=== PATIENT | female | born 1990 | race African-American/Black ===

== ENCOUNTER → 2018-04-14 09:41 | Outpatient (CLI) | payer MEDICAID, SELFPAY ==
[2018-04-14 12:33] LABS: Absolute Lymphocyte Count 2.14 X10^3/ul (0.83-4.51); Absolute Neutrophil Count 9.5 X10^3/uL (2.0-7.7); Basophil# 0.01 X10^3/uL; Basophil% 0.1 % (0-1); Eosinophil# 0.14 X10^3/uL; Eosinophils% 1.1 % (0-5); Hematocrit 34.6 % (37-47); Hemoglobin 11.4 g/dl (12.0-15.0); Lymphocyte # 2.14 X10^3/ul (4.0); Lymphocyte % 17.1 % (19-41); Mean Corp Hgb Conc 32.9 g/gl (32-36); Mean Corpuscular Hgb 27.7 pg (27.0-32.0); Mean Corpuscular Volume 84.2 fL (81-99); Mean Platelet Vol. 9.4 fl (6.2-12.0); Monocyte# 0.72 X10^3/uL; Monocyte% 5.8 % (0-10); Neutrophil # 9.48 X10^3/uL (2.7-7.7); Neutrophil % 75.7 % (47-70); Platelet Count 316 K/mm3 (150-450); RBC Distribution Width CV 13.6 % (11.6-14.6); RBC Distribution Width SD 41.3 fl (35.1-43.9); Red Blood Count 4.11 M/mm3 (4.2-5.4); White Blood Count 12.5 K/mm3 (4.4-11.0)
[2018-04-14 12:35] LABS: POSITIVE COUNT NO; POSITIVE DIFFERENTIAL NO; POSITIVE MORPHOLOGY NO
[2018-04-14 12:50] LABS: Hemoglobin A1c 8.6 % (4.2-6.3)
[2018-04-14 12:54] LABS: ALB/GLOB Ratio 0.8 RATIO (0.9-2.4); AST(SGOT) 7 U/L (15-37); Alanine Aminotransfer ALT/SGPT 19 U/L (13-56); Albumin, Serum 3.1 g/dL (3.2-5.0); Alkaline Phosphatase 40 U/L (45-117); Anion Gap 8 (5-15); BUN 8 mg/dL (7-18); BUN/Creat Ratio 19.1 RATIO (10-20); Calcium,Total 8.8 mg/dL (8.5-10.1); Chloride 105 mmol/L (98-107); Creatinine, Serum 0.42 mg/dL (0.55-1.02); EST Glomerular Filtration Rate 191 mL/min (>60); Est Glom Filt Rate - Afr Amer 231 mL/min (>60); Globulin 3.8 g/dL (2.2-4.2); Glucose 204 mg/dL (74-106); Potassium 3.4 mmol/L (3.5-5.1); Protein, Total 6.9 g/dL (6.4-8.2); Sodium Level 138 mmol/L (136-145); Thyroid Stim Hormone (TSH) 2.99 uIU/mL (0.358-3.74)
[2018-04-14 13:36] LABS: HIV - WCH Non-Reactive (Nonreactive); Rubella IgG 28.7 IU/mL
[2018-04-15 01:17] LABS: Rapid Plasmin Reagin (RPR) NONREACTIVE (NONREACTIVE)
[2018-04-16 07:51] LABS: HEPATITIS B SURFACE AG Negative (Negative); V-Zoster IgG (Immunity) 394 index (Immune >165)
== END ==
PROVIDERS: Visit Provider Nurse Practitioner Women's Health
DX: Z34.90 Encounter for supervision of normal pregnancy, unspecified, unspecified trimester (principal)
CPT/HCPCS: 36415; 80053; 83036; 84443; 85025; 86592; 86703; 86762; 86787; 86850; 86900; 87086; 87088; 87340; 87491; 87591; 88175; G0145

== ENCOUNTER → 2018-04-14 17:23 | Outpatient (CLI) | payer MEDICAID, SELFPAY ==
[2018-04-14 20:19] LABS: Chlamydia Trachomatis by PCR Negative (Negative); Neisserai gonorrhoeae by PCR Negative (Negative); Probe Check PASS; Sample Adequacy Control PASS; Specimen Processing Control PASS
[2018-04-20 12:02] LABS: HPV Reflexed? NOT INDICATED
== END ==
PROVIDERS: Referring Provider Nurse Practitioner Women's Health; Visit Provider Nurse Practitioner Women's Health
DX: Z34.90 Encounter for supervision of normal pregnancy, unspecified, unspecified trimester (principal)
CPT/HCPCS: 82570; 84156; 87086; 87088; 87491; 87591; 88175; G0145

== ENCOUNTER → 2018-04-25 16:00 | Outpatient (CLI) | payer MEDICAID, SELFPAY ==
--- NOTE | 2018-04-25 16:02 | EKG12_ITS ---
Test Reason : TACHY Blood Pressure : / mmHG Vent. Rate : 094 BPM Atrial Rate : 094 BPM P-R Int : 166 ms QRS Dur : 094 ms QT Int : 366 ms P-R-T Axes : 054 060 030 degrees QTc Int : 457 ms Normal sinus rhythm Normal ECG When compared with ECG of 30-JUN-2008 22:13, Vent. rate has decreased BY 47 BPM Confirmed by JAQUI MARIA, LEBRON ([id number]), film editor YAHAIRA HUGO ([id number]) on 04/27/2018 3:35:24 PM Referred By: Alissa Sommers Confirmed By:LEBRON NAILS MD
== END ==
PROVIDERS: Referring Provider Nurse Practitioner Women's Health; Visit Provider Nurse Practitioner Women's Health
DX: O09.90 Supervision of high risk pregnancy, unspecified, unspecified trimester (principal); O24.119 Pre-existing type 2 diabetes mellitus, in pregnancy, unspecified trimester; E11.65 Type 2 diabetes mellitus with hyperglycemia; Z3A.00 Weeks of gestation of pregnancy not specified
CPT/HCPCS: 93005

== ENCOUNTER 2018-06-27 11:45 | Outpatient (CLI) | payer MEDICAID, SELFPAY ==
[2018-06-15 13:38] VITALS: BMI 40.0
[2018-06-27 12:06] VITALS: BMI 41.5
--- NOTE | 2018-06-28 23:29 | OB.TRI.HP_ITS ---
- Problem List (1) tachycardia Status: Acute History of Present Illness Date of Service: 06/27/18 Was patient seen by the physician?: No Reason For Visit: ELEVATED HEART RATE Final RENATO: 10/11/18 Gestational age: 25 Weeks and 0 Days History of Present Illness: presents after being seen by mfm with tachycardia in the 170-180s but she had just smoked a cigarette and was very anxious about her boyfriend's safety Allergies No Known Allergies Allergy (Verified 06/15/18 13:38) - Pertinent Past Medical History Medical History: Past Medical History (Last Reviewed 06/15/18 @ 13:39 by Shanika Mcconnell) Diabetes type 2, uncontrolled (Chronic) baseline labs. Ref MFM and ophthalmology. EKG/normal. Per MFM: increase insulin to 26 units qHS, 20 units with each meal; echo in the next 3 weeks, serial growth US [id number], twice weekly testing starting at 3 2 weeks, recommend delivery at 37-39 weeks; urine culture and HgbA1C qtrimester. Surgical History: Past Surgical History (Last Reviewed 06/15/18 @ 13:39 by Shanika Mcconnell) History of appendectomy NST - FHR Rate Baby A Baseline: 150 Variability:: Moderate Accelerations:: 10 x 10 Decelerations:: None NST Reactive:: Yes, Appropriate for gestational age FHR Category:: Category I Uterine Activity:: no ctx Impression/Plan tachycardia- improved baseline, patient wanting to leave to check on her boyfriend. reviewed movement precautions dc home fu in office
== END 2018-06-27 12:30 | disposition home or self-care (01) ==
LOC: WPOUT 11:51 → WP 11:51
PROVIDERS: Referring Provider Obstetrics & Gynecology; Visit Provider Obstetrics & Gynecology
DX: O76 Abnormality in fetal heart rate and rhythm complicating labor and delivery (principal); Z3A.25 25 weeks gestation of pregnancy; O99.332 Smoking (tobacco) complicating pregnancy, second trimester; F17.210 Nicotine dependence, cigarettes, uncomplicated
CPT/HCPCS: 59025; 59050; 99218; G0378

== ENCOUNTER 2018-07-15 14:40 | Outpatient (CLI) | payer MEDICAID, SELFPAY ==
[2018-07-15 10:25] VITALS: BMI 41.5
[2018-07-15 11:22] LABS: Protein, Urine (Random) 61.8 mg/dL (<11.9); Protein:Creat Ratio 241 mg/g CRE (0-200)
[2018-07-15 11:50] LABS: Absolute Lymphocyte Count 1.46 X10^3/ul (0.83-4.51); Absolute Neutrophil Count 10.9 X10^3/uL (2.0-7.7); Basophil# 0.01 X10^3/uL; Basophil% 0.1 % (0-1); Eosinophil# 0.05 X10^3/uL; Eosinophils% 0.4 % (0-5); Hematocrit 37.3 % (37-47); Lymphocyte # 1.46 X10^3/ul (4.0); Lymphocyte % 10.8 % (19-41); Mean Corp Hgb Conc 32.2 g/gl (32-36); Mean Corpuscular Hgb 27.3 pg (27.0-32.0); Mean Corpuscular Volume 84.8 fL (81-99); Mean Platelet Vol. 8.6 fl (6.2-12.0); Monocyte# 1.06 X10^3/uL; Monocyte% 7.9 % (0-10); Neutrophil # 10.89 X10^3/uL (2.7-7.7); Neutrophil % 80.7 % (47-70); Platelet Count 349 K/mm3 (150-450); RBC Distribution Width CV 13.5 % (11.6-14.6); RBC Distribution Width SD 41.7 fl (35.1-43.9); White Blood Count 13.5 K/mm3 (4.4-11.0)
[2018-07-15 11:51] LABS: POSITIVE COUNT NO; POSITIVE DIFFERENTIAL NO; POSITIVE MORPHOLOGY NO
[2018-07-15 14:49] VITALS: BMI 41.2
[2018-07-15 15:31] LABS: Bedside Glucose 125 mg/dL (70-110)
[2018-07-15 15:34] LABS: Hematocrit 34.8 % (37-47); Hemoglobin 11.6 g/dl (12.0-15.0); Mean Corp Hgb Conc 33.3 g/gl (32-36); Mean Corpuscular Hgb 28.5 pg (27.0-32.0); Mean Corpuscular Volume 85.5 fL (81-99); Mean Platelet Vol. 9.2 fl (6.2-12.0); Platelet Count 369 K/mm3 (150-450); RBC Distribution Width CV 13.3 % (11.6-14.6); RBC Distribution Width SD 41.2 fl (35.1-43.9); Red Blood Count 4.07 M/mm3 (4.2-5.4); Scan Indicated on CBC? Y/N NO; White Blood Count 12.9 K/mm3 (4.4-11.0)
[2018-07-15 15:55] LABS: AST(SGOT) 16 U/L (15-37); Alanine Aminotransfer ALT/SGPT 26 U/L (13-56); Creatinine, Serum 0.45 mg/dL (0.55-1.02); EST Glomerular Filtration Rate 173 mL/min (>60); Est Glom Filt Rate - Afr Amer 210 mL/min (>60); Estimated Creatinine Clearance 187.76 ml/min; Uric Acid 2.5 mg/dL (2.6-6.0)
[2018-07-15 16:42] LABS: Partial Thromboplast Time 26.9 Seconds (24.1-36.2); Prothrombin Time (Protime)PT. 12.8 SECONDS (11.7-14.9)
--- NOTE | 2018-07-15 17:15 | CASEMGMT ---
Social Work Labor and Delivery Patient status: Clinical Outpatient Referral Source: per nursing staff and also OBGYN staff. Reason for Consult: first time mom, social issues, father of baby (FOB) missing; support and resources Informant: Record and patient/mother of baby (MOB) Summary: IVY is a 27 year old single female at [facility] for evaluation of pre-eclampsia. First time mother. MOB endorses recent social stressors and changes. IVY was living out of town and moved to back to [facility], living with IVY's mother Ev Rodriguez. MOB reports Ev Vaca's home was not equipped with appropriate utilities and thus housing was stressful for several months. MOB reports has purchased a home of IVY's own but could not move for several months as the tenants were not yet moved out of the home. MOB reports just moved into the new home on 06/27/2018 and states the home is now adequate. MOB works at [employer], which is usual type work for MOB, but is a lesser pay than what MOB has been used to. Biggest recent stressor is that reported father of baby has been missing for 2 weeks now. MOB reports the FOB does have a substance use history and though the FOB remains missing, the FOB's phone was found in a house up in the [facility]. MOB reports the FOB had been sober for a year and a half, so this is hard to think that there is possible use going on again. Mental Health: MOB admits to history of depression and about 5 years ago had some suicidal ideation. MOB denies any thoughts since that time. MOB admits to some depression this . Denies any thoughts, plans, intent or attempts of suicide during this . MOB reports that does not really care for medications or counseling, that tries to deal with things on own. Substance Use: No reports of any substance use this . Resources for home going: Reviewed with MOB some resources which are sometimes helpful for mothers. Educated to [facility] [employer], [employer] [facility] and [facility] [employer] [facility]. MOB given list of community resolutes which also includes mental health support and crisis lines. Assessment: MOB pleasant and cooperative with social work visit. Affect constricted, tense, though smiled at times and did cry when talking about missing FOB. MOB receptive as expressed interest in resources offered today. MOB acknowledged that may need support for emotional health and expressed understanding that social media strategist will be following up with MOB at delivery; will be following up on topic of depression and support. MOB does report to feel safe in home situation at this time and reports plan to adhere to doctors recommendations for care during . Plan: Home with resources in place. [facility] referral to be made per MOB's verbal consent. -NICK Cardenas, MAIL DISTRIBUTION CLERK
--- NOTE | 2018-07-16 09:28 | OB.TRI.HP_ITS ---
- Problem List (1) Elevated blood pressure affecting in third trimester, antepartum Status: Acute (2) Status: Acute Qualifiers: Comment: Declines all genetic screening including CF, AFP. Anatomy US- normal. Twice weekly testing @ 30 weeks. BPP with MFM weekly, NSTs weekly with US History of Present Illness Date of Service: 07/15/18 Reason For Visit: R/O PRE E History of Present Illness: presented from office with elevated blood pressures. no PIÑA BV N V vb lof admits good fm no regular ctx. is having social and housing issues- will talk to social work here. Allergies No Known Allergies Allergy (Verified 07/15/18 10:25) - Pertinent Past Medical History Medical History: Past Medical History (Last Reviewed 07/15/18 @ 10:25 by Corina Hankins) Diabetes type 2, uncontrolled (Chronic) baseline labs. Ref MFM and ophthalmology. EKG/normal. Per MFM: increase insulin to 26 units qHS, 20 units with each meal; echo in the next 3 weeks, serial growth US [id number], twice weekly testing starting at 32 weeks, recommend delivery at 37-39 weeks; urine culture and HgbA1C qtrimester. Surgical History: Past Surgical History (Last Reviewed 07/15/18 @ 10:25 by Corina Hankins) History of appendectomy Laboratory Studies: Laboratory Tests 07/15/18 07/15/18 07/15/18 Range/Units 15:23 15:00 15:00 WBC (4.4-11.0) K/mm3 RBC (4.2-5.4) M/mm3 Hgb (12.0-15.0) g/dl Hct (37-47) % MCV (81-99) fL MCH (27.0-32.0) pg MCHC (32-36) g/gl RDW (11.6-14.6) % RDW Differential (35.1-43.9) fl Plt Count (150-450) K/mm3 MPV (6.2-12.0) fl Immature Gran % (Auto) (0.0-0.9) % Neut % (Auto) (47-70) % Lymph % (Auto) (19-41) % [place] % (Auto) (0-10) % Eos % (Auto) (0-5) % Baso % (Auto) (0-1) % Absolute Neuts (auto) (2.0-7.7) X10^3/uL Absolute Lymphs (auto) (0.83-4.51) X10^3/ul Total Counted PT 12.8 (11.7-14.9) SECONDS INR 1.0 APTT 26.9 (24.1-36.2) Seconds Creatinine 0.45 L (0.55-1.02) mg/dL Estim Creat Clear Calc 187.76 ml/min Est GFR (MDRD) Af Amer 210 (>60) mL/min Est GFR (MDRD) Non-Af 173 (>60) mL/min Uric Acid 2.5 L (2.6-6.0) mg/dL AST 16 (15-37) U/L ALT 26 (13-56) U/L U Random Total Protein (<11.9) mg/dL Urine Creatinine (NO RANGE EST.) mg/dL Protein/Creatinin Ratio (0-200) mg/g CRE POC Glucose 125 H (70-110) mg/dL 07/15/18 07/15/18 07/15/18 Range/Units 15:00 11:06 11:00 WBC 12.9 H 13.5 H (4.4-11.0) K/mm3 RBC 4.07 L 4.40 (4.2-5.4) M/mm3 Hgb 11.6 L 12.0 (12.0-15.0) g/dl Hct 34.8 L 37.3 (37-47) % MCV 85.5 84.8 (81-99) fL MCH 28.5 27.3 (27.0-32.0) pg MCHC 33.3 32.2 (32-36) g/gl RDW 13.3 13.5 (11.6-14.6) % RDW Differential 41.2 41.7 (35.1-43.9) fl Plt Count 369 349 (150-450) K/mm3 MPV 9.2 8.6 (6.2-12.0) fl Immature Gran % (Auto) 0.100 (0.0-0.9) % Neut % (Auto) 80.7 H (47-70) % Lymph % (Auto) 10.8 L (19-41) % [place] % (Auto) 7.9 (0-10) % Eos % (Auto) 0.4 (0-5) % Baso % (Auto) 0.1 (0-1) % Absolute Neuts (auto) 10.9 H (2.0-7.7) X10^3/uL Absolute Lymphs (auto) 1.46 (0.83-4.51) X10^3/ul Total Counted Not Reportable PT (11.7-14.9) SECONDS INR APTT (24.1-36.2) Seconds Creatinine (0.55-1.02) mg/dL Estim Creat Clear Calc ml/min Est GFR (MDRD) Af Amer (>60) mL/min Est GFR (MDRD) Non-Af (>60) mL/min Uric Acid (2.6-6.0) mg/dL AST (15-37) U/L ALT (13-56) U/L U Random Total Protein 61.8 H (<11.9) mg/dL Urine Creatinine 256.00 (NO RANGE EST.) mg/dL Protein/Creatinin Ratio 241 H (0-200) mg/g CRE POC Glucose (70-110) mg/dL NST - FHR Rate Baby A Baseline: 150 Variability:: Moderate Accelerations:: 10 x 10 Decelerations:: None NST Reactive:: Yes, Appropriate for gestational age FHR Category:: Category I Uterine Activity:: no regular Impression/Plan 27 yo presents with elevated bps in office- repeats are within normal range, patient asymptomatic. BS 126. normal urine protein. recommend close follow up and sees mfm next week. normal labs. reviewed pree precautions dc home
--- NOTE | 2018-07-21 16:30 | CASEMGMT ---
Social Work Labor and Delivery Referral to [facility] via the [facility]'s secure web based referral form. -NICK Cardenas, DIABETES PHYSICIAN
== END 2018-07-15 17:15 | disposition home or self-care (01) ==
LOC: PAVLAB 14:47 → WPOUT 14:48 → WP 14:49
PROVIDERS: Nurse Practitioner Women's Health; Referring Provider Obstetrics & Gynecology; Visit Provider Obstetrics & Gynecology
DX: O26.893 Other specified pregnancy related conditions, third trimester (principal); R03.0 Elevated blood-pressure reading, without diagnosis of hypertension; Z3A.00 Weeks of gestation of pregnancy not specified
CPT/HCPCS: 36415; 59025; 59050; 82565; 82570; 82962; 84156; 84450; 84460; 84550; 85025; 85027; 85610; 85730; 87086; 87088; 99218; G0378

== ENCOUNTER → 2018-07-18 12:58 | Outpatient (CLI) | payer MEDICAID, SELFPAY ==
[2018-07-15 14:49] VITALS: BMI 41.2
[2018-07-18 15:46] LABS: Hematocrit 35.1 % (37-47); Hemoglobin 11.6 g/dl (12.0-15.0); Mean Corpuscular Hgb 28.3 pg (27.0-32.0); Mean Corpuscular Volume 85.6 fL (81-99); Mean Platelet Vol. 9.2 fl (6.2-12.0); Platelet Count 360 K/mm3 (150-450); RBC Distribution Width CV 13.5 % (11.6-14.6); RBC Distribution Width SD 41.8 fl (35.1-43.9); White Blood Count 11.5 K/mm3 (4.4-11.0)
[2018-07-18 16:09] LABS: Scan Indicated on CBC? Y/N NO
[2018-07-18 16:28] LABS: Hemoglobin A1c 7.6 % (4.2-6.3)
== END ==
PROVIDERS: Referring Provider Obstetrics & Gynecology Maternal & Fetal Medicine; Visit Provider Obstetrics & Gynecology Maternal & Fetal Medicine
DX: O24.112 Pre-existing type 2 diabetes mellitus, in pregnancy, second trimester (principal); Z3A.27 27 weeks gestation of pregnancy
CPT/HCPCS: 36415; 83036; 85027; 87086; 87088

== ENCOUNTER → 2018-07-28 09:03 | Outpatient (CLI) | payer MEDICAID, SELFPAY ==
[2018-07-28 08:29] VITALS: BMI 41.2
[2018-07-28 09:25] LABS: Absolute Lymphocyte Count 1.25 X10^3/ul (0.83-4.51); Basophil# 0.01 X10^3/uL; Basophil% 0.1 % (0-1); Eosinophil# 0.06 X10^3/uL; Eosinophils% 0.4 % (0-5); Hemoglobin 11.5 g/dl (12.0-15.0); Lymphocyte # 1.25 X10^3/ul (4.0); Lymphocyte % 8.8 % (19-41); Mean Corp Hgb Conc 31.9 g/gl (32-36); Mean Corpuscular Hgb 27.6 pg (27.0-32.0); Mean Corpuscular Volume 86.3 fL (81-99); Mean Platelet Vol. 8.8 fl (6.2-12.0); Monocyte# 0.88 X10^3/uL; Monocyte% 6.2 % (0-10); Neutrophil # 11.98 X10^3/uL (2.7-7.7); Neutrophil % 84.3 % (47-70); Platelet Count 356 K/mm3 (150-450); Red Blood Count 4.17 M/mm3 (4.2-5.4); White Blood Count 14.2 K/mm3 (4.4-11.0)
[2018-07-28 09:31] LABS: POSITIVE COUNT NO; POSITIVE DIFFERENTIAL NO; POSITIVE MORPHOLOGY NO; Protein, Urine (Random) 20.8 mg/dL (<11.9); Protein:Creat Ratio 317 mg/g CRE (0-200)
[2018-07-28 09:57] LABS: Albumin, Serum 2.5 g/dL (3.2-5.0); BUN 7 mg/dL (7-18); BUN/Creat Ratio 17.8 RATIO (10-20); Creatinine, Serum 0.39 mg/dL (0.55-1.02); EST Glomerular Filtration Rate 204 mL/min (>60); Est Glom Filt Rate - Afr Amer 247 mL/min (>60); Glucose 74 mg/dL (74-106); Protein, Total 6.6 g/dL (6.4-8.2)
[2018-07-28 09:58] LABS: ALB/GLOB Ratio 0.6 RATIO (0.9-2.4); AST(SGOT) 19 U/L (15-37); Alanine Aminotransfer ALT/SGPT 43 U/L (13-56); Alkaline Phosphatase 78 U/L (45-117); Anion Gap 8 (5-15); Calcium,Total 8.6 mg/dL (8.5-10.1); Chloride 109 mmol/L (98-107); Globulin 4.1 g/dL (2.2-4.2); Potassium 3.7 mmol/L (3.5-5.1); Sodium Level 140 mmol/L (136-145)
== END ==
PROVIDERS: Referring Provider Nurse Practitioner Women's Health; Visit Provider Nurse Practitioner Women's Health
DX: O16.3 Unspecified maternal hypertension, third trimester (principal); O24.113 Pre-existing type 2 diabetes mellitus, in pregnancy, third trimester; E11.65 Type 2 diabetes mellitus with hyperglycemia; Z3A.00 Weeks of gestation of pregnancy not specified
CPT/HCPCS: 36415; 80053; 82570; 84156; 85025

== ENCOUNTER → 2018-07-29 14:31 | Outpatient (CLI) | payer MEDICAID, SELFPAY ==
[2018-07-28 08:29] VITALS: BMI 41.2
[2018-07-29 15:22] LABS: 24 Hour Urine Protein 225.2 mg/24HR (<150 MG/24HR); 24HR. UA Prot. Total Volume 1425 mL; Urine Protein (24 Hour) 15.8 mg/dL (<11.9)
== END ==
DX: O10.019 Pre-existing essential hypertension complicating pregnancy, unspecified trimester (principal); Z3A.00 Weeks of gestation of pregnancy not specified
CPT/HCPCS: 81050; 84156

== ENCOUNTER → 2018-08-01 13:58 | Outpatient (CLI) | payer MEDICAID, SELFPAY ==
[2018-07-28 08:29] VITALS: BMI 41.2
== END ==
LOC: LAB 14:01 → LAB.FUTURE 08-02 06:05
PROVIDERS: Referring Provider Obstetrics & Gynecology Maternal & Fetal Medicine; Visit Provider Obstetrics & Gynecology Maternal & Fetal Medicine
DX: O16.3 Unspecified maternal hypertension, third trimester (principal)

== ENCOUNTER → 2018-08-08 10:34 | Outpatient (CLI) | payer MEDICAID, SELFPAY ==
[2018-08-02 10:46] VITALS: BMI 41.2
[2018-08-08 11:36] LABS: Hematocrit 37.4 % (37-47); Hemoglobin 12.1 g/dl (12.0-15.0); Mean Corp Hgb Conc 32.4 g/gl (32-36); Mean Corpuscular Hgb 28.1 pg (27.0-32.0); Mean Corpuscular Volume 86.8 fL (81-99); Mean Platelet Vol. 8.9 fl (6.2-12.0); Platelet Count 357 K/mm3 (150-450); RBC Distribution Width SD 44.3 fl (35.1-43.9); Red Blood Count 4.31 M/mm3 (4.2-5.4); White Blood Count 15.8 K/mm3 (4.4-11.0)
[2018-08-08 11:37] LABS: Scan Indicated on CBC? Y/N NO
[2018-08-08 11:40] LABS: Protein, Urine (Random) 28.8 mg/dL (<11.9)
[2018-08-08 12:10] LABS: ALB/GLOB Ratio 0.6 RATIO (0.9-2.4); AST(SGOT) 19 U/L (15-37); Alanine Aminotransfer ALT/SGPT 43 U/L (13-56); Albumin, Serum 2.5 g/dL (3.2-5.0); Alkaline Phosphatase 81 U/L (45-117); Anion Gap 8 (5-15); BUN 9 mg/dL (7-18); BUN/Creat Ratio 22.7 RATIO (10-20); Calcium,Total 8.9 mg/dL (8.5-10.1); Chloride 106 mmol/L (98-107); EST Glomerular Filtration Rate 202 mL/min (>60); Est Glom Filt Rate - Afr Amer 245 mL/min (>60); Glucose 107 mg/dL (74-106); LDH 159 U/L (84-246); Protein, Total 6.5 g/dL (6.4-8.2); Sodium Level 138 mmol/L (136-145); Uric Acid 2.5 mg/dL (2.6-6.0)
--- OUTSIDE RECORDS SUMMARY | 2018-10-10 20:55 | XMS RPT_ITS ---
:1990 Author Organization OHIP Support Name Relationship Address Phone EV MA Unavailable [address] + [place] [address] [place] Unavailable [address] + [place] [address] EV MAU Unavailable [address] + [place] [address] [place] Unavailable [address] + [place] [address] FRANCESCAMARIZOL SORIANOELY Unavailable [address] + [address] [place] [address] FRANCESCAMARIZOLABRAM Unavailable [address] + [address] [place] [address] FRANCESCA, MARIE Unavailable [address] + [place] [address] [place] Unavailable [address] + [place] [address] FRANCESCAEV SORIANO LOU Unavailable [address] + [place] [address] [place] Unavailable [address] + [place] [address] MARIZOL MAELY Unavailable [address] + [address] [place] [address] FRANCESCA ABRAM Unavailable [address] + [address] [place] [address] FRANCESCA, MARIE Unavailable [address] + [place] [address] [place] Unavailable [address] + [place] [address] FRANCESCA, ABRAM Unavailable [address] + [address] [place] [address] FRANCESCA, ABRAM Unavailable [address] + [address] [place] [address] FRANCESCA, MARIE Unavailable [address] + [place] [address] [place] Unavailable [address] + [place] [address] FRANCESCA, MARIE Unavailable [address] + [place] [address] [place] Unavailable [address] + [place] [address] FRANCESCA, MARIE Unavailable [address] + [place] [address] [place] Unavailable [address] + [place] [address] FRANCESCA, ABRAM Unavailable [address] + [address] [place] [address] FRANCESCA, ABRAM Unavailable [address] + [address] [place] [address] FRANCESCA, MARIE Unavailable [address] + [place] [address] [place] Unavailable [address] + [place] [address] FRANCESCA, MARIE Unavailable [address] + [place] [address] [place] Unavailable [address] + [place] [address] FRANCESCA, MARIE Unavailable [address] + [place] [address] [place] Unavailable [address] + [place] [address] FRANCESCA, MARIE Unavailable [address] + [place] [address] [place] Unavailable [address] + [place] [address] FRANCESCA, MARIE Unavailable [address] + [place] [address] [place] Unavailable [address] + [place] [address] FRANCESCAMARIZOL SORIANOELY Unavailable [address] + [address] [place] [address] FRANCESCA, ABRAM Unavailable [address] + [address] [place] [address] FRANCESCA ABRAM Unavailable [address] + [address] [place] [address] FRANCESCA, MARIE Unavailable [address] + [place] [address] [place] Unavailable [address] + [place] [address] FRANCESCA, MARIE Unavailable [address] + [place] [address] [place] Unavailable [address] + [place] [address] FRANCESCA, ABRAM Unavailable [address] + [address] [place] [address] FRANCESCA, ABRAM Unavailable [address] + [address] [place] [address] FRANCESCAMARIZOL SORIANOELY Unavailable [address] + [address] [place] [address] FRANCESCA ABRAM Unavailable [address] + [address] [place] [address] FRANCESCA, MARIE Unavailable [address] + [place] [address] [place] Unavailable [address] + [place] [address] FRANCESCA, MARIE Unavailable [address] + [place] [address] [place] Unavailable [address] + [place] [address] FRANCESCA, MARIE Unavailable [address] + [place] [address] [place] Unavailable [address] + [place] [address] FRANCESCA, MARIE Unavailable [address] + [place] [address] [place] Unavailable [address] + [place] [address] FRANCESCA, MARIE Unavailable [address] + [place] [address] [place] Unavailable [address] + [place] [address] FRANCESCA, MARIE Unavailable [address] + [place] [address] [place] Unavailable [address] + [place] [address] FRANCESCA, MARIE Unavailable [address] + [place] [address] [place] Unavailable [address] + [place] [address] FRANCESCA, LINCOLN Unavailable Unavailable + FRANCESCA, LINCOLN Unavailable Unavailable + FRANCESCA, LINCOLN Unavailable Unavailable + FRANCESCA, LINCOLN Unavailable Unavailable + Care Team Providers Name Role Phone MELVINRENATANATHAN Attending Unavailable KENDAL BALDERAS Referring Unavailable NO PRIMARY CARE, Primary Care Unavailable MELE HAMMOND Attending Unavailable KENDAL BALDERAS Referring Unavailable NO PRIMARY CARE, Primary Care Unavailable MELE HAMMOND Attending Unavailable KENDAL BALDERAS Referring Unavailable NO PRIMARY CARE, Primary Care Unavailable MELE HAMMOND Attending Unavailable MELE HAMMOND Referring Unavailable NO PRIMARY CARE, Primary Care Unavailable TAMARA KINCAID Attending Unavailable KENDAL BALDERAS Referring Unavailable NO PRIMARY CARE, Primary Care Unavailable TAMARA KINCAID Attending Unavailable KENDAL BALDERAS Referring Unavailable NO PRIMARY CARE, Primary Care Unavailable LINK MASON Attending Unavailable JOHNONY, KENDAL E Referring Unavailable NO PRIMARY CARE, Primary Care Unavailable TAMARA KINCAID Attending Unavailable MARCANTHONY, KENDAL E Referring Unavailable NO PRIMARY CARE, Primary Care Unavailable TAMARA KINCAID Attending Unavailable MARCANTHONY, KENDAL E Referring Unavailable NO PRIMARY CARE, Primary Care Unavailable NATHAN CAMERON Attending Unavailable KASIANTHONY, KENDAL E Referring Unavailable NO PRIMARY CARE, Primary Care Unavailable NATHAN CAMERON Attending Unavailable KASIANTHONY, KENDAL E Referring Unavailable NO PRIMARY CARE, Primary Care Unavailable TAMARA KINCAID Attending Unavailable KASIANTHONY, KENDAL E Referring Unavailable NO PRIMARY CARE, Primary Care Unavailable TAMARA KINCAID Attending Unavailable MARCANTHONY, KENDAL E Referring Unavailable NO PRIMARY CARE, Primary Care Unavailable LINK MASON Attending Unavailable MARCANTHONY, KENDAL E Referring Unavailable NO PRIMARY CARE, Primary Care Unavailable LINK MASON Attending Unavailable KASIANTHONY, KENDAL E Referring Unavailable NO PRIMARY CARE, Primary Care Unavailable PROVIDER, UNKNOWN Admitting Unavailable PROVIDER, UNKNOWN Attending Unavailable ISABEL COSTELLO Referring Unavailable PROVIDER, UNKNOWN Admitting Unavailable PROVIDER, UNKNOWN Attending Unavailable JESSIKA OLMOS Referring Unavailable MARGO BURCHESH G Attending Unavailable KELY ROSALES (MISDRAW HAND) Referring Unavailable OCTAVIANO SANTIAGO Attending Unavailable OCTAVIANO SANTIAGO Referring Unavailable BURCH, JOSH G Attending Unavailable MARCIN JOSH G Referring Unavailable Marcanthony, Kendal Attending Unavailable Marcanthony, Kendal Referring Unavailable Primay Care Physicia, No Primary Care Unavailable Marcanthony, Kendal Consulting Unavailable ArdmoreDarriany Attending Unavailable Primay Care Physicia, No Referring Unavailable Primay Care Physicia, No Primary Care Unavailable Marcanthony, Kendal Attending Unavailable Marcanthony, Kendal Referring Unavailable Matthieu, Alissa Consulting Unavailable Marcanthony, Kendal Attending Unavailable Marcanthony, Kendal Referring Unavailable Primay Care Physicia, No Primary Care Unavailable Matthieu, Alissa Consulting Unavailable Marcanthony, Kendal Consulting Unavailable Beto, Tamara Attending Unavailable Ebto, Tamara Referring Unavailable Primay Care Physicia, No Primary Care Unavailable Ardmore, Alissa Attending Unavailable Primay Care Physicia, No Referring Unavailable Matthieu, Alissa Attending Unavailable Primay Care Physicia, No Referring Unavailable Matthieu, Alissa Attending Unavailable Matthieu, Alissa Attending Unavailable Ardmore, Alissa Referring Unavailable Primay Care Physicia, No Primary Care Unavailable Bacak, Nathan Attending Unavailable Bacak, Nathan Referring Unavailable Primay Care Physicia, No Primary Care Unavailable Beto, Tamara Attending Unavailable Beto, Tamara Referring Unavailable Primay Care Physicia, No Primary Care Unavailable Marcanthony, Kendal Attending Unavailable Primay Care Physicia, No Referring Unavailable Beto, Tamara Attending Unavailable Beto, Tamara Referring Unavailable Primay Care Physicia, No Primary Care Unavailable Marcanthony, Kendal Attending Unavailable Primay Care Physicia, No Referring Unavailable Ardmore, Alissa Attending Unavailable Matthieu, Alissa Referring Unavailable Ardmore, Alissa Attending Unavailable Matthieu, Alissa Referring Unavailable Primay Care Physicia, No Primary Care Unavailable Jiagr, Isac Attending Unavailable Ardmore, Alissa Referring Unavailable Primay Care Physicia, No Primary Care Unavailable Ardmore, Alissa Consulting Unavailable Marcanthony, Kendal Attending Unavailable Primay Care Physicia, No Referring Unavailable Jigar, Poston Attending Unavailable Ardmore, Alissa Referring Unavailable Ardmore, Alissa Attending Unavailable Primay Care Physicia, No Referring Unavailable Ardmore, Alissa Attending Unavailable Primay Care Physicia, No Referring Unavailable Marcanthony, Kendal Attending Unavailable Marcanthony, Kendal Referring Unavailable Primay Care Physicia, No Primary Care Unavailable PROBLEMS PROBLEMS DATE TYPE CONDITION / CODE ATTENDING STATUS SOURCE 08/08/2018 Unknown E11.65 - Type 2 Zi, Active [place] diabetes mellitus [facility] with hyperglycemia Hospital / E11.65(ICD-10) Repository 08/08/2018 Unknown O10.919 - Zi, Active [place] Unspecified [facility] pre-existing Hospital hypertension Repository complicating , unspecified trimester / O10.919(ICD-10) 08/08/2018 Unknown Z3A.30 - 30 weeks Zi, Active [place] gestation of [facility] / Hospital Z3A.30(ICD-10) Repository 08/08/2018 Unknown O09.93 - Zi, Active [place] Supervision of high [facility] risk , Hospital unspecified, third Repository trimester / O09.93(ICD-10) 08/08/2018 Unknown O16.3 - Unspecified Tamara Kincaid Active [place] maternal [facility] hypertension, third Hospital trimester / Repository O16.3(ICD-10) 07/29/2018 Unknown O10.019 - Nathan Cameron Active [place] Pre-existing [facility] essential Hospital hypertension Repository complicating , unspecified trimester / O10.019(ICD-10) 07/28/2018 Unknown O09.92 - MatthieuAlissa aawd Active [place] Supervision of high Community risk , Hospital unspecified, second Repository trimester / O09.92(ICD-10) 07/28/2018 Unknown Z20.821 - Contact ArdmoreAlissa awad Active [place] with and Community (suspected) Hospital exposure to Zika Repository virus / Z20.821(ICD-10) 07/28/2018 Unknown Z3A.29 - 29 weeks Matthieu, Alissa Active [place] gestation of [facility] / Hospital Z3A.29(ICD-10) Repository 07/18/2018 Unknown O24.112 - Tamara Kincaid Active [place] Pre-existing type 2 [facility] diabetes mellitus, Hospital in , Repository second trimester / O24.112(ICD-10) 07/18/2018 Unknown Z3A.27 - 27 weeks Tamara Kincaid Active [place] gestation of [facility] / Hospital Z3A.27(ICD-10) Repository 07/27/2018 Unknown O16.2 - Unspecified Marcanthony, Active [place] maternal [facility] second trimester / Repository O16.2(ICD-10) 07/27/2018 Unknown R30.0 - Dysuria / Marcanthony, Active [place] R30.0(ICD-10) [facility] Repository 07/15/2018 Unknown N39.0 - Urinary Ardmore, Alissa Active [place] tract infection, Community site not specified Hospital / N39.0(ICD-10) Repository 06/27/2018 Unknown Z3A.23 - 23 weeks Ardmore, Alissa Active [place] gestation of [facility] / Hospital Z3A.23(ICD-10) Repository 05/26/2018 Unknown Z3A.14 - 14 weeks Marcanthony, Active [place] gestation of [facility] / Hospital Z3A.14(ICD-10) Repository 05/26/2018 Unknown Z23 - Encounter for Marcanthony, Active [place] immunization / Kendal [facility] Z23(ICD-10) Hospital Repository 08/09/2018 Unknown O09.90 - Alissa Sommers Active [place] Supervision of high Community risk , Hospital unspecified, Repository unspecified trimester / O09.90(ICD-10) 06/01/2018 Unknown O09.91 - JigarRay jainril Active [place] Supervision of high Community risk , Hospital unspecified, first Repository trimester / O09.91(ICD-10) 08/09/2018 Unknown Z34.90 - Encounter Alissa Sommers Active [place] for supervision of Community normal , Hospital unspecified, Repository unspecified trimester / Z34.90(ICD-10) 04/29/2018 Unknown Z12.4 - Encounter Alissa Sommers Active [place] for screening for Community malignant neoplasm [facility] / Repository Z12.4(ICD-10) PROCEDURES PROCEDURES DATE CODE DESCRIPTION STATUS SOURCE 09/24/2017 50168(C4) BIOPSY, SKIN, Completed [facility] [employer] SUBQ/MUCOUS MEMBRANE; System Repository SINGLE LESION 09/24/2017 AP111(C4) SPECIMEN FOR DERM Completed [facility] Repository 09/15/2017 41818(C4) ERYTHROCYTE Completed [facility] [employer] SEDIMENTATION RATE System Repository 09/15/2017 75299(C4) C-REACTIVE PROTEIN Completed [facility] Repository 09/15/2017 32313(C4) STEPHANIE PANEL Completed [facility] Repository 09/15/2017 78909(C4) C3 COMPLEMENT Completed [facility] Repository 09/15/2017 29401(C4) C4 COMPLEMENT Completed [facility] Repository 09/15/2017 MHR580(C4) DERMATOLOGY SERVICE Completed The [employer] REQUEST System Repository 09/15/2017 74685(C4) EXTRA TUBE Completed The [employer] System Repository RESULTS RESULTS REAL ESTATE JOB TITLES OFFICE VISIT Observed: 08/08/2018 Status: F Source: [place] REPORT 4:02 PM [facility] [address] [place] [address] OFFICE VISIT Date of Service: 08/08/18 MR#: [id number] Acct: [id number] Name: ABRAM MA Rep #: [id number] : 1990 Provider: Kendal Balderas MD Age/Sex: 27/F Location: [facility] Status: Signed Intake Vital Signs08/08/18 Height 5 ft 8 in 08/08/18 Weight: 285 lb 08/08/18 Body Mass Index (BMI) 43.3 08/08/18 Blood Pressure 150/90 H Intake Visit Reasons: 31 weeks/NST Chief Complaint: est ob, NST Account Classification Clerk Required: No Is patient in pain?: No Allergies No Known Allergies Allergy (Verified 08/08/18 15:12) Medications docosahexanoic acid 200 mg capsule 1 mg PO DAILY cap 04/14/18 [History Confirmed 08/08/18] metformin 1,000 mg tablet 1 mg PO BID tab 04/14/18 [History Confirmed 08/08/18] blood sugar diagnostic strips See Dose Instructions .ROUTE .MEDSUPPLY #100 ea 07/15/18 [Rx Confirmed 08/08/18] insulin NPH isophane U- 100 human 100 unit/mL subcutaneous suspension 26 unit SC QPM #10 ml 07/15/18 [Rx Confirmed 08/08/18] insulin lispro (U- 100) 100 unit/mL subcutaneous solution 26 unit SC .COMPLEX #0 ml 07/15/18 [Rx Confirmed 08/08/18] blood pressure monitor kit See Dose Instructions .ROUTE .MEDSUPPLY #1 ea 08/08/18 [Rx Confirmed 08/08/18] Last Menstral Period: 01/04/18 Zika: Zika virus screening: Negative : No PFSH PFSH Medical History Diabetes type 2, uncontrolled (Chronic) Surgical History History of appendectomy (Acute) Family History Mother Diabetes Grandmother CVA (cerebral vascular accident) Social History Smoking Status: Current every day smoker alcohol intake: never substance use type: does not use caffeine: Yes what type of physical activity do you participate in: none seatbelt use: always do you feel safe at home: Yes additional social history: [employer]mratxxu-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 unable to give urine specimen for 2 dip OB Visit RENATO Calculator Estimated Delivery Date 10/11/18 Based on LMP (uncertain) 01/04/18 Current WG 30w 6d Number 1 Expected Delivery Route/Plan Specific Issue/Plans flu vaccine: given tdap vaccine: decline rhogam: na LARC form signed: declines labor support person: Mother Ev Vaca pain management: epidural cut cord/dad catch: [] : yes PP control planned: IUD special requests: [] Initial Weight: Not Recorded Date Weight BP Urine PrFHR FuHt Pres MoCTX DilationFetal StVisit NoProviderComments E ot v te GA G Effac lucose ed Visit Notes Visit Date: 08/08/18 no vb lof good fm no regular ctx saw MFM today and had insulin adjusted, bp was 132/80 there. no PIÑA BV. Kendal Balderas MD on 08/08/18 Visit Date: 08/02/18 elevated bp at home yesterday but normal today, asymptomatic. better glucose control after MFM adjustment. no vb lof good fm no regular ct Kendal Balderas MD on 08/02/18 Visit Date: 07/28/18 Note elevated BP. Glucose reading also high. Consult HUMBERTO: has MFM appt today. NO VB, LOF, CTX Alissa Sommers NP-C on 07/28/18 Visit Date: 07/15/18 Note elevated BP today. States glucose normal but did not bring reading. No VB, LOF, CTX Alissa Sommers NP-C on 07/15/18 Visit Date: 06/15/18 No VB, LOF. MFM increase amdelog and needs refill. Alissa Sommers NP-C on 06/15/18 Visit Date: 06/08/18 Walked in with no FM today. Easily access FHT with doppler and FM audible. No Vb, LOF Alissa Sommers NP-C on 06/08/18 Visit Date: 05/12/18 no vb cramping reveiwed BS- pateitn started NPH and novolog, increased to 22 u at night and 17 with breakfast, keep novolog with other meals Kendal Balderas MD on 05/12/18 Visit Date: 04/14/18 No visit notes to display Diagnostics Diagnostics Labs Hct 37.4 % (37-47) 08/08/18 Hgb 12.1 g/dl (12.0-15.0) 08/08/18 Details: HIV: Urine Culture: Sequential Screen: NIPT Screen: Office Procedures OB NST Non-Stress Test Indications for Monitoring: Yes diabetes, Yes hypertension Heart Rate Baseline: 140 Heart Rate Variability: moderate Movement: Present Heart Rate Accelerations: Present Decelerations: Absent Contractions: Absent Impression: Yes Reactive Non-Stress Test Category 1 Assessment AND Plan Problems 1. Chronic hypertension affecting O10.919 no meds 2. 30 weeks gestation of Z3A.30 Declines all genetic screening including CF, AFP. Anatomy US- normal. Twice weekly testing @ 30 weeks. BPP with MFM weekly, NSTs weekly with US at 30 weeks serial growth US [id number]; feta testing 2x per week with daily kick counts 3. Supervision of high risk in third trimester O PRR Grav 2/ RENATO 10/11/18 boy BF Deny. 4. Uncontrolled type 2 diabetes mellitus with hyperglycemia E11.65 baseline labs. Ref MFM and ophthalmology. EKG/normal. Per MFM: increase insulin to 26 units qHS, 20 units with each meal; echo in the next 3 weeks, serial growth US q5lpqxg, twice weekly testing starting at 32 weeks, recommend delivery at 37-39 weeks; urine culture and HgbA1C qtrimester. Plan movement and labor precautions reviewed. ACOG trimester education reviewed and updated. see problem list details for updated plan management information and see below for orders placed at this visit. [place] appropriate handout given. Orders Orders: Medications New: blood pressure monitor kit (Blood Pressure Kitake twice daily and call if SBP>160 or DBP>1 t) 10 1 ea 0RF Coding Level of Care Code OB Routine Diagnoses Chronic hypertension affecting O10.919 30 weeks gestation of Z3A.30 Weeks of gestation: 30 weeks Supervision of high risk in third trimester O Trimester: third trimester Uncontrolled type 2 diabetes mellitus with hyperglycemia E11.65 Glycemic state: with hyperglycemia Additional Codes Non-Stress Test (29676) 08/08/18 1602 <Electronically signed by Kendal Balderas MD> Date Kendal Solizign Signature: Date (if applicable) CC: CBC-COMPLETE BLOOD CNT Collected: 08/08/2018 Status: F Source: [place] NO DIFF 10:42 AM [facility] TYPE CODE TESTS RESULT OUT OF RANGE REFERENCE UNITS LAB L100.1000 4.4-11.0 K/mm3 High WBC 15.8 LAB L100.1200 4.2-5.4 M/mm3 Normal RBC 4.31 LAB L100.1300 12.0-15.0 g/dl Normal HGB 12.1 LAB L100.1400 37-47 % Normal HCT 37.4 LAB L100.1500 81-99 fL Normal MCV 86.8 LAB L100.1600 27.0-32.0 pg Normal MCH 28.1 LAB L100.1700 32-36 g/gl Normal MCHC 32.4 LAB L100.1810 11.6-14.6 % Normal RDW CV 14.0 LAB L100.1820 35.1-43.9 fl High RDW SD 44.3 LAB L100.1900 150-450 K/mm3 Normal PLT 357 LAB L100.2000 6.2-12.0 fl Normal MPV 8.9 Performed By: #### L100.0500 #### [facility] [address] [place], [place], [address] CREATININE, URINE Collected: 08/08/2018 Status: F Source: [place] (RANDOM) 10:42 AM [facility] TYPE CODE TESTS RESULT OUT OF RANGE REFERENCE UNITS LAB L501.1200 NO RANGE EST. mg/dL Normal UR CREAT 90.80 Performed By: #### L501.1200, L501.1930 #### [facility] [address] [place], [address] PROTEIN, URINE Collected: 08/08/2018 Status: F Source: [place] (RANDOM) 10:42 AM [facility] TYPE CODE TESTS RESULT OUT OF RANGE REFERENCE UNITS LAB L501.1930 <11.9 mg/dL High 28.8 PROTEIN,UR.R AN. Performed By: #### L501.1200, L501.1930 #### [facility] [address] [place], [address] COMPREHENSIVE METABOLIC Collected: 08/08/2018 Status: F Source: [place] PROFIL 10:42 AM [facility] Order Comment: Serial Specimen #1, #2 or #3? 1 TYPE CODE TESTS RESULT OUT OF RANGE REFERENCE UNITS LAB L501.0100 74-106 mg/dL High GLU 107 Result Comment: Fasting Glucose result from 100 to 125 mg/dL suggests IMPAIRED HOMEOSTASIS per A.D.A. criteria. Please note revised GLUCOSE reference range effective 2017. LAB L501.1000 7-18 mg/dL Normal BUN 9 LAB L501.1100 0.55-1.02 mg/dL Low CREAT,SERUM 0.40 Result Comment: The validity of the calculated GFR AND GFRAA in patients over 70 years has not been determined. Clinical correlation is essential. LAB L501.1110 >60 mL/min Normal EST GFR 202 Result Comment: Non- GFR Calc LAB L501.1115 >60 mL/min Normal EST GFR - AA 245 Result Comment: GFR Calc LAB L501.1300 10-20 RATIO High BUN/CRE 22.7 LAB L501.1500 6.4-8.2 g/dL T Normal PROT 6.5 LAB L501.1800 3.2-5.0 g/dL Low ALB 2.5 LAB L501.1950 2.2-4.2 g/dL Normal GLOB 4.0 LAB L501.2000 0.9-2.4 RATIO Low A/G 0.6 LAB L501.2200 8.5-10.1 mg/dL CA Normal 8.9 LAB L501.4100 15-37 U/L Normal AST 19 LAB L501.4305 45-117 U/L Normal ALK P 81 LAB L501.4405 13-56 U/L Normal ALT 43 LAB L501.4600 0.20-1.00 mg/dL T Normal BILI 0.30 LAB L501.5300 136-145 mmol/L NA Normal 138 LAB L501.5600 3.5-5.1 mmol/L K Normal 4.0 LAB L501.5900 98-107 mmol/L CL Normal 106 LAB L501.6100 21.0-32.0 mmol/L Normal CO2 24.0 LAB L501.6200 5-15 Normal GAP 8 Performed By: #### L500.4050, L501.1400, L504.2610 #### [facility] [address] [place], [address] URIC ACID Collected: 08/08/2018 Status: F Source: [place] 10:42 AM [facility] Order Comment: Serial Specimen #1, #2 or #3? 1 TYPE CODE TESTS RESULT OUT OF RANGE REFERENCE UNITS LAB L501.1400 2.6-6.0 mg/dL Low URIC 2.5 Result Comment: The drugs N-Acetylcysteine and Metamizole may falsely depress this assay. Performed By: #### L500.4050, L501.1400, L504.2610 #### [facility] [address] [place], [place], [address] LDH Collected: 08/08/2018 Status: F Source: [place] 10:42 AM [facility] Order Comment: Serial Specimen #1, #2 or #3? 1 TYPE CODE TESTS RESULT OUT OF RANGE REFERENCE UNITS LAB L504.2610 84-246 U/L Normal LDH 159 Performed By: #### L500.4050, L501.1400, L504.2610 #### [facility] [address] [place], [address] PROGRESS NOTE Observed: 08/08/2018 Status: COMPLETED Source: [place] 10:30 AM [facility] REPOSITORY DIABETES AND PROGRAM COMANAGEMENT Referring/Requesting Provider: Kendal Balderas MD PCP: [facility], MD Bindu CHIEF COMPLAINT: T2DM HISTORY OF PRESENT ILLNESS: Abram is a 27 y.o. at 30w6d with T2DM on NPH 44 units QHS, Log , Metformin 1000 BID. Blood glucose record was reviewed. Hyperglycemia is present fasting (4/5 values). One elevated post breakfast and one elevated post dinner. The rest of the BG are at goal. She denies PIÑA/N/V/visual changes/abdominal pain. No concerns today. Plans to go to the lab following today's appointment for labs ordered last week. Needs to update cell phone number today. OB History Para Term AB Living 2 0 0 0 1 0 SAB TAB Ectopic Multiple Live Births 1 0 0 0 0 # Outcome Date GA Lbr Aldo/2nd Weight Sex Delivery Anes PTL Lv 2 Current 1 SAB 2014 Comments: no D&C needed PAST MEDICAL HISTORY: Past Medical History: Diagnosis Date Benign essential hypertension, antepartum 07/18/2018 Depression meds in past Diabetes mellitus, type 2 PAST SURGICAL HISTORY: Past Surgical History: Procedure Laterality Date APPENDECTOMY 1995 MEDS: Current Outpatient Medications on File Prior to Visit Medication Sig Dispense Refill metFORMIN (GLUMETZA) ER tablet 1000 mg Take 1,000 mg by mouth 2 times daily 60 Tab 3 Blood Glucose Monitoring Suppl w/Device KIT Please provide glucometer covered by patient's insurance. Use to check blood sugars as directed 1 Each 1 glucose blood (ONE TOUCH ULTRA) test strip Please provide test strips covered by patient's insurance. Use to check blood sugars 4-7 times daily as directed. 200 Each 5 aspirin 81 MG chewable tablet Take 1 Tab (81 mg) by mouth daily 30 Tab 5 Insulin Lispro (ADMELOG SOLOSTAR) 100 UNIT/ML SOPN Inject into the skin Pt takes 20 units with breakfast, 24 units with lunch and 26 units with dinner Indications: Type 2 Diabetes Vit-Fe Fumarate-FA ( VITAMIN PO) Take by mouth daily NONFORMULARY Psillium husk prn for constipation No current facility-administered medications on file prior to visit. ALLERGY: No Known Allergies PHYSICAL EXAM: VITAL SIGNS: BP 132/80 Ht 175.3 cm Wt (!) 127.5 kg (281 lb) LMP 01/04/2018 BMI 41.48 kg/m AAOx3, NAD IMAGING: BPP 02/23 IMPRESSION AND RECOMMENDATIONS: Abram is a 27 y.o. at 30w6d with Active Non-Hospital Problems Diagnosis Date Noted Benign essential hypertension, antepartum 07/18/2018 States she has history of previous HTN, treated. BP has been elevated since early in . Recommend antihypertensive therapy with BP 160/105. Continue low dose aspirin. 24 hour urine protein ordered 07/29/18 < 300 mg. Pt completing preeclampsia labs today that were ordered last week. Preeclampsia precautions reviewed. Homeless 06/27/2018February - June/2018. Now has a home 06/26/18 with electricity, refrigeration, running water, kitchen. Declines additional resources at this time. Noncompliance with treatment 06/20/2018 Depression affecting 06/20/2018 Mood stable Pre-existing type 2 diabetes mellitus in in third trimester 05/17/2018 Insulin adjusted, NPH increased to 48 units QHS. Med list updated. Check glucose levels fasting and 1hour post prandial with a goal of fasting <90 and 1hr post prandial <140 (or 2 hour post prandial < 140) echo normal Urine culture and Hgb A1c q trimester. Hgb A1c 7.6% 07/18/18. S/p nutrition consult 05/17 Obesity affecting in third trimester 05/17/2018 Recommend no more than 11-20 lb weight gain in Recommend 30 minutes of moderate activity 5 times a week Supervision of other high risk , antepartum 05/17/2018 Co-management PLAN OF CARE (Zi) MD/OB APPOINTMENTS Genetic screening: per primary OB How often should patient be evaluated? q 1-2 weeks depending on glucose control. Work restrictions: none EVALUATION surveillance: twice weekly starting at 28 weeks Ultrasound: echo WNL, serial growth ultrasounds every 4 weeks DELIVERY PLAN Hospital: [facility] Induction at 37-39 weeks, recommend delivery if the EFW >4500 gms GBS culture: Contraception: : yes Follow up weekly with MFM for diabetes management, BPP. We will call Abram and Dr. Balderas if labs today are of concern. The total patient time of the visit was 10 minutes, of which was greater than 50% of the time was spent counseling and coordinating care. [employer] OFFICE VISIT Observed: 08/02/2018 Status: F Source: [place] REPORT 11:40 AM [facility] [address] [place] [address] OFFICE VISIT Date of Service: 08/02/18 MR#: [id number] Acct: [id number] Name: ABRAM MA Rep #: [id number] : 1990 Provider: Kendal Balderas MD Age/Sex: 27/F Location: [facility] Status: Signed with Addenda ADDENDUM by Kendal Balderas MD on 08/02/18 at 1140 OFFICE PROCEDURES Office Procedure Documentation entered by Kendal Balderas MD 08/02/18 11:40: OB NST Non-Stress Test Indications for Monitoring: Yes diabetes, Yes hypertension Heart Rate Baseline: 140 Heart Rate Variability: moderate Movement: Present Heart Rate Accelerations: Present Decelerations: Absent Contractions: Absent Impression: Yes Reactive Non-Stress Test Category 1 08/02/18 1140 <Electronically signed by Kendal Balderas MD> Date Kendal Balderas MD cc: * Signed Intake Vital Signs08/02/18 Body Mass Index (BMI) 41.2 Intake Visit Reasons: 30 weeks/NST Chief Complaint: est ob Account Classification Clerk Required: No Is patient in pain?: No Allergies No Known Allergies Allergy (Verified 08/02/18 10:45) Medications docosahexanoic acid 200 mg capsule 1 mg PO DAILY cap 04/14/18 [History Confirmed 08/02/18] metformin 1,000 mg tablet 1 mg PO BID tab 04/14/18 [History Confirmed 08/02/18] blood sugar diagnostic strips See Dose Instructions .ROUTE .MEDSUPPLY #100 ea 07/15/18 [Rx Confirmed 08/02/18] insulin NPH isophane U- 100 human 100 unit/mL subcutaneous suspension 26 unit SC QPM #10 ml 07/15/18 [Rx Confirmed 08/02/18] insulin lispro (U- 100) 100 unit/mL subcutaneous solution 26 unit SC .COMPLEX #0 ml 07/15/18 [Rx Confirmed 08/02/18] Last Menstral Period: 01/04/18 Zika: Zika virus screening: Negative : No PFSH PFSH Medical History Diabetes type 2, uncontrolled (Chronic) Surgical History History of appendectomy (Acute) Family History Mother Diabetes Grandmother CVA (cerebral vascular accident) Social History Smoking Status: Current every day smoker alcohol intake: never substance use type: does not use caffeine: Yes what type of physical activity do you participate in: none seatbelt use: always do you feel safe at home: Yes additional social history: Eqcyehtnn-Zpsugc-Bbxrh 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 OB Visit RENATO Calculator Estimated Delivery Date 10/11/18 Based on LMP (uncertain) 01/04/18 Current WG 30w 0d Number 1 Expected Delivery Route/Plan Specific Issue/Plans flu vaccine: given tdap vaccine: decline rhogam: na LARC form signed: declines labor support person: Mother Ev Vaca pain management: epidural cut cord/dad catch: [] : yes PP control planned: IUD special requests: [] Initial Weight: Not Recorded Date Weight BP Urine PrFHR FuHt Pres MoCTX DilationFetal StVisit NoProviderComments E ot v te GA G Effac lucose ed Visit Notes Visit Date: 08/02/18 elevated bp at home yesterday but normal today, asymptomatic. better glucose control after MFM adjustment. no vb lof good fm no regular ct Kendal Balderas MD on 08/02/18 Visit Date: 07/28/18 Note elevated BP. Glucose reading also high. Consult HUMBERTO: has MFM appt today. NO VB, LOF, CTX ELAINA Evans on 07/28/18 Visit Date: 07/15/18 Note elevated BP today. States glucose normal but did not bring reading. No VB, LOF, CTX Alissa Sommers NP-C on 07/15/18 Visit Date: 06/15/18 No VB, LOF. MFM increase amdelog and needs refill. SHANELL EvansC on 06/15/18 Visit Date: 06/08/18 Walked in with no FM today. Easily access FHT with doppler and FM audible. No Vb, LOF ELAINA Evans on 06/08/18 Visit Date: 05/12/18 no vb cramping reveiwed BS- pateitn started NPH and novolog, increased to 22 u at night and 17 with breakfast, keep novolog with other meals Kendal Balderas MD on 05/12/18 Visit Date: 04/14/18 No visit notes to display ACOG First Trimester First Trimester: Diagnostics Diagnostics Labs Hct 36.0 % (37-47) L 07/28/18 Hgb 11.5 g/dl (12.0-15.0) L 07/28/18 Blood Type A POSITIVE 04/14/18 Antibody Screen NEGATIVE 04/14/18 VZV IgG Antibody 394 index (Immune >165) 04/14/18 Rubella IgG Antibody 28.7 IU/mL 04/14/18 RPR NONREACTIVE (NONREACTIVE) 04/14/18 Hep Bs Antigen Negative (Negative) 04/14/18 Chlam trachomat DNA PCR Negative (Negative) 04/14/18 N.gonorrhoeae DNA (PCR) Negative (Negative) 04/14/18 Miscellaneous Test 04/14/18 Details: HIV: Urine Culture: Sequential Screen: NIPT Screen: Results [id number] Office Urine Glucose Negative Last Edit by Vaishnavi Anand on 08/02/18 10:56 Office Urine Protein Negative Last Edit by Vaishnavi Anand on 08/02/18 10:56 Assessment AND Plan Problems 1. tachycardia 2. Exposure to Zika virus Z20.821 negative test 3. 30 weeks gestation of Z3A.30 Declines all genetic screening including CF, AFP. Anatomy US- normal. Twice weekly testing @ 30 weeks. BPP with MFM weekly, NSTs weekly with US at 30 weeks serial growth US [id number]; feta testing 2x per week with daily kick counts LMTCO 08/02/18 4. Supervision of high risk in third trimester O09.93 PRR Grav 2/1 RENATO 10/11/18 boy BF Deny. 5. Uncontrolled type 2 diabetes mellitus with hyperglycemia E11.65 baseline labs. Ref MFM and ophthalmology. EKG/normal. Per MFM: increase insulin to 26 units qHS, 20 units with each meal; echo in the next 3 weeks, serial growth US [id number], twice weekly testing starting at 32 weeks, recommend delivery at 37-39 weeks; urine culture and HgbA1C qtrimester. Plan movement and labor precautions reviewed. ACOG trimester education reviewed and updated. see problem list details for updated plan management information and see below for orders placed at this visit. GA appropriate handout given. Orders Orders: Coding Level of Care Code OB Routine Diagnoses tachycardia Exposure to Zika virus Z20.821 30 weeks gestation of Z3A.30 Weeks of gestation: 30 weeks Supervision of high risk in third trimester O09.93 Trimester: third trimester Uncontrolled type 2 diabetes mellitus with hyperglycemia E11.65 Glycemic state: with hyperglycemia 08/02/18 1122 <Electronically signed by Kendal Balderas MD> Date Kendal Balderas MD Cosigner Signature: Date (if applicable) CC: PROGRESS NOTE Observed: 08/01/2018 Status: COMPLETED Source: [place] 1:00 PM [facility] REPOSITORY Comanage PregestationalDiabetes Mellitus Abram Ma is seen at 29w6d for comanagement of Pregestational Diabetes Mellitus and Obesity. She denies any complaints today. Her blood glucose record was not available for review. Her insulin did not change and oral medications Metformin did not change. Current dose is NPH 38 Units at 10pm, Humalog/Novalog 20 units before breakfast, Humalog/Novalog 22 units before lunch, Humalog/Novalog 24 units before dinner and Metformin 1000 mg BID. History of Presenting Problem: She is unaccompanied. Pregestational Diabetes Abram presents today for her comanage visit. She has type 2 diabetes. Her symptom course is compliant (does not check blood sugars regularly). Current treatments include diet, insulin injections and oral agent (monotherapy). She is compliant with treatment some of the time. Blood glucose readings reviewed. Readings are as follows: all fasting values above goals, 50% of lunch and dinner values above goals. Blood glucose ranges are > 20% of values above. Patient Active Problem List Diagnosis Pre-existing type 2 diabetes mellitus in in third trimester Obesity affecting in third trimester Supervision of other high risk , antepartum Noncompliance with treatment Depression affecting Homeless Benign essential hypertension, antepartum Physical Exam: Vitals Extended Weight - Scale: (!) 128.4 kg (283 lb) Ultrasound: 1. Intrauterine at 29 6/7 weeks. 2. Normal amniotic fluid volume, 10.5 cm. 3. Reassuring testing, BPP 02/23. Impression: 1. Type 2 DM, managed with insulin and metformin. Blood sugars show increased values. We discussed changes to insulin. Will keep metformin as ordered. New Rx requested for metformin. 2. Chronic HTN. Patient denies symptoms of preeclampsia. Blood pressures elevated today. She had baseline 24 hr urine, 225 mg. We discussed obtaining labs today to evaluate for superimposed preeclampsia. Precautions reviewed. 3. See problem list for concerns not addressed in today's visit. Follow up Plan: 1. Comanage visit in 1 week. 2. Increase NPH at night to 44 units, Log for lunch to 24 units, dinner 26 units. Keep other insulin and metformin the same. 3. Continue Testing 2 times a week. She will do BPP's in our office on Mondays. She will need NST at her primary OB's office on . 4. Growth assessment every 4 weeks. 5. Labs ordered: Preeclampsia labs. The total patient time of the visit was 15 minutes, of which greater than 50% of the time was spent counseling and coordinating care. PROTEIN, URINE 24HR Collected: 07/29/2018 Status: F Source: [place] 2:30 PM [facility] TYPE CODE TESTS RESULT OUT OF RANGE REFERENCE UNITS LAB L501.1850 24.0 HOURS Normal UR COLLECT 24.0 TIME LAB L501.1875 mL Normal UR TOTAL 1425 VOLUME LAB L501.1900 <11.9 mg/dL High URINE PROTEIN 15.8 LAB L501.1925 <150 MG/24HR mg/24HR High 24hr UR 225.2 PROTEIN Performed By: #### L500.9000 #### [facility] [address] [place], [address] PROGRESS NOTE Observed: 07/28/2018 Status: COMPLETED Source: [place] 10:45 AM [facility] REPOSITORY DIABETES AND PROGRAM COMANAGEMENT Referring/Requesting Provider: Kendal Balderas MD PCP: No Primary Care, MD Bindu CHIEF COMPLAINT: T2DM, CHTN HISTORY OF PRESENT ILLNESS: Abram is a 27 y.o. at 29w2d with T2DM and CHTN on NPH 32 Units at night, Log , and Metformin 1000 mg BID. Her blood glucose record was reviewed. Frequent fasting and postprandial hyperglycemia are present. Abram's HgbA1c was 7.6% on 07/18/18. She denies any obstetric complaints or signs/symptoms of preeclampsia. OB HISTORY: OB History Para Term AB Living 2 0 0 0 1 0 SAB TAB Ectopic Multiple Live Births 1 0 0 0 0 # Outcome Date GA Lbr Aldo/2nd Weight Sex Delivery Anes PTL Lv 2 Current 1 SAB 2014 Comments: no D&C needed PAST MEDICAL HISTORY: Past Medical History: Diagnosis Date Benign essential hypertension, antepartum 07/18/2018 Depression meds in past Diabetes mellitus, type 2 PAST SURGICAL HISTORY: Past Surgical History: Procedure Laterality Date APPENDECTOMY 1995 MEDS: Current Outpatient Medications on File Prior to Visit Medication Sig Dispense Refill Blood Glucose Monitoring Suppl w/Device KIT Please provide glucometer covered by patient's insurance. Use to check blood sugars as directed 1 Each 1 glucose blood (ONE TOUCH ULTRA) test strip Please provide test strips covered by patient's insurance. Use to check blood sugars 4-7 times daily as directed. 200 Each 5 metFORMIN (GLUCOPHAGE) 1000 MG Take 1 Tab (1,000 mg) by mouth 2 times daily Before meals 60 Each 5 aspirin 81 MG chewable tablet Take 1 Tab (81 mg) by mouth daily 30 Tab 5 insulin isophane (HUMULIN N; NOVOLIN N) 100 UNIT/ML SUSP injection Inject 26 Units into the skin At bedtime 24 units via pen qhs (Patient taking differently: Inject 38 Units into the skin At bedtime 38 units via pen qhs) 30 mL 0 Insulin Lispro (ADMELOG SOLOSTAR) 100 UNIT/ML SOPN Inject into the skin Pt takes 20 units with breakfast, 26 units with lunch and 28 units with dinner Indications: Type 2 Diabetes Vit-Fe Fumarate-FA ( VITAMIN PO) Take by mouth daily NONFORMULARY Psillium husk prn for constipation No current facility-administered medications on file prior to visit. ALLERGY: No Known Allergies PHYSICAL EXAM: VITAL SIGNS: BP (!) 144/72 Wt (!) 125.9 kg (277 lb 9.6 oz) LMP 01/04/2018 BMI 40.98 kg/m AAOx3, NAD IMAGING: Biophysical profile is 02/23. Normal amniotic fluid volume. IMPRESSION AND RECOMMENDATIONS: Abram is a 27 y.o. at 29w2d with Active Non-Hospital Problems Diagnosis Date Noted Benign essential hypertension, antepartum 07/18/2018 States she has history of previous HTN, treated. BP has been elevated since early in . Recommend antihypertensive therapy with BP 160/105. Continue low dose aspirin. Concern for evolving SI preeclampsia. UPC ratio today in [place] 0.3. Remainder of preeclampsia labs WNL. 24 hour urine protein ordered 07/28/18. Will turn into [place] lab. Preeclampsia precautions reviewed. Homeless 06/27/2018February - June/2018. Now has a home 06/26/18 with electricity, refrigeration, running water, kitchen. Declines additional resources at this time. Noncompliance with treatment 06/20/2018 Depression affecting 06/20/2018 Mood stable Pre-existing type 2 diabetes mellitus in in second trimester 05/17/2018 Check glucose levels fasting and 1hour post prandial with a goal of fasting <90 and 1hr post prandial <140 (or 2 hour post prandial < 140) Patient reports NPH 38 units at night; Log 20 with breakfast, 22 with lunch and 24 with dinner echo normal Urine culture and Hgb A1c q trimester. Hgb A1c 7.6% 07/18/18. S/p nutrition consult 05/17 Obesity affecting in third trimester 05/17/2018 Recommend no more than 11-20 lb weight gain in Recommend 30 minutes of moderate activity 5 times a week Supervision of other high risk , antepartum 05/17/2018 Co-management PLAN OF CARE (Zi) MD/OB APPOINTMENTS Genetic screening: per primary OB How often should patient be evaluated? q 1-2 weeks depending on glucose control. Work restrictions: none EVALUATION surveillance: twice weekly starting at 28 weeks Ultrasound: echo WNL, serial growth ultrasounds every 4 weeks DELIVERY PLAN Hospital: [facility] Induction at 37-39 weeks, recommend delivery if the EFW >4500 gms GBS culture: Contraception: : yes Follow up Wednesday in [place] as scheduled. The total patient time of the visit was 15 minutes, of which was greater than 50% of the time was spent counseling and coordinating care. Nathan Cameron DO CBC W/DIFF, AUTOMATED Collected: 07/28/2018 Status: F Source: [place] 9:07 AM [facility] TYPE CODE TESTS RESULT OUT OF RANGE REFERENCE UNITS LAB L100.1000 4.4-11.0 K/mm3 High WBC 14.2 LAB L100.1200 4.2-5.4 M/mm3 Low RBC 4.17 LAB L100.1300 12.0-15.0 g/dl Low HGB 11.5 LAB L100.1400 37-47 % Low HCT 36.0 LAB L100.1500 81-99 fL Normal MCV 86.3 LAB L100.1600 27.0-32.0 pg Normal MCH 27.6 LAB L100.1700 32-36 g/gl Low MCHC 31.9 LAB L100.1810 11.6-14.6 % Normal RDW CV 14.0 LAB L100.1820 35.1-43.9 fl High RDW SD 44.0 LAB L100.1900 150-450 K/mm3 Normal PLT 356 LAB L100.2000 6.2-12.0 fl Normal MPV 8.8 LAB L100.2100 47-70 % High NEUT% 84.3 LAB L100.2200 19-41 % Low LY% 8.8 LAB L100.2300 0-10 % Normal MONO% 6.2 LAB L100.2400 0-5 % Normal EO% 0.4 LAB L100.2500 0-1 % Normal BASO% 0.1 LAB L100.2550 0.0-0.9 % Normal IM GRAN % 0.200 Result Comment: IG% - Immature Granulocytes (promyelocytes, myelocytes and metamyelocytes) > 1% indicates that a LEFT SHIFT is Present. LAB L100.2620 2.0-7.7 X10 3/uL High Absolute Neut 12.0 LAB L100.2720 0.83-4.51 X10 3/ul Normal Absolute Lymph 1.25 Performed By: #### L100.0100 #### [facility] [address] [place], [address] PROTEIN+CREATININE Collected: Status: F Source: [place] RATIO,URINE 07/28/2018 9:07 AM [facility] TYPE CODE TESTS RESULT OUT OF RANGE REFERENCE UNITS LAB L501.1200 NO RANGE EST. mg/dL Normal UR CREAT 65.60 LAB L501.1930 <11.9 mg/dL High 20.8 PROTEIN,UR.R AN. LAB L501.1940 0-200 mg/g CRE High PROT:CRE 317 RATIO Performed By: #### L501.0900 #### [facility] [address] [place], [place], [address] COMPREHENSIVE METABOLIC Collected: 07/28/2018 Status: F Source: [place] PROFIL 9:07 AM [facility] TYPE CODE TESTS RESULT OUT OF RANGE REFERENCE UNITS LAB L501.0100 74-106 mg/dL Normal GLU 74 Result Comment: Please note revised GLUCOSE reference range effective 2017. LAB L501.1000 7-18 mg/dL Normal BUN 7 LAB L501.1100 0.55-1.02 mg/dL Low CREAT,SERUM 0.39 Result Comment: The validity of the calculated GFR AND GFRAA in patients over 70 years has not been determined. Clinical correlation is essential. LAB L501.1110 >60 mL/min Normal EST GFR 204 Result Comment: Non- GFR Calc LAB L501.1115 >60 mL/min Normal EST GFR - AA 247 Result Comment: GFR Calc LAB L501.1300 10-20 RATIO Normal BUN/CRE 17.8 LAB L501.1500 6.4-8.2 g/dL T Normal PROT 6.6 LAB L501.1800 3.2-5.0 g/dL Low ALB 2.5 LAB L501.1950 2.2-4.2 g/dL Normal GLOB 4.1 LAB L501.2000 0.9-2.4 RATIO Low A/G 0.6 LAB L501.2200 8.5-10.1 mg/dL CA Normal 8.6 LAB L501.4100 15-37 U/L Normal AST 19 LAB L501.4305 45-117 U/L Normal ALK P 78 LAB L501.4405 13-56 U/L Normal ALT 43 LAB L501.4600 0.20-1.00 mg/dL T Normal BILI 0.20 LAB L501.5300 136-145 mmol/L NA Normal 140 LAB L501.5600 3.5-5.1 mmol/L K Normal 3.7 LAB L501.5900 98-107 mmol/L High CL 109 LAB L501.6100 21.0-32.0 mmol/L Normal CO2 23.0 LAB L501.6200 5-15 Normal GAP 8 Performed By: #### L500.4050 #### [facility] [address] [place], [address] [employer] OFFICE VISIT Observed: 07/28/2018 Status: F Source: [place] REPORT 8:40 AM [facility] [address] [place] [address] OFFICE VISIT Date of Service: 07/28/18 MR#: [id number] Acct: [id number] Name: ABRAM MA Rep #: [id number] : 1990 Provider: UMESH Sommers Age/Sex: 27/F Location: [facility] Status: Signed Intake Vital Signs07/28/18 Body Mass Index (BMI) 41.2 07/28/18 Height 5 ft 8 in 07/28/18 Weight: 279 lb 8 oz 07/28/18 Body Mass Index (BMI) 42.5 07/28/18 Blood Pressure 150/90 H Intake Visit Reasons: 29 weeks Account Classification Clerk Required: No Is patient in pain?: No Allergies No Known Allergies Allergy (Verified 07/28/18 08:16) Medications docosahexanoic acid 200 mg capsule 1 mg PO DAILY cap 04/14/18 [History Confirmed 07/28/18] metformin 1,000 mg tablet 1 mg PO BID tab 04/14/18 [History Confirmed 07/28/18] blood sugar diagnostic strips See Dose Instructions .ROUTE .MEDSUPPLY #100 ea 07/15/18 [Rx Confirmed 07/28/18] insulin NPH isophane U- 100 human 100 unit/mL subcutaneous suspension 26 unit SC QPM #10 ml 07/15/18 [Rx Confirmed 07/28/18] insulin lispro (U- 100) 100 unit/mL subcutaneous solution 26 unit SC .COMPLEX #0 ml 07/15/18 [Rx Confirmed 07/28/18] Last Menstral Period: 01/04/18 Zika: Zika virus screening: Negative : No PFSH PFSH Medical History Diabetes type 2, uncontrolled (Chronic) Surgical History History of appendectomy (Acute) Family History Mother Diabetes Grandmother CVA (cerebral vascular accident) Social History Smoking Status: Current every day smoker alcohol intake: never substance use type: does not use caffeine: Yes what type of physical activity do you participate in: none seatbelt use: always do you feel safe at home: Yes additional social history: Dgzylfrhv-Dysgvs-Hsjyu 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 OB Visit RENATO Calculator Estimated Delivery Date 10/11/18 Based on LMP (uncertain) 01/04/18 Current WG 29w 2d Number 1 Expected Delivery Route/Plan Specific Issue/Plans flu vaccine: given tdap vaccine: decline rhogam: na LARC form signed: declines labor support person: Mother Ev Vaca pain management: epidural cut cord/dad catch: [] : yes PP control planned: IUD special requests: [] Initial Weight: Not Recorded Date Weight BP Urine PrFHR FuHt Pres MoCTX DilationFetal StVisit NoProviderComments E ot v te GA G Effac lucose ed Visit Notes Visit Date: 07/28/18 Note elevated BP. Glucose reading also high. Consult HUMBERTO: has MFM appt today. NO VB, LOF, CTX Alissa Sommers GATEHOUSE ATTENDANT-C on 07/28/18 Visit Date: 07/15/18 Note elevated BP today. States glucose normal but did not bring reading. No VB, LOF, CTX Alissa Sommers GATEHOUSE ATTENDANT-C on 07/15/18 Visit Date: 06/15/18 No VB, LOF. MFM increase amdelog and needs refill. Alissa Sommers NP-C on 06/15/18 Visit Date: 06/08/18 Walked in with no FM today. Easily access FHT with doppler and FM audible. No Vb, LOF Alissa Sommers GATEHOUSE ATTENDANT-C on 06/08/18 Visit Date: 05/12/18 no vb cramping reveiwed BS- pateitn started NPH and novolog, increased to 22 u at night and 17 with breakfast, keep novolog with other meals Kendal Balderas MD on 05/12/18 Visit Date: 04/14/18 No visit notes to display ACOG First Trimester First Trimester: Diagnostics Diagnostics Labs Blood Type A POSITIVE 04/14/18 Antibody Screen NEGATIVE 04/14/18 Hct 35.1 % (37-47) L 07/18/18 Hgb 11.6 g/dl (12.0-15.0) L 07/18/18 VZV IgG Antibody 394 index (Immune >165) 04/14/18 Rubella IgG Antibody 28.7 IU/mL 04/14/18 RPR NONREACTIVE (NONREACTIVE) 04/14/18 Hep Bs Antigen Negative (Negative) 04/14/18 Chlam trachomat DNA PCR Negative (Negative) 04/14/18 N.gonorrhoeae DNA (PCR) Negative (Negative) 04/14/18 Miscellaneous Test 04/14/18 Details: HIV: Urine Culture: Sequential Screen: NIPT Screen: ROS Const Reports system reviewed and no additional complaints, except as docu GI Denies nausea, Denies vomiting, Denies abdominal pain Exam Const General: cooperative Nutritional Appearance: well nourished GI Palpation: soft, nontender, other (gravid) Assessment AND Plan Problems 1. Supervision of high risk in second trimester O09.92 PRR Grav 2/ RENATO 10/11/18 BF Deny. 2. Uncontrolled type 2 diabetes mellitus with hyperglycemia E11.65 baseline labs. Ref MFM and ophthalmology. EKG/normal. Per MFM: increase insulin to 26 units qHS, 20 units with each meal; echo in the next 3 weeks, serial growth US [id number], twice weekly testing starting at 32 weeks, recommend delivery at 37-39 weeks; urine culture and HgbA1C qtrimester. 3. Elevated blood pressure affecting in third trimester, antepartum O16.3 4. tachycardia 5. Exposure to Zika virus Z20.821 negative test 6. 29 weeks gestation of Z3A.29 Declines all genetic screening including CF, AFP. Anatomy US- normal. Twice weekly testing @ 30 weeks. BPP with MFM weekly, NSTs weekly with US Plan Orders placed: Urine protein creatinine, CMP, CBC See MFM today for further management DM and HTN, HUMBERTO will call them Reviewed of labor precautions, movement/kick counts ACOG trimester education reviewed and updated See problem list details for updated plan of care Gestational age appropriate handout given RTO: 1 week OB and NST. Aware also needs to start BPP next week with MFM Orders Orders: Coding Level of Care Code Off vis,est,level 3 Diagnoses Supervision of high risk in second trimester O09.92 Trimester: second trimester Uncontrolled type 2 diabetes mellitus with hyperglycemia E11.65 Glycemic state: with hyperglycemia Elevated blood pressure affecting in third trimester, antepartum O16.3 tachycardia Exposure to Zika virus Z20.821 29 weeks gestation of Z3A.29 Weeks of gestation: 29 weeks 07/28/18 0840 <Electronically signed by Alissa DELANEY> Date Alissa DELANEY Cosigner Signature: Date (if applicable) CC: CBC-COMPLETE BLOOD CNT Collected: 07/18/2018 Status: F Source: [place] NO DIFF 1:12 PM [facility] TYPE CODE TESTS RESULT OUT OF RANGE REFERENCE UNITS LAB L100.1000 4.4-11.0 K/mm3 High WBC 11.5 LAB L100.1200 4.2-5.4 M/mm3 Low RBC 4.10 LAB L100.1300 12.0-15.0 g/dl Low HGB 11.6 LAB L100.1400 37-47 % Low HCT 35.1 LAB L100.1500 81-99 fL Normal MCV 85.6 LAB L100.1600 27.0-32.0 pg Normal MCH 28.3 LAB L100.1700 32-36 g/gl Normal MCHC 33.0 LAB L100.1810 11.6-14.6 % Normal RDW CV 13.5 LAB L100.1820 35.1-43.9 fl Normal RDW SD 41.8 LAB L100.1900 150-450 K/mm3 Normal PLT 360 LAB L100.2000 6.2-12.0 fl Normal MPV 9.2 Performed By: #### L100.0500 #### [facility] [address] [place], [place], [address] HEMOGLOBIN A1C Collected: 07/18/2018 Status: F Source: [place] 1:12 PM [facility] TYPE CODE TESTS RESULT OUT OF RANGE REFERENCE UNITS LAB L501.9985 4.2-6.3 % High HGB A1C 7.6 Performed By: #### L501.9985 #### [facility] [address] [place], [address] Observed: 07/18/2018 Status: F Source: [place] CULTURE, URINE 1:12 PM [facility] Urine Culture ORGANISM 1: Mixed Gram Positive Organisms [place] Count 11,000-25,000 MIX CULTURE Mixed contaminants. Submit a new specimen if indicated. Performed By: #### M100.0650 #### [facility] [address], [place], [address] PROGRESS NOTE Observed: 07/18/2018 Status: COMPLETED Source: [place] 12:00 PM [facility] REPOSITORY Comanage PregestationalDiabetes Mellitus Abram Ma is seen at 27w6d for comanagement of Pregestational Diabetes Mellitus and Obesity. She denies any complaints today. Her blood glucose record was not available for review. Her insulin did not change and oral medications Metformin did not change. Current dose is NPH 26 Units at 10pm, Humalog/Novalog 17 units before breakfast, Humalog/Novalog 22 units before lunch, Humalog/Novalog 24 units before dinner and Metformin 1000 mg BID. History of Presenting Problem: She is accompanied by her relative(s). Pregestational Diabetes Abram presents today for her comanage visit. She has type 2 diabetes. Her symptom course is noncompliant (does not check blood sugars regularly). Current treatments include diet, insulin injections and oral agent (monotherapy). She is compliant with treatment some of the time. Blood glucose readings reviewed. Readings are as follows: all fasting values above goals, 50% of fasting values above goals, occasional elevations in lunch and dinner but not enough values to see pattern. Patient Active Problem List Diagnosis Pre-existing type 2 diabetes mellitus in in second trimester Obesity affecting in second trimester Supervision of other high risk , antepartum Noncompliance with treatment Depression affecting Homeless Physical Exam: Vitals Extended BP: 140/78 Weight - Scale: (!) 123.2 kg (271 lb 8 oz) Height: 175.3 cm Movement: Present Vaginal Bleeding: Absent Cramps / Contractions: Absent Mucous Discharge: Absent Ultrasound: 1. Single, living IUP at 27w6d by clinical RENATO. 2. There is appropriate interval growth. 3. EFW is 1204 gm at the 58th percentile for stated gestational age. AC measures 28%. 4. Amniotic fluid volume appeared normal, 12.9 cm. 5. Placenta is normal without evidence of previa. 6. Anatomic survey performed as noted above, but was limited due to late gestational age and maternal body habitus. However, no gross anomalies were identified. 7. BPP was 8/8. Impression: 1. Type 2 DM, managed with insulin and metformin. Patient did not check blood sugars regularly. She has states she was sick last week and did not eat much. We discussed importance of checking blood sugars especially when ill due to high values results from stress of illness. Physiologic changes to and insulin resistance were reviewed. Patient encouraged to check blood sugars more frequently. We discussed antepartum testing twice weekly. She will need to schedule NSTs with her primary OB's office on . 2. Obesity. Patient has had increased weight gain during . Patient was homeless and now has a place to live and is able to eat more appropriately. Will continue to monitor complications associated with obesity. 3. Chronic HTN. Patient denies symptoms of preeclampsia. She has had increased BP since beginning of . She states she has had hypertension in the past.She has already done baseline preeclampsia labs. She is encouraged to take low dose baby aspirin. Will continue to monitor BP. 4. See problem list for concerns not addressed in today's visit. Follow up Plan: 1. Comanage visit in 1 week. 2. Increase NPH at night to 32 units, Log for breakfast to 20 units. Keep other insulin and metformin the same. 3. Rx sent for glucometer, test strips, baby aspirin, and metformin. 4. Testing 2 times a week starting at 28 weeks. She will do BPP's in our office on Mondays. She will need NST at her primary OB's office on . 5. Growth assessment every 4 weeks. 6. Labs ordered: CBC, HBA1c, urine culture. The total patient time of the visit was 15 minutes, of which greater than 50% of the time was spent counseling and coordinating care. BEDSIDE GLUCOSE Collected: 07/15/2018 Status: F Source: [place] 3:23 PM [facility] TYPE CODE TESTS RESULT OUT OF REFERENCE UNITS RANGE LAB L501.080 70-110 mg/dL High BEDSIDE GLU 125 Result Comment: MANAGEMENT OF PATIENT CARE PER NURSING PROTOCOL Performed By: #### L501.080 #### [facility] [place] [address] CBC-COMPLETE BLOOD CNT Collected: 07/15/2018 Status: F Source: [place] NO DIFF 3:00 PM [facility] TYPE CODE TESTS RESULT OUT OF RANGE REFERENCE UNITS LAB L100.1000 4.4-11.0 K/mm3 High WBC 12.9 LAB L100.1200 4.2-5.4 M/mm3 Low RBC 4.07 LAB L100.1300 12.0-15.0 g/dl Low HGB 11.6 LAB L100.1400 37-47 % Low HCT 34.8 LAB L100.1500 81-99 fL Normal MCV 85.5 LAB L100.1600 27.0-32.0 pg Normal MCH 28.5 LAB L100.1700 32-36 g/gl Normal MCHC 33.3 LAB L100.1810 11.6-14.6 % Normal RDW CV 13.3 LAB L100.1820 35.1-43.9 fl Normal RDW SD 41.2 LAB L100.1900 150-450 K/mm3 Normal PLT 369 LAB L100.2000 6.2-12.0 fl Normal MPV 9.2 Performed By: #### L100.0500, L501.1105, L501.1400, L501.4100, L501.4405 #### [facility] [address] [place], [place], [id number] SERUM CREATININE AND Collected: 07/15/2018 Status: F Source: [place] GFR 3:00 PM [facility] TYPE CODE TESTS RESULT OUT OF RANGE REFERENCE UNITS LAB L501.1100 0.55-1.02 mg/dL Low 0.45 CREAT,SERUM Result Comment: The validity of the calculated GFR AND GFRAA in patients over 70 years has not been determined. Clinical correlation is essential. LAB L501.1110 >60 mL/min Normal EST GFR 173 Result Comment: Non- GFR Calc LAB L501.1115 >60 mL/min Normal EST GFR - AA 210 Result Comment: GFR Calc LAB L501.1255 ml/min Normal Estimated CRCL 187.76 Performed By: #### L100.0500, L501.1105, L501.1400, L501.4100, L501.4405 #### [facility] [address] [place], [place], [id number] URIC ACID Collected: 07/15/2018 Status: F Source: [place] 3:00 PM [facility] TYPE CODE TESTS RESULT OUT OF RANGE REFERENCE UNITS LAB L501.1400 2.6-6.0 mg/dL Low URIC 2.5 Result Comment: The drugs N-Acetylcysteine and Metamizole may falsely depress this assay. Performed By: #### L100.0500, L501.1105, L501.1400, L501.4100, L501.4405 #### [facility] [address] [place], [address] AST(SGOT) Collected: 07/15/2018 Status: F Source: [place] 3:00 PM [facility] TYPE CODE TESTS RESULT OUT OF RANGE REFERENCE UNITS LAB L501.4100 15-37 U/L Normal AST 16 Performed By: #### L100.0500, L501.1105, L501.1400, L501.4100, L501.4405 #### [facility] [address] [place], [address] ALANINE AMINOTRANSFERAS Collected: 07/15/2018 Status: F Source: ORAICO (SGPT) 3:00 PM [facility] TYPE CODE TESTS RESULT OUT OF RANGE REFERENCE UNITS LAB L501.4405 13-56 U/L Normal ALT 26 Performed By: #### L100.0500, L501.1105, L501.1400, L501.4100, L501.4405 #### [facility] [address] [place], [address] PROTHROMBIN TIME W/INR Collected: 07/15/2018 Status: F Source: [place] 3:00 PM [facility] TYPE CODE TESTS RESULT OUT OF RANGE REFERENCE UNITS LAB L300.4150 11.7-14.9 SECONDS Normal PROTIME 12.8 LAB L300.4200 Normal INR 1.0 Performed By: #### L300.3900, L300.4310 #### [facility] [address] [place], [address] PARTIAL THROMBOPLAST Collected: 07/15/2018 Status: F Source: [place] TIME 3:00 PM [facility] TYPE CODE TESTS RESULT OUT OF RANGE REFERENCE UNITS LAB L300.4310 24.1-36.2 Seconds Normal PTT 26.9 Performed By: #### L300.3900, L300.4310 #### [facility] [address] [place], [address] [employer] OFFICE VISIT Observed: 07/15/2018 Status: F Source: [place] REPORT 11:35 AM [facility] [address] [place] [address] OFFICE VISIT Date of Service: 07/15/18 MR#: [id number] Acct: [id number] Name: ABRAM MA Rep #: [id number] : 1990 Provider: UMESH Sommers Age/Sex: 27/F Location: [facility] Status: Signed Intake Vital Signs07/15/18 Blood Pressure 140/84 H Intake Visit Reasons: 27 weeks/Discuss home life Account Classification Clerk Required: No Is patient in pain?: No Allergies No Known Allergies Allergy (Verified 07/15/18 10:25) Medications docosahexanoic acid 200 mg capsule 1 mg PO DAILY cap 04/14/18 [History Confirmed 07/15/18] metformin 1,000 mg tablet 1 mg PO BID tab 04/14/18 [History Confirmed 07/15/18] blood sugar diagnostic strips See Dose Instructions .ROUTE .MEDSUPPLY #100 ea 07/15/18 [Rx Confirmed 07/15/18] insulin NPH isophane U- 100 human 100 unit/mL subcutaneous suspension 26 unit SC QPM #10 ml 07/15/18 [Rx Confirmed 07/15/18] insulin lispro (U- 100) 100 unit/mL subcutaneous solution 26 unit SC .COMPLEX #0 ml 07/15/18 [Rx Confirmed 07/15/18] Last Menstral Period: 01/04/18 Zika: Zika virus screening: Negative : No PFSH PFSH Medical History Diabetes type 2, uncontrolled (Chronic) Surgical History History of appendectomy (Acute) Family History Mother Diabetes Grandmother CVA (cerebral vascular accident) Social History Smoking Status: Current every day smoker alcohol intake: never substance use type: does not use caffeine: Yes what type of physical activity do you participate in: none seatbelt use: always do you feel safe at home: Yes additional social history: Qbrcdtfcu-Ayiwdl-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 OB Visit RENATO Calculator Estimated Delivery Date 10/11/18 Based on LMP (uncertain) 01/04/18 Current WG 27w 3d Number 1 Expected Delivery Route/Plan Specific Issue/Plans flu vaccine: given tdap vaccine: [] rhogam: na LARC form signed: [] labor support person: Mother Ev Vaca pain management: epidural cut cord/dad catch: [] : yes PP control planned: [] special requests: [] Initial Weight: Not Recorded Date Weight BP Urine PrFHR FuHt Pres MoCTX DilationFetal StVisit NoProviderComments E ot v te GA G Effac lucose ed Visit Notes Visit Date: 07/15/18 Note elevated BP today. States glucose normal but did not bring reading. No VB, LOF, CTX Alissa Sommers GATEHOUSE ATTENDANT-C on 07/15/18 Visit Date: 06/15/18 No VB, LOF. MFM increase amdelog and needs refill. Alissa Sommers NP-C on 06/15/18 Visit Date: 06/08/18 Walked in with no FM today. Easily access FHT with doppler and FM audible. No Vb, LOF Alissa Sommers NP-C on 06/08/18 Visit Date: 05/12/18 no vb cramping reveiwed BS- pateitn started NPH and novolog, increased to 22 u at night and 17 with breakfast, keep novolog with other meals Kendal Balderas MD on 05/12/18 Visit Date: 04/14/18 No visit notes to display ACOG First Trimester First Trimester: Diagnostics Diagnostics Labs Blood Type A POSITIVE 04/14/18 Antibody Screen NEGATIVE 04/14/18 Hct Pending 07/15/18 Hgb Pending 07/15/18 VZV IgG Antibody 394 index (Immune >165) 04/14/18 Rubella IgG Antibody 28.7 IU/mL 04/14/18 RPR NONREACTIVE (NONREACTIVE) 04/14/18 Hep Bs Antigen Negative (Negative) 04/14/18 Chlam trachomat DNA PCR Negative (Negative) 04/14/18 N.gonorrhoeae DNA (PCR) Negative (Negative) 04/14/18 Miscellaneous Test 04/14/18 Details: HIV: Urine Culture: Sequential Screen: NIPT Screen: ROS Const Reports system reviewed and no additional complaints, except as docu GI Denies nausea, Denies vomiting, Denies abdominal pain Exam Const General: cooperative Nutritional Appearance: well nourished GI Palpation: soft, nontender, other (gravid) Results BMSUA Office Urine Color STRAW Last Edit by Corina Hankins on 07/15/18 11:04 Office Urine Clarity Clear Last Edit by Corina Hankins on 07/15/18 11:04 Assessment AND Plan Problems 1. Supervision of high risk in second trimester O09.92 Grav 08/19 RENATO 10/11/18 BF Deny. 2. Uncontrolled type 2 diabetes mellitus with hyperglycemia E11.65 baseline labs. Ref MFM and ophthalmology. EKG/normal. Per MFM: increase insulin to 26 units qHS, 20 units with each meal; echo in the next 3 weeks, serial growth US [id number], twice weekly testing starting at 32 weeks, recommend delivery at 37-39 weeks; urine culture and HgbA1C qtrimester. 3. 27 weeks gestation of Z3A.27 Declines all genetic screening including CF, AFP. Anatomy US- normal. Twice weekly testing @ 30 weeks. BPP with MFM weekly, NSTs weekly with US 4. Exposure to Zika virus Z20.821 negative test 5. tachycardia 6. Elevated BP without diagnosis of hypertension R03.0 7. Dysuria R30.0 Plan Orders placed: Pre E labs, CBC, urine culture Consult Dr. Balderas: to for monitoring, check blood sugar. She has MFM appt 07/18 Will need to start weekly BBP(MFM) and NST(BWC) at 30 wk Reviewed of labor precautions, movement/kick counts ACOG trimester education reviewed and updated See problem list details for updated plan of care Gestational age appropriate handout given Attempt to discuss questionable housing issues and support in and states everything fine, did not want to talk to SW. Also encouraged can contact care center for support RTO: 1 week Orders Orders: Medications New: blood sugar diagnostic strips (Truetrack Test QID (check fasting and 2 hr pp) 100 ea 4RF strips) Changed: To: insulin lispro (U- (Admelog U-) 26 unit SC 17U at breakfast, 22U lunch, 24 dinner; 0 mL 3RF Coding Level of Care Code Off vis,est,level 3 Diagnoses Supervision of high risk in second trimester O09.92 Trimester: second trimester Uncontrolled type 2 diabetes mellitus with hyperglycemia E11.65 Glycemic state: with hyperglycemia 27 weeks gestation of Z3A.27 Weeks of gestation: 27 weeks Exposure to Zika virus Z20.821 tachycardia Elevated BP without diagnosis of hypertension R03.0 Dysuria R30.0 07/15/18 1135 <Electronically signed by Alissa Sommers GATEHOUSE ATTENDANT-C> Date Alissa Sommers GATEHOUSE ATTENDANT-C Cosigner Signature: Date (if applicable) CC: CBC W/DIFF, AUTOMATED Collected: 07/15/2018 Status: F Source: [place] 11:06 AM [facility] TYPE CODE TESTS RESULT OUT OF RANGE REFERENCE UNITS LAB L100.1000 4.4-11.0 K/mm3 High WBC 13.5 LAB L100.1200 4.2-5.4 M/mm3 Normal RBC 4.40 LAB L100.1300 12.0-15.0 g/dl Normal HGB 12.0 LAB L100.1400 37-47 % Normal HCT 37.3 LAB L100.1500 81-99 fL Normal MCV 84.8 LAB L100.1600 27.0-32.0 pg Normal MCH 27.3 LAB L100.1700 32-36 g/gl Normal MCHC 32.2 LAB L100.1810 11.6-14.6 % Normal RDW CV 13.5 LAB L100.1820 35.1-43.9 fl Normal RDW SD 41.7 LAB L100.1900 150-450 K/mm3 Normal PLT 349 LAB L100.2000 6.2-12.0 fl Normal MPV 8.6 LAB L100.2100 47-70 % High NEUT% 80.7 LAB L100.2200 19-41 % Low LY% 10.8 LAB L100.2300 0-10 % Normal MONO% 7.9 LAB L100.2400 0-5 % Normal EO% 0.4 LAB L100.2500 0-1 % Normal BASO% 0.1 LAB L100.2550 0.0-0.9 % Normal IM GRAN % 0.100 Result Comment: IG% - Immature Granulocytes (promyelocytes, myelocytes and metamyelocytes) > 1% indicates that a LEFT SHIFT is Present. LAB L100.2620 2.0-7.7 X10 3/uL High Absolute Neut 10.9 LAB L100.2720 0.83-4.51 X10 3/ul Normal Absolute Lymph 1.46 Performed By: #### L100.0100 #### [facility] [address] [place], [address] PROTEIN+CREATININE Collected: Status: F Source: ORACIO RATIO,URINE 07/15/2018 11:00 AM [facility] TYPE CODE TESTS RESULT OUT OF RANGE REFERENCE UNITS LAB L501.1200 NO RANGE EST. mg/dL Normal UR CREAT 256.00 LAB L501.1930 <11.9 mg/dL High 61.8 PROTEIN,UR.R AN. LAB L501.1940 0-200 mg/g CRE High PROT:CRE 241 RATIO Performed By: #### L501.0900 #### [facility] [address] [place], [address] Observed: 07/15/2018 Status: F Source: [place] CULTURE, URINE 11:00 AM [facility] Urine Culture ORGANISM 1: Lactobacillus species [place] Count >100,000 Performed By: #### M100.0650 #### [facility] [address] [place], [address] PROGRESS NOTE Observed: 06/27/2018 Status: COMPLETED Source: [place] 10:00 AM [facility] REPOSITORY DIABETES AND PROGRAM COMANAGEMENT Referring/Requesting Provider: Kendal Balderas MD PCP: [facility], MD Bindu CHIEF COMPLAINT: T2DM HISTORY OF PRESENT ILLNESS: Abram is a 27 y.o. at 24w6d with T2DM on Metformin 100 BID, NPH 24 QHS, Log . Blood glucose record was reviewed. She checks her BG 0-3 times daily. She reports she was basically homeless since February. She now has a home, and is able to cook for herself. Starting today, she has electricity and refrigeration. She feels well. She denies fever/chills/abdominal pain. Her baby has active movement. OB History Para Term AB Living 2 0 0 0 1 0 SAB TAB Ectopic Multiple Live Births 1 0 0 0 0 # Outcome Date GA Lbr Aldo/2nd Weight Sex Delivery Anes PTL Lv 2 Current 1 SAB 2014 Comments: no D&C needed PAST MEDICAL HISTORY: Past Medical History: Diagnosis Date Depression meds in past Diabetes mellitus, type 2 PAST SURGICAL HISTORY: Past Surgical History: Procedure Laterality Date APPENDECTOMY 1995 MEDS: Current Outpatient Medications on File Prior to Visit Medication Sig Dispense Refill Insulin Lispro (ADMELOG SOLOSTAR) 100 UNIT/ML SOPN Inject into the skin Pt takes 17 units with breakfast, 24 units with lunch and dinner Indications: Type 2 Diabetes insulin isophane (HUMULIN N; NOVOLIN N) 100 UNIT/ML SUSP injection Inject into the skin daily 24 units via pen qhs metFORMIN (GLUCOPHAGE) 1000 MG Take 1,000 mg by mouth 2 times daily Before meals Vit-Fe Fumarate-FA ( VITAMIN PO) Take by mouth daily NONFORMULARY Psillium husk prn for constipation No current facility-administered medications on file prior to visit. ALLERGY: No Known Allergies PHYSICAL EXAM: VITAL SIGNS: BP (!) 142/72 Ht 175.3 cm Wt (!) 123.2 kg (271 lb 8 oz) LMP 01/04/2018 BMI 40.07 kg/m AAOx3, NAD Appears well. Abd gravid, NTTP Skin warm, dry IMAGING: None IMPRESSION AND RECOMMENDATIONS: Abram is a 27 y.o. at 24w6d with Active Non-Hospital Problems Diagnosis Date Noted Noncompliance with treatment 06/20/2018 Depression affecting 06/20/2018 Pre-existing type 2 diabetes mellitus in in second trimester 05/17/2018 Check glucose levels fasting and 1hour post prandial with a goal of fasting <90 and 1hr post prandial <140 (or 2 hour post prandial < 140) Patient reports NPH 24 units at night; Log 17 with breakfast, 24 with lunch and dinner echo normal Serial growth ultrasounds every 4 weeks Twice weekly testing starting at 32 weeks Recommend delivery at 37-39 weeks depending on glycemic control, recommending a delivery if the EFW >4500 gms Urine culture and Hgb A1c q trimester S/p nutrition consult 05/17 Obesity affecting in second trimester 05/17/2018 Recommend no more than 11-20 lb weight gain in Recommend 30 minutes of moderate activity 5 times a week Supervision of other high risk , antepartum 05/17/2018 Co-management PLAN OF CARE MD/OB APPOINTMENTS Genetic screening: per primary OB How often should patient be evaluated? q 2 weeks from 28 to 36 weeks then weekly until delivery Work restrictions: none EVALUATION surveillance: twice weekly starting at 32 weeks Ultrasound: echo in 2-3 weeks, serial growth ultrasounds every 4 weeks DELIVERY PLAN Hospital: [facility] Induction at 37-39 weeks, recommend delivery if the EFW >4500 gms GBS culture: Contraception: : yes tachycardia is noted on Doppler today. Additional assessment is warranted, however MFM US add-on is not available at this time. Per Dr. Balderas's office, she soul be evaluated in [place] triage. US and MFM comanagement scheduled 07/18. She will call at least weekly with her BG log. We reviewed BG targets, management of hypoglycemia and hyperglycemia, especially in relation to change in access to food and cooking. The total patient time of the visit was 25 minutes, of which was greater than 50% of the time was spent counseling and coordinating care. PROGRESS NOTE Observed: 06/20/2018 Status: COMPLETED Source: [place] 11:00 AM [facility] REPOSITORY Comanage PregestationalDiabetes Mellitus Abram Ma is seen at 23w6d for comanagement of Pregestational Diabetes Mellitus and Obesity. She denies any complaints today. Her blood glucose record was not available for review. Her insulin did not change and oral medications Metformin did not change. Current dose is NPH 24 Units at 10pm, Humalog/Novalog 17 units before breakfast, Humalog/Novalog 24 units before lunch, Humalog/Novalog 24 units before dinner and Metformin 500 mg BID. Patient was scheduled for a comanagement visit 2 weeks ago and canceled. We added her on for a comanagement visit today to discuss her blood sugars. Patient was very abrupt. She did not bring her blood sugars with her but reports fasting values in 90's and postprandials 130-150's. History of Presenting Problem: She is unaccompanied. Pregestational Diabetes Abram presents today for her comanage visit. She has type 2 diabetes. Her symptom course is noncompliant. Current treatments include diet, insulin injections and oral agent (monotherapy). She is compliant with treatment some of the time. Blood glucose readings not reviewed. Patient Active Problem List Diagnosis Pre-existing type 2 diabetes mellitus in in second trimester Obesity affecting in second trimester Supervision of other high risk , antepartum Noncompliance with treatment Depression affecting Physical Exam: Vitals Extended BP: 130/80 Height: 175.3 cm Present: Unknown Heart Rate: Positive Number of Fetuses: 1 Heart Rate: present on ultrasound Movement: Present Vaginal Bleeding: Absent Cramps / Contractions: Absent Mucous Discharge: Absent Ultrasound: 1. Single, living IUP at 23w6d by clinical RENATO. 2. There is appropriate interval growth. 3. EFW is 680 gm at the 53rd percentile for stated gestational age. 4. Amniotic fluid volume appeared normal, 15.7 cm. 5. Placenta is normal without evidence of previa. 6. Anatomic survey performed as noted above, but was limited due to maternal body habitus. However, no gross anomalies were identified. 7. echo normal. Impression: 1. Type 2 DM, managed with insulin and metformin. Patient did not bring logbook. We discussed risks associated with diabetes and importance of glucose monitoring and glycemic control. Risks of stillbirth was also reviewed. Physiologic changes to and insulin resistance were reviewed. Patient was asked to make a comanagement visit next week but left and did not make a follow-up appointment. She seemed disinterested in follow-up. 2. Social. Patient reports several social concerns including no water, heat and food. She did not express interest in resources to help with these concerns. Her primary OB's office was called with patient's poor social situation. 3. See problem list for concerns not addressed in today's visit. Follow up Plan: 1. Comanage visit in 1 week. Patient did not make a follow- up appointment. 2. Testing 2 times a week starting at 28-32 weeks pending glycemic control. 3. Growth assessment every 4 weeks. The total patient time of the visit was 15 minutes, of which greater than 50% of the time was spent counseling and coordinating care. [employer] OFFICE VISIT Observed: 06/15/2018 Status: F Source: ORACIO REPORT 2:01 PM [facility] [address] [place] [address] OFFICE VISIT Date of Service: 06/15/18 MR#: [id number] Acct: [id number] Name: ABRAM MA Rep #: [id number] : 1990 Provider: UMESH Sommers Age/Sex: 27/F Location: [facility] Status: Signed Intake Vital Signs06/15/18 Height 5 ft 9 in 06/15/18 Weight: 271 lb 6 oz 06/15/18 Body Mass Index (BMI) 40.0 06/15/18 Blood Pressure 122/78 H Intake Visit Reasons: 23 weeks Account Classification Clerk Required: No Is patient in pain?: No Allergies No Known Allergies Allergy (Verified 06/15/18 13:38) Medications docosahexanoic acid 200 mg capsule mg PO cap 04/14/18 [History Confirmed 06/15/18] metformin 1,000 mg tablet mg PO BID tab 04/14/18 [History Confirmed 06/15/18] insulin NPH isophane U- 100 human 100 unit/mL subcutaneous suspension 22 unit SC QPM #10 ml 05/18/18 [Rx Confirmed 06/15/18] insulin lispro (U- 100) 100 unit/mL subcutaneous solution 26 unit SC TID #20 ml 06/15/18 [Rx Confirmed 06/15/18] Last Menstral Period: 01/04/18 Zika: Zika virus screening: Negative : No PFSH PFSH Medical History Diabetes type 2, uncontrolled (Chronic) Surgical History History of appendectomy (Acute) Family History Mother Diabetes Grandmother CVA (cerebral vascular accident) Social History Smoking Status: Current every day smoker alcohol intake: never substance use type: does not use caffeine: Yes what type of physical activity do you participate in: none seatbelt use: always do you feel safe at home: Yes 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 OB Visit RENATO Calculator Estimated Delivery Date 10/11/18 Based on LMP (uncertain) 01/04/18 Current WG 23w 1d Number 1 Expected Delivery Route/Plan Specific Issue/Plans flu vaccine: given tdap vaccine: [] rhogam: na LARC form signed: [] labor support person: Mother Ev Vaca pain management: epidural cut cord/dad catch: [] : yes PP control planned: [] special requests: [] Initial Weight: Not Recorded Date Weight BP Urine PFHR FuHt Pres MCTX DilatioFetal SVisit NProvideComment rot ov n t ote r s EGA Ef Gluco faced se 04/14/1253 lb 143/83 [id number] 8 8 oz 143/83 e 14 w 2d Negati ve Visit Notes Visit Date: 06/15/18 No VB, LOF. MFM increase amdelog and needs refill. ELAINA Evans on 06/15/18 Visit Date: 06/08/18 Walked in with no FM today. Easily access FHT with doppler and FM audible. No Vb, LOF ELAINA Evans on 06/08/18 Visit Date: 05/12/18 no vb cramping reveiwed BS- pateitn started NPH and novolog, increased to 22 u at night and 17 with breakfast, keep novolog with other meals Kendal Balderas MD on 05/12/18 Visit Date: 04/14/18 No visit notes to display ACOG First Trimester First Trimester: Diagnostics Diagnostics Labs Blood Type A POSITIVE 04/14/18 Antibody Screen NEGATIVE 04/14/18 Hct 34.6 % (37-47) L 04/14/18 Hgb 11.4 g/dl (12.0-15.0) L 04/14/18 VZV IgG Antibody 394 index (Immune >165) 04/14/18 Rubella IgG Antibody 28.7 IU/mL 04/14/18 RPR NONREACTIVE (NONREACTIVE) 04/14/18 Hep Bs Antigen Negative (Negative) 04/14/18 Chlam trachomat DNA PCR Negative (Negative) 04/14/18 N.gonorrhoeae DNA (PCR) Negative (Negative) 04/14/18 Miscellaneous Test 04/14/18 Details: HIV: Urine Culture: Sequential Screen: NIPT Screen: ROS Const Reports system reviewed and no additional complaints, except as docu GI Denies nausea, Denies vomiting, Denies abdominal pain Exam Const General: cooperative Nutritional Appearance: well nourished GI Palpation: soft, nontender, other (gravid) Assessment AND Plan Problems 1. Supervision of high risk in second trimester O Grav 2/ RENATO 10/11/18 BF Deny. 2. Uncontrolled type 2 diabetes mellitus with hyperglycemia E11.65 baseline labs. Ref MFM and ophthalmology. EKG/normal. Per MFM: increase insulin to 26 units qHS, 20 units with each meal; echo in the next 3 weeks, serial growth US [id number], twice weekly testing starting at 32 weeks, recommend delivery at 37-39 weeks; urine culture and HgbA1C qtrimester. 3. 23 weeks gestation of Z3A.23 Declines all genetic screening including CF, AFP. Anatomy US- normal Plan Orders placed: refill admelog. Now at 26 U tid. BS are stable Has MFM appt and US on Wednesday 06/20 Reviewed of labor precautions, movement/kick counts ACOG trimester education reviewed and updated See problem list details for updated plan of care Gestational age appropriate handout given RTO: 4 weeks Orders Orders: Medications New: Discontinued: insulin NPH isophane U-100 human (Humulin N NPH U-22 units (0.22 mL) subcut QPM 15 mL 6RF 100 Insulin KwikPen) Discontinued Reason: Dupl icate Order Coding Level of Care Code Off vis,est,level 3 Diagnoses Supervision of high risk in second trimester O Trimester: second trimester Uncontrolled type 2 diabetes mellitus with hyperglycemia E11.65 Glycemic state: with hyperglycemia 23 weeks gestation of Z3A.23 Weeks of gestation: 23 weeks 06/15/18 1401 <Electronically signed by Alissa DELANEY> Date Alissa DELANEY Cosigner Signature: Date (if applicable) CC: [employer] OFFICE VISIT Observed: 06/08/2018 Status: F Source: ORACIO REPORT 10:52 AM [facility] [address] [place] [address] OFFICE VISIT Date of Service: 06/08/18 MR#: [id number] Acct: [id number] Name: FRANCESCAABRAM SORIANO Rep #: [id number] : 1990 Provider: UMESH Sommers Age/Sex: 27/F Location: [facility] Status: Signed Intake Intake Visit Reasons: 22 weeks-no movement Allergies No Known Allergies Allergy (Verified 05/12/18 08:31) Medications docosahexanoic acid 200 mg capsule mg PO cap 04/14/18 [History Confirmed 05/12/18] metformin 1,000 mg tablet mg PO BID tab 04/14/18 [History Confirmed 05/12/18] insulin NPH isophane U-100 human 100 unit/mL (3 mL) subcutaneous pen 22 unit SC QPM #15 ml 05/12/18 [Rx Confirmed 05/12/18] insulin aspart U- 100 100 unit/mL subcutaneous pen 15 unit SC TID #15 ml 05/12/18 [Rx Confirmed 05/12/18] insulin NPH isophane U- 100 human 100 unit/mL subcutaneous suspension 22 unit SC QPM #10 ml 05/18/18 [Rx] insulin aspart U- 100 100 unit/mL subcutaneous solution 15 unit SC BID #10 ml 05/18/18 [Rx] insulin lispro (U- 100) 100 unit/mL subcutaneous solution 15 unit SC TID #10 ml 05/20/18 [Rx] Last Menstral Period: 01/04/18 PFSH PFSH Medical History Diabetes type 2, uncontrolled (Chronic) Surgical History History of appendectomy (Acute) Family History Mother Diabetes Grandmother CVA (cerebral vascular accident) Social History Smoking Status: Current every day smoker alcohol intake: never substance use type: does not use caffeine: Yes what type of physical activity do you participate in: none seatbelt use: always do you feel safe at home: Yes 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 OB Visit RENATO Calculator Estimated Delivery Date 10/11/18 Based on LMP (uncertain) 01/04/18 Current WG 22w 1d Number 1 Expected Delivery Route/Plan Specific Issue/Plans flu vaccine: [] tdap vaccine: [] rhogam: [] LARC form signed: [] labor support person: [] pain management: [] cut cord/dad catch: [] : [] PP control planned: [] special requests: [] Initial Weight: Not Recorded Date Weight BP Urine PrFHR FuHt Pres MoCTX DilationFetal StVisit NoProviderComments E ot v te GA G Effac lucose ed Visit Notes Visit Date: 06/08/18 Walked in with no FM today. Easily access FHT with doppler and FM audible. No Vb, LOF ELAINA Evans on 06/08/18 Visit Date: 05/12/18 no vb cramping reveiwed BS- pateitn started NPH and novolog, increased to 22 u at night and 17 with breakfast, keep novolog with other meals Kendal Balderas MD on 05/12/18 Visit Date: 04/14/18 No visit notes to display Diagnostics Diagnostics Labs Blood Type A POSITIVE 04/14/18 Antibody Screen NEGATIVE 04/14/18 Hct 34.6 % (37-47) L 04/14/18 Hgb 11.4 g/dl (12.0-15.0) L 04/14/18 VZV IgG Antibody 394 index (Immune >165) 04/14/18 Rubella IgG Antibody 28.7 IU/mL 04/14/18 RPR NONREACTIVE (NONREACTIVE) 04/14/18 Hep Bs Antigen Negative (Negative) 04/14/18 Chlam trachomat DNA PCR Negative (Negative) 04/14/18 N.gonorrhoeae DNA (PCR) Negative (Negative) 04/14/18 Miscellaneous Test 04/14/18 Details: HIV: Urine Culture: Sequential Screen: NIPT Screen: Assessment AND Plan Problems 1. Supervision of high risk in second trimester O09.92 Grav 08/19 RENATO 10/11/18 BF Deny. Coding Level of Care Code OB Routine Diagnoses Supervision of high risk in second trimester O Trimester: second trimester 06/08/18 1052 <Electronically signed by Alissa DELANEY> Date Alissa DELANEY Cosigner Signature: Date (if applicable) CC: COMPLETE BLOOD COUNT Collected: 05/17/2018 Status: F Source: [place] 12:28 PM [facility] REPOSITORY TYPE CODE TESTS RESULT OUT OF REFERENCE UNITS RANGE LAB IWBC(LOINC 4.5-11.0 10E9/L ) WBC 11.0 LAB NRBC%(LOIN -1.0-0.0 % C) Nucleated RBC % 0.0 LAB RBC(LOINC) 4.00-4.90 10E12/L RBC 4.33 LAB IHGB(LOINC 12.0-15.0 g/dl ) Low Hemoglobin 11.9 LAB HCT(LOINC) 36.0-44.0 % Hematocrit 37.1 LAB MCV(LOINC) 80.0-100.0 fl MCV 85.7 LAB MCH(LOINC) 26.0-34.0 pg MCH 27.5 LAB MCHC(LOINC 31.0-37.0 % ) MCHC 32.1 LAB RDW(LOINC) 0.0-14.4 % RDW 13.5 LAB PLT(LOINC) 150-450 10E9/L Platelets 342 LAB MPV(LOINC) fl MPV 8.7 Result Comment: MPV is platelet range and age dependent LAB CMPLT(LOINC) NA Differential Complete Manual LAB IG%(LOINC) % % Immature granulocyte 0.60 Result Comment: Immature Granulocyte Percent includes promyelocytes, myelocytes, and metamyelocytes. IG% > 1.0 indicates a left shift is present. With automated differentials, bands are included in the neutrophil count and not in the Immature Granulocyte Percent. Performed By: #### CBC #### [address] [address] MANUAL DIFFERENTIAL Collected: 05/17/2018 Status: F Source: [place] 12:28 PM [facility] REPOSITORY TYPE CODE TESTS RESULT OUT OF REFERENCE UNITS RANGE LAB BANDS(LOIN 5-11 % C) Band Neutrophils 7 LAB SEGS(LOINC 35-66 % ) Segmented High Neutrophils 75 LAB LYMPH(LOIN 24-44 % C) Lymphocytes Low 12 LAB MONO(LOINC 3-6 % ) Monocytes 6 LAB META(LOINC 0-0 % ) Metamyelocytes 0 LAB MYELO(LOIN 0-0 % C) Myelocytes 0 LAB PROMY(LOIN 0-0 % C) Promyelocytes 0 LAB ABNEU(LOIN NA C) Absolute Neutrophil No. 9.0 LAB ANISO(LOIN NA C) Anisocytosis Slight LAB HYPO(LOINC NA ) Hypochromia Slight LAB WCINC(LOIN NA C) WBC Inclusions Slight Result Comment: Slight Toxic granulation Performed By: #### MDIFF #### [address] [address] COMP METABOLIC PANEL Collected: 05/17/2018 Status: F Source: [place] 12:28 PM [facility] REPOSITORY TYPE CODE TESTS RESULT OUT OF REFERENCE UNITS RANGE LAB NA(LOINC) 133-145 mEq/L Sodium 137 LAB K(LOINC) 3.3-5.1 mEq/L Potassium 3.7 LAB CL(LOINC) 96-108 mEq/L Chloride 104 LAB TCO2(LOINC 22.0-29.0 mEq/L ) Carbon Dioxide 25.0 LAB BUN(LOINC) 4-19 mg/dL Urea Nitrogen 7 LAB GLU(LOINC) 70-99 mg/dL Glucose 82 Result Comment: Criteria for Diagnosis of Diabetes(Effective 12/22/10): Fasting specimen (no caloric intake for at least 8 hours). <100 mg/dl Normal 100-125 mg/dl Increased Risk for Diabetes >125 mg/dl Diagnostic for Diabetes Random Glucose (any time of day without regard to last meal). >=200 mg/dl plus Classic Symptoms of Diabetes LAB TBILI(LOINC) 0.0-1.0 mg/dl Bili,Total 0.3 Result Comment: Premature : 1 Day 1.0-6.0 mg/dl 2 Day 6.0-8.0 mg/dl 3-5 Day 10.0-15.0 mg/dl LAB AST(LOINC) 0-31 U/L AST 17 LAB ALT(LOINC) 0-31 U/L ALT 19 LAB ALKP(LOINC) 35-104 U/L Alkaline Phosphatase 42 LAB CA(LOINC) 7.6-11.0 mg/dL Calcium 8.9 LAB TP(LOINC) 5.9-8.4 g/dL Protein,Total 6.9 LAB ALB(LOINC) 3.5-5.0 g/dL Albumin Low 3.4 LAB CREA(LOINC) 0.50-1.00 mg/dL Creatinine Low 0.39 Result Comment: Premature 0.3-1.0 mg/dL Performed By: #### CMP #### [address] [address] URIC ACID Collected: 05/17/2018 Status: F Source: [place] 12:28 PM [facility] REPOSITORY TYPE CODE TESTS RESULT OUT OF RANGE REFERENCE UNITS LAB URICA(LOINC 2.6-8.0 mg/dL ) Uric Acid 2.6 Performed By: #### URICA #### [address] [address] LACTATE DEHYDROGENASE Collected: 05/17/2018 Status: F Source: [place] 12:28 PM [facility] REPOSITORY TYPE CODE TESTS RESULT OUT OF REFERENCE UNITS RANGE LAB LD(LOINC) 98-192 units/L Lactate Dehydrogenase 109 Performed By: #### LD #### [place] [address] PROTEIN, URINE QUANT. Collected: 05/17/2018 Status: F Source: GO[place]SEL 12:28 PM [facility] TYPE CODE TESTS RESULT OUT OF REFERENCE UNITS RANGE LAB PRUMG(LOINC mg/dL ) Protein, Ur 23 mg/dl LAB COMUR(LOINC NA ) Comment ----- Result Comment: Random urine collection. Performed By: #### PROQN #### [place] [address] CREATININE, URINE Collected: 05/17/2018 Status: F Source: GOESSEL 12:28 PM [facility] TYPE CODE TESTS RESULT OUT OF REFERENCE UNITS RANGE LAB URCRE(LOIN mg/dL C) Creatinine,urin 99.6 e LAB URCRF(LOIN NA C) Reference Range ----- Creatinine,urin e Result Comment: 1st Morning 24hr Collection Female 28-217 mg/dL Female 740-1570 mg/24hr Male 39-259 mg/dL Male 5885-3274 mg/24hr Performed By: #### CREUR #### [place] [address] HEMOGLOBIN A1C Collected: 05/17/2018 Status: F Source: GOESSEL 12:28 PM [facility] TYPE CODE TESTS RESULT OUT OF REFERENCE UNITS RANGE LAB HA1C(LOINC 0.0-6.4 % ) Hemoglobin A1C High 8.1 LAB HA1CI(LOIN NA C) HgbA1c Interpretation ----- Result Comment: In Diagnosed Diabetes: > 8 Action suggested 7-8 Good Control 6-7 Near Normal Glycemia < 6 Non-diabetic level Diabetes Screenin.7-6.4% Prediabetic >6.5% Diabetic - should be confirmed with repeat HgA1c or fasting blood sugar. Performed By: #### HBA1C #### [place] [address] PROGRESS NOTE Observed: 05/17/2018 Status: COMPLETED Source: [place] 11:00 AM [facility] REPOSITORY Maternal Medicine Consult Date of Service: 05/17/2018 Referring Provider: Kendal Balderas Primary Care Provider: [facility], MD Bindu Reason for Consult: Dr. Kendal Balderas requests that Abram be evaluated due to type 2 diabetes in . Teresita is a 27 y.o. at 19w0d gestation who presents for evaluation of type 2 diabetes and obesity during . Obstetric History T0 L0 SAB1 TAB0 Ectopic0 Multiple0 Live Births0 # Outcome Date GA Lbr Aldo/2nd Weight Sex Delivery Anes PTL Lv 2 Current 1 2014 Past Medical History: Diagnosis Date Depression meds in past Diabetes mellitus, type 2 Past Surgical History: Procedure Laterality Date APPENDECTOMY 1995 No Known Allergies Social History Social History Marital status: Single Spouse name: N/A Number of children: N/A Years of education: N/A Social History Main Topics Smoking status: Former Smoker Quit date: 05/10/2018 Smokeless tobacco: Never Used Alcohol use No Drug use: No Sexual activity: Yes Other Topics Concern None Social History Narrative None Infections Live with someone with or exposed to TB No Partner has hx of genital herpes No Rash or viral illness since last menstruation No History of STI's Hx of MMR No 2nd STI Hx of Chicken Pox No 3rd STI Is there anything else we should know? No Other infections No Genetics Age is > than 35y as of estimated date No Thalassemia No Neural Tube Defect No Congenital Heart Defect No Down Syndrome No Saeid-Sachs No Dyllan Disease No Sickle Cell Disease or Trait No Hemophilia, Thrombophilia No Muscular Dystrophy No Cystic Fibrosis No Hunter's Chorea No Mental Retardation/Autism No Maternal Metabolic Disorder No Recurrent Loss, or a Stillbirth No Inherited Genetic or Chromosomal Disorder No Illicit; Rec.drugs; Alcohol since last menses No Family History Problem Relation Age of Onset Diabetes Mellitus II Mother Diabetes Mellitus II Maternal Grandmother Stroke Maternal Grandmother Diabetes Mellitus II Paternal Grandmother Cancer Paternal Grandmother breast Outpatient Encounter Prescriptions as of 05/17/2018 Medication Sig Dispense Refill insulin aspart (NOVOLOG) 100 UNIT/ML SOLN injection Inject into the skin 3 times daily (before meals) Patient takes 17 units before meals via pen insulin isophane (HUMULIN N; NOVOLIN N) 100 UNIT/ML SUSP injection Inject into the skin daily 24 units in am via pen metFORMIN (GLUCOPHAGE) 1000 MG Take 1,000 mg by mouth 2 times daily Before meals Vit-Fe Fumarate-FA ( VITAMIN PO) Take by mouth daily NONFORMULARY Psillium husk prn for constipation No facility-administered encounter medications on file as of 05/17/2018. Review of Systems Physical Exam FHT: Positive Presentation: N/A Uterine Size: N/A Laboratory Test results: Hospital Outpatient Visit on 05/17/2018 Component Date Value Ref Range Status WBC 05/17/2018 11.0 4.5 - 11.0 10E9/L Final Nucleated RBC Percent 05/17/2018 0.0 -1.0 - 0.0 % Final RBC 05/17/2018 4.33 4.00 - 4.90 10E12/L Final Hemoglobin 05/17/2018 11.9* 12.0 - 15.0 g/dl Final Hematocrit 05/17/2018 37.1 36.0 - 44.0 % Final MCV 05/17/2018 85.7 80.0 - 100.0 fl Final MCH 05/17/2018 27.5 26.0 - 34.0 pg Final MCHC 05/17/2018 32.1 31.0 - 37.0 % Final RDW 05/17/2018 13.5 0.0 - 14.4 % Final Platelets 05/17/2018 342 150 - 450 10E9/L Final MPV 05/17/2018 8.7 fl Final Differential Complete 05/17/2018 Manual NA Final % Immature Granulocyte 05/17/2018 0.60 % Final Sodium 05/17/2018 137 133 - 145 mEq/L Final Potassium 05/17/2018 3.7 3.3 - 5.1 mEq/L Final Chloride 05/17/2018 104 96 - 108 mEq/L Final Carbon Dioxide 05/17/2018 25.0 22.0 - 29.0 mEq/L Final BUN 05/17/2018 7 4 - 19 mg/dL Final Glucose 05/17/2018 82 70 - 99 mg/dL Final Total Bilirubin 05/17/2018 0.3 0.0 - 1.0 mg/dl Final AST 05/17/2018 17 0 - 31 U/L Final ALT 05/17/2018 19 0 - 31 U/L Final Alkaline Phosphatase 05/17/2018 42 35 - 104 U/L Final Calcium 05/17/2018 8.9 7.6 - 11.0 mg/dL Final Protein, Total 05/17/2018 6.9 5.9 - 8.4 g/dL Final Albumin 05/17/2018 3.4* 3.5 - 5.0 g/dL Final Creatinine 05/17/2018 0.39* 0.50 - 1.00 mg/dL Final Uric Acid 05/17/2018 2.6 2.6 - 8.0 mg/dL Final LD 05/17/2018 109 98 - 192 units/L Final Band Neutrophil 05/17/2018 7 5 - 11 % Final Segmented Neutrophils 05/17/2018 75* 35 - 66 % Final Lymphocytes 05/17/2018 12* 24 - 44 % Final % Monocytes 05/17/2018 6 3 - 6 % Final % Metamyelocytes 05/17/2018 0 0 - 0 % Final % Myelocytes 05/17/2018 0 0 - 0 % Final % Promyelocytes 05/17/2018 0 0 - 0 % Final Absolute Neutrophil No. 05/17/2018 9.0 NA Final Anisocytosis 05/17/2018 Slight NA Final Hypochromia 05/17/2018 Slight NA Final WBC Inclusions 05/17/2018 Slight NA Final Ultrasound Results: Normal anatomic survey on 05/12 reviewed. Diabetes in has both and maternal sequelae. The HAPO study shows that the sequelae from diabetes are directly related to maternal glucose control. growth complications include macrosomia (31% vs 3.6%), birthweight >4500 gms (12.6% vs 3.9%), birthweight > 5000 gms (2.7% vs 0.5%). This contributes to an increase in shoulder dystocia (13.7% vs 0.2%) and increased rates of section (46% vs 12%). Fetuses of women with diabetes also have an increased risk for defects (4.7% vs 1.8%), most often involving the heart and spine. , both spontaneous (22% vs 3%) and iatrogenic (16% vs 11%), is more prevalent in women with diabetes. Increased rates of polyhydramnios can contribute to the rate. After delivery, the neonates are at increased risk for respiratory distress syndrome, hypoglycemia, and jaundice. There is also a slightly increased rate of stillbirth and demise. More recent research has shown that children born to mothers with diabetes have an increased risk of developing diabetes, obesity and cardiovascular disorders later in life. These long-term sequelae are also directly related to maternal glucose control during the . The prevalence of hypertension and preeclampsia in women with diabetes is related to both pregestational hypertension and vascular disease. Mild preeclampsia is present in 9.7% and severe preeclampsia present in 4.3% of this population. These women also have a three to five-fold increased rate of urinary tract infections during and should be tested every trimester. We also recommended moderate exercise for 30 minutes 4-5 times a week during , and in order to decrease insulin resistance. In addition, research has shown that decreases the risk of metabolic syndrome for the later in life. Next, we discussed that obesity during has both maternal and sequelae. There is a 12% risk of developing gestational hypertension, a 6% chance of preeclampsia, 5.5% risk of delivery, an 11% risk of an operative vaginal delivery, and an increased risk of shoulder dystocia and section. In the post- period, obesity is associated with both wound dehiscence and wound infection should the patient need a delivery. complications related to maternal obesity include a 15% chance of macrosomia, an increased risk for anomalies, most commonly neural tube and cardiovascular defects, and an increase risk of stillbirth. Due to maternal habitus it is also less likely that a congenital anomaly will be visualized prenatally by ultrasound. As Ms. Ma s current BMI is 39 kg/m2, the [place] [employer] recommends no more than an 11-20 pound weight gain during . Impression/Plan: 27 y.o. at 19w0d with Active Non-Hospital Problems Diagnosis Date Noted Pre-existing type 2 diabetes mellitus in in second trimester 05/17/2018 Check glucose levels fasting and 2 hour post prandial with a goal of fasting <90 and 1hr post prandial <120 (patient preference to check 2 hour post prandial) Increase insulin to 26 units qHS (the patient works nights and will take this in the morning before she goes to sleep) and Log 20 units with meals echo in the next 3 weeks Serial growth ultrasounds every 4 weeks Twice weekly testing starting at 32 weeks Recommend delivery at 37-39 weeks depending on glycemic control, recommending a delivery if the EFW >4500 gms Urine culture and Hgb A1c q trimester S/p nutrition consult today Obesity affecting in second trimester 05/17/2018 Recommend no more than 11-20 lb weight gain in Recommend 30 minutes of moderate activity 5 times a week Supervision of other high risk , antepartum 05/17/2018 Co-management PLAN OF CARE MD/OB APPOINTMENTS Genetic screening: per primary OB How often should patient be evaluated? q 2 weeks from 28 to 36 weeks then weekly until delivery Work restrictions: none EVALUATION surveillance: twice weekly starting at 32 weeks Ultrasound: echo in 2-3 weeks, serial growth ultrasounds every 4 weeks DELIVERY PLAN Hospital: [facility] Induction at 37-39 weeks, recommend delivery if the EFW >4500 gms GBS culture: Contraception: : yes Follow up in 2 weeks for co-management and for echocardiogram. Patient instructed to call glucose levels in next week and to bring glucose meter to all appointments. Mele Bills MD The total patient time of the visit was 60 minutes, of which greater than 50% of the time was spent counseling and coordinating care. [employer] OFFICE VISIT Observed: 05/12/2018 Status: F Source: READING REPORT 9:15 AM [facility] [address] [place] [address] OFFICE VISIT Date of Service: 05/12/18 MR#: [id number] Acct: [id number] Name: ABRAM MA Rep #: [id number] : 1990 Provider: Kendal Balderas MD Age/Sex: 27/F Location: [facility] Status: Signed with Addenda ADDENDUM by Vaishnavi Anand on 05/12/18 at 0915 OFFICE PROCEDURES Office Procedure Documentation entered by Vaishnavi Anand 05/12/18 09:15: Office Meds Flucelvax Quad [id number] (PF) Performing Provider: Kendal Balderas MD Administered by: Vaishnavi Anand on 05/12/18 09:14 Dose Route Admin Location Lot Number Expiration Date NDC Scenario Writer 60 mcg IM right arm [id number] 01/15/19 17801-355-48 SEQIRUS 10/25/18 0915 <Electronically signed by Vaishnavi Anand > Date Vaishnavi Anand cc: * Signed Intake Vital Signs05/12/18 Blood Pressure 126/70 H 05/12/18 Height 5 ft 9 in 05/12/18 Weight: 262 lb 05/12/18 Body Mass Index (BMI) 38.7 05/12/18 Blood Pressure 160/80 H Intake Visit Reasons: 18 weeks Account Classification Clerk Required: No Is patient in pain?: No Allergies No Known Allergies Allergy (Verified 05/12/18 08:31) Medications docosahexanoic acid 200 mg capsule mg PO cap 04/14/18 [History Confirmed 05/12/18] metformin 1,000 mg tablet mg PO BID tab 04/14/18 [History Confirmed 05/12/18] insulin NPH isophane U-100 human 100 unit/mL (3 mL) subcutaneous pen 22 unit SC QPM #15 ml 05/12/18 [Rx Confirmed 05/12/18] insulin aspart U- 100 100 unit/mL subcutaneous pen 15 unit SC TID #15 ml 05/12/18 [Rx Confirmed 05/12/18] Last Menstral Period: 01/04/18 Zika: Zika virus screening: Negative : No PFSH PFSH Medical History Diabetes type 2, uncontrolled (Chronic) Surgical History History of appendectomy (Acute) Family History Mother Diabetes Grandmother CVA (cerebral vascular accident) Social History Smoking Status: Current every day smoker alcohol intake: never substance use type: does not use caffeine: Yes what type of physical activity do you participate in: none seatbelt use: always do you feel safe at home: Yes additional social history: Bnuuiclcf-Dynejw-Mldye 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 Urine dip negative. OB Visit RENATO Calculator Estimated Delivery Date 10/11/18 Based on LMP (uncertain) 01/04/18 Current WG 18w 2d Number 1 Expected Delivery Route/Plan Specific Issue/Plans flu vaccine: [] tdap vaccine: [] rhogam: [] LARC form signed: [] labor support person: [] pain management: [] cut cord/dad catch: [] : [] PP control planned: [] special requests: [] Initial Weight: Not Recorded Date Weight BP Urine PrFHR FuHt Pres MoCTX DilationFetal StVisit NoProviderComments E ot v te GA G Effac lucose ed Visit Notes Visit Date: 05/12/18 no vb cramping reveiwed BS- pateitn started NPH and novolog, increased to 22 u at night and 17 with breakfast, keep novolog with other meals Kendal Balderas MD on 05/12/18 Visit Date: 04/14/18 No visit notes to display Diagnostics Diagnostics Labs Blood Type A POSITIVE 04/14/18 Antibody Screen NEGATIVE 04/14/18 Hct 34.6 % (37-47) L 04/14/18 Hgb 11.4 g/dl (12.0-15.0) L 04/14/18 VZV IgG Antibody 394 index (Immune >165) 04/14/18 Rubella IgG Antibody 28.7 IU/mL 04/14/18 RPR NONREACTIVE (NONREACTIVE) 04/14/18 Hep Bs Antigen Negative (Negative) 04/14/18 Chlam trachomat DNA PCR Negative (Negative) 04/14/18 N.gonorrhoeae DNA (PCR) Negative (Negative) 04/14/18 Miscellaneous Test 04/14/18 Details: HIV: Urine Culture: Sequential Screen: NIPT Screen: Assessment AND Plan Problems 1. Exposure to Zika virus Z20.821 negative test 2. Supervision of high risk in second trimester O09.92 Grav 2/ RENATO 10/11/18 BF Deny. 3. Uncontrolled type 2 diabetes mellitus with hyperglycemia E11.65 baseline labs. Ref MFM and ophthalmology. EKG/normal. 4. 14 weeks gestation of Z3A.14 Declines all genetic screening including CF, AFP. Anatomy US MFM ordered Plan ACOG trimester education reviewed and updated. see problem list details for updated plan management information and see below for orders placed at this visit. GA appropriate handout given. Medications New: insulin NPH isophane U-100 human (Humulin N NPH U-22 units (0.22 mL) subcut QPM 15 mL 6RF 100 Insulin KwikPen) Coding Level of Care Code OB Routine Diagnoses Exposure to Zika virus Z20.821 Supervision of high risk in second trimester O09.92 Uncontrolled type 2 diabetes mellitus with hyperglycemia E11.65 14 weeks gestation of Z3A.14 05/12/18 0910 <Electronically signed by Kendal Balderas MD> Date Kendal Balderas MD Cosigner Signature: Date (if applicable) CC: 12 LEAD ELECTROCARDIOGRAM Observed: 04/27/2018 Status: F Source: READING 3:35 PM [facility] Cardi[facility] Services [address] [place] [id number] 12 Lead EKG 04/25/18 1614 MR#: [id number] Acct: [id number] Name: ABRAM MA Rep #: [id number] : 1990 27 From: Isac Kimball MD Attending Dr: Alissa Sommers NP Status: REG CLI Ordering Dr: Alissa Sommers GATEHOUSE ATTENDANT-C Date: 04/25/18 Location: [facility] Sex: F AA Admitted: Test Reason : TACHY Blood Pressure : / mmHG Vent. Rate : 094 BPM Atrial Rate : 094 BPM P-R Int : 166 ms QRS Dur : 094 ms QT Int : 366 ms P-R-T Axes : 054 060 030 degrees QTc Int : 457 ms Normal sinus rhythm Normal ECG When compared with ECG of 30-JUN-2008 22:13, Vent. rate has decreased BY 47 BPM Confirmed by ISAC KIMBALL MD ([id number]), senior editor YAHAIRA HUGO ([id number]) on 04/27/2018 3:35:24 PM Referred By: Alissa Sommers Confirmed By:ISAC KIMBALL MD 04/27/18 1535 Date Isac Kimball MD CC: GATEHOUSE ATTENDANT Alissa Sommers; No Primary Care Physician Signed CT/NG [facility] BY PCR Collected: 04/14/2018 Status: F Source: [place]IO 5:45 PM [facility] TYPE CODE TESTS RESULT OUT OF RANGE REFERENCE UNITS LAB L8200.2100 Negative Normal Chlam Negative Trac PCR LAB L8200.2200 Negative Normal NG by Negative PCR Performed By: #### L8200.1999, M100.0650 #### [facility] [address] [place], [address] Observed: 04/14/2018 Status: F Source: ORACIO CULTURE, URINE 5:45 PM [facility] Urine Culture ORGANISM 1: Mixed Gram Positive Organisms [place] Count 1000-10,000 MIX CULTURE Mixed contaminants. Submit a new specimen if indicated. Performed By: #### L8200.1999, M100.0650 #### [facility] [address] [place], [address] [employer] OFFICE VISIT Observed: 04/14/2018 Status: F Source: ORACIO REPORT 11:34 AM [facility] [place] [facility] [address] [place] [address] OFFICE VISIT Date of Service: 04/14/18 MR#: [id number] Acct: [id number] Name: ABRAM MA Rep #: [id number] : 1990 Provider: UMESH Sommers Age/Sex: 27/F Location: [facility] Status: Signed Intake Vital Signs04/14/18 Body Mass Index (BMI) 37.4 Intake Visit Reasons: 14weeks Transfer of care from [place] Account Classification Clerk Required: No Is patient in pain?: No Allergies No Known Allergies Allergy (Verified 04/14/18 08:33) Medications docosahexanoic acid 200 mg capsule mg PO cap 04/14/18 [History Confirmed 04/14/18] metformin 1,000 mg tablet mg PO BID tab 04/14/18 [History Confirmed 04/14/18] Last Menstral Period: 01/04/18 : No PFSH PFSH Medical History Diabetes type 2, uncontrolled (Chronic) Surgical History History of appendectomy (Acute) Family History Mother Diabetes Grandmother CVA (cerebral vascular accident) Social History Smoking Status: Current every day smoker alcohol intake: never substance use type: does not use caffeine: Yes what type of physical activity do you participate in: none seatbelt use: always do you feel safe at home: Yes additional social history: Knxauazvz-Pdtffx-Ofciw 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 Seen by OBGYN in [place] for ultrasound only. No OB labs were done. No full exam. States she was unsure of LMP and was given early US done 03/10/18 and RENATO of 10/11/18 States had SAB 2014 OB Visit Referred By Referred by: medicaid office RENATO Calculator Estimated Delivery Date 10/11/18 Based on LMP (uncertain) 01/04/18 Current WG 14w 2d Number 1 Estimated Due Date: 10/11/18 Expected Delivery Route/Plan Specific Issue/Plans flu vaccine: [] tdap vaccine: [] rhogam: [] LARC form signed: [] labor support person: [] pain management: [] cut cord/dad catch: [] : [] PP control planned: [] special requests: [] Initial Weight: Not Recorded Date Weight BP Urine PrFHR FuHt Pres MoCTX DilationFetal StVisit NoProviderComments E ot v te GA G Effac lucose ed Menstrual History Last Menstral Period: 01/04/18 Reported LMP: approximate (month known) Normal amount/duration: Yes On hormonal BC at conception: No hCG+: 02/01/18 Antepartum Record Genetic Screening: Congenital Heart Defect: Other, Neural Tube Defect: Other, Hemoglobinopathy Or Carrier: Other, Cystic Fibrosis: Other, Chromosome Abnormality: Other, Saeid-Sachs: Other, Hemophilia: Other, Intellectual Disability/Autism: Other, Recurrent Loss/Stillbirth: Other, Other Structural Defect: Other, Other Genetic Disease: Other, Maternal Metabolic Disorder: Other Infection History: Live with someone with TB or Exposed to TB: No, Patient or Partner has history of Genital Herpes: No, Rash or Viral illness since last mentrual period: No, Prior GBS-Infected child: No, History of STD: No, HIV Infection: No, History of Hepatitis: No, Recent travel outside of [place]: No, Concern for Hep exposure: No, Varicella immune: No Comments: [facility] January 2018 Medical History Medical History: Positive: Diabetes (DM 2), Depression/ depression (unsure of past medication names.), Seasonal allergies, Operations/hospitalizations (1995 appendix), Negative: Hypertension, Heart disease, Auto-immune disorder, Kidney disease/UTI, Neurologic/epilepsy, Psychiatric, Hepatitis/liver disease, Varicosities/phlebitis, Thyroid dysfunction, Trauma/domestic violence, History of blood transfusions, D (Rh) Sensitized, Pulmonary (e.g.,TB,Asthma), Drug/latex allergies/reactions, Breast, Geoscientist surgery, Anesthetic complications, History of abnormal pap, Uterine anomaly/pipe, Infertility, Anti-retroviral treatment, Relevant family history, Other ACOG First Trimester First Trimester: Desire for , Alcohol, Tobacco Cessation, Illicit/Recreational Drug/Substance Use, Intimate Partner Violence, Barriers to care, Unstable Housing, Communication Barriers, Environmental/Work Hazards, Anticipated Course of Care, Nurtrition and weight gain, Toxoplasmosis Precations, Use of Any medications, Sexual activity, Exercise, Dental Care, Sauna/Hot tub use, Seat Belt use, Childbirth classes/Hospital facilities, , Travel, Indications for US and Screening for Aneuploidy ROS Const Reports as per HPI Card Denies chest pain, Denies shortness of breath Resp Denies shortness of breath GI Denies change in stools Denies difficulty urinating, Denies abnormal vaginal bleeding, Denies vaginal odor, Denies vaginal itching, Denies vaginal discharge Exam Const General: cooperative, healthy appearing, well developed Nutritional Appearance: average body habitus, well nourished Orientation: oriented x3 Neck Neck: normal visual inspection Neck mass: No Thyroid: thyroid normal Chest Chest palpation AND inspection: normal inspection of the chest Breast inspection: normal inspection of the breasts, normal inspection of the axillae Resp Effort AND Inspection: normal respiratory effort GI Inspection: normal to inspection Palpation: soft, nontender, no masses External Female Exam: normal external appearance, normal appearance of the urethra Urethra: normal appearance of the urethra Speculum Exam - Vagina: normal appearance of the vagina, normal vaginal discharge Speculum Exam - Cervix: normal appearance of the cervix, closed cervix, other (thin prep pap with reflex HPV, GCC collected) Bimanual Exam- Vagina AND Uterus: normal bimanual exam, uterine shape normal, uterine size normal (14 weeks) Bimanual Exam- Adnexa, other: normal adnexae, no adnexal masses, adnexae non-tender Skin General: no rashes or lesions noted, turgor normal Assessment AND Plan Problems 1. Supervision of high risk in second trimester O Grav 08/19 RENATO 10/11/18 Deny. 2. Uncontrolled type 2 diabetes mellitus with hyperglycemia E11.65 baseline labs. Ref MFM and ophthalmology. EKG 3. Elevated blood pressure affecting in second trimester, antepartum O16.2 4. 14 weeks gestation of Z3A.14 Declines all genetic screening including CF, AFP. Anatomy US MFM ordered Plan Patient oriented to practice and discussed care expectations and screenings. ACOG book offered to patient. labs and 19-20 week anatomy ultrasound ordered Consulted with Dr. Balderas: Referral MFM and opthamologist EKG Varicella and zika labs ordered CMP, urine protein creatinine ratio, TSH, HgbA1C Genetic screening offered to patient and patient chose: declines RTO 4 weeks Orders Orders: Referrals: Results [id number] Office Urine Glucose Negative Last Edit by Genoveva Sousa on 04/14/18 08:46 Office Urine Protein Negative Last Edit by Genoveva Sousa on 04/14/18 08:46 Coding Level of Care Code Off vis,new,level 4 Diagnoses Supervision of high risk in second trimester O Trimester: second trimester Uncontrolled type 2 diabetes mellitus with hyperglycemia E11.65 Glycemic state: with hyperglycemia Elevated blood pressure affecting in second trimester, antepartum O16.2 14 weeks gestation of Z3A.14 Weeks of gestation: 14 weeks 04/14/18 1134 <Electronically signed by Alissa REECEC> Date Alissa Sommers GATEHOUSE ATTENDANT-C Cosigner Signature: Date (if applicable) CC: CBC W/DIFF, AUTOMATED Collected: 04/14/2018 Status: F Source: ORACIO 9:47 AM [facility] TYPE CODE TESTS RESULT OUT OF RANGE REFERENCE UNITS LAB L100.1000 4.4-11.0 K/mm3 High WBC 12.5 LAB L100.1200 4.2-5.4 M/mm3 Low RBC 4.11 LAB L100.1300 12.0-15.0 g/dl Low HGB 11.4 LAB L100.1400 37-47 % Low HCT 34.6 LAB L100.1500 81-99 fL Normal MCV 84.2 LAB L100.1600 27.0-32.0 pg Normal MCH 27.7 LAB L100.1700 32-36 g/gl Normal MCHC 32.9 LAB L100.1810 11.6-14.6 % Normal RDW CV 13.6 LAB L100.1820 35.1-43.9 fl Normal RDW SD 41.3 LAB L100.1900 150-450 K/mm3 Normal PLT 316 LAB L100.2000 6.2-12.0 fl Normal MPV 9.4 LAB L100.2100 47-70 % High NEUT% 75.7 LAB L100.2200 19-41 % Low LY% 17.1 LAB L100.2300 0-10 % Normal MONO% 5.8 LAB L100.2400 0-5 % Normal EO% 1.1 LAB L100.2500 0-1 % Normal BASO% 0.1 LAB L100.2550 0.0-0.9 % Normal IM GRAN % 0.200 Result Comment: IG% - Immature Granulocytes (promyelocytes, myelocytes and metamyelocytes) > 1% indicates that a LEFT SHIFT is Present. LAB L100.2620 2.0-7.7 X10 3/uL High Absolute Neut 9.5 LAB L100.2720 0.83-4.51 X10 3/ul Normal Absolute Lymph 2.14 Performed By: #### L100.0100 #### [facility] [address] [place], [address] HEMOGLOBIN A1C Collected: 04/14/2018 Status: F Source: READING 9:47 AM [facility] TYPE CODE TESTS RESULT OUT OF RANGE REFERENCE UNITS LAB L501.9985 4.2-6.3 % High HGB A1C 8.6 Performed By: #### L501.9985 #### [facility] [address] [place], [address] COMPREHENSIVE METABOLIC Collected: 04/14/2018 Status: F Source: [facility] 9:47 AM [facility] Order Comment: Comments: [id number],SST,REFRIGERATE TYPE CODE TESTS RESULT OUT OF RANGE REFERENCE UNITS LAB L501.0100 74-106 mg/dL High GLU 204 Result Comment: Glucose result greater than or equal to 200 mg/dL suggests DIABETES MELLITUS per A.D.A. criteria. Please note revised GLUCOSE reference range effective 2017. LAB L501.1000 7-18 mg/dL Normal BUN 8 LAB L501.1100 0.55-1.02 mg/dL Low CREAT,SERUM 0.42 Result Comment: The validity of the calculated GFR AND GFRAA in patients over 70 years has not been determined. Clinical correlation is essential. LAB L501.1110 >60 mL/min Normal EST GFR 191 Result Comment: Non- GFR Calc LAB L501.1115 >60 mL/min Normal EST GFR - AA 231 Result Comment: GFR Calc LAB L501.1300 10-20 RATIO Normal BUN/CRE 19.1 LAB L501.1500 6.4-8.2 g/dL T Normal PROT 6.9 LAB L501.1800 3.2-5.0 g/dL Low ALB 3.1 LAB L501.1950 2.2-4.2 g/dL Normal GLOB 3.8 LAB L501.2000 0.9-2.4 RATIO Low A/G 0.8 LAB L501.2200 8.5-10.1 mg/dL CA Normal 8.8 LAB L501.4100 15-37 U/L Low AST 7 LAB L501.4305 45-117 U/L Low ALK P 40 LAB L501.4405 13-56 U/L Normal ALT 19 LAB L501.4600 0.20-1.00 mg/dL T Normal BILI 0.20 LAB L501.5300 136-145 mmol/L NA Normal 138 LAB L501.5600 3.5-5.1 mmol/L Low K 3.4 LAB L501.5900 98-107 mmol/L CL Normal 105 LAB L501.6100 21.0-32.0 mmol/L Normal CO2 25.0 LAB L501.6200 5-15 Normal GAP 8 Performed By: #### L500.4050, L501.9520 #### [facility] [address] [facility] [address] THYROID STIM HORMONE Collected: 04/14/2018 Status: F Source: ORACIO (TSH) 9:47 AM [facility] Order Comment: Comments: [id number],SST,REFRIGERATE TYPE CODE TESTS RESULT OUT OF RANGE REFERENCE UNITS LAB L501.9520 0.358-3.74 uIU/mL Normal TSH 2.99 Performed By: #### L500.4050, L501.9520 #### [facility] [address] [facility] [address] RUBELLA IGG Collected: 04/14/2018 Status: F Source: ORACIO 9:47 AM [facility] Order Comment: Comments: [id number],SST,REFRIGERATE TYPE CODE TESTS RESULT OUT OF RANGE REFERENCE UNITS LAB L509.4000 IU/mL Normal Rubella IgG 28.7 Result Comment: Antibody results Interpretation of Immune Status < 5 IU/ml Presumed Non-immune 5 - < 10 IU/ml Equivocal > or = 10 IU/ml Presumed Immune Performed By: #### L509.4000, L3890.6005 #### [facility] [address] [id number] #### L3100.0390, L3400.0000 #### [facility] (refer to report for specific site) refer to report for address and phone number HIV - [facility] Collected: 04/14/2018 Status: F Source: [place] 9:47 AM [facility] Order Comment: Comments: [id number],SST,REFRIGERATE TYPE CODE TESTS RESULT OUT OF RANGE REFERENCE UNITS LAB L3890.6005 Nonreactive Normal HIV - [facility] Non-Reactive Performed By: #### L509.4000, L3890.6005 #### [facility] [address] [facility] [place], [address] #### L3100.0390, L3400.0000 #### [facility] (refer to report for specific site) refer to report for address and phone number HEPATITIS B SURFACE Collected: 04/14/2018 Status: F Source: ORACIO AG 9:47 AM [facility] Order Comment: Comments: [id number],SST,REFRIGERATE TYPE CODE TESTS RESULT OUT OF RANGE REFERENCE UNITS LAB L3100.0400 Negative Normal HB Negative SURF AG Result Comment: Performed at: [address] [id number] Drywaller: Kayode Machuca PhD, Phone: [phone] Performed By: #### L509.4000, L3890.6005 #### [facility] [facility] [place], [address] #### L3100.0390, L3400.0000 #### [facility] (refer to report for specific site) refer to report for address and phone number V-ZOSTER IGG Collected: 04/14/2018 Status: F Source: [place]ACIO (IMMUNITY) 9:47 AM [facility] Order Comment: Comments: [id number],SST,REFRIGERATE TYPE CODE TESTS RESULT OUT OF RANGE REFERENCE UNITS LAB L3400.0000 Immune >165 index Normal VZOST IgG [id number] Result Comment: Negative <135 Equivocal 135 - 165 Positive >165 A positive result generally indicates exposure to the pathogen or administration of specific immunoglobulins, but it is not indication of active infection or stage of disease. Performed By: #### L509.4000, L3890.6005 #### [facility] [address] [place], [address] #### L3100.0390, L3400.0000 #### [facility] (refer to report for specific site) refer to report for address and phone number TYPE AND SCREEN Collected: 04/14/2018 Status: F Source: READING 9:47 AM [facility] Order Comment: Reason for Type AND Screen/Red Cells: TYPE CODE TESTS RESULT OUT OF RANGE REFERENCE UNITS LAB B10.0800 A Normal BLOOD TYPE GEL POSITIVE LAB B100.4000 Normal Antibody NEGATIVE Screen Performed By: #### B101.7450 #### [facility] [address] [place], [address] RAPID PLASMIN REAGIN Collected: 04/14/2018 Status: F Source: [place]ING (RPR) 9:47 AM [facility] TYPE CODE TESTS RESULT OUT OF REFERENCE UNITS RANGE LAB L700.5000 NONREACTIVE NONREACTIVE Normal RPR Performed By: #### L700.5000 #### [facility] [address] [facility] [place], [address] MISCELLANEOUS LAB Collected: 04/14/2018 Status: F Source: [place]IO PROCEDURE 9:47 AM [facility] Order Comment: Comments: [id number],SST,REFRIGERATE Comments: zika rna igm serum and urine Test(s) Ordered: [id number],SST,REFRIGERATE TYPE CODE TESTS RESULT OUT OF RANGE REFERENCE UNITS LAB L801.1541 Normal [facility] TEST Result Comment: TEST RESULT LIMITS Zika Virus IgM (EUA) Negative Negative Zika virus IgM not detected. Flavivirus IgM not detected. TESTING PERFORMED AT [facility]. ORIGINAL REPORT ON FILE IN LAB CONTAINS ADDITIONAL TEST SITE INFORMATION. 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 of containers..01 ThinPrep Vial TYPE CODE TESTS RESULT OUT OF RANGE REFERENCE UNITS LAB L7400.0800 . Normal DIAGN Comment Result Comment: NEGATIVE FOR INTRAEPITHELIAL LESION AND MALIGNANCY. LAB L7400.0900 . Normal ADEQ Comment Result Comment: Satisfactory for evaluation. Endocervical and/or squamous metaplastic cells (endocervical component) are present. LAB L7400.1400 . Normal PERFORM Comment Result Comment: Harleen Rogel, [employer] (ASCP) LAB L7400.2575 . Normal TEST METHOD Comment Result Comment: This liquid based ThinPrep(R) pap test was screened with the use of an image guided system. LAB L7400.2600 . Normal . COMM LAB L7400.2700 . Normal PAPSMR Comment Result Comment: The Pap smear is a screening test designed to aid in the detection of premalignant and malignant conditions of the uterine cervix. It is not a diagnostic procedure and should not be used as the sole means of detecting cervical cancer. Both false-positive and false-negative reports do occur. LAB L7400.2800 . Normal HPV RFLX Comment Result Comment: The HPV DNA reflex criteria were not met with this specimen result therefore, no HPV testing was performed. Performed at: [address] [id number] Drywaller: Mikaela Bañuelos MD, Phone: [phone] Performed By: #### L7400.0353 #### [facility] (refer to report for specific site) refer to report for address and phone number PROGRESS Observed: 03/10/2018 Status: COMPLETED Source: [place] 2:47 PM [facility] HNO ID: [id number] Author: Josh Burch Service: (none) Author Type: Physician Type: Progress Notes Filed: 03/10/2018 2:59 PM Note Text: Ultrasound report in viewpoint. is significant for diabetes ?11 years. Denies any history of ketoacidosis. Has been followed by Dr. Santiago for glycemic control. Most recent hemoglobin A1c on February 17, 2018 reported at 10.9%. Workup for lupus has been negative. Not on any medication. No history of hypertension. Too early for nuchal translucency evaluation. Suggested ultrasound exam in 2-3 weeks. Patient declines multiple marker screen for personal reasons. She is planning to move to [place], [place]. She will seek appointment with her haz tech after moving. Recommend baseline comprehensive metabolic profile, ophthalmic evaluation to rule out retinopathy and Baseline maternal EKG/echo secondary to diabetes. Suggest follow-up ultrasound exam in 3 weeks to assess neural axis. Ultrasound exam in 9 weeks for evaluation of growth/anatomy. Jsoh Burch MD CNOV Observed: 02/17/2018 Status: COMPLETED Source: [place] 9:25 AM [facility] RE[facility] Office Visit (ENDOAL) ABRAM MA ([id number]) 1990 F Date Time Provider Department 02/17/18 9:25 AM OCTAVIANO SANTIAGO During your visit today, we recorded the following information about you: Pulse Blood pressure Weight Height 89/minute 130/70 105.7 kg 1.753 m Octaviano Santiago DO 02/17/2018 11:36 AM Signed Reason for consultation: Evaluation of uncontrolled type 2 diabetes antepartum Referring Physician: Josh Burch MD My final recommendations will be communicated back to the requesting physician by way of shared Medical record or letter via US mail. HISTORY OF PRESENT ILLNESS; Ms. Ma is a 27 year old presenting at 7 weeks gestation for consultation regarding her recent diagnosis of type 2 diabetes antepartum. She was dx with diabetes in 2006. Strong family hx of DM, grandmother x 2, mother. She does not have a previous history of gestational diabetes. No known microvascular complications - however these have never been assessed (no visit with ophthalmology) POC HbA1c today is markedly elevated at 10.9%. She states this is better than what she has had previously. Prior to the - she was taking metformin 500 mg twice/day and glipizide 5 mg daily (current regimen). She has insulin with her that she has borrowed from friends/family members, but has not yet started it. Her prepregnancy weight was 233 lbs and her current weight is 233lbs. ++ morning sickness. Her dietary history is as follows: Breakfast: does not eat breakfast Lunch: Fordyce if she eats Dinner: Fordyce if she eats Just got glucometer- from memory, BG in the 150's to 200's Hypoglycemia frequency: N/A Hypoglycemia awareness: N/A Hyperglycemia Symptoms: ? denies blurry vision ? denies polyuria ? denies polydipsia ? denies nocturia ? denies rapid weight loss Overall, the patient has no acute complaints at this time. PAST MEDICAL HISTORY Diagnosis Date - DEPRESSION - Diabetes mellitus, type 2 (HCC) - Pilonidal cyst 03/2017 PAST SURGICAL HISTORY Procedure Laterality Date - APPENDECTOMY FAMILY HISTORY Problem Relation Age of Onset - Psychiatry Mother - Alcohol/Drug Father - Alzheimer's Disease Maternal Grandmother - Diabetes Maternal Grandmother - Psychiatry Maternal Grandmother - Cancer Maternal Grandfather - Breast Cancer Paternal Grandmother - Diabetes Paternal Grandmother - Heart Paternal Grandmother - Diabetes Maternal Aunt - Diabetes Maternal Aunt - Diabetes Paternal Aunt - Diabetes Paternal Aunt - Diabetes Paternal Aunt - Diabetes Paternal Aunt - Diabetes Maternal Uncle - Diabetes Maternal Uncle - Psychiatry Maternal Aunt - Psychiatry Maternal Aunt - Psychiatry Maternal Uncle - Psychiatry Maternal Uncle - Psychiatry Maternal Uncle Social History Marital status: Single Spouse name: Years of education: 14 Number of children: 0 Occupational History Occupation Employer Comment [employer] Social History Main Topics Smoking status: Former Smoker Packs/day: 0.00 Years: 2.00 Quit date: 12/17/2008 Smokeless tobacco: Never Used Alcohol use: No Drug use: No Current Outpatient Prescriptions: predniSONE (DELTASONE) 20 mg tablet Take 1 tablet by mouth once daily. Disp: 5 tablet Rfl: 0 hydrOXYzine HCl (ATARAX) 25 mg tablet Take 1 tablet by mouth every 6 hours as needed. Disp: 20 tablet Rfl: 0 ibuprofen (MOTRIN) 400 mg tablet Take 2 tablets by mouth every 6 hours as needed for Pain. Disp: 28 tablet Rfl: 0 traMADol (ULTRAM) 50 mg tablet Take 1 tablet by mouth every 6 hours as needed. Disp: 12 tablet Rfl: 0 METFORMIN HCL (METFORMIN ORAL) Take by mouth. Disp: Rfl: No current facility-administered medications for this visit. Allergies As of Date: 02/17/2018 (No Known Allergies) Fully Assessed 07/25/2017 REVIEW OF SYSTEMS: General: no fever and no chills Skin: no rashes, pruritis or dry skin Eyes: no blurred or double vision or eye pain Cardiac: denies chest pain, heart palpitations or orthopnea Pulmonary: denies wheezing, productive cough or exertional dyspnea GI: denies nausea, vomiting, diarrhea or constipation Musc: denies history of upper or lower extremity weakness Reproductive: gravid at 7 weeks gestation, Endocrine: see HPI Hematology: Negative for anemia, easy bleeding and bruising. PHYSICAL EXAM: BP 130/70 Pulse 89 Ht 175.3 cm (5' 9) Wt 105.7 kg (233 lb) LMP 06/17/2017 BMI 34.41 kg/m? GENERAL: Alert, no distress, cooperative, Obese SKIN: Skin color, texture, turgor normal. No rashes or lesions. HEAD/SINUSES: No significant findings EYES: sclera non-icteric, EOM's intact, no lid lag or stare. LUNGS: Lungs clear to auscultation, Good diaphragmatic excursion CARDIAC: Normal S1 and S2; no rubs, murmurs, or gallops ABDOMEN: Normal abdominal exam EXTREMITIES: Normal exam of the extremities NEURO: AAO x 3, no focal deficits. The remainder of the physical exam is noncontributory. DATA: HBA1C, [place] (%) Date Value 01/06/2012 10.3 No results found for: TSH No results found for: VITD25 IMPRESSION: Ms. Ma is a 27 year old female at 7 weeks gestation here for evaluation of uncontrolled type 2 diabetes antepartum. RECOMMENDATIONS: 1. The patient was counseled regarding the maternal and risks of hyperglycemia during . risks include, but are not limited to: congenital abnormalities, hypoxia and stillbirth, macrosomia, shoulder dystocia and hypoglycemia. Maternal risks include increased risks of pre-eclampsia and delivery. She is at significant risk for these complications given markedly elevated HbA1c in the first trimester. Risk approaches 15%- I discussed this with the patient. 2. I recommend the patient check her blood glucose fasting and 2 hour after each meal, we have provided her with a glucometer if she does not have one. The following blood glucose targets were discussed: fasting blood glucose concentration between 60-90 mg/dL, and 2 hour postprandial blood glucose concentration of less than 120 mg/dL. She was encouraged to limit carbohydrate intake, to walk after meals, (if not contraindicated) and will be scheduled with our dietitian, (if not done already). Regarding her blood glucose management, I recommend she do the followin) check sugars fasting (60-90) and 2 hour post meal (less than 120) 2) continue metformin 500 mg twice/day, stop glipizide 3) start insulin as follows: NPH 15 units each night at bedtime, Novolog 10 units prior to each meal. 4) forward me these numbers weekly (by first of next week- [email or web address]) 5) see eye doctor noemí 6) see me in six weeks. Rx for insulin ,testing supplies sent to her pharmacy. Insulin instruction, glucometer instruction was provided by our RN. 3. Ophthalmology- I encouraged her to see ophthalmology noemí- discussed with her the risk of de garcia diagnosis of retinopathy in or progression of retinopathy if already present I spent 40 minutes in this visit, with more than 50% of the time devoted to patient counseling. DO Octaviano Shannon DO 02/17/2018 9:58 AM Signed 1) check sugars fasting (60-90) and 2 hour post meal (less than 120) 2) continue metformin 500 mg twice/day, stop glipizide 3) start insulin as follows: NPH 15 units each night at bedtime, Novolog 10 units prior to each meal. 4) forward me these numbers weekly (by first of next week- [email or web address]) 5) see eye doctor noemí 6) see me in six weeks. Referring Provider: OCTAVIANO SANTIAGO [[id number]] Allergies As of Date: 02/17/2018 (No Known Allergies) Date Reviewed: 02/17/2018 Reviewed by: Jessica Ward Ma - Fully Assessed Reason for Visit: New Patient [172] Primary Visit Diagnosis:Pre-existing type 2 diabetes mellitus in in first trimester [O24.111] Other Visit Diagnoses:Hyperglycemia [R73.9] HRP (high risk ), first trimester [O09.91] Order(s):HEMOGLOBIN A1C (POC) [2541730] Order #: [id number] #:[id number] Insulin NPH human (HUMULIN N NPH INSULIN KWIKPEN) 100 unit/mL (3 mL) inpn injection pen15 units at bedtimeDisp: 5 PenRfl: 5 insulin aspart U-100 (NOVOLOG FLEXPEN U-100 INSULIN) 100 unit/mL inpn10 units prior to mealsDisp: Rfl: insulin needles, DISPOSABLE, 31 gauge x 5/16 ndle1 Each before meals and at bedtime.Disp: 120 EachRfl: 11 lancets (ONETOUCH DELICA LANCETS) 30 gauge miscCheck blood sugar 4 times daily.Disp: 120 EachRfl: 11 blood sugar diagnostic (ONETOUCH VERIO) test stripUse as instructedDisp: 120 StripRfl: 11 Prescriptions as of 02/17/2018 Sig: * METFORMIN ORAL Take by mouth. INSULIN NPH ISOPHANE U-100 HU* 15 units at bedtime INSULIN ASPART U-100 100 UNI* 10 units prior to meals PEN NEEDLE, DIABETIC 31 GAUGE* 1 Each before meals and at be* LANCETS 30 GAUGE Check blood sugar 4 times kelly* BLOOD SUGAR DIAGNOSTIC STRIPS Use as instructed Problem List As Of Date 02/17/2018 Noted Resolved with uncertain dates [Z34.90] INVALID FOR*02/10/2018 More... Type 2 diabetes mellitus [E11.9] INVALID FOR* More... History of depression [Z86.59] INVALID FOR* More... Family history of genetic disease [Z84.89] INVALID FOR* More... Obesity, unspecified [E66.9] INVALID FOR*02/10/2018 Immunization due [Z23] INVALID FOR* More... Other instructions from your clinician: 1) check sugars fasting (60-90) and 2 hour post meal (less than 120) 2) continue metformin 500 mg twice/day, stop glipizide 3) start insulin as follows: NPH 15 units each night at bedtime, Novolog 10 units prior to each meal. 4) forward me these numbers weekly (by first of next week- [email or web address]) 5) see eye doctor noemí 6) see me in six weeks. Prescriptions ordered this encounter Disp Refills Start End INSULIN NPH ISOPHANE U-100 HUMAN 100* 5 Pen 5 02/17/2018 Si units at bedtime INSULIN ASPART U-100 100 UNIT/ML BOOTHE* 02/17/2018 Class: Med Update Si units prior to meals PEN NEEDLE, DIABETIC 31 GAUGE X /16 120 * 11 02/17/2018 Route: Misc Si Each before meals and at bedtime. LANCETS 30 GAUGE 120 * 11 02/17/2018 Sig: Check blood sugar 4 times daily. BLOOD SUGAR DIAGNOSTIC STRIPS 120 * 11 02/17/2018 Sig: Use as instructed Medications Discontinued During This Encounter traMADol (ULTRAM) 50 mg tablet 12 t* 0 04/14/2017 02/17/2018 Class: Print RX Route: ORAL Sig: Take 1 tablet by mouth every 6 hours as needed. Disc: Course of therapy completed ibuprofen (MOTRIN) 400 mg tablet 28 t* 0 04/14/2017 02/17/2018 Class: Print RX Route: ORAL Sig: Take 2 tablets by mouth every 6 hours as needed for Pain. Disc: Course of therapy completed hydrOXYzine HCl (ATARAX) 25 mg tablet 20 t* 0 07/25/2017 02/17/2018 Class: Print RX Route: ORAL Sig: Take 1 tablet by mouth every 6 hours as needed. Disc: Course of therapy completed predniSONE (DELTASONE) 20 mg tablet 5 ta* 0 07/25/2017 02/17/2018 Class: Print RX Route: ORAL Sig: Take 1 tablet by mouth once daily. Disc: Course of therapy completed Disposition: Return in about 6 weeks (around 03/31/2018). Follow-up and Disposition History Recorded Encounter Status:Closed by OCTAVIANO SANTIAGO DO on 02/17/18 PROGRESS Observed: 02/17/2018 Status: COMPLETED Source: [place] 7:51 AM [facility] [place] [facility] HNO ID: [id number] Author: Octaviano Santiago Service: (none) Author Type: Physician Type: Progress Notes Filed: 02/17/2018 11:36 AM Note Text: Reason for consultation: Evaluation of uncontrolled type 2 diabetes antepartum Referring Physician: Josh Burch MD My final recommendations will be communicated back to the requesting physician by way of shared Medical record or letter via US mail. HISTORY OF PRESENT ILLNESS; Ms. Ma is a 27 year old presenting at 7 weeks gestation for consultation regarding her recent diagnosis of type 2 diabetes antepartum. She was dx with diabetes in 2006. Strong family hx of DM, grandmother x 2, mother. She does not have a previous history of gestational diabetes. No known microvascular complications - however these have never been assessed (no visit with ophthalmology) POC HbA1c today is markedly elevated at 10.9%. She states this is better than what she has had previously. Prior to the - she was taking metformin 500 mg twice/day and glipizide 5 mg daily (current regimen). She has insulin with her that she has borrowed from friends/family members, but has not yet started it. Her prepregnancy weight was 233 lbs and her current weight is 233lbs. ++ morning sickness. Her dietary history is as follows: Breakfast: does not eat breakfast Lunch: Fordyce if she eats Dinner: Fordyce if she eats Just got glucometer- from memory, BG in the 150's to 200's Hypoglycemia frequency: N/A Hypoglycemia awareness: N/A Hyperglycemia Symptoms: ? denies blurry vision ? denies polyuria ? denies polydipsia ? denies nocturia ? denies rapid weight loss Overall, the patient has no acute complaints at this time. PAST MEDICAL HISTORY Diagnosis Date - DEPRESSION - Diabetes mellitus, type 2 (HCC) - Pilonidal cyst 03/2017 PAST SURGICAL HISTORY Procedure Laterality Date - APPENDECTOMY FAMILY HISTORY Problem Relation Age of Onset - Psychiatry Mother - Alcohol/Drug Father - Alzheimer's Disease Maternal Grandmother - Diabetes Maternal Grandmother - Psychiatry Maternal Grandmother - Cancer Maternal Grandfather - Breast Cancer Paternal Grandmother - Diabetes Paternal Grandmother - Heart Paternal Grandmother - Diabetes Maternal Aunt - Diabetes Maternal Aunt - Diabetes Paternal Aunt - Diabetes Paternal Aunt - Diabetes Paternal Aunt - Diabetes Paternal Aunt - Diabetes Maternal Uncle - Diabetes Maternal Uncle - Psychiatry Maternal Aunt - Psychiatry Maternal Aunt - Psychiatry Maternal Uncle - Psychiatry Maternal Uncle - Psychiatry Maternal Uncle Social History Marital status: Single Spouse name: Years of education: 14 Number of children: 0 Occupational History Occupation Employer Comment [employer]* Social History Main Topics Smoking status: Former Smoker Packs/day: 0.00 Years: 2.00 Quit date: 12/17/2008 Smokeless tobacco: Never Used Alcohol use: No Drug use: No Current Outpatient Prescriptions: predniSONE (DELTASONE) 20 mg tablet Take 1 tablet by mouth once daily. Disp: 5 tablet Rfl: 0 hydrOXYzine HCl (ATARAX) 25 mg tablet Take 1 tablet by mouth every 6 hours as needed. Disp: 20 tablet Rfl: 0 ibuprofen (MOTRIN) 400 mg tablet Take 2 tablets by mouth every 6 hours as needed for Pain. Disp: 28 tablet Rfl: 0 traMADol (ULTRAM) 50 mg tablet Take 1 tablet by mouth every 6 hours as needed. Disp: 12 tablet Rfl: 0 METFORMIN HCL (METFORMIN ORAL) Take by mouth. Disp: Rfl: No current facility-administered medications for this visit. Allergies As of Date: 02/17/2018 (No Known Allergies) Fully Assessed 07/25/2017 REVIEW OF SYSTEMS: General: no fever and no chills Skin: no rashes, pruritis or dry skin Eyes: no blurred or double vision or eye pain Cardiac: denies chest pain, heart palpitations or orthopnea Pulmonary: denies wheezing, productive cough or exertional dyspnea GI: denies nausea, vomiting, diarrhea or constipation Musc: denies history of upper or lower extremity weakness Reproductive: gravid at 7 weeks gestation, Endocrine: see HPI Hematology: Negative for anemia, easy bleeding and bruising. PHYSICAL EXAM: BP 130/70 Pulse 89 Ht 175.3 cm (5' 9) Wt 105.7 kg (233 lb) LMP 06/17/2017 BMI 34.41 kg/m? GENERAL: Alert, no distress, cooperative, Obese SKIN: Skin color, texture, turgor normal. No rashes or lesions. HEAD/SINUSES: No significant findings EYES: sclera non-icteric, EOM's intact, no lid lag or stare. LUNGS: Lungs clear to auscultation, Good diaphragmatic excursion CARDIAC: Normal S1 and S2; no rubs, murmurs, or gallops ABDOMEN: Normal abdominal exam EXTREMITIES: Normal exam of the extremities NEURO: AAO x 3, no focal deficits. The remainder of the physical exam is noncontributory. DATA: HBA1C, [place] (%) Date Value 01/06/2012 10.3 No results found for: TSH No results found for: VITD25 IMPRESSION: Ms. Ma is a 27 year old female at 7 weeks gestation here for evaluation of uncontrolled type 2 diabetes antepartum. RECOMMENDATIONS: 1. The patient was counseled regarding the maternal and risks of hyperglycemia during . risks include, but are not limited to: congenital abnormalities, hypoxia and stillbirth, macrosomia, shoulder dystocia and hypoglycemia. Maternal risks include increased risks of pre-eclampsia and delivery. She is at significant risk for these complications given markedly elevated HbA1c in the first trimester. Risk approaches 15%- I discussed this with the patient. 2. I recommend the patient check her blood glucose fasting and 2 hour after each meal, we have provided her with a glucometer if she does not have one. The following blood glucose targets were discussed: fasting blood glucose concentration between 60-90 mg/dL, and 2 hour postprandial blood glucose concentration of less than 120 mg/dL. She was encouraged to limit carbohydrate intake, to walk after meals, (if not contraindicated) and will be scheduled with our dietitian, (if not done already). Regarding her blood glucose management, I recommend she do the followin) check sugars fasting (60-90) and 2 hour post meal (less than 120) 2) continue metformin 500 mg twice/day, stop glipizide 3) start insulin as follows: NPH 15 units each night at bedtime, Novolog 10 units prior to each meal. 4) forward me these numbers weekly (by first of next week- [email or web address]) 5) see eye doctor noemí 6) see me in six weeks. Rx for insulin ,testing supplies sent to her pharmacy. Insulin instruction, glucometer instruction was provided by our RN. 3. Ophthalmology- I encouraged her to see ophthalmology noemí- discussed with her the risk of de garcia diagnosis of retinopathy in or progression of retinopathy if already present I spent 40 minutes in this visit, with more than 50% of the time devoted to patient counseling. DO MAURICE Shannon Observed: 02/11/2018 Status: COMPLETED Source: [place] 12:00 AM [facility] Telephone (OBGYF2) ABRAM MA ([id number]) 1990 F Date Time Provider Department 02/11/18 JOSH BURCH OBGYF2 During your visit today, we recorded the following information about you: Lesley Fuchs RN 02/11/2018 11:01 AM Signed Called patient, identified by name and . Informed that Dr Burch referred her to Dr Santiago for an endocrinology consult, due to her Type 2 diabetes. Patient verbalizes understanding and agreement. Dr. Santiago's appointment line number given, advised to make an appointment for the beginning of next week. No further questions/concerns at this time. Lesley Fuchs RN 02/11/2018 3:17 PM Signed Appointment made with Dr Santiago for consult on February 14, at 220pm at the [place] location. Called patient, no answer. Left message on regarding above appointment, with directions. Advised to call Dr Santiago's office if unable to keep appointment. Lesley Fuchs RN Allergies As of Date: 02/11/2018 (No Known Allergies) Date Reviewed: 07/25/2017 Reviewed by: [place] (Rn) JESICA Macedo - Fully Assessed Reason for Visit: Future Appointment [256] Prescriptions as of 02/11/2018 Sig: PREDNISONE 20 MG TABLET Take 1 tablet by mouth once d* HYDROXYZINE HCL 25 MG TABLET Take 1 tablet by mouth every * IBUPROFEN 400 MG TABLET Take 2 tablets by mouth every* TRAMADOL 50 MG TABLET Take 1 tablet by mouth every * * METFORMIN ORAL Take by mouth. Problem List As Of Date 02/11/2018 Noted Resolved with uncertain dates [Z34.90] INVALID FOR*02/10/2018 More... Type 2 diabetes mellitus [E11.9] INVALID FOR* More... History of depression [Z86.59] INVALID FOR* More... Family history of genetic disease [Z84.89] INVALID FOR* More... Obesity, unspecified [E66.9] INVALID FOR*02/10/2018 Immunization due [Z23] INVALID FOR* More... Encounter Status:Closed by LESLEY FUCHS RN on 02/11/18 PROGRESS Observed: 02/10/2018 Status: COMPLETED Source: [place] 4:10 PM [facility] REPOSIT[facility] O ID: [id number] Author: Josh Burch Service: (none) Author Type: Physician Type: Progress Notes Filed: 02/10/2018 4:14 PM Note Text: Ultrasound report is in viewpoint. [place] with sonar EDC of October 08, 2018. Patient is a diabetic for the past 11 years. No history of hypertension. Gives a history of recent diagnosis of discoid lupus and is not on any medication. History of smoking 10 cigarettes per day. Patient will return in 4-5 weeks for consultation with regards to management of diabetes/and . Patient has presently declined screening for aneuploidy. I will discuss the same and she returns . Referral to endocrinology for management. Josh Burch MD SPECIMEN FOR DERM Observed: 09/24/2017 Status: F Source: [facility] 3:06 PM SYSTEM REPOSITORY Surgical Pathology Report Case: [id number] Authorizing Provider: Mariah Carpenter PA-C Collected: 09/24/2017 1506 Ordering Location: [place] Received: 09/27/2017 1150 Dermatology Pathologist: Nathan Johnson MD Specimen: Skin, Right lateral love LOTqiky13IMLVZq0dGcDSQpJp92/BUQgzFMHji9NoMTbjZXj3BMjvDWPrU5O4cPzvcmonU6RlbTpuNZXmMS2PI5Lmi3GrUZXxSBVcKdI2UdNzOuifI0JovdDdnHwiW5Ovu8A7W8FrVVkgY0H3o59tZQEwCU8ByrQxeNsybpZpyCMxEj4gB P5nIAfsNZ6cGQW4OQmvV5ZbI TD6x8ShHEYkJmRJkLQ2UC2iWVJtxgTsxtQ4sU0nKV2MRSF+Bo5CMZ2pv0ZvVJg0HCOnp8VpXCngQUb3I4XagEWkjgCbDgkpzLGRGHGlUNZyY4schxd5oKTmAFs8Zk7AYkFxk5LuKCJzVYv5pM3wPHEhXfFN368le7cKX85TNdHIPlEX2Y6bqLIbwbkjeObK7GRjCYqO+ +v 5GOZOHscUuyExqJS99S92WWZW1mIszKAVBKeS/xcsCwGcBCv8d0vh8FbuyA/gN/dhEuIRwXD/gcPV/nG0ssyt8WqBo7iURRVey2eJYUwaKGgiaOR+BYIWTZ3cabgcsP1+idWXi2BTRUWzA4IwKY0GZblbgVmwv/UptSl25tfa6/BwPr+s2O4mnuzBm1oSYYFwXGoIpbd aw 5oEOF0n69Mkt+f7fLCeNAklwJwFmQKmwI1K9BArsfuspLPNUFFIMvwX1HSxikHnxUKgknREHuGKecCOJ8wZwVzKmII3Pl8myOPM0KjFUsQCZRz5WV5E6hj95G19AZRe6ZL26fytoBicjoZRn8huxFZQD4DTBcufnJfIPHVOBxm3Fo9ACMhBBju4oZuDJBm+6PDy2nFTI /3 y5Nomg0JTGC2Ol1EY26PRocP3ZGOvIgoId7ehIqAlknrFeJO4geFdS4vpr7zyeyjtVGDERWP2Lno3pjDQZ8AhO60KjolxqOtXxuwBRuKyZdOeIIssroMbIfDWwMUfIoH09kyeiDvD9q+XzpQwnEayqDtg21CqxRLUH92B+Ccu34kL2zHwaxy7vV9T8DAsCGtF6rH3PZP j/ BhOEdFkM5fc0k2PhCVzlh+pLfhqBxzgmTxz0BJXX8wd7Bxx1qyj2ZVNyRd3fRvWGxAtL3aN8DWfm148ZmRL+ApBf9ftimXLKHlxGvgq2Q1pr1GmaFeopcBsyvgzOa0OOnBh1yjRbmgSp7v7TKS88Qxk2qqWHog1RWuqK8SJ9KIZnYSKE8pi2wSvhDIMJMQAXa2JFQuKX 5P bkONea1jQH4Wlbns0MbQMQBYU/vRVDEHvEcWHT52nm5PpWjSTxmgtHdqBHOY5ARQyBg2Mluqa04mPRip9hdUZ21ocLB2bAgEwUyLDlREYfyufWqyYNpwyxWqIXghhhdOM7r6zew/imf5FgE+heBMoH/iG2NSJAkgVeNMJG09XJvPBx4gne5dzcCdqZ2dLYSQuT2mbeK/ wl HC+y1P4wMW9dMV2dponCo0VlegZq6jdSXFqZR8xWn0PkQzU3tXrluPjtn3t0iJscCgoK7Sn3bEiSBKBqhyVrRLpHQjrdehee44JWxd75TvpM24aIDwrYuS+7JWCJr4hUMvcF+OhoZkbbNvB43g0+OAllQuyOG6d8Gnk7eFhks5xU0g+/3ii8X/0tnWA0XuRKHr4J5j0A a0 N3/BI1te9VoRcv6wil9xnrOp6pY4qQO3K7fdVOzvPAMmTbkYrJj6mQLteM2smUVIcXtU5HzRsG2m/RQnTvnNxBwlqWeVMKBh4w8sA7ZIIerqMBjpe9IW87IVJl3LNB96acy1l85UjuB0usWlGrMfqZA2tBoiyq2kdKKb4LYmlSVqYV08yrD71l4jV3dspUi2KMugWeQH Sw VqdvghR8IbXDgdNMr5luyqkWbn2ltU/uvNUnojKOcbqJM0eKG0DRWtqwLiyX7RUVsB36gyMXGekwYpxUKYBLb1k4RGmZJ0phBUb0s55bRGTdcde281ISSWneD10OAY7sR/LX3yX21yIxY++rcBhGTQZyf5blN+LsYa6764dw2qg7cmqvegx11HqCn88hSLx+qcVcSLcP Molly HsqOiQEoLdHcITCeBA6z9Lblp3W7QTPoyZcTODk88QcblYiWpgYSDJ0/NqOu+fVBPEgom4nPxQ2RGalCPWC7Uco8xlvV2yQ4N0u/rG1Xrn9Xoab0+fYPHRsAP3vkwqx/9ivWH8Z2heb51HO67iAlk6JL7GKbsucfmc4nE0yUYWMd9U5k9fRc2P61Y/knzlhJ3Txq+HcD 7b q4ToyAFNOb7WfWF7/qErSIGKv9JnS4Iu1af22mk6ayvj0dHXXgTu3Aee9YMpY/9jskOAXSRWO2PCHCD65Y2iwvGUwOzXiAXDW8yv+TrhgpvC6RB5TDgGSi5zuPJ928UaoiVM739bdLPMPbQgW82EFKMcSDegSdsyJDKnVA0ZB4SAg2LHeRcXkjF7Qs8SFDzhGZmpfApc /O Y8ubdkzSn3X+hFN5xOw/ElCk83EoO4B/aIWi1YO4xf9NxBFRbHXemnwKfAuqAWyRrQVPhMmtKGcWtHFbUNeFzTMHpLDswLW6ZTVowDGmtSULwL0OgehWfwYXrCDCaIc9DEBGlGQ1KKFNhrKFfBRSxMoFmBOWJQpIiCTWnJHZakFNNg0kcFjSuWQC3ZOLmVrbnTB6MIOH gI C1Is891AR02qdR4MVImWv3KBXY+Ud6ZAI1am4JdTBt8NNQzy4OvAOipHYwpAgIhZEx5QBMyPhusOdp9ALX1SYX0MUSvGUY7UZn9YJV9RgpjHJahJBDkPuYbQrLhKhj6CZB5TJUfJuvbObLdREF3CQBlEvhmBYQ2SKR6ClW8MPNaMYY7KUR8GcS0CNLlJVI6FHK4ZtQ0F TY uCBN9FRS6YWEiDlggQPf2QP9BKVN2SPBnMEi6ZSG3LoPnLQV9ZRC4DlP5YzreEbLwGUlwKcA5JyzgNfZzKGp3UPW4QyVyJsp8BXSjQSU3QnckSXX4LQsdJyU2CbMbHwq8AET8JsT9XfdsZwXaWYR7LzM8YXIaEaZcKCX3ZiL7FZEbDfG2AWZ5DlA3FUWtVYnfFNG9AYN yN qnxBqq3XWJ7JVB0JQUbYhNgKLI3FuA3MBSsAMRoIZJ2UdH0XKHoHsg9PRI2WtS7XYCsSrQtRJJvPhV2PDCrBsGyDHdnDeO0SKIaGHX2LHL5UeR4AVVrLwSrKHCeKHLdZdcwHZE5HCVzXRB3HhQtQQAjPT5BZKA4CBBmWWCaLMZpRVTvKlQlBsA6VVY7WKQ1MMXoNVB4E Dc 8MBVxYiPuFFK0ZGUwCqCmYMDoUNF2FvQ2UKYvUyPpZARxWSSpPjF8KIQvSlOoJWEmJDe2QKF0OJXsYkBwBNq5SXUeIoCkYyUnINBsPlLtItQjPjAcXIR0UwABQkHhHGTzZDPqYdJvIHYlHTT9NWAaCiXhIZn9FLE6XHQeTDFaZGK0PuVfXdfdJaPkHNJ6FuK8CWBnMHG 2I GU6HjYnYiWlHLW6XDWrKaU3SmkeJdrsFLN3WoX9XHLxLkGwMBqrIuC2UEMeUMGeUXH8VGYlTbHyTqSoSKEeBxIXTwCaSEg6JHPpCjJtJdXkMoMrCOLrWrVfHrLxFXG2GTxxRYX7FmQpLXS5BHKfJGE5VgonXyE4FTL1NrX5YhmzBbZ7SQG8XlQyVKEhJYlnKbG3MdmsL jY 9RFZ3IiA2MjonLht4ZNZ7SIKkFstsRem7YZmdSdQ4OkPcZln2NT5BNRR5JumpOeu6PRw0FGI3WazdPNo4DRm1SSW8OfMdXeDuCOzqPcY1QkLpBxM6HTE9WoM6ACLqGBJ8UQU7LyQ8HZOyVOL2EOT2OwY8YKPxJGd7BIBaFXA3OIFoJUK5KJW3JbR6EVMxOhw5SQK5JUE yN xvtWeg6NTN9WoYFBcIcIKK1VSS9OnC8QNUnMIM3JKH6HoU6DGYkISD3OHGsRKK8ZHUaUHQ5QZA4BpZ0KMSrUPNyGON2RiO5FVYvSTSVZhLbJP2rty5NYkCpDX8pha7UDZM4CP0EYXXsGB3OpIHqV4CfrwIDKAErphyhjV6nJLzhWYQpZ2LwgwMYZR2lT6JvoCIvDXaeM CA zL4PoR1FijAX0EGCnG5ExXLBuC3w5VBikOP8YPXRvJO78XS5nSRFFOnZnCVSkFezjF8DtXwLIBvChWHUvOp7xjLBDj1zxIwWqDINtBoXgVTE5QZfiZJ4PGyNiPMMmEMQeeVvbIX0vwVUpPB6MoBIgVlGvRVerXS7+DQplbmRvYmoNCjggMCBvYmoNCiAgPDwNCiAgICA vV FzoQX0Wc529V3U8KhP6yBMhQZG1ODK1zTFvUeOaQTSarsKvKPCuJMhrIS1tv7KdrajrV2ngYK6jqHMyZ32kmI6sWFvvHOOuB3WuscM5C4stxtPzEC1MIGQ6W3hvwlOuAPGUHqSpGKNeZ6bzzRbeBGFpPCCLCAjrHGDlT5AbevWLXXAzsxdgwU2cHZgdFRWFYBbtZL5+D Qp xmhGmIgtXPphhPFHnVitUWlHvHfN8EOJlFkIgMBR7ECAvBwUpJVk8FHJ6NyR2TNJlYSv7MNvkOjCoYanyNhWeBKTkOyKoBGcqHFq4JSM3RJWmVtXgHby7IPC9RTG7BOWuPVH8HFB2AnM4RNEzYPB6KYS3IsQ5UMFaJZP4HYK8QvQ4BPTaUnNbYCRgEmM8NHScEVekPMY 4N UD1NGLnItGgRGt3FDY4DdCqCiVoTOmbBuC0OmCsUfC6CITeESG5BroiOaTdDES4XHM5FCHbArMlPTFpRWN6QwHvAxGvVLg3OHW4CgwcNsc2TRyrDvH7WlfzQrOlPAwoNvW7AfttZUU9PPR6CwG4SsbzRlAaGB5NLMGoYmSoTrg0YPGzBhR5EFUbBCJ8VMJkJtB1RKUsD jE aPIP8HyO6PUHuFGQ4LXXqJtZ0GLEqZaTwQWG8SMKkNmbwKIL0ONN1YWQ1RSdaCgRoDXEaPER8TXXvBlUlRDW7TIF3SFQvVpMhIWHsUNJ1JXPcGki4ZPA7GcIKJnUvZEG8VHNmOXDjOErkIfvnUUK6MUM5ILDgXlAbGAK4ZiQ6IPRyRdr0GAS6SbD8UDNxVTUzGIV5DSH gN GJ1TCHhTzZcPXElMWL0ZsGyAuByQLIfQHT3BGVyJcRuNAx3QFZ7UZYpXyz5PMR4OMC7AVVpJSAnSQP5RWN3BZDyXBzpKPPfMDLkLtRoJFWiGVSoDKY9YYCsVgS3CXQkCbSoPTShSZU3CkdvFix0NVCeLrN7KPFkFRO2BEH8QgP9TFLnApxuCAR0WlOoPyMiTgM8OVV3N CA 0WELnGOh7UPXfHrE0MxgmGRAdHYTxPWR1WDmyGiFiLCJnRlRdFkGjGHrmNXX4HgX2HONaOeLoILErUyGuIhItMuU4TBX8HvJ7BiCzMXW0HWvwACW1MKSaKjKsNBwlJoF4VvOlNnXjAWguVdU2AdLcXPXbAVO7MpUvPsK7QIC6BbY8DppbPbL1MFU5EKNhZsomSgb8ZRO 3O EQ2BjPhQdKnGRn0CUZZSyPuZwa1THa2OCJ6BgioTsb4MLU7NBV9LslsMmBxEXwmEnA9TyOyFsHkZED2BwT2ViyzEtEyVGG0EwQ6RXZcPAC6SGB7QnQ3JTNtRPO8TZp3DBG7HFCsMKI2LHY6MbB9UFKcYVL0KKN5EZQkNhskWam9YNK9TZX6FVWlKShyJDMqDMQ3DFWnN jE mRXInWCD0WNSpBwXnDZP5LVN2JOKwRiEtFICyQWQ6CDRsSiEzPXK5EuG8FPCaKYM1CL5gSEpuihCqGbuKVdRuTTOre9ReFUxwEKg1JTbyATDyO3A3aOLgMa6okSUrk2QlbUU6r0TUKlWdQAHlFk6jzN7vmRZxVJIzHMnkGl8aDE1MIHNzRF7Pm7NwncVeVSD2G1VrjZq la ZcedKN9HZRrLFYqR9XveSSlKeMkJHgcCRGvW7XlWEcrBLWvOLknNPOmF9HpqgHKAp65JXwgOP0nZQEyRQIeAFG6BDVnDUrnDGUkK9n0GOmdY3IlW1lbYSBdM6CkaCMiXX6UIJB+Lg6TTN3cs6HjBCpfAACqNR8krp7ZVRB3KG1WQDKrUT0EiRLcD3AmouLiV0MktQroE S9 OamWlILrsBN8DELLnXc8vlM6QghpcrYlCi7wsR1JkQ99pcH4xI2cyntAni1iGxeThOGxaDu4IGKTyOS6AgBFvnORxFOSeRwEoNRXxeGFwGQWgDaI2DPlwOFNlT5luUMGztaX2POJsYe1KXHWvAF0Mk318WMKoY3ZsaCAywtKgPBKmVCUYFdNcXu6ZNjReAD7nuy3IKRF gM KYhKtoGLpAvSuT4QYQtJxDaTZS3FJOjQebxZaH9TLD2VbH3EADiDJp8KLI6OvHeBKIkZhUnPCDaKyHeKIpfZGc1GMP8DAUnWeXwYsn0OXO1LEP8CMUnLBY9ZLM6EgC4WEPrCEQ5ING4IbZ1SZXhCDL9SFE3ZsZ8XVVxNpk6AQL7AYQ7WYUbYNmcDCC7BPL7EMLnALC9A DE lUIHzDkP4VZF8KuM1QcMhIlMwOIG3ZkJ0XLQpHhm3DEeeZhXaFsvfVTHlIJO6DgV1ZXZpJJDnLRiaDhG7XfnxMyB8GLm9FWG4NqAsPnI1FRFaRDP7KsEuGxK2GPl8QCS3OtjfOjN6DKXcCWWPCxXtVol9ROR8VEPhFejnKEK2BYN7WmTyNjZlJGV7JFA0SlD1YGKmBSA 2I UA3EbBnMfurUCU5DYU2JnRnQzRdXbZpDHCyJGTyXlQdQONfHFB9LzU1QBRdESS2BXV7BlHyYgIyFDChERI8QDN1VXWhLOFzLHpqFdN1NEMgUGttOPJqJKN7OVCoYfX0DBB5LZJjChSlHYb3AAf9FFR1MPGfRyYjLOPvEiL5YLKuJyUeMZUjBFBcURB8JDY4EgNhBiTqK TA sKGP2QpzvZrEiMEYnWIStVdHtIJWmTLB7CEBtQtRmJWDdLhDkLiFuGdDaYLEiJyWmDJQfVLK5HK4SFHElFBGoGEBoZtMsTJNjLSGeQCErOhInARJ7ESp5TIZ0BIRgJpK5WNJ4JPKvOiUxYZI4SBF0AzE6EJLnWKC2QIR1JPJ1SFLkXiDyKCqvBoEjTiNkNZV7XXZ6IMR zM bUbOrF7ZYU6LjJ0PEHcDUZ9LHNpUlTpNsLtLqFtZO6NDQR3XlVnSYH4NTOlKrXhFxWsJrPkAYU3LAL2WJMmHYG1TLgcPCU3GlNyYfTmJXL9AnC9WyvgClX9JCT8ViY3ReevZvC1HMGoUBSwJjWhKYX5LjH7BhtuPiR6GTH8UfDoGmrbAyi9DYY9WUTcGnzlQfUvGBmlP iA 6QvqoKNleJPx3ONH9EfwqGfp9SDw1BQB0JNFyPtn3WHtqCnF0CmPjJyFaMNegZhH4XpmbNkX2STSyQEJ5LBYfSQX0MBN9FkP7VTPnRKB5WZE6BvR8VJpeCFPnQJY6ZaB2YELpUJR7ZYE9QpYeRsoaLew9UAH4EJPpVgdjFLP0VJ4HPDT4VDLfAOH1MIC3HpP9WCDeOYZ 2I LV8TkK8BKqdUhQkWOX7DrA6DJPeHRS5PSJ6JbR4BQQqYNK4GCHoZKYsQL6JVF6kf4WoRCvkBrMoQH8dbs5LLOQ9JB0HSDPkEQ7ClKLdK4OggxXFYJRcqobyvY9hOZtgHYCcR6CzjkLQTB4rR8BlzPEaAFg4QHzrWw9RNVHvRH1Aa5QphjHfNSG4W6RqfMsmsAinnCG1V DU vSNAkF9UicZToZpDcRQnsEIVgQ0OmCDmyYTu1MKvkSOOcQ1QzfgSOZc62URlpIH9uFUSuNDHiWAK0WCAaRMihTVBmB7g1FEheU8XsC5xxBG7vED7WdTYkJvNfJTufDQ1+XJggkeEcZruUWxY4TLXkk3HpJYmdYYl2TWkcNCYgN4I4lFArDl9rwC5DuKP5lOEyO1CqiFT Ue CAuM5Vvb1OCv939V0HbtMYkDSn3YImsXg2LnsMaATsnYv7AeI0VghPlDB4ur3TwieyLWwCpHOMsRbudk3NQoCJqPQSzE0zot8VMfOVtSKD4XQ0VODUtLP9MeGS6tZKsTRGlCIHPYUulNBQaF4CaufHUCVUxywosjT0kAJMoQUMiXj4QNCL+Ov3EMO9lx4NjVGwnRVYoW G9 fvv0PYYFnKOLgAYIgATExEVWxKGScWwHnOLSuJAQ0UahxTOV7UZa3JlD9FaAeRnYoXQP1VjSaTAKuQDC8QVayDMLhQHVtLeHjLIUfRkWgIYYjSAF8CIL3EiC6NLPpTJU2DFZ3BhK4OXSkYFJ9CEA9DvP4XWXtXRP8SWJ0RCAiHWZfNxP9RN3HGIG5KjabWzG0STV0WXL 5M GasRoVsJBY8XUP6PKEmUeb5FWZ9RTS6XxKfKuH6XUZ4IJOwLzJtBUZ6KEG9MII5GNsuFhlhUFE7CuA2SAbwNTOgBTkdFHW2ZaMxVLQ6ORT0ZRY5LAMpQQe6NHcsXqP0PAAyAOz4LGJ8ISMMHhRmHibkKBU8YnIiNWObEkM1NRP3IkF9ZPUnZDK4FPB5FuD2UsViEBTbF DU tZnTcOJshFWKjBYG8AAXwDfblOeooZHL1VSMrNtmcQKOsAFH0FLL2SZMvYFUuPEK9XeItNaOqVLO1YHEgNYG1YAuhCZs8DYe0DhV8IKZjSZnhKFM5OYS1SOZpDXfzSCV1SzQ6KIIsBcF8PTYoWMO2TSUqXLUgVYXgKUFpMCG7BHG9MwT8YZkxLTA8LUC3WoX7ZRBrITQ 5M JP0DByuYodaKDb4DvHqTXYpCCJ2UAZcYLNgSFCmHWMhFaIkOVMrITK3UPSeBTDqNNQ9OYN3TNWhWBztNWhtZPW5HXEqULn3SWC8MfKbDWMpKFN9VEFkSDJlRVC0ODT6SgMkRAFkOzXiXES0XqY3UIVjUSS2CNS6NuJxOEWzTFD9XVF8NgZ8ZziuGRlkMHE2MzB3YddmP zY tLBiaMXB8HHWxLOpeMEftHUE9PVJsDMfvSII1FkZTEkYeSWF4KUL5AlPgAGVhRWB7CRG1QgN5KUVyZQgqMBHlNASuIGWfBKGgEKNzCKZ4LTZ3OLGsCdAtRYRuBZT7VEEgAoLkSNDuAXK4NZGgMyBxWNN0HPS9CnRkENKnWZO2PVEnChBxPtdjTNM1WrJaRlArXph5DCL 2N rC7NUkoIBokCBskTKO6UFqpUyH0JRhgHWA8CbckGaB8OGK1BtU1RHFuHtR0VMU8IuP1QiDeAWK3FWU0AQI0RqFaOMF4ACZzBXU9OjJdSZC4NRMeAOV5SOYcCTOvIYPrLxA7LrDgUPV2SVVaHtIlXgzdXgZ3IVPkOBOeQibxXLW8KB6IBUM2WYjeXRIsDRG8SeY5ZLYdP TQ vNPJ6ZnZ9TloxTJZjRNV6YUJ6IDnaRDL4EBW5PFP6YMwtLUHgGJL0CLTiHO9BPP5pg4EkNGqmSqTdXT6grs6CARM1UT5TTZAfUZ0JqJEgV7QtmyMJDYRkzybhlR5fYGfoCXDrG2BfzaMQLL4pZ5GlsK8vXK6DNDLyMH0Rt3MbukEoBVNcTN4XQLPXSFpdtVSaJYKqBV1 EZ NNzKQ09CM7pHKyUQtEuSEFzJlltT4JyXsMRIaWkOTKgPj5jhTLMz1zlHwWmNGGvMhYuBadeHCGbWWVhOMkgMXAaA0b4SEvhY1BnD2pqAUZvU3ZvtQJnCV3OVIY+Ra5TCZ5fc5ZkVXrsSjXpWB6thi9BGUA1LK1NGYXlGT4NcVPyR7NqtlYqE4FizBinJD1HlkQhDPdmB S9 ZEMXtRw8hiJ1UCFduhQReDX2ce9ThmlkrQ2jzZD1ltPVzK06kpJ5rWXznAIYfG0FphhR6X7fqvxDmIC3EGDS5S4fwdgWjBUPYJqVkZUNyK5htmUdnACB7OZIoQg5LOJQzEE6Qg013PSNeB4UqeXNtmfQdFxQbNHPJRcFmJl0RMwVcUJ9dby8PIGgeRLGvCjeKSqLmOkQ 3N BEgUaXtUUF3RMBxDhKdPCl2YEF4WgZ8VZAfQLw2QVcrPgXhRaglDwRsLLBoJaUzUZrnGSt4FYH3PDUcSeMrFzc1EVH4EGO3STUqAWZ5NOA5GqD1ZELsEIV4TJK9LmM0DMErHGF6OXW6ZeD9MUQdPaIoRACzFqZ6TLFgMUlbMQG9HTV7VDRsCdHkOMu1CAY8BzUzEnDkN Dc dVlY6DrCwGvU0FMUhBHK7RewcIxOvMLU6RUQ5CIRfZlXnRRAjJSG2UaMtWfEzOZm9UHC0EzafVnf1BZaxIlI3JjpzNwHpNRhdIhQ6QupbXOI2CMV5VvJ0NwdqZwRiZV9VNHJjRrEbCcu7ZDZtHgQ3DPCwFWZ7VEShGnB0VWUjRvBiQCZ0RjP6HOYeRQL2STMpFwS6JIG gN nEaTSX9WHDuCsznBWQ2FWL4BJN1CEyzZpVzJQQcITF1KYIkFrWyWNV0FTW9RUBiKnMdJGLwVEA2QUVpDkl7MXE2GpFUYyYoGFT9XYPxWTTnAWjsMurtJJV4XQS9YZCeMiTlWSX2CaE2BNAsQdc7IBT8GcY1VZBoCRRiAXZ9JFOrUVD1YYIrBoOmTBCyTRY4AcUyGqDcS TA hCYE9LASyMyJyXKw0BPY5UPQlMws2IKV8SOP3PLDkVWPeDUA6AUT7WBWiSKcwLHMtVOIqKqBjTZTuWXJfOPW1EIYgMlA1HDElNhJwOQPgZZX4GpcsAqr3JDQvEfM3QECdVYU2ZZH7PyK9EMDsEetbYMF2ExJmKkBhMfJ1UVY2XVI3TFFrBMk9DAVlIqW5JdrdQINcMOZ wM RP6LRjnPnNkGZOpGrBqNmVhRNfzFKW9HjN5NYSoCpQfZBFbKjWrYaRlXrJ8ZTV0OcB4IuKzRXU1BCssOHV6OZKdQeYyRIduLlT2MbUnRdTbUAlrAgJ3PdJfXXGwEKS4PhJxLsU2KDX8CtU0HpsqFnL7JXK8MOYzSkqwAvj2YDL4LQE5EpZzKqCtUHd2PTICHzYcPuo6D Dc 5QIM1YjylQso4JUD3GJG9AlwnVuOxXDcgCjR8DxGhPhFyAPQ7BrM7JxboSqUvVTN9VtU6GWYaVPK7EUZ9AlF7ULMrXZM7XGh6BYB7ZITuJXZ5ZSZ3NjQ3OBRpFAD5YTI5NJWnSktrMey7TUH8CGK2XSShUIezQGZqHPJ7YXKmYhGoVTByIJC8QWIhNvLzLMF9YJL0GUJ gN nUgUAHqYDX3VTDdSrZjHHP6EhP3CCCrCGN8WC9kLPyzavJoJohDXzK9FWJln3UmJDcyFWh3TFtcVVBpL1R2gGWmJt2seZRbj5OazXJ8r1HPDhRrVTSyBm7pdV8hlFRpTZJpNFznOt8mTHnZcGJuxLSSLtZnBWBkZAVzYO48XJmzKH7VHPJJRBpagVMkVDW7M2Fdo7Fxu nQ jYDQlLc0IMQDmOV5YyZDmbtU5Ck7UAQCoOR1An366LpVcgJDtRWAdGsJzVMIbRCVsKEL3GJ7LQQBwAI0XrMRswFRXdkccRHLbZKGrD1IfxVEhUG8JYUW+Sw5XFC0jk1MsQIrhMRFjBP3tuy4ULLG8BM9YZFHmGL7DmDCeA7UlcsWgZ7ZzpFkcTY7CeoHxZWolEQ9WCSQ lR q8jzC2JtfegzZcBr7xeXDv3ZGzwKd9ZfaYsQEmrQc6KyI5FmjOqEI1gb1QhbyjTEvTzFGMaGbscj2DTzIGmLWPwE3svq1FZtRFgQCY2YQ3EINZkCO4DoCQ2sETmDWupMRVBRAwdUVTcT1WvorIEYZBdeiiupT2jGQZ9OKJbPb7NZAU+Fd4CMX4ii4IvNFqxCBVzc8ZpT Qo cWLv8IPseIPYdO8Mkx8ZHSEGlCx0DQJLrEBY7tL6LqEPwAATvEBznDMMnP8TjlyYsUGigY7QoKAnrWZTKAKifDIFxLROrDoJaBQWuZWDPKHivKYMcNBRwViAnRHLvALGPQSurKXXhVQDjTnQxGMrcLZDGLOneJWOsPOUqEsOaTeUwDJUGNb7UPlPfNTCnNW4mrtBhoGY 8P CA+Fj9YPZA+Pr6FIO3ru7JkTWemWSIjh5PiJMjwJJa7THrqNYWpA9Y9hIYjYZAmPYVMUbAsPNHzTUJxnHSOh7fjIoZxDAR6MQWkKhztXK0UOVSdPH6OyEGcXWgtMKLfCPJoIO2QMDWhXY1Yn8ZvhKUbXOiqAY0+UOwlicVnGmvIBeUsYSUwh7QiENddWCj7OIfkVFErI 1R 1hRDxS9F4ZRuvJj1GQJKzIS5BKUosskBoPPFuIt2GAHNsAH2DwZMdJXB5kO6kUDbwXSLqBSGaP7tUClNceHkwRY56cWnemnYubOYgMOwqSV4+ODvorhVnOihXPvnwTALIAeMuHqRGNoYcKISpKOXjBHOwEgA5QtFqOh0IYCXjDFLmMFNuJoGhPMLmGVHvDSqhJNPbJRT 4N ytdYPTwAMHiMI1RQxOdQTEpNLb5UNKkWWSmDGGadl3KDDTxGYLqUDR7OUZcNIIeSGWyFXgsWQIyUNQjTWE4EWIwWHTcFO5IHkJlKUFbWXZ2XHZmOAKkVWOful8IUAQyFJFiEma5BSVmAFTzTXWqKHanRHZaMRFyRFV4NIIuEFYxUO2KWxTlVFZwNKQdEfRdBZQzCWOiw g0 YULKyDAIdBQW1QpGiWVZmPEMhDNdgDWEeIFN2YRb5DMGpWOOuMM6ZMyAoIEApBSL6KUCcCJMpSJJxuv9YNKYzSBVgUYK9ZMRjIVZwBRWcTFjiUMRtZJE1JWO7DCPnHORiIT4PCnHtBZCmBJHbBLbfDDVsJBHcjo9HHDWsNPQeLvRxGzKjMOMpIPHePBcwKDYzEWM3YuC 3I LYlWWQzPB4MNtBdQKWnYTp3BKGbLLUtWORtbg6DUKYcKPDkPHL4IJEwJNExDUYrYTlrHCCjHIE2NWk5UNKqRVSlXB4ZWiKzVGYnYVipZfQhIRDeMRNhxm1AbWYjvOzfus9YHUnZPbGdW3CxygBfLiAOQvHsN6Pvh7XeRzBlAZDRGCqjRO9WhjTaPJBoHVLFVKtgJB3SA Fs 6GyX5FgG3A8K0VQTvPfL9FUN6TSJdIBPsDBp7DXW4ENF+KWOaAVE4CMIdWKMqRDMxYKEdSSE1NKEhEVJ6QPXfUZyaZw7xIXd+Di2Rc5KdblR1ieZoHGj5WEd9YCoiSJQFNl9G Performed By: #### [id number] #### [facility] [address] [place] [address], ERYTHROCYTE Collected: 09/15/2017 Status: F Source: THE SEDIMENTATION RATE 9:00 AM [employer] SYSTEM REPOSITORY TYPE CODE TESTS RESULT OUT OF RANGE REFERENCE UNITS LAB esr <=20 mm/Hr High ESR 61 Performed By: #### ESR #### [facility] [address] [place] [address], C-REACTIVE PROTEIN Collected: 09/15/2017 Status: F Source: THE 9:00 AM [employer] SYSTEM REPOSITORY TYPE CODE TESTS RESULT OUT OF RANGE REFERENCE UNITS LAB CRP <0.8 mg/dL High CRP 1.8 Performed By: #### CRP #### [facility] [address] [place] [address], C3 COMPLEMENT Collected: 09/15/2017 Status: F Source: THE 9:00 AM [facility] SYSTEM REPOSITORY TYPE CODE TESTS RESULT OUT OF RANGE REFERENCE UNITS LAB C3 81-163 mg/dL High C3 164 Performed By: #### C3, C4 #### [facility] [address] [place] [address], C4 COMPLEMENT Collected: 09/15/2017 Status: F Source: THE 9:00 AM [facility] SYSTEM REPOSITORY TYPE CODE TESTS RESULT OUT OF RANGE REFERENCE UNITS LAB C4 14-46 mg/dL C4 38 Performed By: #### C3, C4 #### [facility] [address] [place] [address], STEPHANIE PANEL Collected: 09/15/2017 Status: F Source: THE [facility] :00 AM SYSTEM REPOSITORY Order Comment: Negative = <100 U/mL Equivocal =100-120 U/mL Positive = >120 U/mL TYPE CODE TESTS RESULT OUT OF RANGE REFERENCE UNITS LAB Ka Negative SS-A ANTIBODY Negative LAB Mikel Negative SS-B ANTIBODY Negative LAB Ke Negative SALAZAR ANTIBODY Negative LAB Kg Negative FLOWER PICKER Abnormal ANTIBODY Positive LAB Kh U/mL FLOWER PICKER ANTIBODY UNITS 248 LAB Ki Negative SCLERODERMA IGG Negative ANTIBODY LAB Kk Negative JO1 ANTIBODY Negative LAB Km Negative CENTROMERE Negative ANTIBODY LAB Ko Negative HISTONE ANTIBODY Negative Performed By: #### STEPHANIE PANEL #### [facility] [address] [place] [address], ANTIDNA ATB SCRN Collected: 09/15/2017 Status: F Source: THE [facility] 9:00 AM SYSTEM REPOSITORY Order Comment: Anti-Elem Deoxyribonucleic Acid (nDNA) antibodies are frequently found in sera from patients with active SLE, but negative nDNA test does not exclude the possibility of SLE. SLE patients undergoing immunotherapy may have negative nDNA test results. . I certify that I personally conducted the diagnostic evaluation of the above specimen(s) and have rendered the final diagnosis(es). TYPE CODE TESTS RESULT OUT OF REFERENCE UNITS RANGE LAB 0b Negative ANTI-DNA Negative SCREEN Performed By: #### DNA S/T #### [facility] [address] [place] [address], [id number] ALLERGIES ALLERGIES DATE TYPE / CODE NAME / CODE REACTION SEVERITY SOURCE 08/08/2018 Drug No Known Unknown [place] Allergy/543775442(S Allergies/F0019 [facility]) [address](RXNORM) Hospital Repository Miscellaneous NO KNOWN [place] Allergy/[id number](S ALLERGIES Children's NOMED CT) Hospital Repository Drug NO KNOWN [place] Class/[id number](SNO ALLERGIES Clinic Main [facility]) [place] Repository ENCOUNTERS ENCOUNTERS ADMIT/DISCHARGE ACCOUNT NUMBER ADMITTING ENCOUNTER LOCATION SOURCE CLASS 08/08/2018/08/08/19 [id number] Ambulatory BMSBuilding: [place] 19 BMS.[facility] Repository 08/08/2018 [id number] Ambulatory [facility] ding:LAB Repository 08/08/2018 [id number] Ambulatory Building:[facility] Repository 08/08/2018 [id number] Ambulatory Building:[facility] Repository 08/02/2018/08/02/19 [id number] [facility] [place] [facility] 08/01/2018 [id number] Ambulatory [facility] ding:LAB.FUT Repository URE 08/01/2018 [id number] Ambulatory Building:[facility] Repository 08/01/2018 [id number] Ambulatory Building:[facility] Repository 07/29/2018 [id number] Ambulatory [facility] ding:LABSPEC Repository 07/28/2018/07/28/19 [id number] Ambulatory Building:[address] Repository 07/28/2018/07/28/19 [id number] Ambulatory Building:[address] Repository 07/28/2018 [id number] Ambulatory [facility] ding:LAB Repository 07/28/2018/07/28/19 [id number] Ambulatory BMSBuilding: [place] 19 BMS.[facility] Repository 07/18/2018 [id number] Ambulatory [facility] ding:LAB Repository 07/18/2018 [id number] Ambulatory Building:[facility] Repository 07/18/2018/07/18/20 [id number] Ambulatory Building:[address] Repository 07/16/2018 [id number] Ambulatory BMSBuilding: [place] BMS.CF.[facility] Repository 07/15/2018/07/15/20 [id number] Ambulatory [address] ding:RUSTRo Repository om: WP012 07/15/2018/07/15/20 [id number] Ambulatory BMSBuilding: [place] 18 BMS.[facility] Repository 06/28/2018 [id number] Ambulatory BMSBuilding: [place] BMS.CF.[facility] Repository 06/27/2018/06/27/20 [id number] Ambulatory [address] ding:WPOUTRo Repository om: WP012 06/27/2018 [id number] Ambulatory Building:[facility] Repository 06/20/2018 [id number] Ambulatory Building:[facility] Repository 06/20/2018 [id number] Ambulatory Building:[facility] Repository 06/15/2018/06/15/20 [id number] Ambulatory BMSBuilding: [place] 18 BMS.[facility] Repository 06/08/2018/06/08/20 [id number] Ambulatory BMSBuilding: [place] 18 BMS.[facility] Repository 05/17/2018/05/17/20 [id number] Ambulatory Building:[address] Repository 05/17/2018/05/17/20 [id number] Ambulatory Building:[address] Repository 05/17/2018/05/17/20 [id number] Ambulatory Building:[address] Repository 05/12/2018/05/12/20 [id number] Ambulatory Building:[address] Repository 05/12/2018/05/12/20 [id number] Ambulatory BMSBuilding: [place] 18 BMS.[facility] Repository 04/25/2018 [id number] Ambulatory BMSBuilding: [place] BMS.CF.[facility] Repository 04/25/2018 [id number] Ambulatory [facility] ding:[facility]S Repository 04/25/2018 [id number] Ambulatory BMSBuilding: [place] [facility] Repository 04/14/2018 [id number] Ambulatory [facility] ding:LABSPEC Repository 04/14/2018 [id number] Ambulatory [facility] ding:POLAB3 Repository 04/14/2018/04/14/20 [id number] Ambulatory BMSBuilding: [place] 18 BMS.[facility] Repository 03/10/2018/03/11/20 [id number] Ambulatory [address] Repository 02/17/2018/02/19/20 [id number] Ambulatory [address] Repository 02/10/2018/02/12/20 [id number] Ambulatory [address] Repository 09/24/2017/09/30/19 [id number] Unknown [facility]ulatory [facility] [facility] Repository 09/15/2017/09/15/19 [id number] Unknown Ambulatory [facility] Repository PAYERS PAYERS ENCOUNTER GUARANTOR PAYER SUBSCRIBER SOURCE 08/08/2018 ABRAM Bryant [facility] [id number] N Insurance:CARESOURCEP GASSERDOB: [facility] Number: [id number] Repository [place], [place] [id number]: 330) Date:2018-06-30 O [phone] () [address]ATTN: [place] [address]SJ: 08/08/2018 [facility]SELF PAY Hospital INSURANCEPolicy Repository Number: Effective Date:2018-08-08 08/08/2018 ABRAM Bryant [facility] [id number] N Insurance:CARESOURCEP GASSERDOB: [facility] Number: [id number] Repository [place], [place] [id number]: [phone]) Date:2018-08-08P O [phone] () [address]ATTN: [place] [address]SB: 08/08/2018 Secondary NOT GIVENUNK [facility] [facility] Insurance:SELF PAY Hospital INSURANCEPolicy Repository Number: Effective Date:2018-08-08 08/08/2018 [facility] Children's GASSERDOB: Insurance:CARESOURCEP GASSERDOB: [facility] Number: [id number] Repository [place] [id number] [address] [facility] [place] Date: [place], [place] [address]Shu: [phone] () 08/08/2018 Secondary [facility] Children's Insurance:CARESOURCEP GASSERDOB: [facility] [place] Number: [id number] Repository [id number] [address] Date: [place] [address] 08/08/2018 [facility]'s GASSERDOB: Insurance:CARESOURCEP GASSERDOB: [facility] icy Number: [id number] Repository [place] [id number] [address] [facility] [place] Date: [place], [place] [address]Uaw: [phone] () 08/08/2018 Secondary [facility] Children's Insurance:CARESOURCEP GASSERDOB: [facility] [place] Number: [id number] Repository [id number] [address] Date: [place] [address] 08/02/2018 ABRAM Bryant [facility] ABRAM Narayanan [facility] [id number] N Insurance:CARESOURCEP GASSERDOB: [facility] Number: [id number] Repository [place], [place] [id number] [address]Vco: ([phone]) Date:2018-06-30P O 62 () [address]ATTN: [place] [address]KT: 08/02/2018 Secondary [facility]SELF PA[facility] Hospital INSURANCEPolicy Repository Number: Effective Date:2018-08-02 08/01/2018 ABRAM [facility] [id number] N Insurance:CARESOURCEP GASSERDOB: [facility] Number: [id number] Repository [place], [place] [id number]: ([phone]) Date:2018-08-01P O [phone] () [address]ATTN: [place] [address]UB: 08/01/2018 Secondary [facility]UNK [facility] Insurance:SELF PAY Hospital INSURANCEPolicy Repository Number: Effective Date:2018-08-01 08/01/2018 [facility] GASSERDOB: Insurance:CARESOURCEP GASSERDOB: [facility] Number: [id number] Repository [place] [id number] [address] [place] [place] Date: [place], [place] [address]Hrz: [phone] 08/01/2018 Secondary ABRAMSARAHY KAT [facility] Insurance:CARESOURCEP GASSERDOB: [facility] [place] Number: [id number] Repository [id number] [address] Date: [place] [address] 08/01/2018 [facility] GASSERDOB: Insurance:CARESOURCEP GASSERDOB: [facility] Number: [id number] Repository [address] [id number] [address], [place] Date: [facility] [place] [address]Otx: [phone] () 08/01/2018 Secondary ABRAM KAT [facility] Insurance:CARESOURCEP [facility]DOB[facility] Number: [id number] Repository [id number] [address] Date: [place] [address] 07/29/2018 ABRAM Bryant [facility] [id number] N Insurance:CARESOURCEP GASSERDOB: [facility] Number: [id number] Repository [place], [place] [id number] [address]Dcj: (330) Date:2018-07-29P O [address] () [address]ATTN: [place] [address]SW: 07/29/2018 Secondary [facility] Insurance:SELF PAY Hospital INSURANCEPolicy Repository Number: Effective Date:2018-07-29 07/28/2018 [facility] GASSERDOB: Insurance:CARESOURCEP GASSERDOB: Hospital olicy Number: [id number] Repository [address] [id number] [address] [place], [place] Date: [place], [place] [address]Kxr: [phone] () 07/28/2018 Secondary ABRAM NORTH [facility] Insurance:CARESOURCEP GASSERDOB: [facility] [place] Number: [id number] Repository [id number] [address] Date: [facility] [place] [address] 07/28/2018 [facility] Children[facility] GASSERDOB: Insurance:CARESOURCEP GASSERDOB: Hospital olicy Number: [id number] Repository [place] [id number] [address] [facility] [place] Date: [place], [place] [address]Her: [phone] () 07/28/2018 Secondary [facility] Insurance:CARESOURCEP GASSERDOB: [facility] Number: [id number] Repository [id number] [address] Date: [place] [address] 07/28/2018 ABRAM Bryant Primary ABRAM Bryant [facility] [id number] N Insurance:CARESOURCEP GASSERDOB: [facility] Number: [id number] Repository [place], [place] [id number] [address]Wjz: (330) Date:2018-07-28 O () [address]ATTN: [place] [address]IJ: 07/28/2018 Secondary NOT GIVENUNK [place] [facility] Insurance:SELF PAY Hospital INSURANCEPolicy Repository Number: Effective Date:2018-07-28 07/28/2018 ABRAM Bryant Primary ABRAM Bryant [facility] [id number] N Insurance:CARESOURCEP GASSERDOB: [facility] Number: [id number] Repository [place], [place] [id number] [address]Khf: (330) Date:2018-06-30 O () [address]ATTN: [place] [address]RC: 07/28/2018 Secondary NOT GIVENUNK [facility] Insurance:SELF PAY Hospital INSURANCEPolicy Repository Number: Effective Date:2018-07-25 07/18/2018 ABRAM Bryant Primary ABRAM Bryant [facility] [id number] N Insurance:CARESOURCEP GASSERDOB: [facility] Number: [id number] Repository [place], [place] [id number] [address]Lnd: (330) Date:2018-07-18 O [address] () [address]ATTN: [place] [address]LV: 07/18/2018 Secondary NOT GIVENUNK [place] [facility] Insurance:SELF PAY Hospital INSURANCEPolicy Repository Number: Effective Date:2018-07-18 07/18/2018 ABRAM NORTHPamela [facility] GASSERDOB: Insurance:CARESOURCEP GASSERDOB: [facility] olicy Number: [id number] Repository [address] [id number] [address] [place], [place] Date: [place], [place] [address]Uhu: [phone] () 07/18/2018 Secondary ABRAM [facility] Insurance:CARESOURCEP GASSERDOB: [facility] [place] Number: [id number] Repository [id number] [address] Date: [place] [address] 07/18/2018 ABRAM KAT Primary ABRAM KAT [facility] GASSERDOB: Insurance:CARESOURCEP GASSERDOB: [facility] Number: [id number] Repository [address] [id number] [address] [place], [place] Date: [place], [place] [address]Box: [phone] () 07/18/2018 Secondary ABRAM [facility] Insurance:CARESOURCEP GASSERDOB: [facility] [place] Number: [id number] Repository [id number] [address] Date: [place] [address] 07/16/2018 ABRAM M Primary NOT GIVENUNK [facility] [id number] N Insurance:SELF PAY [facility] Repository [place] Number: Effective [phone]: (330) Date:2018-07-16 () 07/15/2018 ABRAM M Primary ABRAM Bryant [facility] [id number] Insurance:CARESOURCEP GASSERDOB: [facility] Number: [id number] Repository [place], [place] [id number] [address]Qjf: (330) Date:2018-07-15P O () [address]ATTN: [place] [address]ZJ: 07/15/2018 Secondary [facility]UNK [facility] Rep[facility] Number: Effective Date:2018-07-15 07/15/2018 ABRAM M Primary ABRAM Bryant [facility] [id number] Insurance:CARESOURCEP GASSERDOB: [facility] Number: [id number] Repository [place], [place] [id number] [address]Kgh: (330) Date:2018-06-30P O () [address]ATTN: [place] [address]EO: 07/15/2018 Secondary [facility]UNK [facility]:SELF PAY Hospital INSURANCEPolicy Repository Number: Effective Date:2018-06-30 06/28/2018 ABRAM Bryant Primary NOT GIVENUNK [facility] [id number] Insurance:SELF PAY [facility] Repository [place] Number: Effective [id number]: (330) Date:2018-06-28 62 () 06/27/2018 ABRAM Bryant Primary ABRAM Bryant [facility] [id number] Insurance:CARESOURCEP GASSERDOB: [facility] Number: [id number] Repository [place], [place] [id number] [address]Bgh: (330) Date:2018-06-27P O 62 () [address]ATTN: [place] [address]GR: 06/27/2018 Secondary NOT GIVENUNK [facility] Insurance:SELF PAY Hospital INSURANCEPolicy Repository Number: Effective Date:2018-06-27 06/27/[address] [facility] GASSERDOB: Insurance:CARESOURCEP GASSERDOB: [facility] [id number] [facility] Number: [id number] Repository [place] [id number] [address] [place], [place] Date: [facility] [address]Wpv: [phone] (HP) 06/27/2018 Secondary ABRAMSARAHY KAT [facility] Insurance:CARESOURCEP GASSERDOB: [facility] [place] Number: [id number] Repository [id number] [address] Date: [facility] [address] 06/20/2018 [facility] GASSERDOB: Insurance:CARESOURCEP GASSERDOB: Hospital olicy Number: [id number] Repository [address] [id number] [address] [facility] [place] Date: [place], [place] [address]Dty: [phone] () 06/20/2018 Secondary ABRAM Acevedo [facility] Insurance:CARESOURCEP GASSERDOB: Hospital [facility] Number: [id number] Repository [id number] [address] Date: [place] [address] 06/20/[address] [facility] GASSERDOB: Insurance:CARESOURCEP GASSERDOB: Hospital olicy Number: [id number] Repository [address] [id number] [address] [place], [place] Date: [place], [place] [address]Yul: [phone] 06/20/2018 Secondary ABRAM Acevedo Children[facility] Insurance:CARESOURCEP GASSERDOB: [facility] [place] Number: [id number] Repository [id number] [address] Date: [place] [address] 06/15/2018 ABRAM Bryant Primary [facility] [id number] [facility] PLANPolicy GASSERDOB: [facility] [place] Number: [id number] Repository [place], [place] [id number] [address]Nji: (330) Date:7992-35-03UK [address] () [address] [place] [address]SA: 06/15/2018 Secondary NOT GIVENUNK [facility] Insurance:SELF PAY Hospital INSURANCEPolicy Repository Number: Effective Date:2018-06-15 06/08/2018 ABRAM Bryant Primary [facility] [id number] [facility] PLANPolicy GASSERDOB: [facility] [place] Number: [id number] Repository [place], [place] [id number] [address]Vgm: (330) Date:7667-75-77EQ BOX (HP) [address] [place] [address]JY: 06/08/2018 Secondary NOT GIVENUNK [place] [facility] Insurance:SELF PAY [facility] Number: Effective Date:2018-06-08 05/17/2018 ABRAM KAT Primary Insurance:[place] ABRAM Aceved[facility] GASSERDOB: [employer] GASSERDOB: [facility] [place] [id number] Repository [address] Number: [address], [place] [id number] [place], [place] [address]Qfm: (330) Date: (HP) 05/17/2018 ABRAM KAT Primary Insurance:[place] ABRAM Acevedo Children[facility] GASSERDOB: [employer] GASSERDOB: Hospital [facility] [id number] Repository [address] Number: [address], [place] [id number] [place], [place] [address]Mzx: (330) Date: [phone] (HP) 05/17/2018 ABRAM KAT Primary Insurance:MS ABRAM [facility] GASSERDOB: [employer] [facility] GASSERDOB: Hospital [facility] [id number] Repository [address] Number: [address], [place] [id number] [place], [place] [address]Ltd: (330) Date: (HP) 05/12/2018 ABRAM KAT Primary [place] ABRAM [facility] GASSERDOB: [employer] GASSERDOB: Hospital [facility] [id number] Repository [address] Number: [address], [place] [id number] [place], [place] [address]Khy: (330) Date: [phone] (HP) 05/12/2018 ABRAM Bryant Primary [facility] ABRAM Narayanan [facility]13064 [facility] GASSERDOB: Hospital [address] Number: [id number] Repository [place] [id number] [address]Dvm: (330) Date:4011-82-96NY [address] (HP) [address] [place] [address]FV: 05/12/2018 Secondary NOT GIVENUNK [facility] [facility] Insurance:SELF PAY Hospital INSURANCEPolicy Repository Number: Effective Date:2018-05-12 04/25/2018 ABRAM Bryant Primary ABRAM Bryant [facility] [facility] [id number] Insurance:MEDICAIDPol GASSERDOB: [facility] icy Number: [id number] Repository [place], [place] [id number] [address]Yqo: (330) Date:2018-04-25 62 (HP) 04/25/2018 Secondary NOT GIVENUNK [place] Insurance:SELF PAY Hospital INSURANCEPolicy Repository Number: Effective Date:2018-04-25 04/25/2018 ABRAM Bryant Primary ABRAM Bryant [place] [facility] [id number] N Insurance:MEDICAIDPol GASSERDOB: [facility] icy Number: [id number] Repository [place], [place] [id number] [address]Jrr: (330) Date:2018-04-25 [phone] (HP) 04/25/2018 Secondary ABRAM Narayanan Community [facility] GASSERDOB: [facility] COMMUNITY PLANPolicy [id number] Repository Number: [id number] Date:9525-50-18IB [address] [place] [address]WZ: 04/25/2018 Tertiary NOT GIVENUNK [place] Insurance:SELF PAY Hospital INSURANCEPolicy Repository Number: Effective Date:2018-04-25 04/25/2018 ABRAM Bryant Primary [facility] ABRAM Bryant [facility] [id number] COMMUNITY PLANPolicy GASSERDOB: [facility] Number: [id number] Repository [place], [place] [id number] [address]Qah: (330) Date:8399-36-44NA [address] (HP) [address] [place] [address]YG: 04/25/2018 Secondary NOT GIVENUNK [facility] [facility] Insurance:SELF PAY Hospital INSURANCEPolicy Repository Number: Effective Date:2018-04-25 04/14/2018 ABRAM Bryant Primary ABRAM Narayanan [facility] [id number] Insurance:MEDICAIDPol GASSERDOB: [facility] icy Number: [id number] Repository [facility] [id number] [address]Aep: (330) Date:2018-04-14 [phone] (HP) 04/14/2018 Secondary NOT GIVENUNK [place] [facility] Insurance:SELF PAY Hospital INSURANCEPolicy Repository Number: Effective Date:2018-04-14 04/14/2018 ABRAM Bryant Primary [facility] [id number] N Insurance:MEDICAIDPol GASSERDOB: [facility] icy Number: [id number] Repository [place], [place] [id number] [address]Cht: (330) Date:2018-04-14 [phone] (HP) 04/14/2018 Secondary ABRAM Narayanan Community [facility] GASSERDOB: [facility] PLANPolicy [id number] Repository Number: [id number] Date:6339-38-17AD [address] [place] [address]ED: 04/14/2018 Tertiary NOT GIVENUNK [place] [facility] Insurance:SELF PAY Hospital INSURANCEPolicy Repository Number: Effective Date:2018-04-14 04/14/2018 ABRAM Bryant Primary [facility] ABRAM Narayanan [facility] [id number] [facility] PLANPolicy GASSERDOB: [facility] Number: [id number] Repository [place], [place] [id number] [address]Cii: (330) Date:6938-21-33UG [address] () [address] [place] [address] 36[address]LU: 04/14/2018 Secondary NOT GIVENUNK [place] [facility] Insurance:SELF PAY Hospital INSURANCEPolicy Repository Number: Effective Date:2018-04-14 09/24/2017 ABRAM Primary ABRAM GASSERDOB: [facility] GASSERDOB: Insurance:[place] [id number] System Repository [id number] YPolicy Number: [address] [id number] [place] Date:2017-08-10 - [place] [address]Aeb: [place] [address]Cys: 2017-11-08 (HP)Tel: [phone] ([phone] (WP) 09/24/2017 Secondary ABRAM WISEMANSERDOB: [facility] Insurance:[place] [id number] System Repository YPolicy Number: [address] [id number] [place], Date:2017-08-10 [place] [address]Vae: 2017-11-08 (HP) (WP) 09/15/2017 ABRAM Primary ABRAM GASSERDOB: [facility] GASSERDOB: Insurance:[facility] [id number] System Repository [id number] PLANPolicy Number: [address] [id number] [place], Date:2017-07-19 [place] [address]Zvp: [place] [address]Vdi: (HP)Tel: [phone] ([phone] (WP)
== END ==
PROVIDERS: Referring Provider Obstetrics & Gynecology Maternal & Fetal Medicine; Visit Provider Obstetrics & Gynecology Maternal & Fetal Medicine
DX: O16.3 Unspecified maternal hypertension, third trimester (principal); Z3A.00 Weeks of gestation of pregnancy not specified
CPT/HCPCS: 36415; 80053; 82570; 83615; 84156; 84550; 85027

== ENCOUNTER → 2018-08-15 10:28 | Outpatient (CLI) | payer MEDICAID, SELFPAY ==
[2018-08-08 15:11] VITALS: BMI 43.3
[2018-08-15 11:03] LABS: Hematocrit 36.9 % (37-47); Hemoglobin 12.2 g/dl (12.0-15.0); Mean Corp Hgb Conc 33.1 g/gl (32-36); Mean Corpuscular Hgb 28.6 pg (27.0-32.0); Mean Corpuscular Volume 86.4 fL (81-99); Mean Platelet Vol. 9.3 fl (6.2-12.0); Platelet Count 362 K/mm3 (150-450); RBC Distribution Width CV 13.8 % (11.6-14.6); RBC Distribution Width SD 42.8 fl (35.1-43.9); Red Blood Count 4.27 M/mm3 (4.2-5.4); White Blood Count 13.4 K/mm3 (4.4-11.0)
[2018-08-15 11:11] LABS: Scan Indicated on CBC? Y/N NO
[2018-08-15 11:40] LABS: ALB/GLOB Ratio 0.6 RATIO (0.9-2.4); AST(SGOT) 18 U/L (15-37); Alanine Aminotransfer ALT/SGPT 31 U/L (13-56); Albumin, Serum 2.4 g/dL (3.2-5.0); Alkaline Phosphatase 86 U/L (45-117); Anion Gap 10 (5-15); BUN 7 mg/dL (7-18); BUN/Creat Ratio 15.6 RATIO (10-20); Calcium,Total 8.7 mg/dL (8.5-10.1); Chloride 109 mmol/L (98-107); Creatinine, Serum 0.45 mg/dL (0.55-1.02); EST Glomerular Filtration Rate 176 mL/min (>60); Est Glom Filt Rate - Afr Amer 213 mL/min (>60); Globulin 4.2 g/dL (2.2-4.2); Glucose 109 mg/dL (74-106); Potassium 3.7 mmol/L (3.5-5.1); Protein, Total 6.6 g/dL (6.4-8.2); Sodium Level 140 mmol/L (136-145); Uric Acid 3.3 mg/dL (2.6-6.0)
== END ==
DX: O24.113 Pre-existing type 2 diabetes mellitus, in pregnancy, third trimester (principal); Z3A.00 Weeks of gestation of pregnancy not specified
CPT/HCPCS: 36415; 80053; 84550; 85027

== ENCOUNTER → 2018-08-17 09:22 | Outpatient (CLI) | payer MEDICAID, SELFPAY ==
[2018-08-08 15:11] VITALS: BMI 43.3
[2018-08-17 10:20] LABS: 24 Hour Urine Protein 458.4 mg/24HR (<150 MG/24HR); 24HR. UA Prot. Total Volume 2225 mL; Urine Protein (24 Hour) 20.6 mg/dL (<11.9)
== END ==
DX: O24.113 Pre-existing type 2 diabetes mellitus, in pregnancy, third trimester (principal); Z3A.00 Weeks of gestation of pregnancy not specified
CPT/HCPCS: 84156

== ENCOUNTER → 2018-08-19 13:20 | Outpatient (CLI) | payer MEDICAID, SELFPAY ==
[2018-08-19 12:56] VITALS: BMI 43.3
[2018-08-19 13:47] LABS: Protein, Urine (Random) 24.6 mg/dL (<11.9); Protein:Creat Ratio 361 mg/g CRE (0-200)
== END ==
PROVIDERS: Referring Provider Obstetrics & Gynecology; Visit Provider Obstetrics & Gynecology
DX: O10.919 Unspecified pre-existing hypertension complicating pregnancy, unspecified trimester (principal); Z3A.00 Weeks of gestation of pregnancy not specified
CPT/HCPCS: 82570; 84156

== ENCOUNTER 2018-08-20 18:43 | Inpatient (IN) | payer MEDICAID, SELFPAY ==
[2018-08-19 12:56] VITALS: BMI 43.3
[2018-08-20 17:57] VITALS: BMI 43.9
[2018-08-20] MEDS: 0.9% Normal Saline 1,000 ML 999 ML IV (18:20)
[2018-08-20 18:21] LABS: Bacteria 0 SEEN /hpf (None Seen); Mucous, Urine 0 SEEN /hpf (<or=2+); Red Blood Cells-Urine 0 SEEN /hpf (0-5)
[2018-08-20 18:22] LABS: Color, Urine Yellow (Yellow); Glucose, Dipstick 1000 mg/dl (Normal); Ketone-Dipstick Negative (Negative); Leukocyte Esterase-Dipstick 100 /ul (Negative); Nitrite-Dipstick Negative (Negative); Occult Blood-Urine 10 /ul (Negative); Protein-Dipstick 30 mg/dl (Negative); Urine Bilirubin Dipstick Negative (Negative); Urine Clarity Clear (Clear); Urine Urobilinogen Normal (Normal)
[2018-08-20 18:39] LABS: Protein, Urine (Random) 47.6 mg/dL (<11.9); Protein:Creat Ratio 543 mg/g CRE (0-200)
[2018-08-20] MEDS: Acetaminophen/Butalbital/Caffe 1 Tablet 2 TABLET PO (18:39)
[2018-08-20 18:43] LABS: Hematocrit 37.9 % (37-47); Hemoglobin 12.3 g/dl (12.0-15.0); Mean Corp Hgb Conc 32.5 g/gl (32-36); Mean Corpuscular Hgb 28.1 pg (27.0-32.0); Mean Corpuscular Volume 86.7 fL (81-99); Mean Platelet Vol. 9.1 fl (6.2-12.0); Platelet Count 389 K/mm3 (150-450); RBC Distribution Width CV 14.1 % (11.6-14.6); RBC Distribution Width SD 44.3 fl (35.1-43.9); Red Blood Count 4.37 M/mm3 (4.2-5.4); White Blood Count 14.8 K/mm3 (4.4-11.0)
[2018-08-20 18:47] LABS: Scan Indicated on CBC? Y/N NO
[2018-08-20 18:50] LABS: International Normalized Ratio 0.9; Prothrombin Time (Protime)PT. 11.8 SECONDS (11.7-14.9)
[2018-08-20 18:51] LABS: Partial Thromboplast Time 27.2 Seconds (24.1-36.2)
[2018-08-20 18:53] LABS: Glucose 249 mg/dL (74-106)
[2018-08-20 18:55] LABS: White Blood Cells 0-5 SEEN /hpf (0-5)
[2018-08-20 18:56] LABS: Squamous Epithelial Cells - UA 0-5 SEEN /hpf (5-10); Trichomonas 0-5 SEEN /hpf (None Seen)
[2018-08-20 19:16] LABS: AST(SGOT) 19 U/L (15-37); Alanine Aminotransfer ALT/SGPT 30 U/L (13-56); Creatinine, Serum 0.59 mg/dL (0.55-1.02); EST Glomerular Filtration Rate 128 mL/min (>60); Est Glom Filt Rate - Afr Amer 155 mL/min (>60); Estimated Creatinine Clearance 141.92 ml/min; LDH 167 U/L (84-246); Uric Acid 3.3 mg/dL (2.6-6.0)
[2018-08-20] MEDS: 0.9% Normal Saline 1,000 ML 15 ML IV (19:34)
[2018-08-20] MEDS: Betamethasone/Betamethasone 30 MG/5 ML Vial 12 MG IM (20:33)
[2018-08-20] MEDS: Magnesium Sulfate 20 GM/500 ML BAG IV (20:46)
[2018-08-20] MEDS: 0.9 % NaCl (Sterile) Posiflush 10 mL IV (21:00)
[2018-08-20] MEDS: Heparin Injection (Vial) 5,000 UNIT/ML VIAL 5000 UNIT SC (21:04)
[2018-08-20 21:21] LABS: Bedside Glucose 125 mg/dL (70-110)
--- NOTE | 2018-08-20 21:37 | PCM.HP.OB ---
- Problem List (1) Severe preeclampsia Status: Acute (2) Chronic hypertension affecting Status: Chronic Comment: no meds (3) Status: Acute Qualifiers: Weeks of gestation: 30 weeks Qualified Code(s): Z3A.30 - 30 weeks gestation of Comment: Declines all genetic screening including CF, AFP. Anatomy US- normal. Twice weekly testing @ 30 weeks. BPP with MFM weekly, NSTs weekly with US at 30 weeks serial growth US [id number]; feta testing 2x per week with daily kick counts (4) Supervision of high-risk Status: Acute Qualifiers: Trimester: third trimester Qualified Code(s): O09.93 - Supervision of high risk , unspecified, third trimester Comment: PRR Grav 2/ RENATO 10/11/18 boy BF Deny. (5) Diabetes type 2, uncontrolled Status: Chronic Qualifiers: Glycemic state: with hyperglycemia Qualified Code(s): E11.65 - Type 2 diabetes mellitus with hyperglycemia Comment: baseline labs. Ref MFM and ophthalmology. EKG/normal. Per MFM: increase insulin to 26 units qHS, 20 units with each meal; echo in the next 3 weeks, serial growth US [id number], twice weekly testing starting at 32 weeks, recommend delivery at 37-39 weeks; urine culture and HgbA1C qtrimester. History Date of Admission: 08/20/18 Final RENATO: 10/11/18 Gestational age: 32 Weeks and 5 Days History of this : This is a 28 year-old, , at 32W4D weeks gestational age presents with preeclampsia with severe featuers superimposed on CHTN. her 24 hour urine protein is elevated but labs are normal. She had a severe headache but that is now resolving. She has mild edema but no clonus or hyperreflexia. Her blood sugars have been fairly controlled but she has an elevated sugar tonight. 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 Medical History: Medical History (Last Reviewed 08/19/18 @ 09:37 by Juani Diego) Diabetes type 2, uncontrolled (Chronic) E11.65 baseline labs. Ref MFM and ophthalmology. EKG/normal. Per MFM: increase insulin to 26 units qHS, 20 units with each meal; echo in the next 3 weeks, serial growth US [id number], twice weekly testing starting at 32 weeks, recommend delivery at 37-39 weeks; urine culture and HgbA1C qtrimester. Surgical History: Surgical History (Last Reviewed 08/19/18 @ 09:37 by Juani Diego) History of appendectomy Z90.49 Allergies No Known Allergies Allergy (Verified 08/19/18 09:36) Home Medications: Home Medications docosahexanoic acid 200 mg capsule 1 mg PO DAILY cap 04/14/18 metformin 1,000 mg tablet 1 mg PO BID tab 04/14/18 blood sugar diagnostic strips See Dose Instructions .ROUTE .MEDSUPPLY #100 ea 07/15/18 blood pressure monitor kit See Dose Instructions .ROUTE .MEDSUPPLY #1 ea 08/08/18 Insulin Lispro [Humalog] 20 unit SQ BREAKFAST 08/20/18 Insulin Lispro [Humalog] 26 unit SQ DINNER 08/20/18 Insulin Lispro [Humalog] 26 unit SQ LUNCH 08/20/18 Insulin NPH Human Isophane [Humulin N NPH U-100 Insulin] 52 unit SC QPM 08/20/18 Smoking Status: Current every day smoker Alcohol: None Number of Fetus(es): 1 Heart Tracin moderate variability reactive no decelerations category I tracing [place]: regular History Past Pregnancies: Past Pregnancies Delivery Date Name GA/Weeks Outcome Route Weight Gender Labor Length Anesthesia Delivery Location Provider FOB Labs: Mom's Microbiology 08/20/18 18:10 Urine, Clean Catch Urine Culture - Pending Mom's Labs & Results 08/20/18 08/20/18 08/20/18 18:10 18:10 18:20 WBC 14.8 H RBC 4.37 Hgb 12.3 Hct 37.9 MCV 86.7 MCH 28.1 MCHC 32.5 RDW 14.1 RDW Differential 44.3 H Plt Count 389 MPV 9.1 PT INR APTT Creatinine Estim Creat Clear Calc Est GFR (MDRD) Af Amer Est GFR (MDRD) Non-Af Glucose Uric Acid AST ALT Lactate Dehydrogenase Urine Color Yellow Urine Clarity Clear Urine pH 7.0 Ur Specific [place] 1.010 Urine Protein 30 H Urine Glucose (UA) 1000 H Urine Ketones Negative Urine Occult Blood 10 H Urine Nitrite Negative Urine Bilirubin Negative Urine Urobilinogen Normal Ur Leukocyte Esterase 100 H Urine RBC 0 SEEN Urine WBC 0-5 SEEN Ur Squamous Epith Cells 0-5 SEEN Urine Bacteria 0 SEEN Urine Mucus 0 SEEN Urine Trichomonas 0-5 SEEN U Random Total Protein 47.6 H Urine Creatinine 87.70 Protein/Creatinin Ratio 543 H Urine Opiates Screen Urine Methadone Screen Ur Barbiturates Screen Ur Phencyclidine Scrn Ur Amphetamines Screen U Methamphetamin-MDMA U Benzodiazepines Scrn Urine Cocaine Screen U Cannabinoids Screen Ur Drug Screen Comment Acetone Level Group B Strep DNA Specimen Comment POC Glucose Blood Type Antibody Screen 08/20/18 08/20/18 08/20/18 18:20 18:20 18:20 WBC RBC Hgb Hct MCV MCH MCHC RDW RDW Differential Plt Count MPV PT 11.8 INR 0.9 APTT 27.2 Creatinine 0.59 Estim Creat Clear Calc 141.92 Est GFR (MDRD) Af Amer 155 Est GFR (MDRD) Non-Af 128 Glucose Uric Acid 3.3 AST 19 ALT 30 Lactate Dehydrogenase 167 Urine Color Urine Clarity Urine pH Ur Specific [place] Urine Protein Urine Glucose (UA) Urine Ketones Urine Occult Blood Urine Nitrite Urine Bilirubin Urine Urobilinogen Ur Leukocyte Esterase Urine RBC Urine WBC Ur Squamous Epith Cells Urine Bacteria Urine Mucus Urine Trichomonas U Random Total Protein Urine Creatinine Protein/Creatinin Ratio Urine Opiates Screen Urine Methadone Screen Ur Barbiturates Screen Ur Phencyclidine Scrn Ur Amphetamines Screen U Methamphetamin-MDMA U Benzodiazepines Scrn Urine Cocaine Screen U Cannabinoids Screen Ur Drug Screen Comment Acetone Level Group B Strep DNA Specimen Comment POC Glucose Blood Type Antibody Screen 08/20/18 08/20/18 08/20/18 18:20 18:20 20:55 WBC RBC Hgb Hct MCV MCH MCHC RDW RDW Differential Plt Count MPV PT INR APTT Creatinine Estim Creat Clear Calc Est GFR (MDRD) Af Amer Est GFR (MDRD) Non-Af Glucose 249 H Uric Acid AST ALT Lactate Dehydrogenase Urine Color Urine Clarity Urine pH Ur Specific [place] Urine Protein Urine Glucose (UA) Urine Ketones Urine Occult Blood Urine Nitrite Urine Bilirubin Urine Urobilinogen Ur Leukocyte Esterase Urine RBC Urine WBC Ur Squamous Epith Cells Urine Bacteria Urine Mucus Urine Trichomonas U Random Total Protein Urine Creatinine Protein/Creatinin Ratio Urine Opiates Screen Urine Methadone Screen Ur Barbiturates Screen Ur Phencyclidine Scrn Ur Amphetamines Screen U Methamphetamin-MDMA U Benzodiazepines Scrn Urine Cocaine Screen U Cannabinoids Screen Ur Drug Screen Comment Acetone Level NEGATIVE Group B Strep DNA Specimen Comment POC Glucose Blood Type A POSITIVE Antibody Screen NEGATIVE 08/20/18 08/20/18 08/20/18 21:00 21:10 21:15 WBC RBC Hgb Hct MCV MCH MCHC RDW RDW Differential Plt Count MPV PT INR APTT Creatinine Estim Creat Clear Calc Est GFR (MDRD) Af Amer Est GFR (MDRD) Non-Af Glucose Uric Acid AST ALT Lactate Dehydrogenase Urine Color Urine Clarity Urine pH Ur Specific [place] Urine Protein Urine Glucose (UA) Urine Ketones Urine Occult Blood Urine Nitrite Urine Bilirubin Urine Urobilinogen Ur Leukocyte Esterase Urine RBC Urine WBC Ur Squamous Epith Cells Urine Bacteria Urine Mucus Urine Trichomonas U Random Total Protein Urine Creatinine Protein/Creatinin Ratio Urine Opiates Screen NEGATIVE Urine Methadone Screen NEGATIVE Ur Barbiturates Screen POSITIVE H Ur Phencyclidine Scrn NEGATIVE Ur Amphetamines Screen NEGATIVE U Methamphetamin-MDMA NEGATIVE U Benzodiazepines Scrn NEGATIVE Urine Cocaine Screen NEGATIVE U Cannabinoids Screen NEGATIVE Ur Drug Screen Comment Acetone Level Group B Strep DNA POSITIVE H Specimen Comment Not Reportable POC Glucose 125 H Blood Type Antibody Screen 08/20/18 08/21/18 08/21/18 22:05 02:06 05:53 WBC RBC Hgb Hct MCV MCH MCHC RDW RDW Differential Plt Count MPV PT INR APTT Creatinine Estim Creat Clear Calc Est GFR (MDRD) Af Amer Est GFR (MDRD) Non-Af Glucose Uric Acid AST ALT Lactate Dehydrogenase Urine Color Urine Clarity Urine pH Ur Specific [place] Urine Protein Urine Glucose (UA) Urine Ketones Urine Occult Blood Urine Nitrite Urine Bilirubin Urine Urobilinogen Ur Leukocyte Esterase Urine RBC Urine WBC Ur Squamous Epith Cells Urine Bacteria Urine Mucus Urine Trichomonas U Random Total Protein Urine Creatinine Protein/Creatinin Ratio Urine Opiates Screen Urine Methadone Screen Ur Barbiturates Screen Ur Phencyclidine Scrn Ur Amphetamines Screen U Methamphetamin-MDMA U Benzodiazepines Scrn Urine Cocaine Screen U Cannabinoids Screen Ur Drug Screen Comment Acetone Level Group B Strep DNA Specimen Comment POC Glucose 120 H 169 H 159 H Blood Type Antibody Screen Social History Smoking Status Current every day smoker Expected Delivery Method: Spontaneous Vaginal Review of Systems Constitutional: Denies: Fever, Malaise Eyes: Denies: Blurred vision, Vision Change HEENT: Reports: Head Aches. Denies: Visual Changes Cardiovascular: Denies: Chest Pain, Palpitations Respiratory: Denies: Cough, Shortness of Breath, Wheezing Gastrointestinal: Reports: Abdominal Pain. Denies: Diarrhea, Nausea, Vomiting Genitourinary: Denies: Dysuria, Hematuria Musculoskeletal: Denies: Joint Pain, Muscle pain Skin: Denies: Lesions, Rash Neurological: Reports: Headaches. Denies: Blurred vision, Focal weakness Psychiatric: Denies: Anxiety, Depression Endocrine: Denies: Heat/ Cold Intolerance Hematologic/ Lymphatic: Denies: Easy Bruising, Easy Bleeding Physical Exam General: Alert, Cooperative, No apparent distress HEENT: Atraumatic, Normocephalic. Negative for: Thyromegaly, Lymphadenopathy Cardiovascular: Regular rate Lungs: Normal air movement Abdomen: Soft, Non Tender, Gravid Extremities:: Other - 1+ edema Neurological: Deep Tendon Reflexes 2+/4 and Symmetrical, Neuro grossly intact. Negative for: Clonus CLOTH FINISHER: Normal external genitalia. Negative for: Vulvar lesions Estimated gestational size: Appropriate for gestational size Assessment/Plan All Active Problems (Last Reviewed 08/19/18 @ 09:37 by Juani Diego) Severe preeclampsia (Acute) (Acute) Supervision of high-risk (Acute) Elevated blood pressure affecting in third trimester, antepartum (Resolved) Exposure to Zika virus (Resolved) tachycardia (Resolved) This is a 28 year-old, at 34w4d weeks gestational age with preeclampsia with severe features superimposed on CHTN 1. preeclampsia with severe features superimposed on CHTN- magnesium sulfate planned x 48 hrs and plan repeat labs in am. labetalol 100mg BID started for maintenance. labile pressures but no IV meds needed. 2. class B diabetes- [facility], on insulin- ordered 10% increased baseline insulin regimen and sliding scale ordered in addition. will transition to day-wake, night-sleep cycle today. hold nighttime insulin until 2/3 at night. diabetic diet when available. last HgA1C was 7.5 3. Prematurity- steroids planned x 2. peds aware and consulted 4. DVT prophylaxis- heparin, SCDs 5. if stable will plan inpatient management until delivery at 34 weeks.
[2018-08-20] MEDS: Labetalol 100 MG Tablet PO (22:02)
[2018-08-20 22:03] LABS: Amphetamine Urine VISTA NEGATIVE (<1000 ng/mL); Barbiturate Urine VISTA POSITIVE (< 200 ng/mL); Benzodiazepine Urine VISTA NEGATIVE (< 200 ng/mL); Cocaine Urine VISTA NEGATIVE (< 300 ng/mL); Ecstacy Urine VISTA NEGATIVE (< 500 ng/mL); Methadone Urine VISTA NEGATIVE (< 300 ng/mL); PCP Urine VISTA NEGATIVE (< 25 ng/mL); THC Urine VISTA NEGATIVE (< 50 ng/mL); Vista UDS pH Range 6
[2018-08-20] MEDS: Insulin Lispro 100 UNIT/ML INSULN.PEN SC (22:10)
[2018-08-20 22:26] LABS: Group B Strep DNA By PCR POSITIVE (Negative); Probe Check PASS
[2018-08-20 22:31] LABS: Bedside Glucose 120 mg/dL (70-110)
[2018-08-21 02:16] LABS: Bedside Glucose 169 mg/dL (70-110)
[2018-08-21] MEDS: Insulin Lispro 100 UNIT/ML INSULN.PEN SC ×6 (02:23→17:41)
[2018-08-21 06:01] LABS: Bedside Glucose 159 mg/dL (70-110)
[2018-08-21] MEDS: Heparin Injection (Vial) 5,000 UNIT/ML VIAL 5000 UNIT SC ×3 (06:32→21:54)
[2018-08-21] MEDS: Magnesium Sulfate 20 GM/500 ML BAG IV ×2 (06:49→16:47)
[2018-08-21 08:56] LABS: Bedside Glucose 147 mg/dL (70-110)
[2018-08-21 09:06] LABS: Hematocrit 35.3 % (37-47); Mean Corpuscular Volume 85.3 fL (81-99); Mean Platelet Vol. 9.2 fl (6.2-12.0); Platelet Count 425 K/mm3 (150-450); Red Blood Count 4.14 M/mm3 (4.2-5.4); White Blood Count 17.6 K/mm3 (4.4-11.0)
[2018-08-21 09:07] LABS: Scan Indicated on CBC? Y/N NO
[2018-08-21 09:19] LABS: ALB/GLOB Ratio 0.5 RATIO (0.9-2.4); AST(SGOT) 15 U/L (15-37); Alanine Aminotransfer ALT/SGPT 33 U/L (13-56); Albumin, Serum 2.5 g/dL (3.2-5.0); Alkaline Phosphatase 97 U/L (45-117); Anion Gap 11 (5-15); BUN 10 mg/dL (7-18); BUN/Creat Ratio 20.4 RATIO (10-20); Calcium,Total 7.9 mg/dL (8.5-10.1); Chloride 107 mmol/L (98-107); Creatinine, Serum 0.49 mg/dL (0.55-1.02); EST Glomerular Filtration Rate 158 mL/min (>60); Est Glom Filt Rate - Afr Amer 192 mL/min (>60); Estimated Creatinine Clearance 170.89 ml/min; Globulin 4.7 g/dL (2.2-4.2); Glucose 144 mg/dL (74-106); Potassium 4.1 mmol/L (3.5-5.1); Protein, Total 7.2 g/dL (6.4-8.2); Sodium Level 136 mmol/L (136-145)
[2018-08-21] MEDS: Labetalol 100 MG Tablet PO ×2 (10:02→21:53)
[2018-08-21] MEDS: Acetaminophen 325 MG Tablet 650 MG PO ×2 (11:53→17:46)
[2018-08-21] MEDS: Prenatal Vits Tablet 1 TABLET PO (12:16)
[2018-08-21 12:41] LABS: Bedside Glucose 173 mg/dL (70-110)
[2018-08-21 17:46] LABS: Bedside Glucose 151 mg/dL (70-110)
[2018-08-21] MEDS: Betamethasone/Betamethasone 30 MG/5 ML Vial 12 MG IM (20:54)
[2018-08-21 22:01] LABS: Bedside Glucose 103 mg/dL (70-110)
[2018-08-21] MEDS: 0.9% Normal Saline 1,000 ML 15 ML IV (22:03)
[2018-08-21] MEDS: Insulin NPH Human 100 UNITS/ML PEN 57 UNITS SC (22:04)
[2018-08-22] MEDS: Magnesium Sulfate 20 GM/500 ML BAG IV ×2 (02:59→14:27)
[2018-08-22] MEDS: Insulin Lispro 100 UNIT/ML INSULN.PEN SC ×7 (03:00→17:41)
[2018-08-22 03:07] LABS: Bedside Glucose 150 mg/dL (70-110)
[2018-08-22] MEDS: 0.9% Saline Lock 10 ML Syringe IV (05:56)
[2018-08-22] MEDS: Heparin Injection (Vial) 5,000 UNIT/ML VIAL 5000 UNIT SC ×3 (05:56→22:15)
[2018-08-22 08:01] LABS: Bedside Glucose 206 mg/dL (70-110)
--- NOTE | 2018-08-22 08:55 | US_ITS ---
STUDY: OBSTETRICAL ULTRASOUND - BIOPHYSICAL PROFILE REASON FOR EXAM: Female, 28 years old. Abnormal NST. LMP: January 04, 2018. PRIOR ULTRASOUND: None. TECHNIQUE: Transabdominal TECHNICAL QUALITY: Adequate. FINDINGS: There is a single intrauterine fetus. The fetus is in a cephalic presentation. There is demonstrated cardiac activity with a heart rate of 146 bpm. There is a normal amniotic fluid volume. The largest amniotic fluid pocket measures 5.7 cm x 6.1 cm. The amniotic fluid index (ALLISON) is 14.3 cm. The placenta is posterior in location and is not low lying. There are Grade 2 placental changes. Gender: Male BIOPHYSICAL PROFILE: Breathing Movements (FBM): 0 Gross Body Movements (GBM): 2 Tone (FT): 2 Amniotic Fluid Volume (AFV): 2 TOTAL SCORE: / 8 US/Biophysical Profile IMPRESSION: biophysical profile of 12/24. Electronically Signed: Jai Roberts MD at 12:43 EST , Service support ,
[2018-08-22] MEDS: Labetalol 100 MG Tablet PO ×2 (09:57→22:15)
[2018-08-22 11:36] LABS: Bedside Glucose 208 mg/dL (70-110)
[2018-08-22] MEDS: Prenatal Vits Tablet 1 TABLET PO (11:44)
[2018-08-22 15:06] LABS: Bedside Glucose 175 mg/dL (70-110)
--- NOTE | 2018-08-22 15:37 | PCM.PN.OB ---
Patient Problems: Active and Suspected Problems (Last Reviewed 08/19/18 @ 09:37 by Juani Diego) Severe preeclampsia (Acute) Subjective: delayed entry- patient seen 08/21/18 at 1130am no PIÑA BV no vb or lof good fm - Physical Exam General: Alert, Oriented x3 Lungs: Normal air movement Cardiovascular: Regular rate Abdomen: Soft, Non Tender Neurological: Deep Tendon Reflexes 2+/4 and Symmetrical, - - no clonus Weight: 286 lb Body Mass Index (BMI) 43.9 Intake and Output for Last 24 Hours 08/20/18 08/21/18 08/22/18 23:59 23:59 23:59 Intake Total 2956 / 2956 1460 / 1460 Output Total 2900 / 2900 1650 / 1650 Balance 56 / 56 -190 / -190 Microbiology Past 72 Hours 08/20/18 18:10 Urine Culture - Final Urine, Clean Catch Mixed Gram Positive Organisms POC Glucose 08/22/18 08/22/18 08/22/18 14:58 11:27 07:48 POC Glucose 175 H 208 H 206 H 08/22/18 08/21/18 08/21/18 02:53 21:55 17:34 POC Glucose 150 H 103 151 H Medical Necessity - Tobacco Use Smoking Status: Current every day smoker Assessment/Plan All Active Problems (Last Reviewed 08/19/18 @ 09:37 by Juani Diego) Severe preeclampsia (Acute) (Acute) Supervision of high-risk (Acute) Elevated blood pressure affecting in third trimester, antepartum (Resolved) Exposure to Zika virus (Resolved) tachycardia (Resolved) This is a 28 year-old, at 34w5d weeks gestational age with preeclampsia with severe features superimposed on CHTN 1. preeclampsia with severe features superimposed on CHTN- magnesium sulfate planned x 48 hrs and repeat labs WNL. labetalol 100mg BID for maintenance. labile pressures but no IV meds needed. 2. class B diabetes- [facility] MFM, on insulin- ordered 10% increased baseline insulin regimen and sliding scale ordered in addition.patient transitioning to daytime/nighttime schedule. diabetic diet last HgA1C was 7.5 3. Prematurity- steroids x 2. peds aware and consulted 4. DVT prophylaxis- heparin, SCDs 5. if stable will plan inpatient management until delivery at 34 weeks.
--- NOTE | 2018-08-22 15:39 | PCM.PN.OB ---
Patient Problems: Active and Suspected Problems (Last Reviewed 08/19/18 @ 09:37 by Juani Diego) Severe preeclampsia (Acute) Subjective: doing well no complaints, had small decel this morning- then had 6/8 BPP no PIÑA BV N V no CP SOB - Physical Exam General: Alert, Oriented x3 Lungs: Normal air movement Cardiovascular: Regular rate Abdomen: Soft, Non Tender, Gravid Extremities: Edema Neurological: Deep Tendon Reflexes 2+/4 and Symmetrical, - - no clonus Weight: 286 lb Body Mass Index (BMI) 43.9 Intake and Output for Last 24 Hours 08/20/18 08/21/18 08/22/18 23:59 23:59 23:59 Intake Total 2956 / 2956 1460 / 1460 Output Total 2900 / 2900 1650 / 1650 Balance 56 / 56 -190 / -190 Microbiology Past 72 Hours 08/20/18 18:10 Urine Culture - Final Urine, Clean Catch Mixed Gram Positive Organisms POC Glucose 08/22/18 08/22/18 08/22/18 14:58 11:27 07:48 POC Glucose 175 H 208 H 206 H 08/22/18 08/21/18 08/21/18 02:53 21:55 17:34 POC Glucose 150 H 103 151 H Medical Necessity - Tobacco Use Smoking Status: Current every day smoker Assessment/Plan All Active Problems (Last Reviewed 08/19/18 @ 09:37 by Juani Diego) Severe preeclampsia (Acute) (Acute) Supervision of high-risk (Acute) Elevated blood pressure affecting in third trimester, antepartum (Resolved) Exposure to Zika virus (Resolved) tachycardia (Resolved) This is a 28 year-old, at 34w6d weeks gestational age with preeclampsia with severe features superimposed on CHTN 1. preeclampsia with severe features superimposed on CHTN- magnesium sulfate planned x 48 hrs and repeat labs WNL. labetalol 100mg BID for maintenance. labile pressures but no IV meds needed. plan inpatient management until 34 weeks then deliver. discussed with MFM. 2. class B diabetes- [facility], on insulin- ordered 10% increased baseline insulin regimen and sliding scale ordered in addition.patient transitioning to daytime/nighttime schedule. diabetic diet last HgA1C was 7.5 3. Prematurity- s/p steroids x 2. peds aware and consulted 4. DVT prophylaxis- heparin, SCDs
[2018-08-22 16:56] LABS: Bedside Glucose 165 mg/dL (70-110)
[2018-08-22] MEDS: Insulin NPH Human 100 UNITS/ML PEN 64 UNITS SC (22:17)
[2018-08-22 22:26] LABS: Bedside Glucose 148 mg/dL (70-110)
[2018-08-23 03:11] LABS: Bedside Glucose 110 mg/dL (70-110)
--- NOTE | 2018-08-23 05:55 | US_ITS ---
STUDY: OBSTETRICAL ULTRASOUND - BIOPHYSICAL PROFILE REASON FOR EXAM: Female, 28 years old. Repeat evaluation after steroids LMP: January 04, 2018 per prior study and/or provided estimated due date of October 11, 2018 PRIOR ULTRASOUND: None. TECHNIQUE: Transabdominal TECHNICAL QUALITY: Adequate. FINDINGS: There is a single intrauterine fetus. The fetus is in a cephalic presentation. There is demonstrated cardiac activity with a heart rate of 153 bpm. There is a normal amniotic fluid volume. The largest amniotic fluid pocket measures 4.0 x 6.1 cm. The amniotic fluid index (ALLISON) is 17.8 cm. The placenta is posterior in location and is not low lying. There are Grade 2 placental changes. Age by LMP: 33 weeks, 0 days. RENATO by LMP: October 11, 2018. BIOPHYSICAL PROFILE: Breathing Movements (FBM): 0 Gross Body Movements (GBM): 2 Tone (FT): 2 Amniotic Fluid Volume (AFV): 2 TOTAL SCORE: 6 / 8 US/Biophysical Profile IMPRESSION: Abnormal biophysical profile of 6/8, unchanged. No spontaneous breathing movements were observed during scanning. Electronically Signed: Thom Cifuentes MD at 17:27 EST , Service support ,
[2018-08-23] MEDS: Heparin Injection (Vial) 5,000 UNIT/ML VIAL 5000 UNIT SC ×3 (06:13→22:28)
[2018-08-23 07:07] LABS: Bedside Glucose 99 mg/dL (70-110)
[2018-08-23] MEDS: 0.9% Saline Lock 10 ML Syringe IV ×4 (08:10→20:41)
[2018-08-23] MEDS: Insulin Lispro 100 UNIT/ML INSULN.PEN SC ×2 (08:16→17:38)
[2018-08-23] MEDS: Labetalol 100 MG Tablet PO (09:53)
[2018-08-23 11:36] LABS: Hematocrit 36.2 % (37-47); Hemoglobin 11.7 g/dl (12.0-15.0); Mean Corp Hgb Conc 32.3 g/gl (32-36); Mean Corpuscular Hgb 28.1 pg (27.0-32.0); Mean Platelet Vol. 8.7 fl (6.2-12.0); Platelet Count 400 K/mm3 (150-450); RBC Distribution Width CV 14.5 % (11.6-14.6); RBC Distribution Width SD 45.9 fl (35.1-43.9); Red Blood Count 4.16 M/mm3 (4.2-5.4); White Blood Count 15.7 K/mm3 (4.4-11.0)
[2018-08-23 11:37] LABS: Scan Indicated on CBC? Y/N NO
[2018-08-23 11:50] LABS: ALB/GLOB Ratio 0.6 RATIO (0.9-2.4); AST(SGOT) 17 U/L (15-37); Alanine Aminotransfer ALT/SGPT 37 U/L (13-56); Albumin, Serum 2.5 g/dL (3.2-5.0); Alkaline Phosphatase 87 U/L (45-117); Anion Gap 9 (5-15); BUN 12 mg/dL (7-18); Calcium,Total 8.7 mg/dL (8.5-10.1); Chloride 110 mmol/L (98-107); Creatinine, Serum 0.44 mg/dL (0.55-1.02); EST Glomerular Filtration Rate 178 mL/min (>60); Est Glom Filt Rate - Afr Amer 215 mL/min (>60); Estimated Creatinine Clearance 190.31 ml/min; Globulin 4.2 g/dL (2.2-4.2); Glucose 53 mg/dL (74-106); Protein, Total 6.7 g/dL (6.4-8.2); Sodium Level 142 mmol/L (136-145)
[2018-08-23 11:56] LABS: Bedside Glucose 60 mg/dL (70-110)
[2018-08-23 11:56] LABS: Bedside Glucose 61 mg/dL (70-110)
[2018-08-23 12:01] LABS: Bedside Glucose 61 mg/dL (70-110)
[2018-08-23] MEDS: Prenatal Vits Tablet 1 TABLET PO (12:29)
[2018-08-23] MEDS: Insulin Lispro 100 UNIT/ML INSULN.PEN 26 UNIT SC (12:31)
[2018-08-23 12:49] LABS: Protein, Urine (Random) 8.9 mg/dL (<11.9); Protein:Creat Ratio 360 mg/g CRE (0-200)
[2018-08-23 14:52] LABS: Bedside Glucose 62 mg/dL (70-110)
[2018-08-23 17:06] LABS: Bedside Glucose 75 mg/dL (70-110)
--- NOTE | 2018-08-23 20:16 | PCM.PN.OB ---
Patient Problems: Active and Suspected Problems (Last Reviewed 08/19/18 @ 09:37 by Juani Diego) Severe preeclampsia (Acute) Subjective: patient denies any PIÑA BV no vb lof good fm no regular ctx. several spontaneous decelerations but overall reassuring, 6/8 BPP on repeat US> - Physical Exam General: Alert, Oriented x3 Weight: 284 lb 6.341 oz Body Mass Index (BMI) 43.9 Intake and Output for Last 24 Hours 08/21/18 08/22/18 08/23/18 23:59 23:59 23:59 Intake Total 2956 / 2956 1460 / 1460 Output Total 2900 / 2900 1650 / 1650 Balance 56 / 56 -190 / -190 Microbiology Past 72 Hours 08/20/18 18:10 Urine Culture - Final Urine, Clean Catch Mixed Gram Positive Organisms Laboratory Tests Past 24 Hrs 08/23/18 08/23/18 08/23/18 11:15 11:15 11:15 WBC 15.7 H RBC 4.16 L Hgb 11.7 L Hct 36.2 L MCV 87.0 MCH 28.1 MCHC 32.3 RDW 14.5 RDW Differential 45.9 H Plt Count 400 MPV 8.7 Sodium 142 Potassium 4.0 Chloride 110 H Carbon Dioxide 23.0 Anion Gap 9 BUN 12 Creatinine 0.44 L Estim Creat Clear Calc 190.31 Est GFR (MDRD) Af Amer 215 Est GFR (MDRD) Non-Af 178 BUN/Creatinine Ratio 27.0 H Glucose 53 L Calcium 8.7 Total Bilirubin 0.20 AST 17 ALT 37 Alkaline Phosphatase 87 Total Protein 6.7 Albumin 2.5 L Globulin 4.2 Albumin/Globulin Ratio 0.6 L U Random Total Protein Urine Creatinine Protein/Creatinin Ratio Blood Type A POSITIVE Antibody Screen NEGATIVE 08/23/18 12:10 WBC RBC Hgb Hct MCV MCH MCHC RDW RDW Differential Plt Count MPV Sodium Potassium Chloride Carbon Dioxide Anion Gap BUN Creatinine Estim Creat Clear Calc Est GFR (MDRD) Af Amer Est GFR (MDRD) Non-Af BUN/Creatinine Ratio Glucose Calcium Total Bilirubin AST ALT Alkaline Phosphatase Total Protein Albumin Globulin Albumin/Globulin Ratio U Random Total Protein 8.9 Urine Creatinine 24.70 Protein/Creatinin Ratio 360 H Blood Type Antibody Screen POC Glucose 08/23/18 08/23/18 08/23/18 17:00 14:41 11:52 POC Glucose 75 62 L 61 L 08/23/18 08/23/18 08/23/18 11:33 11:31 07:03 POC Glucose 60 L 61 L 99 08/23/18 08/22/18 03:05 22:14 POC Glucose 110 148 H Medical Necessity - Tobacco Use Smoking Status: Former smoker Assessment/Plan All Active Problems (Last Reviewed 08/19/18 @ 09:37 by Juani Diego) Severe preeclampsia (Acute) (Acute) Supervision of high-risk (Acute) Elevated blood pressure affecting in third trimester, antepartum (Resolved) Exposure to Zika virus (Resolved) tachycardia (Resolved) This is a 28 year-old, at 34w6d weeks gestational age with preeclampsia with severe features superimposed on CHTN 1. preeclampsia with severe features superimposed on CHTN-S/P magnesium sulfate x 48 hrs and repeat labs WNL. labetalol 100mg BID for maintenance. plan inpatient management until 34 weeks then deliver. discussed with M. give IV labetalol now and increase po labetalol to 200 mg BID 2. class B diabetes- [facility], on insulin- baseline insulin regimen and sliding scale ordered in additiondiabetic diet last HgA1C was 7.5. decresaing insulin due to lower blood sugars. 3. Prematurity- s/p steroids x 2. peds aware and consulted 4. DVT prophylaxis- heparin, SCDs
[2018-08-23] MEDS: Labetalol 100 MG Tablet 200 MG PO (20:30)
[2018-08-23 22:11] LABS: Bedside Glucose 70 mg/dL (70-110)
[2018-08-23] MEDS: Insulin NPH Human 100 UNITS/ML PEN 52 UNITS SC (22:33)
[2018-08-24 03:11] LABS: Bedside Glucose 66 mg/dL (70-110)
[2018-08-24 03:57] LABS: Bedside Glucose 62 mg/dL (70-110)
[2018-08-24 03:57] LABS: Bedside Glucose 91 mg/dL (70-110)
[2018-08-24] MEDS: Heparin Injection (Vial) 5,000 UNIT/ML VIAL 5000 UNIT SC ×3 (06:10→22:01)
[2018-08-24 07:51] LABS: Bedside Glucose 56 mg/dL (70-110)
--- NOTE | 2018-08-24 08:00 | US_ITS ---
STUDY: OBSTETRICAL ULTRASOUND - BIOPHYSICAL PROFILE REASON FOR EXAM: Female, 28 years old. well-being. LMP: January 04, 2018. PRIOR ULTRASOUND: None. TECHNIQUE: Transabdominal TECHNICAL QUALITY: Adequate. FINDINGS: There is a single intrauterine fetus. The fetus is in a cephalic presentation. There is demonstrated cardiac activity with a heart rate of 153 bpm. There is a normal amniotic fluid volume. The largest amniotic fluid pocket measures 6.9 cm. The amniotic fluid index (ALLISON) is 17.8 cm. The placenta is posterior in location and is not low lying. There are Grade 2 placental changes. BIOPHYSICAL PROFILE: Breathing Movements (FBM): 2 Gross Body Movements (GBM): 2 Tone (FT): 2 Amniotic Fluid Volume (AFV): 2 TOTAL SCORE: 8 / 8 US/Biophysical Profile IMPRESSION: Normal biophysical profile of 02/23. Electronically Signed: Jai Roberts MD at 14:08 EST , Service support ,
[2018-08-24 08:07] LABS: Bedside Glucose 80 mg/dL (70-110)
[2018-08-24] MEDS: Insulin Lispro 100 UNIT/ML INSULN.PEN SC (08:41)
[2018-08-24] MEDS: 0.9% Saline Lock 10 ML Syringe IV (08:41)
[2018-08-24] MEDS: Labetalol 100 MG Tablet 200 MG PO ×2 (10:29→22:04)
--- NOTE | 2018-08-24 11:38 | PCM.PN.OB ---
Patient Problems: Active and Suspected Problems (Last Reviewed 08/19/18 @ 09:37 by Juani Diego) Severe preeclampsia (Acute) Subjective: doing well no complaints no PIÑA BV no vb lof good fm no regular ctx - Physical Exam General: Alert, Oriented x3 Extremities: - - minimal edema, no clonus Skin: No rashes Weight: 278 lb 7.101 oz Body Mass Index (BMI) 43.9 Intake and Output for Last 24 Hours 08/22/18 08/23/18 08/24/18 23:59 23:59 23:59 Intake Total 1460 / 1460 Output Total 1650 / 1650 Balance -190 / -190 Microbiology Past 72 Hours 08/20/18 18:10 Urine Culture - Final Urine, Clean Catch Mixed Gram Positive Organisms Laboratory Tests Past 24 Hrs 08/23/18 08/23/18 08/23/18 11:15 11:15 12:10 Sodium 142 Potassium 4.0 Chloride 110 H Carbon Dioxide 23.0 Anion Gap 9 BUN 12 Creatinine 0.44 L Estim Creat Clear Calc 190.31 Est GFR (MDRD) Af Amer 215 Est GFR (MDRD) Non-Af 178 BUN/Creatinine Ratio 27.0 H Glucose 53 L Calcium 8.7 Total Bilirubin 0.20 AST 17 ALT 37 Alkaline Phosphatase 87 Total Protein 6.7 Albumin 2.5 L Globulin 4.2 Albumin/Globulin Ratio 0.6 L U Random Total Protein 8.9 Urine Creatinine 24.70 Protein/Creatinin Ratio 360 H Blood Type A POSITIVE Antibody Screen NEGATIVE POC Glucose 08/24/18 08/24/18 08/24/18 08:01 07:44 03:53 POC Glucose 80 56 L 91 08/24/18 08/24/18 08/23/18 03:22 03:01 21:55 POC Glucose 62 L 66 L 70 08/23/18 08/23/18 08/23/18 17:00 14:41 11:52 POC Glucose 75 62 L 61 L 08/23/18 08/23/18 11:33 11:31 POC Glucose 60 L 61 L Medical Necessity - Tobacco Use Smoking Status: Former smoker Assessment/Plan All Active Problems (Last Reviewed 08/19/18 @ 09:37 by Juani Diego) Severe preeclampsia (Acute) (Acute) Supervision of high-risk (Acute) Elevated blood pressure affecting in third trimester, antepartum (Resolved) Exposure to Zika virus (Resolved) tachycardia (Resolved) This is a 28 year-old, at 34w6d weeks gestational age with preeclampsia with severe features superimposed on CHTN 1. preeclampsia with severe features superimposed on CHTN-S/P magnesium sulfate x 48 hrs and repeat labs WNL. plan inpatient management until 34 weeks then deliver. discussed with MFM. po labetalol to 200 mg BID 2. class B diabetes- [facility], on insulin- baseline insulin regimen and sliding scale ordered in additiondiabetic diet last HgA1C was 7.5. decresaing insulin due to lower blood sugars. 3. Prematurity- s/p steroids x 2. peds aware and consulted 4. DVT prophylaxis- heparin, SCDs 5. spontaneous decels- 8/8 BPP today reassuring, continue nst q shift overall reassruing.
[2018-08-24 11:47] LABS: Bedside Glucose 61 mg/dL (70-110)
[2018-08-24 12:27] LABS: Bedside Glucose 45 mg/dL (70-110)
[2018-08-24 12:42] LABS: Bedside Glucose 45 mg/dL (70-110)
--- NOTE | 2018-08-24 13:07 | NURSING ---
Dr. Pinon requested that I call the [facility] clinical vice president consulting services Tiny Bowen regarding the pt's low POC BGT. Tiny looked at the pt's insulin doses and POC BGTs over the past 24 hours. Tiny recommends that the NPH bedtime dose be reduced to 40U. No other changes are recommended at this time. Dr. Pinon already told Marina MOONEY to hold the lunch insulin and take a BG POT at 1 hr and 2 hr postprandial. Tiny suggested not giving the dinner time insulin unless the POC BGT is at least 80. Dontrell is aware of this discussion and she will tell Dr. Pinon of the recommendation to lower the NPH dose
[2018-08-24] MEDS: Prenatal Vits Tablet 1 TABLET PO (13:52)
[2018-08-24 14:12] LABS: Bedside Glucose 114 mg/dL (70-110)
[2018-08-24 14:31] LABS: Bedside Glucose 50 mg/dL (70-110)
[2018-08-24 14:31] LABS: Bedside Glucose 50 mg/dL (70-110)
[2018-08-24 14:31] LABS: Bedside Glucose 44 mg/dL (70-110)
[2018-08-24 17:26] LABS: Bedside Glucose 110 mg/dL (70-110)
[2018-08-24] MEDS: Insulin Lispro 100 UNIT/ML INSULN.PEN 10 UNIT SC (18:06)
[2018-08-24] MEDS: Insulin NPH Human 100 UNITS/ML PEN 30 UNITS SC (22:02)
[2018-08-24 22:16] LABS: Bedside Glucose 131 mg/dL (70-110)
[2018-08-25 02:31] LABS: Bedside Glucose 116 mg/dL (70-110)
[2018-08-25] MEDS: Heparin Injection (Vial) 5,000 UNIT/ML VIAL 5000 UNIT SC ×3 (06:33→21:41)
[2018-08-25 08:27] LABS: Bedside Glucose 81 mg/dL (70-110)
[2018-08-25] MEDS: Insulin Lispro 100 UNIT/ML INSULN.PEN 8 UNIT SC (08:43)
[2018-08-25] MEDS: Labetalol 100 MG Tablet 200 MG PO ×2 (09:53→21:48)
[2018-08-25 11:02] LABS: Bedside Glucose 111 mg/dL (70-110)
[2018-08-25] MEDS: Prenatal Vits Tablet 1 TABLET PO (12:28)
[2018-08-25] MEDS: Insulin Lispro 100 UNIT/ML INSULN.PEN 10 UNIT SC ×2 (12:28→16:56)
--- NOTE | 2018-08-25 13:14 | US_ITS ---
STUDY: OBSTETRICAL ULTRASOUND - BIOPHYSICAL PROFILE REASON FOR EXAM: Female, 28 years old. well-being. LMP: January 04, 2018 PRIOR ULTRASOUND: Comparison is made with prior examination dated August 24, 2018. TECHNIQUE: Transabdominal TECHNICAL QUALITY: Adequate. FINDINGS: There is a single intrauterine fetus. The fetus is in a cephalic presentation. There is demonstrated cardiac activity with a heart rate of 155 bpm. There is a normal amniotic fluid volume. The largest amniotic fluid pocket measures 4.2 cm x 8.1 cm. The amniotic fluid index (ALLISON) is 18.8 cm. The placenta is posterior in location and is not low lying. There are Grade 2 placental changes. BIOPHYSICAL PROFILE: Breathing Movements (FBM): 2 Gross Body Movements (GBM): 2 Tone (FT): 2 Amniotic Fluid Volume (AFV): 2 TOTAL SCORE: 8 / 8 US/Biophysical Profile IMPRESSION: Normal biophysical profile of 02/23. Electronically Signed: Jai Roberts MD at 14:42 EST , Service support ,
[2018-08-25 13:31] LABS: Bedside Glucose 89 mg/dL (70-110)
[2018-08-25] MEDS: 0.9% Saline Lock 10 ML Syringe IV ×2 (15:36→21:39)
[2018-08-25] MEDS: Insulin Lispro 100 UNIT/ML INSULN.PEN SC ×2 (16:55→21:46)
[2018-08-25 17:02] LABS: Bedside Glucose 173 mg/dL (70-110)
[2018-08-25] MEDS: Insulin NPH Human 100 UNITS/ML PEN 30 UNITS SC (21:43)
[2018-08-25 21:52] LABS: Bedside Glucose 152 mg/dL (70-110)
--- NOTE | 2018-08-25 22:33 | PN.OBGYN_ITS ---
Patient Problems: Active and Suspected Problems (Last Reviewed 08/19/18 @ 09:37 by Juani Diego) Severe preeclampsia (Acute) Subjective: no cp sob n v no vb or lof good fm no regular ctx no PIÑA BV - Physical Exam General: Alert, Oriented x3 Abdomen: Soft, Non Tender Extremities: Edema, - - no clonus Weight: 276 lb 7.355 oz Body Mass Index (BMI) 43.9 POC Glucose 08/25/18 08/25/18 08/25/18 21:36 16:53 13:26 POC Glucose 152 H 173 H 89 08/25/18 08/25/18 08/25/18 10:55 08:20 02:27 POC Glucose 111 H 81 116 H Medical Necessity - Tobacco Use Smoking Status: Former smoker Assessment/Plan All Active Problems (Last Reviewed 08/19/18 @ 09:37 by Juani Diego) Severe preeclampsia (Acute) (Acute) Supervision of high-risk (Acute) Elevated blood pressure affecting in third trimester, antepartum (Resolved) Exposure to Zika virus (Resolved) tachycardia (Resolved) This is a 28 year-old, at 35w2d weeks gestational age with preeclampsia with severe features superimposed on CHTN 1. preeclampsia with severe features superimposed on CHTN-S/P magnesium sulfate x 48 hrs and repeat labs WNL. plan inpatient management until 34 weeks then deliver. discussed with MFM. po labetalol to 200 mg BID 2. [facility], on insulin- baseline insulin regimen and sliding scale ordered in additiondiabetic diet last HgA1C was 7.5. 3. Prematurity- s/p steroids x 2. peds aware and consulted 4. DVT prophylaxis- heparin, SCDs 5. spontaneous decels- 8/8 BPP today reassuring, continue heart tones q shift overall reassruing.
[2018-08-26 02:57] LABS: Bedside Glucose 132 mg/dL (70-110)
[2018-08-26] MEDS: Heparin Injection (Vial) 5,000 UNIT/ML VIAL 5000 UNIT SC ×3 (06:02→23:20)
[2018-08-26 07:52] LABS: Bedside Glucose 77 mg/dL (70-110)
[2018-08-26] MEDS: Insulin Lispro 100 UNIT/ML INSULN.PEN 10 UNIT SC (08:47)
--- NOTE | 2018-08-26 09:00 | US_ITS ---
STUDY: OBSTETRICAL ULTRASOUND - BIOPHYSICAL PROFILE REASON FOR EXAM: Female, 28 years old. well-being. History of type 2 diabetes. LMP: January 04, 2018. PRIOR ULTRASOUND: Comparison is made with prior study dated August 25, 2018. TECHNIQUE: Transvaginal TECHNICAL QUALITY: Adequate. FINDINGS: There is a single intrauterine fetus. The fetus is in a cephalic presentation. There is demonstrated cardiac activity with a heart rate of 152 bpm. There is a normal amniotic fluid volume. The largest amniotic fluid pocket measures 7.25 cm x 5.8 cm. The amniotic fluid index (ALLISON) is 24.2 cm. This is in keeping with polyhydramnios. The placenta is posterior in location and is not low lying. There are Grade 2 placental changes. BIOPHYSICAL PROFILE: Breathing Movements (FBM): 0 Gross Body Movements (GBM): 2 Tone (FT): 2 Amniotic Fluid Volume (AFV): 2 TOTAL SCORE: 6 / 8 US/Biophysical Profile IMPRESSION: biophysical profile of 6/8. Polyhydramnios. Electronically Signed: Jai Roberts MD at 11:12 EST , Service support ,
[2018-08-26 11:22] VITALS: BP 144/71
[2018-08-26] MEDS: Labetalol 100 MG Tablet 200 MG PO ×2 (11:23→23:13)
[2018-08-26 11:26] LABS: Bedside Glucose 94 mg/dL (70-110)
[2018-08-26] MEDS: Prenatal Vits Tablet 1 TABLET PO (12:28)
[2018-08-26] MEDS: Insulin Lispro 100 UNIT/ML INSULN.PEN 12 UNIT SC ×2 (12:29→18:03)
[2018-08-26] MEDS: 0.9% Saline Lock 10 ML Syringe IV ×2 (12:37→23:21)
[2018-08-26 16:02] LABS: Bedside Glucose 74 mg/dL (70-110)
--- NOTE | 2018-08-26 16:47 | CASEMGMT ---
Social Work Labor and Delivery Reason for visit: support to patient/mother of baby (MOB) during extended stay prior to delivery; previous social work consutl during outpatient visit on 07.15.2018 for social concerns and resources. Summary: Met with MOB today and reintroduced to social work role. MOB reports to remember this greeting card writer from visit in June. MOB reports since last visit with this greeting card writer (visit number [id number] in medical record;date 07.15.2018) the reported father of baby (FOB) has been found. MOB reports the FOB is no longer in the picture however as it was confirmed that FOB relapsed on substances. MOB reports home situation with MOB's mom is safe and adequate. MOB reports to have several options for sleeping spaces for the baby, but still needs a car seat and inquired about what program this greeting card writer had previously told MOB about to help out with such resource. MOB talked about having a hard time emotionally yesterday and going off the unit, despite nursing concern, as MOB needed some fresh air. MOB reflecting today that having such frequent NST of the baby, not being able to move off the bed or chair was getting to the MOB. MOB describes feeling closed in and and trapped. MOB reports to feel much better today, due to getting off the unit yesterday, breathing in some fresh air and once again (with permission today) getting some fresh air again. MOB reports has been doing some meditation to help relax and reports overall feeling better now that can move around the room, or at least have the option to move around. MOB has adult coloring books and reading books in the room to help pass the time. Explored with MOB whether there is anything the staff can be doing at this point to support MOB, to make this long stay easier. Offered to print any reading material up for MOB that MOB may be interested in. MOB denies and indicates staff is caring for MOB well. Broached with MOB that baby could be in the hospital for a time due to prematurity, and that this greeting card writer will be following along, providing support as indicated after . Assessment: MOB pleasant, smiling, bright affect, and relaxed body posture during social work visit today. MOB held good eye contact and receptive to talking to social work professor. MOB inquired about which program this greeting card writer had talked about previously helping with car seats. MOB planning to call about this resource. Plan: Social work to follow and assist as needed. Will make a more detailed assessment of supports and resources in place once the baby is born. Will also follow up with MOB about depression risk and resources for such. -NICK Cardenas, PV DESIGN ENGINEER
[2018-08-26] MEDS: Insulin NPH Human 100 UNITS/ML PEN 30 UNITS SC (23:08)
[2018-08-26] MEDS: Insulin Lispro 100 UNIT/ML INSULN.PEN SC (23:11)
[2018-08-26 23:17] LABS: Bedside Glucose 152 mg/dL (70-110)
[2018-08-27] VITALS (19 sets, daily range): BP systolic 117–183; BP diastolic 42–104; PULSE 79–95; RESP 16–22; TEMP 36.2–37; O2SAT 96–100
[2018-08-27 04:02] LABS: Bedside Glucose 99 mg/dL (70-110)
[2018-08-27] MEDS: Heparin Injection (Vial) 5,000 UNIT/ML VIAL 5000 UNIT SC (06:53)
--- NOTE | 2018-08-27 08:30 | NURSING ---
0800 To US for BPP as scheduled. Has not had insulin or breakfast yet.
[2018-08-27] MEDS: Insulin Lispro 100 UNIT/ML INSULN.PEN 10 UNIT SC (08:45)
--- NOTE | 2018-08-27 09:00 | US_ITS ---
STUDY: OBSTETRICAL ULTRASOUND - BIOPHYSICAL PROFILE REASON FOR EXAM: Female, 28 years old. Evaluate well-being. LMP: 01/04/2018. PRIOR ULTRASOUND: 08/26/2018 TECHNIQUE: Transvaginal TECHNICAL QUALITY: Adequate. FINDINGS: There is a single intrauterine fetus. The fetus is in a cephalic presentation. There is demonstrated cardiac activity with a heart rate of 138 bpm. There is a normal amniotic fluid volume. The largest amniotic fluid pocket measures 5.9 x 7 cm. The amniotic fluid index (ALLISON) is 19.8 cm. The placenta is posterior and fundal in location and is not low lying. There are Grade 2 placental changes. BIOPHYSICAL PROFILE: Breathing Movements (FBM): 2 Gross Body Movements (GBM): 2 Tone (FT): 2 Amniotic Fluid Volume (AFV): 2 TOTAL SCORE: US/Biophysical Profile IMPRESSION: Normal biophysical profile of 02/23. The ALLISON is within normal limits at this time. Electronically Signed: Montana Rivas MD at 9:12 EST Tel , Service support ,
[2018-08-27] MEDS: Prenatal Vits Tablet 1 TABLET PO (09:02)
[2018-08-27 09:07] LABS: Bedside Glucose 99 mg/dL (70-110)
--- NOTE | 2018-08-27 09:30 | US_ITS ---
STUDY: OBSTETRICAL ULTRASOUND - BIOPHYSICAL PROFILE REASON FOR EXAM: Female, 28 years old. Evaluate well-being. Abnormal prior biophysical profile. LMP: 12/25/2017. PRIOR ULTRASOUND: 08/27/2018, 7:57 AM. TECHNIQUE: Transvaginal TECHNICAL QUALITY: Adequate. FINDINGS: There is a single intrauterine fetus. The fetus is in a cephalic presentation. There is demonstrated cardiac activity with a heart rate of 122 bpm. There is a normal amniotic fluid volume. The largest amniotic fluid pocket measures 7.1 x 4.6 cm. The amniotic fluid index (ALLISON) is 21.5 cm. The placenta is posterior in location and is not low lying. There are Grade 2 placental changes. BIOPHYSICAL PROFILE: Breathing Movements (FBM): 0 Gross Body Movements (GBM): 0 Tone (FT): 0 Amniotic Fluid Volume (AFV): 2 TOTAL SCORE: 2 / 8 US/Biophysical Prof W/O Non Stres IMPRESSION: Persistent abnormal biophysical profile with a score of 2/8. The referring physician is aware of the findings. Electronically Signed: Montana Rivas MD at 11:04 EST Tel , Service support ,
[2018-08-27] MEDS: Lactated Ringers 1,000 ML 999 ML IV (10:05)
--- NOTE | 2018-08-27 10:10 | PN.OBGYN_ITS ---
Patient Problems: Active and Suspected Problems (Last Reviewed 08/19/18 @ 09:37 by Juani Diego) Severe preeclampsia (Acute) Subjective: late entry- patient seen at 930 am 08/26/18 no CP SOB N V no PIÑA BV - Physical Exam General: Alert, Oriented x3 Abdomen: Soft, Non Tender Extremities: Edema, - - no clonus Vital Signs BP 144/71 H 08/26/18 11:22 Weight: 277 lb 1.937 oz Body Mass Index (BMI) 43.9 Laboratory Tests Past 24 Hrs 08/26/18 13:05 Blood Type A POSITIVE Antibody Screen NEGATIVE POC Glucose 08/27/18 08/27/18 08/26/18 08:41 03:49 23:04 POC Glucose 99 99 152 H 08/26/18 08/26/18 15:53 11:18 POC Glucose 74 94 Medical Necessity - Tobacco Use Smoking Status: Former smoker Assessment/Plan All Active Problems (Last Reviewed 08/19/18 @ 09:37 by Juani Diego) Severe preeclampsia (Acute) (Acute) Supervision of high-risk (Acute) Elevated blood pressure affecting in third trimester, antepartum (Resolved) Exposure to Zika virus (Resolved) tachycardia (Resolved) This is a 28 year-old, at 35w3d weeks gestational age with preeclampsia with severe features superimposed on CHTN 1. preeclampsia with severe features superimposed on CHTN-S/P magnesium sulfate x 48 hrs and repeat labs WNL. plan inpatient management until 34 weeks then deliver. discussed with [facility]. po labetalol to 200 mg BID 2. class B diabetes- [facility], on insulin- baseline insulin regimen and sliding scale ordered in addition diabetic diet last HgA1C was 7.5. 3. Prematurity- s/p steroids x 2. peds aware and consulted 4. DVT prophylaxis- heparin, SCDs 5. spontaneous decels when on continuous- 6/8 BPP today reassuring, continue heart tones q shift overall reassuring.
--- NOTE | 2018-08-27 10:11 | PCM.PN.OB ---
Patient Problems: Active and Suspected Problems (Last Reviewed 08/19/18 @ 09:37 by Juani Diego) Severe preeclampsia (Acute) Subjective: patient getting bpp this morning and was 2/8 only 2 for fluid present, no movements. patient ate breakfast and then had repeat BPP and still 2/8. will proceed with delivery. - Physical Exam General: Alert, Oriented x3 Vital Signs BP 144/71 H 08/26/18 11:22 Weight: 277 lb 1.937 oz Body Mass Index (BMI) 43.9 Laboratory Tests Past 24 Hrs 08/26/18 13:05 Blood Type A POSITIVE Antibody Screen NEGATIVE POC Glucose 08/27/18 08/27/18 08/26/18 08:41 03:49 23:04 POC Glucose 99 99 152 H 08/26/18 08/26/18 15:53 11:18 POC Glucose 74 94 Medical Necessity - Tobacco Use Smoking Status: Former smoker Assessment/Plan All Active Problems (Last Reviewed 08/19/18 @ 09:37 by Juani Diego) Severe preeclampsia (Acute) (Acute) Supervision of high-risk (Acute) Elevated blood pressure affecting in third trimester, antepartum (Resolved) Exposure to Zika virus (Resolved) tachycardia (Resolved) This is a 28 year-old, at 35w4d weeks gestational age with preeclampsia with severe features superimposed on CHTN, now 2/8 BPP now plan immediate delivery due to non reassuring testing. BPP 2/8 for fluid only, fht baseline 120s-130s absent to minimal variability recommend immediate delivery. proceed with , would not recommend IOL due absent to minimal variability and nonreactive. category II tracing. no decelerations present at this time. 1. preeclampsia with severe features superimposed on CHTN-S/P magnesium sulfate x 48 hrs and repeat labs WNL. initially planned inpatient management until 34 weeks then deliver. discussed with MFM. po labetalol 200 mg BID 2. [facility], on insulin- baseline insulin regimen and sliding scale ordered in addition diabetic diet last HgA1C was 7.5. 3. Prematurity- s/p steroids x 2. peds aware and consulted 4. DVT prophylaxis- heparin, SCDs- last dose at 6 am.
--- NOTE | 2018-08-27 10:16 | PCM.OPRPT ---
Problem List (1) Severe preeclampsia Status: Acute (2) Chronic hypertension affecting Status: Chronic Comment: no meds (3) Status: Acute Qualifiers: Weeks of gestation: 30 weeks Qualified Code(s): Z3A.30 - 30 weeks gestation of Comment: Declines all genetic screening including CF, AFP. Anatomy US- normal. Twice weekly testing @ 30 weeks. BPP with MFM weekly, NSTs weekly with US at 30 weeks serial growth US [id number]; feta testing 2x per week with daily kick counts (4) Supervision of high-risk Status: Acute Qualifiers: Trimester: third trimester Qualified Code(s): O09.93 - Supervision of high risk , unspecified, third trimester Comment: PRR Grav 2 RENATO 10/11/18 boy BF Deny. (5) Diabetes type 2, uncontrolled Status: Chronic Qualifiers: Glycemic state: with hyperglycemia Qualified Code(s): E11.65 - Type 2 diabetes mellitus with hyperglycemia Comment: baseline labs. Ref MFM and ophthalmology. EKG/normal. Per MFM: increase insulin to 26 units qHS, 20 units with each meal; echo in the next 3 weeks, serial growth US [id number], twice weekly testing starting at 32 weeks, recommend delivery at 37-39 weeks; urine culture and HgbA1C qtrimester. Report of Operation Date of Procedure: 08/27/18 Pre-Operative Diagnosis: 2 BPP, remote from delivery, chtn with superimposed severe preeclampsia Post-Operative Diagnosis: same Surgery/Procedure Performed:: LTCS Description of Surgical Findings:: nl uterus tubes ovaries worker's compensation claims examiner: Margo Fox Type of Anesthesia:: General Special Medications: none Specimen's removed: male infant Drains: maki Estimated Blood Loss (mL): 600 Fluids Replaced: crystalloid Description of Procedure: This is a 28-year-old at 33 weeks and 4 days who was admitted at 33 weeks for chronic hypertension with superimposed preeclampsia with severe features. She history of moderately controlled class B diabetes in the . Upon admission she was started on magnesium sulfate and oral and IV labetalol blood sugars were controlled with subcu insulin. She had periods of minimal to moderate variability with mom continues decelerations at times but nothing recurrent and she was getting daily BPP's which were overall reassuring until today. Today she went for her BPP and it was only 2 out of 8, she ate breakfast and then had a repeat BPP and it was still only 2 out of 8 for fluid. On monitoring she had minimal to moderate variability with no decelerations but no accelerations noted and therefore the decision was made for proceeding with immediate delivery. Due to being remote from delivery and the inability to tolerate labor the decision for a primary was made. The patient received heparin prophylaxis several hours prior and therefore the decision for general anesthesia was made. Maki catheter was placed. The patient was placed in the dorsal supine position with leftward tilt. Patient was prepped and draped in the normal sterile fashion. General anesthesia was induced and Pfannenstiel skin incision was made with the scalpel and carried through to the underlying layer of fascia with the scalpel. Fascia was nicked in the midline and the incision extended laterally. The rectus bellies were dissected off superiorly and inferiorly with out complication both sharply and bluntly. The peritoneum was entered digitally. The incision was stretched and a low transverse uterine incision was made with the scalpel. The infant's head was delivered atraumatically followed by the anterior and posterior shoulders without complication the rest of the delivered. The cord was clamped and cut and the was handed off to awaiting nurse. The placenta was delivered spontaneously immediately following and was noted to be intact and have a three-vessel cord. The uterus was exteriorized cleared of all clots and debris, and the incision was closed in a double layer closure using #1 Monocryl. The uterus was returned to the maternal abdomen and gutters were cleared of all clots and debris. The ovaries and fallopian tubes were noted to be within normal limits. The peritoneum was closed with 3-0 Monocryl in a running fashion. Fascia was closed with 0 PDS in a running fashion. Subcutaneous tissue was copiously irrigated and the skin was closed with 3-0 Monocryl in a subcuticular fashion. Steri-Strips and Mepilex dressing were applied without complication. Patient was taken to recovery in stable condition. Grafts/Implants Used: none - Complications none - Admit VTE Documentation VTE Present on Admission: No VTE Mechan Device Prophylaxis: SCD's VTE Pharm Prophylaxis ordered?: Yes
[2018-08-27] MEDS: Sodium Citrate/Citric Acid 30 ML UDC PO (10:25)
[2018-08-27 10:37] LABS: Absolute Lymphocyte Count 1.82 X10^3/ul (0.83-4.51); Basophil# 0.02 X10^3/uL; Basophil% 0.1 % (0-1); Eosinophil# 0.51 X10^3/uL; Eosinophils% 2.9 % (0-5); Hematocrit 38.4 % (37-47); Hemoglobin 12.5 g/dl (12.0-15.0); Lymphocyte # 1.82 X10^3/ul (4.0); Lymphocyte % 10.4 % (19-41); Mean Corp Hgb Conc 32.6 g/gl (32-36); Mean Corpuscular Hgb 28.2 pg (27.0-32.0); Mean Corpuscular Volume 86.7 fL (81-99); Mean Platelet Vol. 9.5 fl (6.2-12.0); Monocyte# 0.93 X10^3/uL; Monocyte% 5.3 % (0-10); Neutrophil # 14.04 X10^3/uL (2.7-7.7); Neutrophil % 80.7 % (47-70); Platelet Count 374 K/mm3 (150-450); RBC Distribution Width CV 14.1 % (11.6-14.6); RBC Distribution Width SD 43.7 fl (35.1-43.9); Red Blood Count 4.43 M/mm3 (4.2-5.4); White Blood Count 17.4 K/mm3 (4.4-11.0)
[2018-08-27 10:38] LABS: POSITIVE COUNT NO; POSITIVE DIFFERENTIAL NO; POSITIVE MORPHOLOGY NO
[2018-08-27 10:45] LABS: International Normalized Ratio 0.9
[2018-08-27] MEDS: Cefazolin 2 GM in 0.9% Normal Saline 100 ML IV (10:45)
[2018-08-27] MEDS: Oxytocin 30 units/NS 500 ml 30 UNITS/500 ML IV.SOLN 167 UNITS IV (11:00)
--- NOTE | 2018-08-27 11:00 | NURSING ---
Dr Pinon notified of BP and blurry vision now new to patient per Jessica Avendaño RN. Orders received to initiated HTN protocol, Magnesium infusion with 6 gram bolus and 2 gram continous. PO labetalol 100mg BID ordered. CBC and CMP in the AM.
[2018-08-27 11:10] LABS: Partial Thromboplast Time 28.5 Seconds (24.1-36.2)
--- NOTE | 2018-08-27 11:49 | DCINST_ITS ---
Discharge Diet: No Restrictions Discharge Activity: May Not Drive - for 2 weeks, May not drive while taking narcotic pain medications., May Shower, May Take a Tub Bath - in 7 days May resume sexual activity in: 4-6 weeks Lifting Restrictions: 20 pounds Additional Activity Instructions:: Nothing in the vagina for 4-6 weeks. You may return to work/school in 6 weeks. Call your doctor if your incision/area has: Continuous Slow Oozing, Sudden Increased Bleeding, Increased Pain/ Swelling, Increased Redness, Foul Smelling Discharge Call your doctor if you observe: Fever of 101 or Higher, Using more than one pad per hour - for 2 hours Suture Line Care: Avoid Pulling/Pushing, Avoid Pinching/Bending Cleanse incision/area with: Keep Dressing Clean & Dry Additional Instructions: If you experience any of the following, contact your healthcare provider. * Bleeding that soaks a pad every hour for 2 hours * Fever 100.4 or higher * Unrelieved incision or abdominal pain * Swelling, redness, discharge or bleeding from your incision or episiotomy site * Your incision begins to separate * Problems urinating (including inability to urinate or burning while urinating). * Visual changes * Severe headache * Flu-like symptoms * Pain or redness in one of both of your breasts * Pain, warmth, tenderness or swelling in your legs, especially the calf area * Frequent nausea and vomiting * Symptoms of depression or anxiety If you experience any of the following, call 911 or go to the nearest Emergency Room. * Chest pain * Problems breathing * Seizure activity * Partial or complete paralysis of a body part, slurred speech, weakness or drooping of the face, or a sudden inability to walk or hold your balance Allergies/Adverse Reactions: Allergies No Known Allergies Allergy (Verified 08/19/18 09:36) Medications to take at Discharge docosahexanoic acid 200 mg capsule 1 mg PO DAILY cap 04/14/18 metformin 1,000 mg tablet 1 mg PO BID tab 04/14/18 blood sugar diagnostic strips See Dose Instructions .ROUTE .MEDSUPPLY #100 ea 07/15/18 blood pressure monitor kit See Dose Instructions .ROUTE .MEDSUPPLY #1 ea 08/08/18 Insulin Lispro [Humalog] 20 unit SQ BREAKFAST 08/20/18 Insulin Lispro [Humalog] 26 unit SQ DINNER 08/20/18 Insulin Lispro [Humalog] 26 unit SQ LUNCH 08/20/18 Insulin NPH Human Isophane [Humulin N NPH U-100 Insulin] 52 unit SC QPM 08/20/18 Naproxen [Naprosyn] 250 - 500 mg PO Q8H PRN PRN #30 tab 08/27/18 Oxycodone HCl/Acetaminophen [Percocet 5-325] 1 - 2 tab PO Q4H PRN PRN 7 Days #28 tab 08/27/18 The following prescriptions were given: Oxycodone HCl/Acetaminophen [Percocet 5-325] 1 - 2 tab PO Q4H PRN PRN 7 Days #28 tab PRN Reason: Moderate-Severe pain Naproxen [Naprosyn] 250 - 500 mg PO Q8H PRN PRN #30 tab PRN Reason: MILD PAIN Follow-Up: Call to make an appointment with your doctor for an incision check in 1-2 weeks. You will also need a 6 week post- follow up appointment. Test results from this visit will be discussed in further detail at your follow- up appointment, if applicable. Please Follow Up With: Kendal Pinon MD - Call to make an appointment for an incision check in 1-2 [phone] When: You will need a post- check in 6 weeks. Primary Care Physician: Care Physician,No Primary [Primary Care Provider] -
[2018-08-27] MEDS: HYDROmorphone 1 MG/ML Syringe 1.5 MG IV (11:50)
[2018-08-27 12:36] LABS: Bedside Glucose 102 mg/dL (70-110)
[2018-08-27] MEDS: Ketorolac 30 MG/ML Syringe IV ×2 (12:56→17:57)
[2018-08-27] MEDS: proMETHazine 25 MG/ML Syringe 12.5 MG IV (12:56)
[2018-08-27] MEDS: Lactated Ringers 1,000 ML 100 ML IV (14:01)
[2018-08-27] MEDS: HYDROmorphone 1 MG/ML Syringe IV ×2 (15:22→20:07)
[2018-08-27 17:32] LABS: Bedside Glucose 101 mg/dL (70-110)
[2018-08-27 21:52] LABS: Bedside Glucose 151 mg/dL (70-110)
[2018-08-27] MEDS: Insulin Lispro 100 UNIT/ML INSULN.PEN SC (21:58)
[2018-08-27] MEDS: Enoxaparin 40 MG/0.4 ML Syringe SC (22:07)
--- NOTE | 2018-08-27 23:50 | NURSING ---
Pt. laying in bed moaning and breathing heavier. States pain is now a 5 out 10 and is a heavy and squeezing feeling in her stomach. Pt. current blood pressure is 169/81. Pt. denies headache. Pt says the pain is like she needs to pass gas. Pt. says when she looks at the TV the words are blurred but that is not normal for her. Pt. denies double vision.
[2018-08-28] VITALS (39 sets, daily range): BP systolic 116–181; BP diastolic 55–82; PULSE 90–109; RESP 16–24; TEMP 35.9–37; O2SAT 96–100
[2018-08-28] MEDS: Labetalol 20 MG/4 ML Vial IV (00:12)
[2018-08-28] MEDS: Magnesium Sulfate 4gm/100mL 6 GM/150 ML IV.SOLN. IV (00:17)
[2018-08-28] MEDS: Magnesium Sulfate 20 GM/500 ML BAG IV ×3 (00:56→22:11)
[2018-08-28] MEDS: Labetalol 100 MG Tablet PO ×2 (01:02→01:53)
[2018-08-28] MEDS: Ketorolac 30 MG/ML Syringe IV ×4 (01:03→18:12)
--- NOTE | 2018-08-28 01:40 | NURSING ---
Dr Pinon updated on 2nd dose of IV labetalol given for elevated BP. Oral dose increased to 200mg BID.
--- NOTE | 2018-08-28 01:55 | PCM.PN.OB ---
Patient Problems: Active and Suspected Problems (Last Reviewed 08/19/18 @ 09:37 by Juani Diego) Severe preeclampsia (Acute) Subjective: some blurry vision, no cp sob co incisional pain. elevated bps x 2 - Physical Exam Vital Signs Temp Pulse Resp BP Pulse Ox 97.9 F 101 H 23 H 176/79 H 99 08/28/18 00:54 08/28/18 00:54 08/28/18 00:54 08/28/18 00:54 08/28/18 00:54 Oxygen Delivery Method Room Air Weight: 277 lb 1.937 oz Body Mass Index (BMI) 43.9 Intake and Output for Last 24 Hours 08/26/18 08/27/18 08/28/18 23:59 23:59 23:59 Intake Total 2201 / 2201 808 / 808 Output Total 1000 / 1000 650 / 650 Balance 1201 / 1201 158 / 158 Laboratory Tests Past 24 Hrs 08/27/18 08/27/18 08/27/18 10:20 10:20 10:20 WBC 17.4 H RBC 4.43 Hgb 12.5 Hct 38.4 MCV 86.7 MCH 28.2 MCHC 32.6 RDW 14.1 RDW Differential 43.7 Plt Count 374 MPV 9.5 Immature Gran % (Auto) 0.600 Neut % (Auto) 80.7 H Lymph % (Auto) 10.4 L [place] % (Auto) 5.3 Eos % (Auto) 2.9 Baso % (Auto) 0.1 Absolute Neuts (auto) 14.0 H Absolute Lymphs (auto) 1.82 Total Counted Not Reportable PT 12.0 INR 0.9 APTT 28.5 POC Glucose 08/27/18 08/27/18 08/27/18 21:44 17:24 12:27 POC Glucose 151 H 101 102 08/27/18 08/27/18 08:41 03:49 POC Glucose 99 99 Medical Necessity - Tobacco Use Smoking Status: Former smoker Assessment/Plan All Active Problems (Last Reviewed 08/19/18 @ 09:37 by Juani Diego) Severe preeclampsia (Acute) (Acute) Supervision of high-risk (Acute) Elevated blood pressure affecting in third trimester, antepartum (Resolved) Exposure to Zika virus (Resolved) tachycardia (Resolved) 28 yo s/p LTCS POD 1 1. cHTN with SI preeclampsia with severe features- magnesium started and 2 doses IV labetalol given, 200mg oral labetalol started. repeat labs in am 2. diabetes- metformin, SSI ordered. diabetic diet 3. routine postop care 4. rh positive 5. - using pump
[2018-08-28 02:23] LABS: Bedside Glucose 119 mg/dL (70-110)
[2018-08-28] MEDS: HYDROmorphone 1 MG/ML Syringe IV ×2 (03:04→06:27)
[2018-08-28] MEDS: 0.9% Saline Lock 10 ML Syringe IV ×2 (03:05→06:27)
[2018-08-28] MEDS: Acetaminophen 500 MG Tablet 1000 MG PO (05:27)
[2018-08-28] MEDS: Senna/Docusate Sodium 1 Tablet PO (05:27)
[2018-08-28 06:08] LABS: Hematocrit 37.9 % (37-47); Hemoglobin 12.1 g/dl (12.0-15.0); Mean Corp Hgb Conc 31.9 g/gl (32-36); Mean Corpuscular Hgb 27.9 pg (27.0-32.0); Mean Corpuscular Volume 87.3 fL (81-99); Mean Platelet Vol. 8.8 fl (6.2-12.0); Platelet Count 366 K/mm3 (150-450); RBC Distribution Width CV 14.1 % (11.6-14.6); RBC Distribution Width SD 44.2 fl (35.1-43.9); Red Blood Count 4.34 M/mm3 (4.2-5.4); White Blood Count 15.4 K/mm3 (4.4-11.0)
[2018-08-28 06:14] LABS: ALB/GLOB Ratio 0.5 RATIO (0.9-2.4); AST(SGOT) 16 U/L (15-37); Alanine Aminotransfer ALT/SGPT 31 U/L (13-56); Albumin, Serum 2.3 g/dL (3.2-5.0); Alkaline Phosphatase 86 U/L (45-117); Anion Gap 11 (5-15); BUN 10 mg/dL (7-18); BUN/Creat Ratio 18.9 RATIO (10-20); Calcium,Total 8.9 mg/dL (8.5-10.1); Chloride 106 mmol/L (98-107); Creatinine, Serum 0.53 mg/dL (0.55-1.02); EST Glomerular Filtration Rate 145 mL/min (>60); Est Glom Filt Rate - Afr Amer 176 mL/min (>60); Estimated Creatinine Clearance 157.99 ml/min; Globulin 4.3 g/dL (2.2-4.2); Glucose 129 mg/dL (74-106); Potassium 4.2 mmol/L (3.5-5.1); Protein, Total 6.6 g/dL (6.4-8.2); Sodium Level 139 mmol/L (136-145)
[2018-08-28 06:23] LABS: Scan Indicated on CBC? Y/N NO
--- NOTE | 2018-08-28 07:00 | NURSING ---
Patient up ambulated to chair with RN. Steady on feet, denies feeling dizzy or lightheaded. Remains up in chair preparing to pump. Patient had phone conversation with DINING ROOM CAPTAIN from [facility]. Tearful at times. Much emotional support given per RN at bedside.
[2018-08-28 08:22] LABS: Bedside Glucose 160 mg/dL (70-110)
[2018-08-28] MEDS: Insulin Lispro 100 UNIT/ML INSULN.PEN SC ×5 (08:30→22:43)
[2018-08-28] MEDS: oxyCODONE 5 MG Tablet PO ×3 (09:13→22:14)
[2018-08-28] MEDS: Enoxaparin 40 MG/0.4 ML Syringe SC ×2 (10:13→22:13)
[2018-08-28] MEDS: Labetalol 200 MG Tablet PO ×2 (11:15→22:13)
[2018-08-28 12:37] LABS: Bedside Glucose 204 mg/dL (70-110)
--- NOTE | 2018-08-28 14:36 | NURSING ---
Dr. Pinon here to see pt. Discussed plan of care, RN present as well as pt. Mother. Discussed being off Mag after 24 hours and to see what her BP's were throughout the night. Then evaluate in AM Possible D/C late morning early afternoon. Discussed with patient how best to manage her Blood Sugars at home. Pt wanted flexibility since she will have to work 3rd shift. Dr. Pinon suggested several options and also suggested pt to pick a primary care doctor [facility]NA[facility] so that they could help manage her blood sugars and insulin long-term. Dr. Pinon will work with patient currently to keep blood sugars stable to help with healing. Pt stated understanding.
--- NOTE | 2018-08-28 14:48 | PCM.PN.OB ---
Patient Problems: Active and Suspected Problems (Last Reviewed 08/19/18 @ 09:37 by Juani Diego) Severe preeclampsia (Acute) Subjective: doing well no complaints pain controlled no SOB N V co some soreness across chest, liekly gas pains and tender on palpation of muscles. ambulating well tolerating po lochia moderate, pumping going well - Physical Exam General: Alert, Oriented x3, Cooperative Cardiovascular: Regular rate Abdomen: Soft, Non Tender Extremities: Edema, - - no clonus Vital Signs Temp Pulse Resp BP Pulse Ox 96.8 F L 96 18 128/60 H 99 08/28/18 14:00 08/28/18 14:00 08/28/18 14:00 08/28/18 14:00 08/28/18 01:30 Oxygen Delivery Method Room Air Weight: 277 lb 1.937 oz Body Mass Index (BMI) 43.9 Intake and Output for Last 24 Hours 08/26/18 08/27/18 08/28/18 23:59 23:59 23:59 Intake Total 2201 / 2201 2458 / 2458 Output Total 1000 / 1000 4450 / 4450 Balance 1201 / 1201 -1991 / Laboratory Tests Past 24 Hrs 08/28/18 08/28/18 05:42 05:42 WBC 15.4 H RBC 4.34 Hgb 12.1 Hct 37.9 MCV 87.3 MCH 27.9 MCHC 31.9 L RDW 14.1 RDW Differential 44.2 H Plt Count 366 MPV 8.8 Sodium 139 Potassium 4.2 Chloride 106 Carbon Dioxide 22.0 Anion Gap 11 BUN 10 Creatinine 0.53 L Estim Creat Clear Calc 157.99 Est GFR (MDRD) Af Amer 176 Est GFR (MDRD) Non-Af 145 BUN/Creatinine Ratio 18.9 Glucose 129 H Calcium 8.9 Total Bilirubin 0.30 AST 16 ALT 31 Alkaline Phosphatase 86 Total Protein 6.6 Albumin 2.3 L Globulin 4.3 H Albumin/Globulin Ratio 0.5 L POC Glucose 08/28/18 08/28/18 08/28/18 12:25 08:16 01:58 POC Glucose 204 H 160 H 119 H 08/27/18 08/27/18 21:44 17:24 POC Glucose 151 H 101 Medical Necessity - Tobacco Use Smoking Status: Former smoker Assessment/Plan All Active Problems (Last Reviewed 08/19/18 @ 09:37 by Juani Diego) Severe preeclampsia (Acute) (Acute) Supervision of high-risk (Acute) Elevated blood pressure affecting in third trimester, antepartum (Resolved) Exposure to Zika virus (Resolved) tachycardia (Resolved) 28 yo s/p LTCS POD 1 1. cHTN with SI preeclampsia with severe features- magnesium started and 2 doses IV labetalol given, 200mg oral labetalol started. 2. diabetes- metformin, SSI ordered. diabetic diet, start on novolog with meals and nph at bedtime 3. routine postop care 4. rh positive 5. - using pump
[2018-08-28 15:12] LABS: Bedside Glucose 221 mg/dL (70-110)
--- NOTE | 2018-08-28 15:57 | NURSING ---
1530 Mother of pt called us in to room. Pt in recliner and mother said she wouldn't respond to her, pt looked frightened. Did respond to RN's and said she had a nightmare. Mother of pt stated she was in a very deep sleep and didn't hear the door open a few minutes ago. Pt stated she knew she was in the hospital and that it was Wednesday. She was breathing heavily and RN had her focus on her breathing to slow, VS obtained and bedside glucose obtained. Dr. Pinon called to inform of episode. Informed of BGT of 221, BP 146/73 and pulse ox of 100%. She stated she wanted to give the insulin needed based on the sliding scale now. And clarification received that wanted to keep sliding scale for blood sugar checks 1 hour after meals. But not needed for the 2199 time on the sliding scale humalog order. Message sent to Pharmacy to remove the 1999 time. Pt placed back in bed, pain controlled well with incisional pain, just back and neck were hurting so heating pad applied. Mother of pt remains in room. Pt. calm.
[2018-08-28] MEDS: Insulin Lispro 100 UNIT/ML INSULN.PEN 6 UNIT SC (17:58)
[2018-08-28 19:07] LABS: Bedside Glucose 194 mg/dL (70-110)
[2018-08-28] MEDS: Insulin NPH Human 100 UNITS/ML PEN 18 UNITS SC (22:15)
[2018-08-28 22:32] LABS: Bedside Glucose 193 mg/dL (70-110)
--- NOTE | 2018-08-28 22:38 | NURSING ---
Addendum entered by Laurel Mcdonald 08/28/18 22:41: Humalog insulin not Humalin Original Note: Updated SM on patient's HS blood sugar result of 193; SM stated to follow sliding scale of Humalin insulin; this RN verbalized understanding.
[2018-08-29 00:10] VITALS: BP 131/72; PULSE 97; RESP 16; O2SAT 99
[2018-08-29] MEDS: Ketorolac 30 MG/ML Syringe IV ×2 (00:16→06:20)
[2018-08-29 01:10] VITALS: BP 120/76; PULSE 87; RESP 16; TEMP 36.2; O2SAT 98
--- NOTE | 2018-08-29 02:01 | NURSING ---
0110 Magnesium sulfate discontinued at this time.
[2018-08-29 02:13] VITALS: BP 119/63
[2018-08-29] MEDS: oxyCODONE 5 MG Tablet PO ×3 (02:13→12:08)
[2018-08-29 04:30] VITALS: BP 119/65; PULSE 95; RESP 18; TEMP 36.4; O2SAT 98
[2018-08-29] MEDS: 0.9% Saline Lock 10 ML Syringe IV ×3 (04:47→08:21)
[2018-08-29 08:00] VITALS: BP 138/78; PULSE 99; RESP 16; TEMP 36.8
[2018-08-29 08:06] LABS: Bedside Glucose 107 mg/dL (70-110)
[2018-08-29] MEDS: Insulin Lispro 100 UNIT/ML INSULN.PEN SC ×2 (08:09→09:36)
[2018-08-29] MEDS: Senna/Docusate Sodium 1 Tablet PO (08:13)
[2018-08-29 09:36] LABS: Bedside Glucose 186 mg/dL (70-110)
[2018-08-29] MEDS: Enoxaparin 40 MG/0.4 ML Syringe SC (09:38)
--- NOTE | 2018-08-29 09:51 | PCM.PN.OB ---
Patient Problems: Active and Suspected Problems (Last Reviewed 08/19/18 @ 09:37 by Juani Diego) Severe preeclampsia (Acute) Subjective: reviewed blood sugars - will increased insulin again. no cantu bv bps well controlled. no cb sob n v - Physical Exam General: Alert, Oriented x3 Vital Signs Temp Pulse Resp BP Pulse Ox 97.5 F L 95 18 119/65 98 08/29/18 04:30 08/29/18 04:30 08/29/18 04:30 08/29/18 04:30 08/29/18 04:30 Oxygen Delivery Method Room Air Weight: 277 lb 1.937 oz Body Mass Index (BMI) 43.9 Intake and Output for Last 24 Hours 08/27/18 08/28/18 08/29/18 23:59 23:59 23:59 Intake Total 2201 / 2201 3958 / 3958 653 / 653 Output Total 1000 / 1000 5325 / 5325 800 / 800 Balance 1201 / 1201 -1367 / -1367 -147 / -147 POC Glucose 08/29/18 08/29/18 08/28/18 09:23 08:02 22:11 POC Glucose 186 H 107 193 H 08/28/18 08/28/18 08/28/18 18:51 15:04 12:25 POC Glucose 194 H 221 H 204 H Medical Necessity - Tobacco Use Smoking Status: Former smoker Assessment/Plan All Active Problems (Last Reviewed 08/19/18 @ 09:37 by Juani Diego) Severe preeclampsia (Acute) (Acute) Supervision of high-risk (Acute) Elevated blood pressure affecting in third trimester, antepartum (Resolved) Exposure to Zika virus (Resolved) tachycardia (Resolved) 28 yo s/p LTCS POD 2 1. cHTN with SI preeclampsia with severe features- s/p magnesium, 200mg oral labetalol controlling well. 2. diabetes- metformin, SSI. diabetic diet, novolog with meals and nph at bedtime 3. routine postop care 4. rh positive 5. - using pump 6. discussed with patient- she is requesting early discharge to be with her baby, we discussed blood sugar control and needs follow up with [facility] for visit. will have office call her for an appointment.
--- NOTE | 2018-08-29 10:10 | PCM.DCCSEC ---
Discharge Diet: No Restrictions Discharge Activity: May Not Drive - for 2 weeks, May not drive while taking narcotic pain medications., May Shower, May Take a Tub Bath - in 7 days May resume sexual activity in: 4-6 weeks Additional Activity Instructions:: Nothing in the vagina for 4-6 weeks. You may return to work/school in 6 weeks. Call your doctor if your incision/area has: Continuous Slow Oozing, Sudden Increased Bleeding, Increased Pain/ Swelling, Increased Redness, Foul Smelling Discharge Call your doctor if you observe: Fever of 101 or Higher, Using more than one pad per hour - for 2 hours Suture Line Care: Avoid Pulling/Pushing, Avoid Pinching/Bending Cleanse incision/area with: Keep Dressing Clean & Dry Additional Instructions: check blood pressures twice daily, call if top number greater than 160 and bottom number greater than 1110. If you experience any of the following, contact your healthcare provider. Bleeding that soaks a pad every hour for 2 hours Fever 100.4 or higher Unrelieved incision or abdominal pain Swelling, redness, discharge or bleeding from your incision or episiotomy site Your incision begins to separate Problems urinating (including inability to urinate or burning while urinating). Visual changes Severe headache Flu-like symptoms Pain or redness in one of both of your breasts Pain, warmth, tenderness or swelling in your legs, especially the calf area Frequent nausea and vomiting Symptoms of depression or anxiety If you experience any of the following, call 911 or go to the nearest Emergency Room. Chest pain Problems breathing Seizure activity Partial or complete paralysis of a body part, slurred speech, weakness or drooping of the face, or a sudden inability to walk or hold your balance Allergies/Adverse Reactions: Allergies No Known Allergies Allergy (Verified 08/19/18 09:36) Medications to take at Discharge docosahexanoic acid 200 mg capsule 1 mg PO DAILY cap 04/14/18 metformin 1,000 mg tablet 1 mg PO BID tab 04/14/18 blood sugar diagnostic strips See Dose Instructions .ROUTE .MEDSUPPLY #100 ea 07/15/18 blood pressure monitor kit See Dose Instructions .ROUTE .MEDSUPPLY #1 ea 08/08/18 Insulin Lispro [Humalog] 20 unit SQ BREAKFAST 08/20/18 Insulin Lispro [Humalog] 26 unit SQ DINNER 08/20/18 Insulin Lispro [Humalog] 26 unit SQ LUNCH 08/20/18 Insulin NPH Human Isophane [Humulin N NPH U-100 Insulin] 52 unit SC QPM 08/20/18 Naproxen [Naprosyn] 250 - 500 mg PO Q8H PRN PRN #30 tab 08/27/18 Oxycodone HCl/Acetaminophen [Percocet 5-325] 1 - 2 tab PO Q4H PRN PRN 7 Days #28 tab 08/27/18 Insulin Aspart [Novolog] See Protocol CONT INF TID #1 vial 08/29/18 Insulin NPH Human Isophane [Novolin N] 20 unit SQ QHS #1 vial 08/29/18 Labetalol [Trandate (Beta Cheikh)] 200 mg PO BID #60 tab 08/29/18 The following prescriptions were given: Oxycodone HCl/Acetaminophen [Percocet 5-325] 1 - 2 tab PO Q4H PRN PRN 7 Days #28 tab PRN Reason: Moderate-Severe pain Naproxen [Naprosyn] 250 - 500 mg PO Q8H PRN PRN #30 tab PRN Reason: MILD PAIN Insulin NPH Human Isophane [Novolin N] 20 unit SQ QHS #1 vial Labetalol [Trandate (Beta Cheikh)] 200 mg PO BID #60 tab Insulin Aspart [Novolog] See Protocol CONT INF TID #1 vial Follow-Up: Call to make an appointment with your doctor for an incision check and blood pressure check in 1-2 weeks. You will also need a 6 week post- follow up appointment. Test results from this visit will be discussed in further detail at your follow-up appointment, if applicable. Primary Care Physician: Care Physician,No Primary [Primary Care Provider] -
[2018-08-29 10:13] VITALS: BP 141/79; PULSE 101; RESP 18; TEMP 36.2
--- NOTE | 2018-08-29 10:13 | DCINST_ITS ---
Discharge Diet: No Restrictions Discharge Activity: May Not Drive - for 2 weeks, May not drive while taking narcotic pain medications., May Shower, May Take a Tub Bath - in 7 days May resume sexual activity in: 4-6 weeks Additional Activity Instructions:: Nothing in the vagina for 4-6 weeks. You may return to work/school in 6 weeks. Call your doctor if your incision/area has: Continuous Slow Oozing, Sudden Increased Bleeding, Increased Pain/ Swelling, Increased Redness, Foul Smelling Discharge Call your doctor if you observe: Fever of 101 or Higher, Using more than one pad per hour - for 2 hours Suture Line Care: Avoid Pulling/Pushing, Avoid Pinching/Bending Cleanse incision/area with: Keep Dressing Clean & Dry Additional Instructions: check blood pressures twice daily, call if top number greater than 160 and bottom number greater than 1110. If you experience any of the following, contact your healthcare provider. * Bleeding that soaks a pad every hour for 2 hours * Fever 100.4 or higher * Unrelieved incision or abdominal pain * Swelling, redness, discharge or bleeding from your incision or episiotomy site * Your incision begins to separate * Problems urinating (including inability to urinate or burning while urinating). * Visual changes * Severe headache * Flu-like symptoms * Pain or redness in one of both of your breasts * Pain, warmth, tenderness or swelling in your legs, especially the calf area * Frequent nausea and vomiting * Symptoms of depression or anxiety If you experience any of the following, call 911 or go to the nearest Emergency Room. * Chest pain * Problems breathing * Seizure activity * Partial or complete paralysis of a body part, slurred speech, weakness or drooping of the face, or a sudden inability to walk or hold your balance Allergies/Adverse Reactions: Allergies No Known Allergies Allergy (Verified 08/19/18 09:36) Medications to take at Discharge docosahexanoic acid 200 mg capsule 1 mg PO DAILY cap 04/14/18 metformin 1,000 mg tablet 1 mg PO BID tab 04/14/18 blood sugar diagnostic strips See Dose Instructions .ROUTE .MEDSUPPLY #100 ea 07/15/18 blood pressure monitor kit See Dose Instructions .ROUTE .MEDSUPPLY #1 ea 08/08/18 Insulin Lispro [Humalog] 20 unit SQ BREAKFAST 08/20/18 Insulin Lispro [Humalog] 26 unit SQ DINNER 08/20/18 Insulin Lispro [Humalog] 26 unit SQ LUNCH 08/20/18 Insulin NPH Human Isophane [Humulin N NPH U-100 Insulin] 52 unit SC QPM 08/20/18 Naproxen [Naprosyn] 250 - 500 mg PO Q8H PRN PRN #30 tab 08/27/18 Oxycodone HCl/Acetaminophen [Percocet 5-325] 1 - 2 tab PO Q4H PRN PRN 7 Days #28 tab 08/27/18 Insulin Aspart [Novolog] See Protocol CONT INF TID #1 vial 08/29/18 Insulin NPH Human Isophane [Novolin N] 20 unit SQ QHS #1 vial 08/29/18 Labetalol [Trandate (Beta Cheikh)] 200 mg PO BID #60 tab 08/29/18 The following prescriptions were given: Oxycodone HCl/Acetaminophen [Percocet 5-325] 1 - 2 tab PO Q4H PRN PRN 7 Days #28 tab PRN Reason: Moderate-Severe pain Naproxen [Naprosyn] 250 - 500 mg PO Q8H PRN PRN #30 tab PRN Reason: MILD PAIN Insulin NPH Human Isophane [Novolin N] 20 unit SQ QHS #1 vial Labetalol [Trandate (Beta Cheikh)] 200 mg PO BID #60 tab Insulin Aspart [Novolog] See Protocol CONT INF TID #1 vial Follow-Up: Call to make an appointment with your doctor for an incision check and blood pressure check in 1-2 weeks. You will also need a 6 week post- follow up appointment. Test results from this visit will be discussed in further detail at your follow- up appointment, if applicable. Primary Care Physician: Care Physician,No Primary [Primary Care Provider] -
[2018-08-29] MEDS: Labetalol 200 MG Tablet PO (10:16)
[2018-08-29] MEDS: Ibuprofen 600 MG Tablet PO (12:08)
[2018-08-29 12:11] LABS: Bedside Glucose 125 mg/dL (70-110)
[2018-08-29] MEDS: Insulin Lispro 100 UNIT/ML INSULN.PEN 8 UNIT SC (12:19)
--- NOTE | 2018-08-30 09:28 | CASEMGMT ---
Social Work Labor and Delivery Unit Patient delivered baby over the weekend and then transferred to [facility] for further care and treatment related to prematurity and respiratory issues. Per nursing, Mother of baby discharged on 08.29.2018 so that could go be with . Was unable to meet with [facility] to provide additional resources. [phone][facility] Handoff report provided. Family to be followed by [facility] social work. No other services requested or indicated from [facility] social work. -NICK Cardenas, GUEST EXPERIENCE MANAGER
--- NOTE | 2018-09-01 11:31 | PCM.DC.SUM ---
Discharge Date and Diagnosis Date of Admission: 08/20/18 Date of Discharge: 08/29/18 - Secondary Discharge Diagnosis Chronic Problems (Last Reviewed 08/19/18 @ 09:37 by Juani Diego) Chronic hypertension affecting (Chronic) no meds as OP, negative proteinuria in 1st trimester, on 08/15/18 nl EFW and ALLISON on ultrasoundat MFM Diabetes type 2, uncontrolled (Chronic) baseline labs. Ref MFM and ophthalmology. EKG/normal. Per MFM: increase insulin to 26 units qHS, 20 units with each meal; echo in the next 3 weeks, serial growth US [id number], twice weekly testing starting at 32 weeks, recommend delivery at 37-39 weeks; urine culture and HgbA1C qtrimester. Hospital Course and Treatment Imaging Results: multiple biophysical profiles Operations: - - ltcs Procedures: None Summary of Care Provided: The patient is a 28 year old F who was originally admitted for pre-clamp C with severe features. She also had diabetes that had been initially not well controlled but had increased control throughout the . Her last hemoglobin A1c had been 7.6. When she was first admitted she was given magnesium for 48 hours, given steroids for lung maturity, and insulin was managed throughout her stay for optimization of blood sugars. She was started on labetalol 100 twice daily and increased to 200 twice daily. She only had one instance that required IV dosing of labetalol. Patient was initially on continuous monitoring while on magnesium and then overall status was reassuring and blood pressures and blood sugars were well controlled so she was monitored with a daily BPP and assessment of the heart tones every shift. On Wednesday morning she was undergoing her biophysical profile and it was 2 out of 8. Patient was given breakfast since she had been fasting at the time to ensure an accurate examination and the BPP was immediately repeated and still noted to be 2 out of 8 and therefore the decision was made for immediate . She had been placed on the monitor in between the biophysical profiles and heart rate baseline was 120s-130s with absent to minimal variability no decelerations and no accelerations present. Due to the low BPP the decision for a was made and patient underwent delivery via low transverse . The fetus's Apgars were noted to be 2, 6, and 8 and the baby was transported after being intubated. The patient's recovery initially was uncomplicated and then she developed some elevated blood pressures and was restarted on magnesium for 24 hours and restarted on labetalol 200 twice daily. Insulin continued to be added back and increase to control blood sugars. On postop day 3 she was stable for discharge to home and she was released. - Physical Exam Vital Signs Temp Pulse Resp BP Pulse Ox 97.2 F L 101 H 18 141/79 H 98 08/29/18 10:13 08/29/18 10:13 08/29/18 10:13 08/29/18 10:13 08/29/18 04:30 Oxygen Delivery Method Room Air Weight: 277 lb 1.937 oz Body Mass Index (BMI) 43.9 Discharge Diet: No Restrictions Discharge Activity: May Not Drive - for 2 weeks, May not drive while taking narcotic pain medications., May Shower, May Take a Tub Bath - in 7 days May resume sexual activity in: 4-6 weeks Additional Activity Instructions:: Nothing in the vagina for 4-6 weeks. You may return to work/school in 6 weeks. Call your doctor if your incision/area has: Continuous Slow Oozing, Sudden Increased Bleeding, Increased Pain/ Swelling, Increased Redness, Foul Smelling Discharge Call your doctor if you observe: Fever of 101 or Higher, Using more than one pad per hour - for 2 hours Suture Line Care: Avoid Pulling/Pushing, Avoid Pinching/Bending Cleanse incision/area with: Keep Dressing Clean & Dry Home Medications: Medications to take at Discharge docosahexanoic acid 200 mg capsule 1 mg PO DAILY cap 04/14/18 metformin 1,000 mg tablet 1 mg PO BID tab 04/14/18 blood sugar diagnostic strips See Dose Instructions .ROUTE .MEDSUPPLY #100 ea 07/15/18 blood pressure monitor kit See Dose Instructions .ROUTE .MEDSUPPLY #1 ea 08/08/18 Insulin Lispro [Humalog] 20 unit SQ BREAKFAST 08/20/18 Insulin Lispro [Humalog] 26 unit SQ DINNER 08/20/18 Insulin Lispro [Humalog] 26 unit SQ LUNCH 08/20/18 Insulin NPH Human Isophane [Humulin N NPH U-100 Insulin] 52 unit SC QPM 08/20/18 Naproxen [Naprosyn] 250 - 500 mg PO Q8H PRN PRN #30 tab 08/27/18 Oxycodone HCl/Acetaminophen [Percocet 5-325] 1 - 2 tab PO Q4H PRN PRN 7 Days #28 tab 08/27/18 Insulin Aspart [Novolog] See Protocol CONT INF TID #1 vial 08/29/18 Insulin NPH Human Isophane [Novolin N] 20 unit SQ QHS #1 vial 08/29/18 Labetalol [Trandate (Beta Cheikh)] 200 mg PO BID #60 tab 08/29/18 Following Prescrptions Were Given to Patient: Oxycodone HCl/Acetaminophen [Percocet 5-325] 1 - 2 tab PO Q4H PRN PRN 7 Days #28 tab PRN Reason: Moderate-Severe pain Naproxen [Naprosyn] 250 - 500 mg PO Q8H PRN PRN #30 tab PRN Reason: MILD PAIN Insulin NPH Human Isophane [Novolin N] 20 unit SQ QHS #1 vial Labetalol [Trandate (Beta Cheikh)] 200 mg PO BID #60 tab Insulin Aspart [Novolog] See Protocol CONT INF TID #1 vial Primary Care Physician: Care Physician,No Primary [Primary Care Provider] - Please Follow Up With: Kendal Pinon MD - Call to make an appointment for an incision check in 1-2 [phone] When: You will need a post- check in 6 weeks. Medical Necessity - Tobacco Use Smoking Status: Former smoker Meaningful Use Info Meaningful Use Diagnoses (Choose all that apply): None applicable
== END 2018-08-29 12:35 | disposition home or self-care (01) | DRG 540 ==
LOC: WPOUT 08-22 10:11
PROVIDERS: Admitting Provider Obstetrics & Gynecology; Visit Provider Obstetrics & Gynecology
DX: O14.14 Severe pre-eclampsia complicating childbirth (principal); O24.12 Pre-existing type 2 diabetes mellitus, in childbirth; E11.65 Type 2 diabetes mellitus with hyperglycemia; O10.92 Unspecified pre-existing hypertension complicating childbirth; O76 Abnormality in fetal heart rate and rhythm complicating labor and delivery; Z3A.32 32 weeks gestation of pregnancy; Z37.0 Single live birth; Z79.4 Long term (current) use of insulin; Z87.891 Personal history of nicotine dependence
CPT/HCPCS: 59025; 59050; 76818; 76819; 80053; 80307; 81001; 82009; 82565; 82570; 82947; 82962; 83615; 84156; 84450; 84460; 84550; 85025; 85027; 85610; 85730; 86850; 86900; 87086; 87088; 87653; 99218; J7030; J7120; A4216; G0378; J0702; J2405

== ENCOUNTER → 2018-10-21 13:31 | Outpatient (CLI) | payer MEDICAID, SELFPAY ==
[2018-10-07 14:05] VITALS: BMI 43.9
[2018-10-21 15:09] LABS: Absolute Neutrophil Count 6.5 X10^3/uL (2.0-7.7); Basophil# 0.02 X10^3/uL; Basophil% 0.2 % (0-1); Eosinophil# 0.05 X10^3/uL; Eosinophils% 0.6 % (0-5); Hematocrit 41.2 % (37-47); Hemoglobin 13.3 g/dl (12.0-15.0); Lymphocyte % 19.2 % (19-41); Mean Corp Hgb Conc 32.3 g/gl (32-36); Mean Corpuscular Hgb 26.9 pg (27.0-32.0); Mean Corpuscular Volume 83.2 fL (81-99); Mean Platelet Vol. 9.2 fl (6.2-12.0); Monocyte# 0.64 X10^3/uL; Monocyte% 7.2 % (0-10); Neutrophil # 6.45 X10^3/uL (2.7-7.7); Neutrophil % 72.7 % (47-70); Platelet Count 428 K/mm3 (150-450); RBC Distribution Width CV 13.1 % (11.6-14.6); RBC Distribution Width SD 39.6 fl (35.1-43.9); Red Blood Count 4.95 M/mm3 (4.2-5.4); White Blood Count 8.9 K/mm3 (4.4-11.0)
[2018-10-21 15:20] LABS: POSITIVE COUNT NO; POSITIVE DIFFERENTIAL NO; POSITIVE MORPHOLOGY NO
[2018-10-21 15:45] LABS: ALB/GLOB Ratio 0.9 RATIO (0.9-2.4); AST(SGOT) 16 U/L (15-37); Alanine Aminotransfer ALT/SGPT 31 U/L (13-56); Albumin, Serum 3.7 g/dL (3.2-5.0); Alkaline Phosphatase 86 U/L (45-117); Anion Gap 7 (5-15); BUN 11 mg/dL (7-18); BUN/Creat Ratio 13.9 RATIO (10-20); Calcium,Total 8.8 mg/dL (8.5-10.1); Chloride 100 mmol/L (98-107); Creatinine, Serum 0.79 mg/dL (0.55-1.02); EST Glomerular Filtration Rate 91 mL/min (>60); Est Glom Filt Rate - Afr Amer 110 mL/min (>60); Globulin 4.2 g/dL (2.2-4.2); Glucose 433 mg/dL (74-106); Potassium 4.1 mmol/L (3.5-5.1); Protein, Total 7.9 g/dL (6.4-8.2); Sodium Level 134 mmol/L (136-145); T4 Free Direct 0.97 ng/dL (0.76-1.46); Thyroid Stim Hormone (TSH) 0.69 uIU/mL (0.358-3.74)
[2018-10-21 16:06] LABS: Hemoglobin A1c 8.8 % (4.2-6.3)
== END ==
PROVIDERS: Family Provider Nurse Practitioner Family; PCP Nurse Practitioner Family; Referring Provider Nurse Practitioner Family; Visit Provider Nurse Practitioner Family
DX: E10.9 Type 1 diabetes mellitus without complications (principal); R53.82 Chronic fatigue, unspecified
CPT/HCPCS: 36415; 80053; 83036; 84439; 84443; 85025

== ENCOUNTER 2019-05-16 12:30 | Outpatient (RCR) | payer MEDICAID, SELFPAY ==
[2018-10-07 14:05] VITALS: BMI 43.9
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
--- NOTE | 2019-05-26 14:34 | HP.PT.NRP ---
HP - Discharge Summary (1) - Patient Information ABRAM MA was seen in my office for initial evaluation on 04/26/19. The following Plan of Care was established for this patient: Initial Frequency: 3x /Week Initial Duration: 4-6 Weeks - Anticipated Interventions Patient/Client Instruction: Educate patient on: Condition, Plan of Care For the Purpose of:: To decrease pain, To increase ROM, To increase tolerance to activity/condition/position, To improve ability of physical actions for home/community/work/leisure Therapeutic Exercise to Include: Strength training, Flexibilty training, Gait and locomotor training, Passive ROM, Active ROM For the Purpose of:: To decrease pain, To increase ROM, To improve muscle performance and motor function, To improve ability of physical actions for home/community/work/leisure Manual Therapy Techniques to Include: Soft tissue mobilization For the Purpose of:: To increase ROM This patient was last seen in our office 05/16/19. Pertinent comments regarding their Physical therapy will appear below: Pt seen 3 visits of POC but has no showed the last 3. At this point I will discontinue her due to nonattendance. At this point I will be discontinuing this patient from physical therapy. I would be happy to see this patient again in the future if found appropriate by the physician. Thank you! David Dolan, DPT, OCS, CSCS
== END 2019-05-16 19:00 | disposition home or self-care (01) ==
LOC: PT 12:30
PROVIDERS: Family Provider Nurse Practitioner Family; PCP Nurse Practitioner Family; Referring Provider Nurse Practitioner Family; Visit Provider Nurse Practitioner Family
DX: M25.561 Pain in right knee (principal)
CPT/HCPCS: 97110; 97162

== ENCOUNTER → 2020-10-08 14:06 | Outpatient (CLI) | payer MEDICAID, SELFPAY ==
[2020-10-08 13:29] VITALS: BMI 38.8
[2020-10-08 15:21] LABS: Absolute Lymphocyte Count 1.91 X10^3/uL (0.83-4.51); Absolute Neutrophil Count 5.8 X10^3/uL (2.0-7.7); Basophil# 0.02 X10^3/uL; Basophil% 0.2 % (0-1); Eosinophil# 0.15 X10^3/uL; Eosinophils% 1.8 % (0-5); Hematocrit 41.5 % (37-47); Hemoglobin 13.1 g/dL (12.0-15.0); Lymphocyte # 1.91 X10^3/ul (4.0); Lymphocyte % 22.9 % (19-41); Mean Corp Hgb Conc 31.6 g/dL (32-36); Mean Corpuscular Hgb 26.4 pg (27.0-32.0); Mean Corpuscular Volume 83.7 fL (81-99); Monocyte# 0.47 X10^3/uL; Monocyte% 5.6 % (0-10); NRBC Flagged by Analyzer 0 % (0-5); Neutrophil # 5.77 X10^3/uL (2.7-7.7); Neutrophil % 69.3 % (47-70); Platelet Count 407 K/mm3 (150-450); RBC Distribution Width CV 14.3 % (11.6-14.6); RBC Distribution Width SD 42.9 fl (35.1-43.9); Red Blood Count 4.96 M/mm3 (4.2-5.4); White Blood Count 8.3 K/mm3 (4.4-11.0)
[2020-10-08 15:43] LABS: Erythrocyte Sedimentation Rate 56 mm/hr (0-30)
[2020-10-08 16:01] LABS: ALB/GLOB Ratio 0.8 RATIO (0.9-2.4); AST(SGOT) 14 U/L (15-37); Alanine Aminotransfer ALT/SGPT 20 U/L (13-56); Albumin, Serum 3.4 g/dL (3.2-5.0); Alkaline Phosphatase 87 U/L (45-117); Anion Gap 9 (5-15); BUN 10 mg/dL (7-18); BUN/Creat Ratio 19.5 RATIO (10-20); Calcium,Total 8.9 mg/dL (8.5-10.1); Chloride 103 mmol/L (98-107); Cholesterol 168 mg/dL (200); Creatinine, Serum 0.51 mg/dL (0.55-1.02); EST Glomerular Filtration Rate 148 mL/min (>60); Est Glom Filt Rate - Afr Amer 180 mL/min (>60); Globulin 4.4 g/dL (2.2-4.2); Glucose 177 mg/dL (74-106); High Density Lipoprotein 49 mg/dL; Potassium 3.8 mmol/L (3.5-5.1); Protein, Total 7.8 g/dL (6.4-8.2); Sodium Level 137 mmol/L (136-145); T4 Free Direct 1.22 ng/dL (0.76-1.46); Thyroid Stim Hormone (TSH) 0.61 uIU/mL (0.358-3.74); Triglycerides 92 mg/dL; Very Low Density Lipoprotein 18 mg/dL (5-40)
[2020-10-10 16:08] LABS: ANTINUCLEAR ANTIBODIES DIRECT Positive (Negative); Anti-Centromere B Ab <0.2 AI (0.0-0.9); Anti-Chromatin 1.7 AI (0.0-0.9); Anti-Jo <0.2 AI (0.0-0.9); Anti-Scleroderma-70 AB <0.2 AI (0.0-0.9); RNP Ab 4.6 AI (0.0-0.9); SJOGREN'S Anti-SS-A test < 0.2 AI (0.0-0.9); SJOGREN'S Anti-SS-B test < 0.2 AI (0.0-0.9); Smith Ab 0.2 AI (0.0-0.9)
[2020-10-11 05:13] LABS: Anti-dsDNA Ab <1 IU/mL (0-9)
== END ==
PROVIDERS: PCP Internal Medicine; Referring Provider Internal Medicine; Visit Provider Internal Medicine
DX: E11.9 Type 2 diabetes mellitus without complications (principal); M32.9 Systemic lupus erythematosus, unspecified; I10 Essential (primary) hypertension
CPT/HCPCS: 36415; 80053; 80061; 84439; 84443; 85025; 85652; 86038; 86225; 86235

== ENCOUNTER → 2020-10-24 | Outpatient (CLI) | payer MEDICAID, SELFPAY ==
[2020-10-24 14:03] VITALS: BMI 38.5
[2020-10-24 15:23] LABS: Microalbumin,Random Urine 13.5 mg/L (NO RANGE EST.); Microalbumin:Creatinine Ratio 12.2 mg/g CRE (<30 mg/g CRE)
== END | disposition home or self-care (01) ==
LOC: LABSPEC 14:39
PROVIDERS: PCP Internal Medicine; Referring Provider Internal Medicine; Visit Provider Internal Medicine
DX: E11.9 Type 2 diabetes mellitus without complications (principal)
CPT/HCPCS: 82043; 82570

== ENCOUNTER → 2021-01-23 | Outpatient (CLI) | payer MEDICAID, SELFPAY ==
[2021-01-23 14:30] VITALS: BMI 38.5
[2021-01-27 20:09] LABS: Chlamydia By Nucleic Acid AMP Negative (Negative)
[2021-01-27 20:21] LABS: Gonococcus By Nucleic Acid AMP Negative (Negative)
[2021-01-29 14:28] LABS: HPV APTIMA, High Risk Negative (Negative)
== END | disposition home or self-care (01) ==
LOC: LABSPEC 16:26
PROVIDERS: Referring Provider Nurse Practitioner Women's Health; Visit Provider Nurse Practitioner Women's Health
DX: N76.0 Acute vaginitis (principal); Z12.4 Encounter for screening for malignant neoplasm of cervix; Z11.3 Encounter for screening for infections with a predominantly sexual mode of transmission
CPT/HCPCS: 87070; 87205; 87491; 87591; 87624; 88175; G0145

== ENCOUNTER → 2021-06-03 10:43 | Outpatient (CLI) | payer MEDICAID, SELFPAY ==
[2021-06-03 12:51] LABS: Absolute Lymphocyte Count 1.43 X10^3/uL (0.83-4.51); Absolute Neutrophil Count 6.3 X10^3/uL (2.0-7.7); Basophil# 0.03 X10^3/uL; Basophil% 0.4 % (0-1); Eosinophil# 0.15 X10^3/uL; Eosinophils% 1.8 % (0-5); Hematocrit 40.1 % (37-47); Hemoglobin 12.6 g/dL (12.0-15.0); Lymphocyte # 1.43 X10^3/ul (0.83-4.51); Lymphocyte % 17.1 % (19-41); Mean Corp Hgb Conc 31.4 g/dL (32-36); Mean Corpuscular Hgb 26.3 pg (27.0-32.0); Mean Corpuscular Volume 83.5 fL (81-99); Mean Platelet Vol. 9.4 fl (6.2-12.0); Monocyte% 4.8 % (0-10); NRBC Flagged by Analyzer 0 % (0-5); Neutrophil # 6.32 X10^3/uL (2.7-7.7); Neutrophil % 75.5 % (47-70); Platelet Count 399 K/mm3 (150-450); RBC Distribution Width CV 13.4 % (11.6-14.6); RBC Distribution Width SD 40.9 fl (35.1-43.9); White Blood Count 8.4 K/mm3 (4.4-11.0)
[2021-06-03 13:36] LABS: ALB/GLOB Ratio 0.8 RATIO (0.9-2.4); AST(SGOT) 10 U/L (15-37); Alanine Aminotransfer ALT/SGPT 23 U/L (13-56); Albumin, Serum 3.2 g/dL (3.2-5.0); Alkaline Phosphatase 84 U/L (45-117); Anion Gap 9 (5-15); BUN 10 mg/dL (7-18); BUN/Creat Ratio 15.9 RATIO (10-20); Calcium,Total 9.1 mg/dL (8.5-10.1); Chloride 102 mmol/L (98-107); Creatinine, Serum 0.63 mg/dL (0.55-1.02); EST Glomerular Filtration Rate 117 mL/min (>60); Est Glom Filt Rate - Afr Amer 141 mL/min (>60); Glucose 297 mg/dL (74-106); Protein, Total 7.2 g/dL (6.4-8.2); Sodium Level 135 mmol/L (136-145)
[2021-06-03 16:21] LABS: Microalbumin,Random Urine 8.6 mg/L (NO RANGE EST.); Microalbumin:Creatinine Ratio 14.3 mg/g CRE (<30 mg/g CRE)
== END ==
PROVIDERS: PCP Internal Medicine; Referring Provider Internal Medicine; Visit Provider Internal Medicine
DX: E11.9 Type 2 diabetes mellitus without complications (principal); I10 Essential (primary) hypertension
CPT/HCPCS: 36415; 80053; 82043; 82570; 85025

== ENCOUNTER 2021-08-18 11:09 | Outpatient (CLI) | payer MEDICAID, SELFPAY ==
[2021-08-18 11:41] LABS: Hematocrit 41.8 % (37-47); Hemoglobin 13.2 g/dL (12.0-15.0); Mean Corp Hgb Conc 31.6 g/dL (32-36); Mean Corpuscular Hgb 26.1 pg (27.0-32.0); Mean Corpuscular Volume 82.6 fL (81-99); Mean Platelet Vol. 9.2 fl (6.2-12.0); Platelet Count 381 K/mm3 (150-450); RBC Distribution Width CV 13.2 % (11.6-14.6); RBC Distribution Width SD 39.8 fl (35.1-43.9); Red Blood Count 5.06 M/mm3 (4.2-5.4); White Blood Count 9.8 K/mm3 (4.4-11.0)
[2021-08-18 12:08] LABS: Hemoglobin A1c 9.8 % (3.8-5.6)
[2021-08-18 12:23] LABS: ALB/GLOB Ratio 0.8 RATIO (0.9-2.4); AST(SGOT) 13 U/L (15-37); Alanine Aminotransfer ALT/SGPT 17 U/L (13-56); Albumin, Serum 3.3 g/dL (3.2-5.0); Alkaline Phosphatase 75 U/L (45-117); Anion Gap 6 (5-15); BUN 11 mg/dL (7-18); Calcium,Total 8.8 mg/dL (8.5-10.1); Chloride 102 mmol/L (98-107); Cholesterol 161 mg/dL (200); Creatinine, Serum 0.78 mg/dL (0.55-1.02); EST Glomerular Filtration Rate 90 mL/min (>60); Est Glom Filt Rate - Afr Amer 109 mL/min (>60); Globulin 4.3 g/dL (2.2-4.2); Glucose 399 mg/dL (74-106); High Density Lipoprotein 40 mg/dL; Potassium 4.3 mmol/L (3.5-5.1); Protein, Total 7.6 g/dL (6.4-8.2); Sodium Level 134 mmol/L (136-145); Triglycerides 138 mg/dL; Very Low Density Lipoprotein 28 mg/dL (5-40)
== END 2021-08-18 23:59 | disposition short-term general hospital (02) ==
LOC: LAB 11:15
PROVIDERS: PCP Nurse Practitioner Family; Visit Provider Nurse Practitioner Family
DX: E11.9 Type 2 diabetes mellitus without complications (principal); I10 Essential (primary) hypertension; E78.5 Hyperlipidemia, unspecified; R63.8 Other symptoms and signs concerning food and fluid intake
CPT/HCPCS: 36415; 80053; 80061; 83036; 85027

== ENCOUNTER 2021-08-25 12:01 | Outpatient (CLI) | payer MEDICAID, SELFPAY ==
--- NOTE | 2021-08-25 12:03 | EKG12_ITS ---
Test Reason : MED CHANGE Blood Pressure : / mmHG Vent. Rate : 096 BPM Atrial Rate : 096 BPM P-R Int : 162 ms QRS Dur : 082 ms QT Int : 364 ms P-R-T Axes : 041 054 025 degrees QTc Int : 459 ms Normal sinus rhythm Normal ECG Confirmed by JAQUI MARIA, LEBRON ([id number]), commercial production editor JULIANA LOGAN ([id number]) on 08/26/2021 10:47:18 AM Referred By: Hernan Archuleta Confirmed By:LEBRON NAILS MD
== END 2021-08-25 23:59 | disposition home or self-care (01) ==
LOC: PSN 12:02
PROVIDERS: PCP Nurse Practitioner Family; Referring Provider Nurse Practitioner Family; Visit Provider Nurse Practitioner Family
DX: M06.9 Rheumatoid arthritis, unspecified (principal); F32.9 Major depressive disorder, single episode, unspecified
CPT/HCPCS: 93005

== ENCOUNTER 2021-12-26 18:23 | Emergency (ER) | payer MEDICAID, SELFPAY ==
[2021-12-26 18:25] VITALS: BP 145/80; PULSE 98; RESP 14; TEMP 36.6; O2SAT 99; BMI 36.9
--- NOTE | 2021-12-26 18:34 | EDS_ITS ---
HPI History of Present Illness Chief Complaint: Lower Extremity Injury Detail of Chief Complaint: Left ankle injury Informant: patient Occured/Mechanism Mechanism/Context: Yes fall Onset/Context/Timing Onset: Yesterday Quality of Pain: Aching and Throbbing Current Severity: Moderate Maximum Severity: Moderate Narrative Narrative: Patient presents secondary left ankle injury. She fell down some steps yesterday twisting her left ankle underneath her. She has not been able to bear weight since that time. She denies pain at her knee or hip. She has actually been kneeling on a chair on her left knee and pushing herself around her home. She is taking Tylenol for pain. She denies any other injury from the fall. [facility] Medical History Abnormal uterine bleeding Anxiety and depression ASCUS of cervix with negative high risk HPV Dermatitis Diabetes type 2, uncontrolled Elevated antinuclear antibody (MARIO) level Flu vaccine need Frequent headaches Hypertension Seasonal allergies Home Medications blood pressure monitor #1 each 10/08/20 [Rx Last Taken Unknown] blood-glucose meter #1 each 10/09/20 [Rx Last Taken Unknown] lancets #200 each 10/09/20 [Rx Last Taken Unknown] metformin 500 mg tablet,extended release 24 hr 1,000 mg PO BID 90 Days #360 tab 06/03/21 [Rx Last Taken Unknown] pen needle, diabetic 30 gauge x 12/01 #200 ea 06/03/21 [Rx Last Taken Unknown] insulin glargine 100 unit/mL subcutaneous solution 26 unit SUBCUT DAILY 90 Days #23.4 ml 08/07/21 [Rx Last Taken Unknown] blood sugar diagnostic #100 each 09/24/21 [Rx Last Taken Unknown] dulaglutide 4.5 mg/0.5 mL subcutaneous pen injector 4.5 mg SUBCUT QWEEK ml 10/15/21 [History Last Taken Unknown] hydroxychloroquine 200 mg tablet 200 mg PO DAILY 10/15/21 [History Last Taken Unknown] sertraline 50 mg tablet 100 mg PO .2 weeks each month tab 10/15/21 [History Last Taken Unknown] spironolactone 25 mg tablet 25 mg PO DAILY 10/15/21 [History Last Taken Unknown] leuprolide 3.75 mg intramuscular syringe kit 3.75 mg IM QMONTH #1 ea 10/24/21 [Rx Last Taken Unknown] leuprolide 3.75 mg intramuscular syringe kit 3.75 mg IM QMONTH #1 ea 10/24/21 [Rx Last Taken Unknown] Allergy/AdvReac Type Severity Reaction Status Date / Time No Known Allergies Allergy Verified 12/26/21 18:25 Family History Mother Diabetes Mental disorder Grandmother CVA (cerebral vascular accident) Diabetes Breast cancer Hypertension Father Alcoholism Mental disorder Surgical History delivery delivered History of appendectomy Social History Smoking Status: Unknown if ever smoked Tobacco: How many years used: 10 alcohol intake: never substance use type: does not use caffeine: Yes what type of physical activity do you participate in: swimming and weight training frequency: 3-4 times per week seatbelt use: always do you feel safe at home: Yes additional social history: Single Patient is ISABELLE NOBLE ROS ED Constitutional Constitutional ED: Denies chills or fever(s) Eyes Eyes: Denies change in vision ENT ENT ED: Denies sore throat Cardiovascular Cardiovascular: Denies chest pain Respiratory/Chest Respiratory/Chest: Denies cough or dyspnea Gastrointestinal Gastrointestinal: Denies abdominal pain, nausea or vomiting Genitourinary Genitourinary ED: Denies dysuria Musculoskeletal Musculoskeletal: Reports arthralgias; Denies back pain or neck pain Integumentary Denies rash Neurologic Neurologic: Denies headache(s) or weakness Allergic/Immunologic Allergic/Immunologic ED: Denies urticaria EXAM Physical Exam Const Vital Signs: 12/26/21 18:25 Temperature 98 F Temperature Source Temporal Pulse Rate 98 Respiratory Rate 14 Blood Pressure 145/80 H Blood Pressure Mean 101 Pulse Ox 99 Oxygen Delivery Method Room Air Positive well nourished and well developed General Appearance ED: well developed HEENT normocephalic Neck full ROM Chest Wall inspection of chest normal and palpation of chest normal Resp normal respiratory effort and clear to auscultation bilaterally Cardio regular rate and regular rhythm GI non-tender Auscultation: normoactive bowel sounds Palpation: soft Extremity Extremity Narrative: Tenderness palpation and edema noted to both medial and lateral malleoli of the left leg. No tenderness of the proximal fibula, knee, or hip. Good distal pulses. Able to wiggle toes. Neuro oriented x3 Sensorium / Orientation: alert Psych mental status grossly normal Skin Lesions: no lesions Rashes: no rashes MDM MDM MDM Narrative Medical decision making narrative: Patient is given Motrin for pain. Left ankle x-rays obtained. Radiography Diagnostic Testing: Clinical Impression(s) from Imaging Studies Ankle X-Ray 12/26/21 18:38 IMPRESSION: There is non specific soft tissue swelling. Electronically Signed: Errol Yost MD at 19:14 EDT , Treatment and Re-Evaluation Narrative: Left ankle x-ray per my interpretation reveals no bony fracture. Radiology interpretation is reviewed and agrees. Test results discussed with the patient. She is placed in an air splint and crutches. She may weight-bear as tolerated. Discharge Plan Triage Chief Complaint: Lower Extremity Injury ED Provider: Tamara Mcdonald Dx/Rx/DC Orders Clinical Impression: Ankle sprain Instructions: ED Ankle Sprain (Adult) Prescriptions: No Action (DME) blood pressure monitor Kit See Rx Instructions .MEDSUPPLY Qty: 1 RF: 0 metformin 500 mg tablet extended release 24 hr 1,000 mg PO BID 90 Days Qty: 360 RF: 1 (DME) pen needle, diabetic [Easy Touch Pen Needle] 30 gauge x 5/16 needle See Rx Instructions .ROUTE .MEDSUPPLY Qty: 200 RF: 3 dulaglutide 4.5 mg/0.5 mL pen injector 4.5 mg subcut QWEEK RF: 0 sertraline [Zoloft] 50 mg tablet 100 mg PO .2 weeks each month RF: 0 spironolactone 25 mg tablet 25 mg PO DAILY RF: 0 hydroxychloroquine [Plaquenil] 200 mg tablet 200 mg PO DAILY RF: 0 (DME) blood-glucose meter [OneTouch Ultra2 Meter] Misc See Rx Instructions .ROUTE .MEDSUPPLY Qty: 1 RF: 0 (DME) lancets [OneTouch UltraSoft Lancets] Misc See Rx Instructions .ROUTE .MEDSUPPLY Qty: 200 RF: 3 Lantus U-100 Insulin 100 unit/mL solution 26 unit subcut DAILY 90 Days Qty: 23.4 RF: 1 (DME) OneNeoCodexuch Ultra Blue Test Strip Strip See Rx Instructions .ROUTE .MEDSUPPLY Qty: 100 RF: 3 Lupron Depot 3.75 mg syringe kit 3.75 mg IM QMONTH Qty: 1 RF: 0 Lupron Depot 3.75 mg syringe kit 3.75 mg IM QMONTH Qty: 1 RF: 0 Primary Care Provider: Hernan Archuleta NP Referrals: Hernan Archuleta NP, [employer] T[employer] PUMPER-C [Primary Care Provider] - 1 Week if not improving Disposition Disposition: Home, Self Care Discharge Date/Time: 12/26/21 20:02
--- NOTE | 2021-12-26 18:38 | RAD_ITS ---
EXAM: XR LEFT ANKLE COMPLETE, 3 OR MORE VIEWS CLINICAL INDICATION: injury Technologist Notes pt states fell yesterday, pain to left ankle, unable to bare weight TECHNIQUE: Frontal, lateral and oblique views of the left ankle. This report was created using [employer] report generation technology. COMPARISON: None. FINDINGS: BONES/JOINTS: Unremarkable. No acute fracture. No subluxation. Normal alignment. Preservation of the joint space. No sclerotic or destructive changes observed. SOFT TISSUES: There is non specific soft tissue swelling. No radiopaque foreign body. RAD/Ankle min 3 Views IMPRESSION: There is non specific soft tissue swelling. Electronically Signed: Errol Yost MD at 19:14 EDT ,
[2021-12-26] MEDS: Ibuprofen 600 MG Tablet PO (18:43)
== END 2021-12-26 20:02 | disposition home or self-care (01) ==
PROVIDERS: Emergency Provider Emergency Medicine; PCP Nurse Practitioner Family; Visit Provider Emergency Medicine
DX: S93.402A Sprain of unspecified ligament of left ankle, initial encounter (principal); E11.9 Type 2 diabetes mellitus without complications; Z79.4 Long term (current) use of insulin; I10 Essential (primary) hypertension; X50.1XXA Overexertion from prolonged static or awkward postures, initial encounter; Y93.9 Activity, unspecified; Y99.9 Unspecified external cause status; Y92.9 Unspecified place or not applicable; Z79.899 Other long term (current) drug therapy
CPT/HCPCS: 73610; 99284

== ENCOUNTER → 2022-02-16 | Outpatient (CLI) | payer MEDICAID, SELFPAY ==
[2022-02-16 09:31] LABS: Hemoglobin A1c 7.3 % (3.8-5.6)
[2022-02-16 09:51] LABS: ALB/GLOB Ratio 0.9 RATIO (0.9-2.4); AST(SGOT) 14 U/L (15-37); Alanine Aminotransfer ALT/SGPT 17 U/L (13-56); Albumin, Serum 3.4 g/dL (3.2-5.0); Alkaline Phosphatase 48 U/L (45-117); Anion Gap 6 (5-15); BUN 12 mg/dL (7-18); BUN/Creat Ratio 19.9 RATIO (10-20); Calcium,Total 8.6 mg/dL (8.5-10.1); Chloride 107 mmol/L (98-107); Cholesterol 141 mg/dL (200); EST Glomerular Filtration Rate 122 mL/min (>60); Est Glom Filt Rate - Afr Amer 148 mL/min (>60); Globulin 3.9 g/dL (2.2-4.2); Glucose 174 mg/dL (74-106); High Density Lipoprotein 55 mg/dL; Potassium 3.7 mmol/L (3.5-5.1); Protein, Total 7.3 g/dL (6.4-8.2); Sodium Level 137 mmol/L (136-145); Thyroid Stim Hormone (TSH) 2.34 uIU/mL (0.358-3.74); Triglycerides 76 mg/dL; Very Low Density Lipoprotein 15 mg/dL (5-40)
[2022-02-21 19:07] LABS: Testosterone, % Free 1.21 % (0.50-2.80); Testosterone, Free 0.11 ng/dL (0.10-0.85); Testosterone, Total 9 ng/dL (8-60)
[2022-02-22 09:10] LABS: DHEA Sulfate 92.5 ug/dL (84.8-378.0)
== END | disposition home or self-care (01) ==
PROVIDERS: Obstetrics & Gynecology; PCP Nurse Practitioner Family; Referring Provider Nurse Practitioner Family; Visit Provider Nurse Practitioner Family
DX: E11.9 Type 2 diabetes mellitus without complications (principal); I10 Essential (primary) hypertension; E78.5 Hyperlipidemia, unspecified; R63.8 Other symptoms and signs concerning food and fluid intake; E55.9 Vitamin D deficiency, unspecified
CPT/HCPCS: 36415; 80053; 80061; 82306; 82627; 83036; 84402; 84403; 84443; 82626

== ENCOUNTER 2022-05-03 00:28 | Emergency (ER) | payer MEDICAID, SELFPAY ==
[2022-05-03 00:28] VITALS: BP 166/109; PULSE 117; RESP 16; TEMP 35.9; O2SAT 99; BMI 36.6
--- NOTE | 2022-05-03 00:35 | EDS_ITS ---
HPI History of Present Illness Chief Complaint: Palpitations Narrative Narrative: 31-year-old female here with palpitations. History of hypertension, type 2 diabetes, rheumatoid arthritis. Presents with elevated heart rate. States has been noticing this for the past week and a half. States she just got over COVID 2 weeks ago. States symptoms are intermittent, severe without alleviating factors. Denies chest pain or shortness of breath. Denies any bleeding diathesis, denies any volume loss, denies any decreased fluid intake. The patient denies recent surgery in the last 4 weeks or immobilization in the last 3 days, denies previous diagnosis of DVT or PE, hemoptysis, unilateral leg swelling or malignancy with treatment the last 6 months. No estrogen use noted. Old chart reviewed: [facility] Medical History Abnormal uterine bleeding Anxiety and depression ASCUS of cervix with negative high risk HPV Dermatitis Diabetes type 2, uncontrolled Elevated antinuclear antibody (MARIO) level Flu vaccine need Frequent headaches Hypertension Seasonal allergies Home Medications blood pressure monitor #1 ea 10/08/20 [Rx Last Taken Unknown] blood-glucose meter (Ziqitza Health CareTouch Ultra2 Meter) #1 ea 10/09/20 [Rx Last Taken Unknown] lancets (OneTouch UltraSoft Lancets) #200 ea 10/09/20 [Rx Last Taken Unknown] metformin 500 mg tablet,extended release 24 hr 1,000 mg PO BID 3 months #360 tabs 06/03/21 [Rx Last Taken Unknown] pen needle, diabetic 30 gauge x 5/16 (Easy Touch Pen Needle) #200 ea 06/03/21 [Rx Last Taken Unknown] insulin glargine 100 unit/mL subcutaneous solution (Lantus U-100 Insulin) 26 unit (0.26 mL) subcut DAILY 3 months #23.4 mL 08/07/21 [Rx Last Taken Unknown] blood sugar diagnostic #100 ea 09/24/21 [Rx Last Taken Unknown] hydroxychloroquine 200 mg tablet (Plaquenil) 200 mg PO DAILY 10/15/21 [History Last Taken Unknown] spironolactone 25 mg tablet 25 mg PO DAILY 10/15/21 [History Last Taken Unknown] dulaglutide 4.5 mg/0.5 mL subcutaneous pen injector 4.5 mg (0.5 mL) subcut QWEEK #4.5 mL 12/29/21 [Rx Last Taken Unknown] drospirenone 3 mg-ethinyl estradiol 0.02 mg tablet (FELIX (28)) 1 tab PO DAILY 90 days #90 tabs 12/31/21 [Rx Last Taken Unknown] lisdexamfetamine 50 mg capsule (Vyvanse) 50 mg PO DAILY 12/31/21 [History Last Taken Unknown] sertraline 100 mg tablet (Zoloft) 100 mg PO DAILY 90 days #90 tabs 12/31/21 [Rx Last Taken Unknown] sertraline 50 mg tablet (Zoloft) 100 mg PO DAILY 12/31/21 [History Last Taken Unknown] Allergy/AdvReac Type Severity Reaction Status Date / Time No Known Allergies Allergy Verified 05/03/22 00:31 Family History Mother Diabetes Mental disorder Grandmother CVA (cerebral vascular accident) Diabetes Breast cancer Hypertension Father Alcoholism Mental disorder Surgical History delivery delivered History of appendectomy Social History Smoking Status: Current some day smoker tobacco type: cigarettes Tobacco: How many years used: 10 alcohol intake: never substance use type: does not use caffeine: Yes what type of physical activity do you participate in: swimming and weight training frequency: 3-4 times per week seatbelt use: always do you feel safe at home: Yes additional social history: Single Patient is ISABELLE NOBLE ROS ED Eyes Eyes: Denies other visual disturbances ENT ENT ED: Denies ear pain Cardiovascular Cardiovascular: Reports palpitations Respiratory/Chest Respiratory/Chest: Denies dyspnea Gastrointestinal Gastrointestinal: Denies abdominal pain Genitourinary Genitourinary ED: Denies dysuria Musculoskeletal Musculoskeletal: Denies joint pain Integumentary Denies rash Neurologic Neurologic: Denies dizziness, focal weakness, numbness, syncope or weakness Psychiatric Psychiatric: Denies homicidal ideation or suicidal ideation EXAM Physical Exam Narrative Exam Narrative: Nursing triage notes reviewed, Vital signs reviewed Constitutional: please see mdm HENT: MMM Eyes: Pupils equal round and reactive to light, Extraocular muscles intact Neck: No stridor, no JVD, full neck ROM Lungs: Clear to auscultation, No wheezing or rales. No increased work of breathing, no conversational dyspnea, no accessory muscle use, no nasal flaring. No respiratory distress noted Heart: Fast rate and rhythm, No murmurs, No rubs and No gallops, 2+ distal pulses (radial, femoral, posterior tibial) in all extremities Abdomen: Soft, there is no tenderness, rigidity, rebound or guarding, no obvious peritoneal signs, no palpable pulsatile abdominal masses, no auscultated abdominal bruit : No CVAT Extremities: No edema Neuro: No focal neurological deficits, cranial nerves II through XII intact, 5/5 strength in all extremities. Intact sensation to light touch in all extremities, 2+ reflexes bilateral patella dens. Normal gait. No ataxia. Skin: No rash or lesions noted Const Vital Signs: 05/03/22 00:28 05/03/22 00:31 05/03/22 00:58 Temperature 96.6 F L Temperature Source Temporal Pulse Rate 117 H Respiratory Rate 16 Respiratory Effort Normal Non-Labored Blood Pressure 166/109 H Blood Pressure Mean 128 Pulse Ox 99 100 Oxygen Delivery Method Room Air Room Air 05/03/22 01:00 Temperature Temperature Source Pulse Rate 102 H Respiratory Rate 20 H Respiratory Effort Blood Pressure 160/98 H Blood Pressure Mean 118 Pulse Ox 99 Oxygen Delivery Method Room Air MDM MDM MDM Narrative Medical decision making narrative: 31-year-old female here with palpitations. She denied any chest pain or shortness of breath. She had a low risk Wells score. Low suspicion for PE based on this. Exam with sinus tachycardia. EKG without arrhythmia only sinus tachycardia with no ischemic changes. I did obtain additional labs rule out anemia, electrolyte abnormalities or signs of dehydration. Also obtain thyroid studies rule out thyrotoxicosis. Gave 1 L normal saline for fluid resuscitation to improve heart rate. Lab Data Lab results narrative: CBC with leukocytosis likely reactive, no anemia, no thrombocytopenia BMP with mild hypokalemia, no significant endorgan hypoperfusion, MERVAT new Troponin unremarkable no evidence of myocardial ischemia TSH elevated consistent with hypothyroidism not consistent with thyroid storm Labs: Laboratory Results - last 24 hr 05/03/22 05/03/22 01:00 01:00 WBC 12.6 H RBC 4.64 Hgb 12.8 Hct 39.5 MCV 85.1 MCH 27.6 MCHC 32.4 RDW Std Deviation 38.5 RDW Coeff of Jazmin 12.5 Plt Count 408 MPV 8.6 Immature Gran % (Auto) 0.400 Neut % (Auto) 67.2 Lymph % (Auto) 24.1 [place] % (Auto) 5.6 Eos % (Auto) 2.3 Baso % (Auto) 0.4 Absolute Neuts (auto) 8.5 H Absolute Lymphs (auto) 3.04 Nucleated RBC % 0 Sodium 137 Potassium 3.3 L Chloride 103 Carbon Dioxide 25.0 Anion Gap 9 BUN 8 Creatinine 0.55 Estim Creat Clear Calc 153.46 Est GFR (MDRD) Af Amer 164 Est GFR (MDRD) Non-Af 135 BUN/Creatinine Ratio 14.5 Glucose 177 H Calcium 9.1 Troponin I High Sens 3 TSH 6.78 H Radiography Diagnostic Testing: Clinical Impression(s) from Imaging Studies Chest X-Ray 05/03/22 01:05 IMPRESSION: No radiographic evidence of acute cardiopulmonary disease. Electronically Signed: Errol Gomez MD at 1:22 EDT , Treatment and Re-Evaluation Narrative: Heart rate improved. Labs images unremarkable patient is appropriate for discharge home Discharge Plan Triage Chief Complaint: Palpitations ED Provider: Raghav Martin Dx/Rx/DC Orders Clinical Impression: Heart palpitations, History of type 2 diabetes mellitus Instructions: ED Palpitations Prescriptions: No Action (DME) blood pressure monitor Kit See Rx Instructions .MEDSUPPLY Qty: 1 0RF Rx Instructions: Check blood pressure daily for hypertension I10 metformin 500 mg tablet extended release 24 hr 1,000 mg PO BID 90 Days Qty: 360 1RF (DME) pen needle, diabetic [Easy Touch Pen Needle] 30 gauge x 5/16 needle See Rx Instructions .ROUTE .MEDSUPPLY Qty: 200 3RF Rx Instructions: As directed spironolactone 25 mg tablet 25 mg PO DAILY hydroxychloroquine [Plaquenil] 200 mg tablet 200 mg PO DAILY Vyvanse 50 mg capsule 50 mg PO DAILY drospirenone-ethinyl estradiol [FELIX (28)] 3-0.02 mg tablet 1 tab PO DAILY 90 Days Qty: 90 4RF sertraline [Zoloft] 100 mg tablet 100 mg PO DAILY 90 Days Qty: 90 4RF sertraline [Zoloft] 50 mg tablet 100 mg PO DAILY (DME) blood-glucose meter [OneTouch Ultra2 Meter] [place] See Rx Instructions .ROUTE .MEDSUPPLY Qty: 1 0RF Rx Instructions: check blood glucose daily for type 2 BM (DME) lancets [OneTouch UltraSoft Lancets] Misc See Rx Instructions .ROUTE .MEDSUPPLY Qty: 200 3RF Rx Instructions: check blood glucose daily for type 2 DM Lantus U-100 Insulin 100 unit/mL solution 26 unit subcut DAILY 90 Days Qty: 23.4 1RF (DME) OneTouch Ultra Blue Test Strip Strip See Rx Instructions .ROUTE .MEDSUPPLY Qty: 100 3RF Rx Instructions: check blood glucose daily for type 2 DM dulaglutide 4.5 mg/0.5 mL pen injector 4.5 mg subcut QWEEK Qty: 4.5 0RF Primary Care Provider: Hernan Archuleta NP Referrals: Hernan Archuleta NP, [employer] MACHINE OPERATOR HELPER-C [Primary Care Provider] - Activity Restrictions/Additional Instructions: Please return if you develop chest pain, if you lose consciousness, if develop shortness of breath. Please return if your heart rate remains elevated or if you are symptomatic in any way. Disposition Disposition: Home, Self Care
--- NOTE | 2022-05-03 00:47 | EKG12_ITS ---
Test Reason : PALP Blood Pressure : / mmHG Vent. Rate : 112 BPM Atrial Rate : 112 BPM P-R Int : 156 ms QRS Dur : 086 ms QT Int : 360 ms P-R-T Axes : 068 058 011 degrees QTc Int : 491 ms Sinus tachycardia Otherwise normal ECG Confirmed by PARISA MARIA, SUGAR ([id number]), pictures editor JULIANA LOGAN ([id number]) on 05/07/2022 12:51:19 PM Referred By: XIN Confirmed By:SUGAR MCCAULEY MD
[2022-05-03 00:58] VITALS: O2SAT 100
[2022-05-03] MEDS: 0.9% Normal Saline 1,000 ML 999 ML IV (00:59)
[2022-05-03 01:00] VITALS: BP 160/98; PULSE 102; RESP 20; O2SAT 99
--- NOTE | 2022-05-03 01:05 | RAD_ITS ---
EXAM: XR CHEST, 1 VIEW CLINICAL INDICATION: chest pain TECHNIQUE: Frontal view of the chest. This report was created using [employer] report generation technology. COMPARISON: None. FINDINGS: LUNGS AND PLEURAL SPACES: Unremarkable. No consolidation or edema. No pneumothorax. No effusion. HEART: Unremarkable. Cardiac silhouette not enlarged. MEDIASTINUM: Central airways and mediastinal contour are unremarkable. BONES/JOINTS: Unremarkable. SOFT TISSUES: Unremarkable. RAD/Chest 1 View (Portable) IMPRESSION: No radiographic evidence of acute cardiopulmonary disease. Electronically Signed: Errol Gomez MD at 1:22 EDT ,
[2022-05-03 01:06] LABS: Absolute Lymphocyte Count 3.04 X10^3/uL (0.83-4.51); Absolute Neutrophil Count 8.5 X10^3/uL (2.0-7.7); Basophil# 0.05 X10^3/uL; Basophil% 0.4 % (0-1); Eosinophil# 0.29 X10^3/uL; Eosinophils% 2.3 % (0-5); Hematocrit 39.5 % (37-47); Hemoglobin 12.8 g/dL (12.0-15.0); Lymphocyte # 3.04 X10^3/ul (0.83-4.51); Lymphocyte % 24.1 % (19-41); Mean Corp Hgb Conc 32.4 g/dL (32-36); Mean Corpuscular Hgb 27.6 pg (27.0-32.0); Mean Corpuscular Volume 85.1 fL (81-99); Mean Platelet Vol. 8.6 fl (6.2-12.0); Monocyte# 0.71 X10^3/uL; Monocyte% 5.6 % (0-10); NRBC Flagged by Analyzer 0 % (0-5); Neutrophil % 67.2 % (47-70); Platelet Count 408 K/mm3 (150-450); RBC Distribution Width CV 12.5 % (11.6-14.6); RBC Distribution Width SD 38.5 fl (35.1-43.9); Red Blood Count 4.64 M/mm3 (4.2-5.4); White Blood Count 12.6 K/mm3 (4.4-11.0)
[2022-05-03 01:30] LABS: Anion Gap 9 (5-15); BUN 8 mg/dL (7-18); BUN/Creat Ratio 14.5 RATIO (10-20); Calcium,Total 9.1 mg/dL (8.5-10.1); Chloride 103 mmol/L (98-107); Creatinine, Serum 0.55 mg/dL (0.55-1.02); EST Glomerular Filtration Rate 135 mL/min (>60); Est Glom Filt Rate - Afr Amer 164 mL/min (>60); Estimated Creatinine Clearance 153.46 ml/min; Glucose 177 mg/dL (74-106); Potassium 3.3 mmol/L (3.5-5.1); Sodium Level 137 mmol/L (136-145); Thyroid Stim Hormone (TSH) 6.78 uIU/mL (0.358-3.74); Troponin-I HS (w/2H Reflex) 3 pg/mL (3.0-54.0)
[2022-05-03 02:06] VITALS: BP 153/71; PULSE 98; RESP 18; O2SAT 100
[2022-05-03] MEDS: Potassium Chloride Oral Tablet 20 MEQ PO (02:12)
[2022-05-03 02:17] VITALS: BP 153/71; PULSE 98; RESP 18; O2SAT 100
[2022-05-03 03:04] LABS: Reflex Troponin-HS? (from REC) Y
== END 2022-05-03 02:18 | disposition home or self-care (01) ==
PROVIDERS: Emergency Provider Emergency Medicine; PCP Nurse Practitioner Family; Visit Provider Emergency Medicine
DX: R00.2 Palpitations (principal); M06.9 Rheumatoid arthritis, unspecified; E11.9 Type 2 diabetes mellitus without complications; I10 Essential (primary) hypertension; F17.210 Nicotine dependence, cigarettes, uncomplicated
CPT/HCPCS: 71045; 80048; 84443; 84484; 85025; 93005; 96360; 99285; J7030; A4216

== ENCOUNTER → 2022-05-19 | Outpatient (CLI) | payer MEDICAID, SELFPAY ==
[2022-05-19 16:01] LABS: Erythrocyte Sedimentation Rate 29 mm/hr (0-30)
[2022-05-19 16:04] LABS: Hemoglobin 12.4 g/dL (12.0-15.0); Mean Corp Hgb Conc 32.6 g/dL (32-36); Mean Corpuscular Hgb 28.4 pg (27.0-32.0); Platelet Count 434 K/mm3 (150-450); RBC Distribution Width CV 13.3 % (11.6-14.6); RBC Distribution Width SD 41.9 fl (35.1-43.9); Red Blood Count 4.37 M/mm3 (4.2-5.4)
[2022-05-19 16:35] LABS: Vitamin D,25 Hydroxy 43.6 ng/mL
[2022-05-19 16:50] LABS: ALB/GLOB Ratio 0.8 RATIO (0.9-2.4); AST(SGOT) 11 U/L (15-37); Alanine Aminotransfer ALT/SGPT 19 U/L (13-56); Albumin, Serum 3.2 g/dL (3.2-5.0); Alkaline Phosphatase 59 U/L (45-117); Amylase 50 U/L (25-115); Anion Gap 7 (5-15); BUN 12 mg/dL (7-18); BUN/Creat Ratio 17.6 RATIO (10-20); Calcium,Total 8.9 mg/dL (8.5-10.1); Chloride 102 mmol/L (98-107); Creatinine, Serum 0.68 mg/dL (0.55-1.02); EST Glomerular Filtration Rate 106 mL/min (>60); Est Glom Filt Rate - Afr Amer 128 mL/min (>60); Free T3 2.5 pg/mL (2.18-3.98); Globulin 4.1 g/dL (2.2-4.2); Glucose 367 mg/dL (74-106); Lipase 167 U/L (73-393); Potassium 3.8 mmol/L (3.5-5.1); Protein, Total 7.3 g/dL (6.4-8.2); Sodium Level 133 mmol/L (136-145); T4 Free Direct 1.01 ng/dL (0.76-1.46)
[2022-05-21 22:07] LABS: Thyroid Peroxidase AB < 8 IU/mL (0-34)
[2022-05-23 20:04] LABS: C-Peptide 4.4 ng/mL (1.1-4.4); Thyroglobulin Antibody < 1.0 IU/mL (0.0-0.9)
== END | disposition home or self-care (01) ==
PROVIDERS: PCP Nurse Practitioner Family; Referring Provider Nurse Practitioner Family; Visit Provider Nurse Practitioner Family
DX: E87.6 Hypokalemia (principal); E11.65 Type 2 diabetes mellitus with hyperglycemia; I10 Essential (primary) hypertension; R00.2 Palpitations; R00.0 Tachycardia, unspecified; E04.9 Nontoxic goiter, unspecified; L29.9 Pruritus, unspecified; D72.829 Elevated white blood cell count, unspecified; E03.9 Hypothyroidism, unspecified
CPT/HCPCS: 36415; 80053; 82150; 82306; 83690; 84439; 84443; 84481; 84681; 85027; 85652; 86140; 86376; 86800

== ENCOUNTER → 2022-05-21 | Outpatient (CLI) | payer MEDICAID, SELFPAY | END | disposition home or self-care (01) | LOC: PSN 11:51 | PROVIDERS: PCP Nurse Practitioner Family; Referring Provider Nurse Practitioner Family; Visit Provider Nurse Practitioner Family | DX: R00.0 Tachycardia, unspecified (principal); R00.2 Palpitations; I10 Essential (primary) hypertension | CPT/HCPCS: 93225; 93226 ==

== ENCOUNTER → 2022-05-23 | Outpatient (CLI) | payer MEDICAID, SELFPAY ==
--- NOTE | 2022-05-23 10:33 | US_ITS ---
STUDY: THYROID ULTRASOUND REASON FOR EXAM: Female, 31 years old. THYROID ENLARGEMENT TECHNIQUE: Ultrasound evaluation of the thyroid was performed with real-time and static quinones-scale imaging. COMPARISON: None. FINDINGS: RIGHT LOBE: The right lobe of the thyroid gland measures 5.3 x 2.1 x 2.4 cm. There is a homogeneous echotexture. There are no demonstrated solid, cystic or complex lesions. LEFT LOBE: The left lobe of the thyroid gland measures 5.0 x 2.1 x 1.1 cm. There is a homogeneous echotexture. There is a complex solid/cystic 3 x 3 x 2 mm nodule ISTHMUS: The isthmus measures 2.1 mm. The regional lymph nodes are normal. US/Thyroid IMPRESSION: Borderline enlarged thyroid with a solid/cystic 3 mm nodule in the left lobe. No specific follow-up needed Electronically Signed: Thom Drake MD at 15:16 EDT ,
== END | disposition home or self-care (01) ==
LOC: US 10:32
PROVIDERS: PCP Nurse Practitioner Family; Referring Provider Nurse Practitioner Family; Visit Provider Nurse Practitioner Family
DX: E04.9 Nontoxic goiter, unspecified (principal); E03.9 Hypothyroidism, unspecified
CPT/HCPCS: 76536

== ENCOUNTER → 2022-05-29 | Outpatient (CLI) | payer MEDICAID, SELFPAY ==
--- NOTE | 2022-05-29 18:20 | US_ITS ---
STUDY: ULTRASOUND OF THE FEMALE PELVIS - COMPLETE REASON FOR EXAM: Female, 31 years old. AUB TECHNIQUE: Transabdominal COMPARISON: None. FINDINGS: The uterus is anteverted and is in a midline position. The uterus measures 9.2 x 4.8 cm. There is a Nabothian cyst of the cervix. The endometrium measures 6 mm in thickness, and is hyperechoic. There is no demonstrated endometrial mass. There is no demonstrated myometrial mass. I.U.D. - The patient does not have an I.U.D. The right ovary is visualized. The right ovary measures 2.9 cm. There is no right ovarian cyst or ovarian mass. There is no visualized right adnexal mass or complex lesion. There is normal arterial and normal venous vascularity. The left ovary is visualized. The left ovary measures 4.8 cm. Cyst measures 32 mm. There is no visualized left adnexal mass or complex lesion. There is normal arterial and normal venous vascularity. There is minimal fluid in the cul-de-sac. Urinary bladder volume is (in cc) 171. US/Pelvic (Non ) IMPRESSION: There are Nabothian cysts of the cervix. There is minimal fluid in the cul-de-sac. Simple left ovarian cyst. No follow up required. Electronically Signed: Errol Yost MD at 19:30 EST ,
== END | disposition home or self-care (01) ==
LOC: US 18:18
PROVIDERS: PCP Nurse Practitioner Family; Visit Provider Obstetrics & Gynecology
DX: N93.9 Abnormal uterine and vaginal bleeding, unspecified (principal)
CPT/HCPCS: 76830; 76856

== ENCOUNTER → 2022-06-01 | Outpatient (CLI) | payer MEDICAID, SELFPAY ==
--- NOTE | 2022-06-01 14:54 | ECHOD_ITS ---
Reason For Study: Sinus Tachycardia Procedure This was a 2D Doppler, Color Flow transthoracic echocardiogram. Exam performed in department. Left Ventricle Normal LV size. Left ventricular systolic function is normal. The estimated ejection fraction is 65 %. Normal diastology for age. No regional wall motion abnormalities noted. Right Ventricle Normal RV size. Normal systolic function. Atria The left atrium is mildly enlarged. Normal right atrium. Mitral Valve Normal mitral valve. Tricuspid Valve Normal tricuspid valve. Aortic Valve The aortic valve is not well visualized. Pulmonic Valve Normal pulmonic valve. Great Vessels Normal aortic root. The pulmonary artery is normal size. Normal inferior vena cava. Pericardium/Pleural No pericardial effusion. MMode/2D Measurements & Calculations LVIDd: 4.2 cm IVSd: 0.89 cm Ao root diam: 2.9 cm LVIDs: 2.5 cm LVPWd: 1.2 cm LA dimension: 4.2 cm RVDd: 3.6 cm FS: 40.2 % LAV(MOD-bp): 76.3 ml LA A4 area: 24.5 cm2 RA A4 area: 15.2 cm2 LAV(MOD-bp) Indexed: 36.9 ml/m2 LAV(MOD-sp2): 59.0 ml LAV(MOD-sp4): 76.8 ml Time Measurements MV dec time: 0.17 sec Doppler Measurements & Calculations MV E max neo: 109.0 cm/sec Lat Peak E' Neo: 21.9 cm/sec Med Peak E' Neo: 13.4 cm/sec MV A max neo: 94.3 cm/sec E/E' lat: 5.0 E/E' med: 8.2 MV E/A: 1.2 Ao V2 max: 164.4 cm/sec LV V1 max: 120.2 cm/sec PA V2 max: 151.7 cm/sec Ao max P.8 mmHg LV V1 max P.8 mmHg Ao V2 mean: 110.3 cm/sec LV V1 mean P.2 mmHg Ao mean P.6 mmHg LV V1 mean: 83.3 cm/sec Ao V2 VTI: 32.7 cm LV V1 VTI: 23.5 cm TR max neo: 206.5 cm/sec TR max P.1 mmHg ECHO/Echo Complete Interpretation Summary Normal LV size. Left ventricular systolic function is normal. The estimated ejection fraction is 65 %. Normal diastology for age. The left atrium is mildly enlarged. Ordering Physician: Hernan Archuleta Referring Physician: Hernan Archuleta Performed By: Hardik Smallwood RCS
== END | disposition home or self-care (01) ==
LOC: CVS 14:53
PROVIDERS: PCP Nurse Practitioner Family; Referring Provider Nurse Practitioner Family; Visit Provider Nurse Practitioner Family
DX: R00.0 Tachycardia, unspecified (principal); R00.2 Palpitations; I10 Essential (primary) hypertension
CPT/HCPCS: 93306

== ENCOUNTER → 2022-07-03 | Outpatient (CLI) | payer MEDICAID, SELFPAY | END | disposition home or self-care (01) | PROVIDERS: PCP Nurse Practitioner Family; Visit Provider Obstetrics & Gynecology | DX: N76.4 Abscess of vulva (principal) | CPT/HCPCS: 87070; 87075; 87077; 87186; 87205 ==

== ENCOUNTER → 2022-09-02 | Outpatient (CLI) | payer MEDICAID, SELFPAY | END | disposition home or self-care (01) | PROVIDERS: PCP Nurse Practitioner Family; Visit Provider Nurse Practitioner Women's Health | DX: N76.4 Abscess of vulva (principal) | CPT/HCPCS: 87070; 87077; 87186; 87205 ==

== ENCOUNTER → 2024-05-11 | Outpatient (CLI) | payer MEDICAID, SELFPAY ==
[2024-05-11 12:47] LABS: Absolute Lymphocyte Count 1.53 X10^3/uL (0.83-4.51); Absolute Neutrophil Count 6.6 X10^3/uL (2.0-7.7); Basophil# 0.04 X10^3/uL; Basophil% 0.5 % (0-1); Eosinophil# 0.15 X10^3/uL; Eosinophils% 1.7 % (0-5); Hematocrit 41.9 % (37-47); Hemoglobin 13.3 g/dL (12.0-15.0); Lymphocyte # 1.53 X10^3/ul (0.83-4.51); Lymphocyte % 17.4 % (19-41); Mean Corp Hgb Conc 31.7 g/dL (32-36); Mean Corpuscular Hgb 25.9 pg (27.0-32.0); Mean Corpuscular Volume 81.5 fL (81-99); Mean Platelet Vol. 9.2 fl (6.2-12.0); Monocyte# 0.47 X10^3/uL; Monocyte% 5.3 % (0-10); NRBC Flagged by Analyzer 0 % (0-5); Neutrophil % 74.9 % (47-70); Platelet Count 359 K/mm3 (150-450); RBC Distribution Width CV 14.1 % (11.6-14.6); RBC Distribution Width SD 41.5 fl (35.1-43.9); Red Blood Count 5.14 M/mm3 (4.2-5.4); White Blood Count 8.8 K/mm3 (4.4-11.0)
[2024-05-11 14:22] LABS: ALB/GLOB Ratio 0.8 RATIO (0.9-2.4); AST(SGOT) 9 U/L (15-37); Alanine Aminotransfer ALT/SGPT 21 U/L (13-56); Albumin, Serum 3.1 g/dL (3.2-5.0); Alkaline Phosphatase 82 U/L (45-117); Anion Gap 8 (5-15); BUN 10 mg/dL (7-18); BUN/Creat Ratio 14.2 RATIO (10-20); Chloride 101 mmol/L (98-107); Cholesterol 182 mg/dL (200); Creatinine, Serum 0.71 mg/dL (0.55-1.02); EST Glomerular Filtration Rate 100 mL/min (>60); Est Glom Filt Rate - Afr Amer 122 mL/min (>60); Globulin 3.8 g/dL (2.2-4.2); High Density Lipoprotein 60 mg/dL; Potassium 4.2 mmol/L (3.5-5.1); Protein, Total 6.9 g/dL (6.4-8.2); Sodium Level 132 mmol/L (136-145); Triglycerides 136 mg/dL; Very Low Density Lipoprotein 27 mg/dL (5-40)
[2024-05-11 15:29] LABS: Glucose 494 mg/dL (74-106)
== END | disposition home or self-care (01) ==
LOC: VSLAB 10:32
PROVIDERS: PCP Nurse Practitioner Family; Visit Provider Nurse Practitioner Family
DX: I10 Essential (primary) hypertension (principal); E11.8 Type 2 diabetes mellitus with unspecified complications
CPT/HCPCS: 36415; 80053; 80061; 84443; 85025

== ENCOUNTER → 2024-06-05 | Outpatient (CLI) | payer MEDICAID, SELFPAY | END | disposition home or self-care (01) | PROVIDERS: PCP Nurse Practitioner Family; Referring Provider Physician Assistant; Visit Provider Physician Assistant | DX: J02.9 Acute pharyngitis, unspecified (principal) | CPT/HCPCS: 87070; 87077 ==

== ENCOUNTER → 2024-12-22 | Outpatient (CLI) | payer OTHER, SELFPAY ==
[2024-12-22 12:19] LABS: Absolute Lymphocyte Count 1.56 X10^3/uL (0.83-4.51); Absolute Neutrophil Count 6.8 X10^3/uL (2.0-7.7); Basophil# 0.05 X10^3/uL; Basophil% 0.5 % (0-1); Eosinophils% 2.2 % (0-5); Hematocrit 40.7 % (37-47); Lymphocyte # 1.56 X10^3/ul (0.83-4.51); Mean Corp Hgb Conc 31.9 g/dL (32-36); Mean Corpuscular Hgb 26.3 pg (27.0-32.0); Mean Corpuscular Volume 82.4 fL (81-99); Mean Platelet Vol. 9.3 fl (6.2-12.0); Monocyte% 6.5 % (0-10); NRBC Flagged by Analyzer 0 % (0-5); Neutrophil # 6.75 X10^3/uL (2.7-7.7); Neutrophil % 73.6 % (47-70); Platelet Count 389 K/mm3 (150-450); RBC Distribution Width CV 14.1 % (11.6-14.6); RBC Distribution Width SD 42.1 fl (35.1-43.9); Red Blood Count 4.94 M/mm3 (4.2-5.4); White Blood Count 9.2 K/mm3 (4.4-11.0)
[2024-12-22 13:15] LABS: ALB/GLOB Ratio 1.3 RATIO (0.9-2.4); AST(SGOT) 15 U/L (<=31); Alanine Aminotransfer ALT/SGPT 16 U/L (<=34); Albumin, Serum 3.8 g/dL (3.5-5.0); Alkaline Phosphatase 80 U/L (35-104); Anion Gap 11 (5-15); BUN 13 mg/dL (4-19); Calcium,Total 8.8 mg/dL (7.6-11.0); Carbon Dioxide 20.8 mmol/L (21.0-32.0); Chloride 100 mmol/L (98-108); Cholesterol 179 mg/dL (<=200); Creatinine, Serum 0.55 mg/dL (0.70-1.20); EST Glomerular Filtration Rate 122 (>60); Follicle Stimulating Hormone 6.5 mIU/mL; Glucose 371 mg/dL (70-99); High Density Lipoprotein 60 mg/dL; Low Density Lipoprotein Calc. 103 mg/dL; Luteinizing Hormone 3.5 mIU/mL; Potassium 4.2 mmol/L (3.3-5.1); Protein, Total 6.9 g/dL (5.9-8.4); Sodium Level 132 mmol/L (133-145); Triglycerides 83 mg/dL; Very Low Density Lipoprotein 17 mg/dL (5-40); Vitamin D,25 Hydroxy 18.8 ng/mL (30-100); cholesterol:hdl ratio screen 3.01
[2024-12-22 13:31] LABS: Microalbumin,Random Urine 73.4 mg/L (NO RANGE EST.)
[2024-12-27 15:08] LABS: Estrogen, Total, Serum 126 pg/mL (.); Testosterone, % Free 2.93 % (0.50-2.80); Testosterone, Free 0.35 ng/dL (0.10-0.85); Testosterone, Total 12 ng/dL (8-60)
== END | disposition home or self-care (01) ==
LOC: VSLAB 08:23
PROVIDERS: PCP Nurse Practitioner Family; Visit Provider Nurse Practitioner Family
DX: E11.8 Type 2 diabetes mellitus with unspecified complications (principal); I10 Essential (primary) hypertension; E55.9 Vitamin D deficiency, unspecified; E66.9 Obesity, unspecified; F32.81 Premenstrual dysphoric disorder
CPT/HCPCS: 36415; 80053; 80061; 82043; 82306; 82533; 82672; 83001; 83002; 84402; 84403; 84443; 85025